=== PATIENT | female | born 1935 | race Caucasian/White ===

== ENCOUNTER → 2016-06-08 | Outpatient (CLI) | payer MEDICARE, BC ==
[2016-06-08 10:18] LABS: Calcium 9.1 mg/dL (8.4-10.2); Potassium 4.5 mmol/L (3.5-5.1); Total Bilirubin 0.4 mg/dL (0.2-1.3); Total Protein 6.7 g/dL (6.3-8.2)
[2016-06-09 08:27] LABS: Hemoglobin A1C 8.7 % (4.2-6.1)
== END | disposition home or self-care (01) ==
LOC: LABWHC1 09:31
PROVIDERS: ATTEND Internal Medicine
DX: E11.22 Type 2 diabetes mellitus with diabetic chronic kidney disease (principal); N18.3 Chronic kidney disease, stage 3 (moderate); E78.5 Hyperlipidemia, unspecified; E55.9 Vitamin D deficiency, unspecified
CPT/HCPCS: 36415; 80053; 80061; 82306; 82550; 83036; 84443; 85652

== ENCOUNTER 2016-07-28 10:04 | Emergency (ER) | payer MEDICARE, BC ==
[2016-07-28] MEDS ORDERED: cloNIDine HCL 0.1 MG TAB PO STA (10:27)
--- NOTE | 2016-07-28 10:39 | ED ---
General Adult HPI - General Chief complaint: Recheck/Abnormal Lab/Rx Stated complaint: Hypertension Time Seen by Provider: 07/28/16 10:06 Source: patient Mode of arrival: EMS Limitations: no limitations - History of Present Illness Initial comments: This is an 80-year-old female with a history of hypertension, renal artery stenosis, renal cell carcinoma who presents emergency department for elevated blood pressure the last couple of days and generalized malaise. She states that she also felt extremely nauseated this morning and vomited. She states that she's been taking all her medications as prescribed. She had some type of experience mental surgery for the renal cell carcinoma and renal artery stenosis at [facility] about one year ago. She states that since this time she's been doing well. Over the last few days she's noticed that her blood pressure is been elevated mostly in the morning. Today she started feeling very nauseated and did not feel bad so she decided to come to the emergency department. She denies any chest pain or shortness of breath currently. She does state that occasionally she gets a sharp pain in her suprapubic region area she denies any fevers or chills. She does state that her son is going to undergo brain surgery for the third time this week and she's been very stressed out about that. She denies any other complaints. - Related Data Home Medications Medication Instructions Recorded Confirmed Atorvastatin [Lipitor] 40 mg PO DAILY 12/31/14 07/28/16 Insulin Aspart [NovoLOG Flexpen] 10 units SQ AC-TID 12/31/14 07/28/16 Isosorbide Mononitrate ER [Imdur] 30 mg PO DAILY 12/31/14 07/28/16 Levothyroxine Sodium [Synthroid] 50 mcg PO DAILY 12/31/14 07/28/16 Pantoprazole Sodium 40 mg PO DAILY 12/31/14 07/28/16 Aspirin 81 mg PO DAILY 03/24/15 07/28/16 Calcium Carbonate/Vitamin D3 1 tab PO DAILY 03/24/15 07/28/16 [Calcium 600-Vit D3 400 Tablet] Multivit-Min/FA/Lycopene/Lut 1 tab PO DAILY 03/24/15 07/28/16 [Centrum Silver Tablet] Nitroglycerin Sl Tabs [Nitrostat] 0.4 mg SUBLINGUAL Q5M PRN 03/24/15 07/28/16 Anti Diarrheal 1 tab PO DAILY PRN 01/25/16 07/28/16 Chlorothiazide [Diuril] 500 mg PO DAILY 01/25/16 07/28/16 Furosemide [Lasix] 20 mg PO DAILY 01/25/16 07/28/16 Gabapentin [Neurontin] 400 mg PO QID 01/25/16 07/28/16 cloNIDine HCL [Catapres] 0.2 mg PO HS 01/25/16 07/28/16 Carvedilol [Coreg] 12.5 mg PO BID 07/28/16 07/28/16 Insulin Aspart [NovoLOG Flexpen] See Protocol SQ AC-TID 07/28/16 07/28/16 Insulin Glargine,Hum.rec.anlog 55 units SQ HS 07/28/16 07/28/16 [[place] Solostjon] Previous Rx's Medication Instructions Recorded Losartan [Cozaar] 100 mg PO DAILY #30 tab 03/28/15 Allergies Allergy/AdvReac Type Severity Reaction Status Date / Time JOCELYNN Inhibitors Allergy Unknown Verified 07/28/16 12:47 aspartame AdvReac Nausea & Verified 07/28/16 12:47 Vomiting Review of Systems ROS Statement: Those systems with pertinent positive or pertinent negative responses have been documented in the HPI. ROS Other: All systems not noted in ROS Statement are negative. Past Medical History Past Medical History: Asthma, Blood Disorder, Coronary Artery Disease (CAD), Cancer, Chest Pain / Angina, Diabetes Mellitus, GERD/Reflux, Hyperlipidemia, Hypertension, Osteoarthritis (OA), Pneumonia, Renal Disease, Thyroid Disorder, Vascular Disorder Additional Past Medical History / Comment(s): 03/24/15 Pt presented to [facility] ER with difficulty controlling B/P for quite some time and getting worse. She has a renal mass and is scheduled to see Dr. Kevin Cm, March. She is having severe headaches. Pt is being admitted with clinical impression of HTN associated with DM, HTN urgency, 2ndary HTN, renal mass. Pt last admitted with essential HTN uncontrolled with acute metabolic encephalapathy. Other HX: brain aneurysms x 3 with 2 clippings and 1 calcified, IDDM typre II, lower leg edema, pneumonias, hypothyroidism, hypomagnesemia, colorectal polyps- benign, peripheral vascular occlusive disorder, anemia, DJD History of Any Multi-Drug Resistant Organisms: None Reported Past Surgical History: Appendectomy, Joint Replacement, Orthopedic Surgery, Tonsillectomy Additional Past Surgical History / Comment(s): R renal artery replacement with groin vein graft, brain aneurysms with clips x 2, cataract removal both eyes, colonoscopies x 2 with first one having benign polypectoy and 2nd one normal. kidney ca surg Past Anesthesia/Blood Transfusion Reactions: No Reported Reaction Additional Past Anesthesia/Blood Transfusion Reaction / Comment(s): Pt has received blood without reaction. Past Psychological History: No Psychological Hx Reported Additional Psychological History / Comment(s): Pt lives in a condo, alone. She is normally independent. She uses no assistive device. She drives a car. Smoking Status: Former smoker Past Alcohol Use History: None Reported Additional Past Alcohol Use History / Comment(s): Pt quit smoking in 2004. Past Drug Use History: None Reported - Past Family History Father Family Medical History: Myocardial Infarction (ID) Mother Family Medical History: Cancer General Exam - General Exam Comments Initial Comments: Constitutional: Awake alert Appears comfortable Head: Normocephalic atraumatic Eyes: no conjunctival injection No scleral icterus EOMI Neck: No JVD Supple Heart: Regular rate rhythm normal S1-S2 no murmurs Lungs: Clear to auscultation bilaterally No wheezing No rales Abdomen: Soft nondistended nontender Extremities: Non edematous DP pulses intact Radial pulses intact Neuro: A&Ox3 No focal neurologic deficits Psych: Appropriate mood and affect Limitations: no limitations Course Vital Signs 07/28/16 10:14 Temperature 97.8 F Pulse Rate 76 Respiratory 18 Rate Blood Pressure 222/84 O2 Sat by Pulse 100 Oximetry - Reevaluation(s) Reevaluation #1: 07/28/16 12:37 Patient's blood pressure improved after clonidine. She is very concerned about her kidneys because of her history and this right flank and groin pain. We'll get computed tomography scan for eval. EKG Findings - EKG Comments: EKG Findings:: EKG showing normal sinus rhythm with a rate of 61. No ST segment changes or T-wave inversions. QTC is 424. Other intervals are normal. One PVC. Medical Decision Making - Medical Decision Making This is an 80-year-old female with a history of renal artery stenosis who presents emergency department for high blood pressure. Blood work was reviewed and unremarkable. She was improved after 1 dose of clonidine. Computed tomography scan did not show any acute changes from previous imaging. She feels better and wants to go home. I told her to give her primary care doctor a call in the morning about getting her blood pressure medications changed. She can return if she has worsening or changing symptoms. All questions were answered. - Lab Data Result diagrams: 07/28/16 10:52 07/28/16 10:52 Lab Results 07/28/16 07/28/16 07/28/16 Range/Units 10:52 10:52 10:52 WBC 8.0 (3.8-10.6) k/uL RBC 4.45 (3.80-5.40) m/uL Hgb 12.8 (11.4-16.0) gm/dL Hct 37.5 (34.0-46.0) % MCV 84.3 (80.0-100.0) fL MCH 28.9 (25.0-35.0) pg MCHC 34.3 (31.0-37.0) g/dL RDW 14.0 (11.5-15.5) % Plt Count 331 (150-450) k/uL Neutrophils % 83 % Lymphocytes % 11 % Monocytes % 4 % Eosinophils % 0 % Basophils % 0 % Neutrophils # 6.7 (1.3-7.7) k/uL Lymphocytes # 0.9 L (1.0-4.8) k/uL Monocytes # 0.3 (0-1.0) k/uL Eosinophils # 0.0 (0-0.7) k/uL Basophils # 0.0 (0-0.2) k/uL Sodium 143 (137-145) mmol/L Potassium 4.0 (3.5-5.1) mmol/L Chloride 104 (98-107) mmol/L Carbon Dioxide 27 (22-30) mmol/L Anion Gap 12 mmol/L BUN 27 H (7-17) mg/dL Creatinine 1.21 H (0.52-1.04) mg/dL Est GFR (MDRD) Af Amer 52 (>60 ml/min/1.73 sqM) Est GFR (MDRD) Non-Af 43 (>60 ml/min/1.73 sqM) Glucose 185 H (74-99) mg/dL Calcium 10.2 (8.4-10.2) mg/dL Total Bilirubin 0.8 (0.2-1.3) mg/dL AST 23 (14-36) U/L ALT 35 (9-52) U/L Alkaline Phosphatase 83 (38-126) U/L Total Protein 6.7 (6.3-8.2) g/dL Albumin 4.0 (3.5-5.0) g/dL Amylase 116 H (30-110) U/L Lipase 173 (23-300) U/L Urine Color Urine Appearance (Clear) Urine pH (5.0-8.0) Ur Specific [place] (1.001-1.035) Urine Protein (Negative) Urine Glucose (UA) (Negative) Urine Ketones (Negative) Urine Blood (Negative) Urine Nitrite (Negative) Urine Bilirubin (Negative) Urine Urobilinogen (<2.0) mg/dL Ur Leukocyte Esterase (Negative) Urine WBC (0-5) /hpf Urine Bacteria (None) /hpf Urine Mucus (None) /hpf 07/28/16 Range/Units 11:08 WBC (3.8-10.6) k/uL RBC (3.80-5.40) m/uL Hgb (11.4-16.0) gm/dL Hct (34.0-46.0) % MCV (80.0-100.0) fL MCH (25.0-35.0) pg MCHC (31.0-37.0) g/dL RDW (11.5-15.5) % Plt Count (150-450) k/uL Neutrophils % % Lymphocytes % % Monocytes % % Eosinophils % % Basophils % % Neutrophils # (1.3-7.7) k/uL Lymphocytes # (1.0-4.8) k/uL Monocytes # (0-1.0) k/uL Eosinophils # (0-0.7) k/uL Basophils # (0-0.2) k/uL Sodium (137-145) mmol/L Potassium (3.5-5.1) mmol/L Chloride (98-107) mmol/L Carbon Dioxide (22-30) mmol/L Anion Gap mmol/L BUN (7-17) mg/dL Creatinine (0.52-1.04) mg/dL Est GFR (MDRD) Af Amer (>60 ml/min/1.73 sqM) Est GFR (MDRD) Non-Af (>60 ml/min/1.73 sqM) Glucose (74-99) mg/dL Calcium (8.4-10.2) mg/dL Total Bilirubin (0.2-1.3) mg/dL AST (14-36) U/L ALT (9-52) U/L Alkaline Phosphatase (38-126) U/L Total Protein (6.3-8.2) g/dL Albumin (3.5-5.0) g/dL Amylase (30-110) U/L Lipase (23-300) U/L Urine Color Light Yellow Urine Appearance Clear (Clear) Urine pH 6.5 (5.0-8.0) Ur Specific [place] 1.008 (1.001-1.035) Urine Protein 1+ H (Negative) Urine Glucose (UA) Negative (Negative) Urine Ketones Negative (Negative) Urine Blood Negative (Negative) Urine Nitrite Negative (Negative) Urine Bilirubin Negative (Negative) Urine Urobilinogen <2.0 (<2.0) mg/dL Ur Leukocyte Esterase Trace H (Negative) Urine WBC 1 (0-5) /hpf Urine Bacteria Rare H (None) /hpf Urine Mucus Rare H (None) /hpf Disposition Clinical Impression: Hypertension Disposition: HOME SELF-CARE Condition: Stable Instructions: Hypertension (ED) Additional Instructions: David primary doctor in the morning to inquire about changing blood pressure medications. Return if any worsening or changing symptoms. Referrals: Jae Dubno MD [Primary Care Provider] - 1-2 days
[2016-07-28 11:03] LABS: Basophils % (A) 0 %; CH 28.7; CHCM 34.2; Eosinophils % (A) 0 %; HCT 37.5 % (34.0-46.0); HDW 3.12; HGB 12.8 gm/dL (11.4-16.0); Luc # (Auto) 0.09; Luc % (Auto) 1; Lymphocytes # (A) 0.9 k/uL (1.0-4.8); Lymphocytes % (A) 11 %; MCH 28.9 pg (25.0-35.0); MCHC 34.3 g/dL (31.0-37.0); MCV 84.3 fL (80.0-100.0); Monocytes # (A) 0.3 k/uL (0-1.0); Monocytes % (A) 4 %; Neutrophils # (A) 6.7 k/uL (1.3-7.7); Neutrophils % (A) 83 %; RBC 4.45 m/uL (3.80-5.40)
[2016-07-28 11:25] LABS: Appearance,Urine Clear (Clear); Bacteria,Urine Rare /hpf; Bilirubin,Urine Negative (Negative); Glucose,Urine (UA) Negative (Negative); Ketones,Urine Negative (Negative); Leukocyte Esterase,Urine Trace (Negative); Mucus,Urine Rare /hpf; Nitrite,Urine Negative (Negative); PH, Urine 6.5 (5.0-8.0); Particle Count 983; Protein,Urine 1+ (Negative); Specific Gravity,Urine 1.008 (1.001-1.035); UA Billing (MACRO vs. MICRO) MICRO; Urobilinogen,Urine <2.0 mg/dL (<2.0); WBC,Urine 1 /hpf (0-5)
[2016-07-28 11:38] LABS: Calcium 10.2 mg/dL (8.4-10.2); Total Bilirubin 0.8 mg/dL (0.2-1.3); Total Protein 6.7 g/dL (6.3-8.2)
--- NOTE | 2016-07-28 11:54 | XR ---
EXAMINATION TYPE: XR chest 2V DATE OF EXAM: 07/28/2016 11:36 AM COMPARISON: 03/25/2015 HISTORY: 80 year-old female elevated blood pressure, pain TECHNIQUE: AP and lateral views FINDINGS: Heart is upper limits of normal in size. Mild diffuse interstitial and vascular prominence may be sli ghtly increased from prior. No consolidation or pleural effusion. IMPRESSION: Borderline heart size and mild interstitial and vascular prominence. Correlate to exclude mild CHF. T here is no focal infiltrate or pulmonary edema.
--- NOTE | 2016-07-28 14:04 | CT ---
EXAMINATION TYPE: CT abdomen pelvis wo con DATE OF EXAM: 07/28/2016 1:21 PM COMPARISON: 03/05/2015 MRI. INDICATION: Right sided abdominal pain, Nausea, Renal cancer and left sided exploratory surgery DLP: 762.30 mGycm, Automated exposure control for dose reduction was used. CONTRAST: 0 mL of Omnipaque 300. Study performed without Oral Contrast TECHNIQUE: Axial images were obtained from above the diaphragm to the pubic rami in the axial plane a t 5 mm thick sections. Reconstructed images are reviewed on the computer in the coronal plane. FINDINGS: Limited CT sections are obtained the lung bases. Bibasilar atelectasis is present.. CT ABDOMEN: Liver: Normal Spleen: Normal Pancreas: The common bile duct the head of the pancreas is prominent measuring 1.0 cm. There may be a 0.5 cm calcification near the ampulla Vater. No biliary dilatation is evident. Adrenal glands: The adrenal glands are normal. Gallbladder: Normal. No gallstones are identified. Kidneys: There is a 2.5 cm mass extending from the inferior posterior lateral right kidney with adjac ent inflammatory change. This could be related to the patient's reported renal cancer. This was appar ent on the 02/28/2015 MRI exam. No hydronephrosis is present. No cysts are present. Aorta: Vascular calcification is within the aorta. Inferior vena cava: Normal. CT PELVIS: Diverticular changes are within the sigmoid colon. Loops of bowel within the abdomen and pelvis witho ut oral contrast are otherwise unremarkable. Appendix: Normal as visualized. Urinary bladder: Normal. Genitourinary structures: Uterus is unremarkable. Adnexal regions are normal. Osseous structures: No suspicious lytic or sclerotic lesions. IMPRESSIONS: 1. Inferior lateral right renal mass. This appears stable from the MRI exam.
[2016-07-28 14:47] VITALS: BP 155/67; PULSE 66; RESP 16; TEMP 96.7
== END 2016-07-28 14:46 | disposition home or self-care (01) ==
LOC: EC 10:04
DX: I11.9 Hypertensive heart disease without heart failure (principal); I25.10 Atherosclerotic heart disease of native coronary artery without angina pectoris; E11.9 Type 2 diabetes mellitus without complications; E78.5 Hyperlipidemia, unspecified; E03.9 Hypothyroidism, unspecified; M19.90 Unspecified osteoarthritis, unspecified site; Z87.891 Personal history of nicotine dependence; Z79.82 Long term (current) use of aspirin; Z79.899 Other long term (current) drug therapy; Z79.4 Long term (current) use of insulin; Z88.8 Allergy status to other drugs, medicaments and biological substances; Z79.02 Long term (current) use of antithrombotics/antiplatelets; Z87.01 Personal history of pneumonia (recurrent); Z86.79 Personal history of other diseases of the circulatory system; Z87.448 Personal history of other diseases of urinary system
CPT/HCPCS: 36415; 71020; 74176; 80053; 81001; 82150; 83690; 85025; 93005; 99284

== ENCOUNTER 2016-07-29 09:24 | Inpatient (IN) | payer MEDICARE, BC ==
[2016-07-29] MEDS ORDERED: ONDANSETRON 4 MG/2 ML VIAL IVP STA (11:09)
[2016-07-29] MEDS ORDERED: hydrALAZINE HCL 20 MG/ML 1 ML VIAL IVP STA ×2 (11:09→12:17)
--- NOTE | 2016-07-29 11:11 | ED ---
General Adult HPI - General Chief complaint: Recheck/Abnormal Lab/Rx Stated complaint: HBP Time Seen by Provider: 07/29/16 10:00 Source: patient, RN notes reviewed Mode of arrival: EMS Limitations: no limitations - History of Present Illness Initial comments: This is an 80-year-old female who presents emergency Department complaining that her blood pressure is high today. Patient states she was here yesterday because it was high and it was high again this morning with a systolic blood pressure over 200. Patient states she was having some dry heaves but did not vomit. Patient denies any chest pain difficulty breathing or shortness of breath. Patient denies being dizzy patient denies headache patient denies lightheadedness. Patient denies any numbness or weakness. Patient denies any blurred vision. Patient denied any abdominal pain. Patient states besides having the dry heaves at one time she just took her blood pressure was over 200s. She called her physician's office and he was unable to see her so she came back to the emergency department. - Related Data Home Medications Medication Instructions Recorded Confirmed Atorvastatin [Lipitor] 40 mg PO DAILY 12/31/14 07/29/16 Insulin Aspart [NovoLOG Flexpen] 10 units SQ AC-TID 12/31/14 07/29/16 Isosorbide Mononitrate ER [Imdur] 30 mg PO DAILY 12/31/14 07/29/16 Levothyroxine Sodium [Synthroid] 50 mcg PO DAILY 12/31/14 07/29/16 Pantoprazole Sodium 40 mg PO DAILY 12/31/14 07/29/16 Aspirin 81 mg PO DAILY 03/24/15 07/29/16 Calcium Carbonate/Vitamin D3 1 tab PO DAILY 03/24/15 07/29/16 [Calcium 600-Vit D3 400 Tablet] Multivit-Min/FA/Lycopene/Lut 1 tab PO DAILY 03/24/15 07/29/16 [Centrum Silver Tablet] Nitroglycerin Sl Tabs [Nitrostat] 0.4 mg SUBLINGUAL Q5M PRN 03/24/15 07/29/16 Anti Diarrheal 1 tab PO DAILY PRN 01/25/16 07/29/16 Chlorothiazide [Diuril] 500 mg PO DAILY 01/25/16 07/29/16 Furosemide [Lasix] 20 mg PO DAILY 01/25/16 07/29/16 Gabapentin [Neurontin] 400 mg PO QID 01/25/16 07/29/16 cloNIDine HCL [Catapres] 0.2 mg PO HS 01/25/16 07/29/16 Carvedilol [Coreg] 12.5 mg PO BID 07/28/16 07/29/16 Insulin Aspart [NovoLOG Flexpen] See Protocol SQ AC-TID 07/28/16 07/29/16 Insulin Glargine,Hum.rec.anlog 55 units SQ HS 07/28/16 07/29/16 [[place] Solostar] Previous Rx's Medication Instructions Recorded Losartan [Cozaar] 100 mg PO DAILY #30 tab 03/28/15 Allergies Allergy/AdvReac Type Severity Reaction Status Date / Time JOCELYNN Inhibitors Allergy Unknown Verified 07/29/16 09:43 aspartame AdvReac Nausea & Verified 07/29/16 09:43 Vomiting Review of Systems ROS Statement: Those systems with pertinent positive or pertinent negative responses have been documented in the HPI. ROS Other: All systems not noted in ROS Statement are negative. Past Medical History Past Medical History: Asthma, Blood Disorder, Coronary Artery Disease (CAD), Cancer, Chest Pain / Angina, Diabetes Mellitus, GERD/Reflux, Hyperlipidemia, Hypertension, Osteoarthritis (OA), Pneumonia, Renal Disease, Thyroid Disorder, Vascular Disorder Additional Past Medical History / Comment(s): 03/24/15 Pt presented to [facility] ER with difficulty controlling B/P for quite some time and getting worse. She has a renal mass and is scheduled to see Dr. Kevin Cm, March. She is having severe headaches. Pt is being admitted with clinical impression of HTN associated with DM, HTN urgency, 2ndary HTN, renal mass. Pt last admitted with essential HTN uncontrolled with acute metabolic encephalapathy. Other HX: brain aneurysms x 3 with 2 clippings and 1 calcified, IDDM typre II, lower leg edema, pneumonias, hypothyroidism, hypomagnesemia, colorectal polyps- benign, peripheral vascular occlusive disorder, anemia, DJD History of Any Multi-Drug Resistant Organisms: None Reported Past Surgical History: Appendectomy, Joint Replacement, Orthopedic Surgery, Tonsillectomy Additional Past Surgical History / Comment(s): R renal artery replacement with groin vein graft, brain aneurysms with clips x 2, cataract removal both eyes, colonoscopies x 2 with first one having benign polypectoy and 2nd one normal. kidney ca surg Past Anesthesia/Blood Transfusion Reactions: No Reported Reaction Additional Past Anesthesia/Blood Transfusion Reaction / Comment(s): Pt has received blood without reaction. Past Psychological History: No Psychological Hx Reported Additional Psychological History / Comment(s): Pt lives in a condo, alone. She is normally independent. She uses no assistive device. She drives a car. Smoking Status: Former smoker Past Alcohol Use History: None Reported Additional Past Alcohol Use History / Comment(s): Pt quit smoking in 2004. Past Drug Use History: None Reported - Past Family History Father Family Medical History: Myocardial Infarction (ME) Mother Family Medical History: Cancer General Exam - General Exam Comments Initial Comments: GENERAL: Patient is well-developed and well-nourished. Patient is nontoxic and well- hydrated and is in no acute distress. ENT: Neck is soft and supple. No significant lymphadenopathy is noted. Oropharynx is clear. Moist mucous membranes. Neck has full range of motion without eliciting any pain. EYES: The sclera were anicteric and conjunctiva were pink and moist. Extraocular movements were intact and pupils were equal round and reactive to light. Eyelids were unremarkable. PULMONARY: Unlabored respirations. Good breath sounds bilaterally. No audible rales rhonchi or wheezing was noted. CARDIOVASCULAR: There is a regular rate and rhythm without any murmurs gallops or rubs. ABDOMEN: Soft and nontender with normal bowel sounds. No palpable organomegaly was noted. There is no palpable pulsatile mass. SKIN: Skin is clear with no lesions or rashes and otherwise unremarkable. NEUROLOGIC: Patient is alert and oriented x3. Cranial nerves II through XII are grossly intact. Motor and sensory are also intact. Normal speech, volume and content. Symmetrical smile. MUSCULOSKELETAL: Normal extremities with adequate strength and full range of motion. No lower extremity swelling or edema. No calf tenderness. LYMPHATICS: No significant lymphadenopathy is noted PSYCHIATRIC: Normal psychiatric evaluation. Normal interpersonal interactions appears functionally intact in deals appropriately with others. Limitations: no limitations Course Vital Signs 07/29/16 07/29/16 07/29/16 09:26 10:30 11:43 Temperature 98.8 F Pulse Rate 55 L 57 L 58 L Respiratory 18 16 16 Rate Blood Pressure 193/77 173/71 173/72 O2 Sat by Pulse 98 96 99 Oximetry 07/29/16 07/29/16 07/29/16 12:41 13:25 14:02 Temperature 97.6 F Pulse Rate 62 66 58 L Respiratory 16 16 16 Rate Blood Pressure 176/74 149/65 158/92 O2 Sat by Pulse 98 97 97 Oximetry Medical Decision Making - Medical Decision Making EKG shows a sinus bradycardia 53 bpm MS interval is 172 QRS is 92 QT interval is 444 QTC is 416. I compared this EKG to an old EKG there are no acute abnormalities noted I went back in the room to reexamine the patient she was having no symptoms and felt considerably better. Patient received 2 doses of hydralazine 10 mg each. Patient will follow-up with her primary medical care doctor at 2:00. Back into the room and the patient was not feeling better infection now stated she was feeling dizzy and having episodes of chills. Patient did not feel comfortable going home. I spoke with Dr. Zuñiga he agreed to admit the patient admitted the patient 23 hours. - Lab Data Result diagrams: 07/29/16 11:15 07/29/16 11:15 Lab Results 07/29/16 07/29/16 07/29/16 Range/Units 11:15 11:15 11:15 WBC 7.0 (3.8-10.6) k/uL RBC 4.41 (3.80-5.40) m/uL Hgb 12.5 (11.4-16.0) gm/dL Hct 37.2 (34.0-46.0) % MCV 84.4 (80.0-100.0) fL MCH 28.3 (25.0-35.0) pg MCHC 33.5 (31.0-37.0) g/dL RDW 14.5 (11.5-15.5) % Plt Count 304 (150-450) k/uL Neutrophils % 75 % Lymphocytes % 15 % Monocytes % 6 % Eosinophils % 1 % Basophils % 1 % Neutrophils # 5.3 (1.3-7.7) k/uL Lymphocytes # 1.1 (1.0-4.8) k/uL Monocytes # 0.4 (0-1.0) k/uL Eosinophils # 0.0 (0-0.7) k/uL Basophils # 0.0 (0-0.2) k/uL Sodium 141 (137-145) mmol/L Potassium 4.5 (3.5-5.1) mmol/L Chloride 105 (98-107) mmol/L Carbon Dioxide 25 (22-30) mmol/L Anion Gap 11 mmol/L BUN 27 H (7-17) mg/dL Creatinine 1.16 H (0.52-1.04) mg/dL Est GFR (MDRD) Af Amer 54 (>60 ml/min/1.73 sqM) Est GFR (MDRD) Non-Af 45 (>60 ml/min/1.73 sqM) Glucose 199 H (74-99) mg/dL Calcium 9.9 (8.4-10.2) mg/dL Total Bilirubin 0.7 (0.2-1.3) mg/dL AST 26 (14-36) U/L ALT 40 (9-52) U/L Alkaline Phosphatase 78 (38-126) U/L Troponin I <0.012 (0.000-0.034) ng/mL Total Protein 6.5 (6.3-8.2) g/dL Albumin 3.9 (3.5-5.0) g/dL TSH (0.465-4.680) mIU/L Free T4 (0.78-2.19) ng/dL Urine Color Urine Appearance (Clear) Urine pH (5.0-8.0) Ur Specific [place] (1.001-1.035) Urine Protein (Negative) Urine Glucose (UA) (Negative) Urine Ketones (Negative) Urine Blood (Negative) Urine Nitrite (Negative) Urine Bilirubin (Negative) Urine Urobilinogen (<2.0) mg/dL Ur Leukocyte Esterase (Negative) Urine RBC (0-5) /hpf Urine WBC (0-5) /hpf Ur Squamous Epith Cells (0-4) /hpf Urine Bacteria (None) /hpf 07/29/16 07/29/16 Range/Units 11:15 13:39 WBC (3.8-10.6) k/uL RBC (3.80-5.40) m/uL Hgb (11.4-16.0) gm/dL Hct (34.0-46.0) % MCV (80.0-100.0) fL MCH (25.0-35.0) pg MCHC (31.0-37.0) g/dL RDW (11.5-15.5) % Plt Count (150-450) k/uL Neutrophils % % Lymphocytes % % Monocytes % % Eosinophils % % Basophils % % Neutrophils # (1.3-7.7) k/uL Lymphocytes # (1.0-4.8) k/uL Monocytes # (0-1.0) k/uL Eosinophils # (0-0.7) k/uL Basophils # (0-0.2) k/uL Sodium (137-145) mmol/L Potassium (3.5-5.1) mmol/L Chloride (98-107) mmol/L Carbon Dioxide (22-30) mmol/L Anion Gap mmol/L BUN (7-17) mg/dL Creatinine (0.52-1.04) mg/dL Est GFR (MDRD) Af Amer (>60 ml/min/1.73 sqM) Est GFR (MDRD) Non-Af (>60 ml/min/1.73 sqM) Glucose (74-99) mg/dL Calcium (8.4-10.2) mg/dL Total Bilirubin (0.2-1.3) mg/dL AST (14-36) U/L ALT (9-52) U/L Alkaline Phosphatase (38-126) U/L Troponin I (0.000-0.034) ng/mL Total Protein (6.3-8.2) g/dL Albumin (3.5-5.0) g/dL TSH 1.320 (0.465-4.680) mIU/L Free T4 1.36 (0.78-2.19) ng/dL Urine Color Yellow Urine Appearance Clear (Clear) Urine pH 7.5 (5.0-8.0) Ur Specific [place] 1.010 (1.001-1.035) Urine Protein Trace H (Negative) Urine Glucose (UA) Negative (Negative) Urine Ketones Negative (Negative) Urine Blood Negative (Negative) Urine Nitrite Negative (Negative) Urine Bilirubin Negative (Negative) Urine Urobilinogen <2.0 (<2.0) mg/dL Ur Leukocyte Esterase Small H (Negative) Urine RBC 1 (0-5) /hpf Urine WBC 4 (0-5) /hpf Ur Squamous Epith Cells <1 (0-4) /hpf Urine Bacteria Rare H (None) /hpf Disposition Clinical Impression: Dizziness, Generalized weakness, Hypertension Disposition: ADMITTED IP TO THIS HOSP Referrals: Jae Dubon MD [Primary Care Provider] - 1-2 days Time of Disposition: 15:32
[2016-07-29 11:31] LABS: Basophils % (A) 1 %; CH 28.9; CHCM 34.4; Eosinophils % (A) 1 %; HCT 37.2 % (34.0-46.0); HDW 3.04; HGB 12.5 gm/dL (11.4-16.0); Luc # (Auto) 0.14; Luc % (Auto) 2; Lymphocytes # (A) 1.1 k/uL (1.0-4.8); Lymphocytes % (A) 15 %; MCH 28.3 pg (25.0-35.0); MCHC 33.5 g/dL (31.0-37.0); MCV 84.4 fL (80.0-100.0); Mean Platelet Volume 6.5; Monocytes # (A) 0.4 k/uL (0-1.0); Monocytes % (A) 6 %; Neutrophils # (A) 5.3 k/uL (1.3-7.7); Neutrophils % (A) 75 %; RBC 4.41 m/uL (3.80-5.40); RDW 14.5 % (11.5-15.5); WBC (Perox) 7.06
[2016-07-29 11:56] LABS: Calcium 9.9 mg/dL (8.4-10.2); Potassium 4.5 mmol/L (3.5-5.1); Total Bilirubin 0.7 mg/dL (0.2-1.3); Total Protein 6.5 g/dL (6.3-8.2)
[2016-07-29 15:08] LABS: Appearance,Urine Clear (Clear); Bacteria,Urine Rare /hpf; Bilirubin,Urine Negative (Negative); Glucose,Urine (UA) Negative (Negative); Ketones,Urine Negative (Negative); Leukocyte Esterase,Urine Small (Negative); Nitrite,Urine Negative (Negative); PH, Urine 7.5 (5.0-8.0); Particle Count 1042; Protein,Urine Trace (Negative); RBC,Urine 1 /hpf (0-5); Squamous Epithelial Cell,Urine <1 /hpf (0-4); UA Billing (MACRO vs. MICRO) MICRO; Urobilinogen,Urine <2.0 mg/dL (<2.0); WBC,Urine 4 /hpf (0-5)
[2016-07-29] MEDS ORDERED: SODIUM CHLORIDE 0.9% 1,000 ML IV ONE (15:32)
--- NOTE | 2016-07-29 18:03 | US ---
EXAMINATION TYPE: US venous doppler duplex LE RT DATE OF EXAM: 07/29/2016 5:12 PM COMPARISON: NONE CLINICAL HISTORY: right groin and thigh pain. SIDE PERFORMED: Right TECHNIQUE: The lower extremity deep venous system is examined utilizing real time linear array sonog los with graded compression, doppler sonography and color-flow sonography. VESSELS IMAGED: External Iliac Vein (EIV) Common Femoral Vein Deep Femoral Vein Greater Saphenous Vein * Femoral Vein Popliteal Vein Small Saphenous Vein * Proximal Calf Veins (* superficial vessels) Right Leg: No evidence of acute DVT Right lower extremity show satisfactory color flow, phasicity, and compressibility in the above level s. IMPRESSION: No ultrasound evidence for acute DVT in the right lower extremity.
[2016-07-29 20:56] LABS: Glucose,Whole Blood 132 mg/dL (75-99)
[2016-07-29] MEDS ORDERED: ZOLPIDEM 5 MG TAB PO PRN (21:00)
[2016-07-29] MEDS ORDERED: ALPRAZolam 0.25 MG TAB PO PRN (21:17)
[2016-07-29] MEDS ORDERED: ONDANSETRON 4 MG/2 ML VIAL IVP PRN (21:17)
[2016-07-29] MEDS: CARVEDILOL 12.5 MG TAB PO SCH (21:59)
[2016-07-29] MEDS: INSULIN GLARGINE 100 UNIT/ML 10 ML VIAL SQ SCH (21:59)
[2016-07-29] MEDS: cloNIDine HCL 0.1 MG TAB PO SCH (21:59)
[2016-07-29] MEDS: amLODIPine 5 MG TAB PO SCH (22:56)
[2016-07-30 00:48] LABS: Hemoglobin A1C 8.9 % (4.2-6.1)
[2016-07-30 01:57] LABS: Glucose,Whole Blood 140 mg/dL (75-99)
--- NOTE | 2016-07-30 06:12 | HP ---
DATE OF ADMISSION: DATE OF SERVICE: 07/29/2016 CHIEF COMPLAINT: The patient presented to the emergency room yesterday with the high blood pressure more than 200 and did evaluate her and also they treated her and subsequently discharged home. Today the patient came back again with the high blood pressure of more than 200 and she could not sleep at home and she has some dry heaves and was uncomfortable; however, no chest pain and no shortness of breath. She denied lightheadedness and patient denies any numbness or weakness or blurred vision, but she is not feeling right with the high blood pressure. PAST MEDICAL HISTORY: She has underlying history of renovascular hypertensive disease with the underlying history of mass in the right kidney, status post chronic kidney disease stage III, underlying history of diabetes with hyperglycemia and skin complications. She had bilateral knee arthroplasty with the underlying advanced osteoarthritis. She had venous insufficiency bilaterally. She had malignant neoplasm of the right kidney treated at [facility]. SOCIAL HISTORY: She lives alone and she had one daughter and 4 sons. Actually her son came from [place] where he lives and brought his mom to the emergency room. She used to be a former smoker and she quit in 2004. She was smoking a pack per day. She does not drink, alcoholic beverages was negative. Allergy to JOCELYNN INHIBITOR and ASPARTAME. Her current list of medications at home was: 1. Clonidine 0.1 mg tablet twice a day. 2. Carvedilol 12.5 mg tablet twice a day. 3. Isosorbide mononitrate 30 mg once a day. 4. NovoLog FlexPen and she was taking 10 units before each meal. 5. She was also on Toujeo Solostar ( ) units per ml and she was taking 55 units at bedtime. 6. She was on furosemide 20 mg q. daily. 7. Pantoprazole 40 mg a.c. breakfast. 8. Synthroid 50 mcg daily in the morning. 9. She was also on chlorothiazide 500 mg once a day. 10. Gabapentin 400 mg 4 times a day. 11. Losartan 100 mg once a day. 12. Antidiarrhea over counter, that was only p.r.n. 13. She takes Centrum Silver. 14. Aspirin 81. 15. Nitroglycerin 0.4. 16. Accu-Cheks 4 times a day. On reviewing of the systems, the patient's: NEUROPSYCHIATRY: She has underlying history of intracranial aneurysm and was seen in [facility] by Dr. Vance and he was on ( ). She has being feeling uncomfortable, but unknown etiology and she has insomnia and could not pinpoint it of what is the uncomfortable feeling that she had. She denied any chest pain or palpitation. RESPIRATORY: No cough or expectoration. GI: She has no hematemesis or melena or hematochezia. : No dysuria or hematuria. MUSCULOSKELETAL: She has generalized weakness with unknown etiology. ENDOCRINE: She has hypothyroidism and diabetes mellitus. The patient had also in the hospital was seen today, evaluated and I did see the patient in the emergency room and patient at the time is conscious, alert. She had her son at bedside and she was uncomfortable to go home. She is feeling something will happen with the underlying probability of anxiety as well and she had blood pressure was more than 200 with hypertension urgency as well. On reviewing the HEENT, the head was normocephalic, atraumatic. Pupils were equal and reactive conjunctivae was pink. The nose negative. Oropharynx natural teeth. Hearing normal. No headache at the time of the examination. No neck stiffness or tenderness. Trachea midline. No lymphadenopathy. No thyroid enlargement. The chest was clear to auscultation and percussion and no wheezes, no rhonchi. The heart was PMI in the fifth intercostal space outside midclavicular line. Normal S1, S2. No gallop. Abdomen was obese, positive bowel sounds and she had previous surgery for ablation of the tumor in the right kidney with renal cell carcinoma and was done with cryo at [facility]. Extremities, she had tenderness on the right femoral vein and femoral artery and we ordered venous duplex study to evaluate any evidence of blood clot as well as D-dimer. She probably had in the right groin area, questionable hernia and we will be further evaluation as patient admitted to the hospital. LABORATORY: White count, WBC, 7 hemoglobin 12.5 with hematocrit 37.2 and platelet count 304. Her sodium 141, potassium 4.5, chloride 105, carbon dioxide 25, BUN 27 and creatinine 1.16 with glucose 199, uncontrolled. Her bilirubin total is 0.7 with AST 26, ALT 40 normal. They did a troponin in the ER was less than 0.012. Total protein 6.5, albumin 3.9. Her thyroid function was normal 1.36 free T4 and TSH 1.320, which both was normal. Her vital signs at the time chart, temperature 97.4 orally. Her pulse was 66 and these results on the floor . The blood pressure improving with treatment done in the ER at 165/71 with a mean pressure of 115. She had oxygen saturation 99 on 2 L nasal cannula. ASSESSMENT: 1. Previous recurrent visitation to the emergency room with the underlying hypertensive urgency. 2. Renovascular hypertension, currently uncontrolled. 3. Diabetes mellitus type 2 with hyperglycemia. 4. Underlying chronic kidney disease, stage III. 5. History of added essential hypertension. 6. She has mild obesity with the body mass index 30.0 kg. 7. General anxiety disorder. PLAN: Patient admitted to the hospital for further evaluation and treatment. We ordered the venous duplex study and will review once we have the report if there is any need for further treatment. We did start her on Lovenox once a day 30 mg for DVT prophylaxis as well as will obtain labs tomorrow and see if any improvement on her blood pressure as adding the blood pressure medication and adjusting the medication for her and watching and monitoring the diabetes and insulin to scale. We will be starting medication as well as for anxiety as patient probably had added anxiety situation with general anxiety disorder.
[2016-07-30 07:30] LABS: Glucose,Whole Blood 92 mg/dL (75-99)
[2016-07-30] MEDS: ATORVASTATIN 40 MG TAB PO SCH (08:30)
[2016-07-30] MEDS: CARVEDILOL 12.5 MG TAB PO SCH ×2 (08:30→17:09)
[2016-07-30] MEDS: amLODIPine 5 MG TAB PO SCH (08:30)
[2016-07-30] MEDS: INSULIN LISPRO (humaLOG) 300 UNIT/3 ML VIAL SQ SCH ×4 (08:30→22:21)
[2016-07-30] MEDS: ASPIRIN 81 MG CHEW PO SCH (08:30)
[2016-07-30] MEDS: CALCIUM CARB-VIT D 500MG-200UN 1 EACH TAB PO SCH (08:30)
[2016-07-30] MEDS: cloNIDine HCL 0.1 MG TAB PO SCH ×2 (08:30→22:19)
[2016-07-30] MEDS ORDERED: cloNIDine HCL 0.1 MG TAB PO SCH (09:00)
[2016-07-30 11:53] LABS: Glucose,Whole Blood 139 mg/dL (75-99)
[2016-07-30] MEDS ORDERED: MECLIZINE 25 MG TAB PO PRN (13:36)
[2016-07-30 17:35] LABS: Glucose,Whole Blood 95 mg/dL (75-99)
--- NOTE | 2016-07-30 20:53 | PN ---
DATE OF SERVICE: 07/30/2016 80-year-old white female. Data: She is 5 feet 5 inches. Weight 81.647 kg. BSA1.89 sq m. BMI 30.0 kg/sq m. Allergy to JOCELNYN INHIBITOR, but not allergic to JOCELYNN receptor inhibitor. She has allergy ASPARTAME. Patient is seen today and discussed with her the plan and assessment of her medication. Patient did not walk and will consult physical therapy and ambulation today. She is still dizzy with possible risk of fall and we did start her on medication to Antivert 25 mg t.i.d. with the added physical therapy as well as ambulation with assistance. The nurses with walk with the use of a walker. Patient stated that she felt wobbly on her feet and dizzy with moving her head, afraid to fall. On the current findings, her poc glucose has been significantly improved with blood sugar, blood glucose correction is 139 and 92 with the current program. She was not eating well for the last two days. Her vital signs today indicating temperature 97, orally, pulse 62, respiratory rate 18, blood pressure is improving to 147/69 with a mean blood pressure 95. She was pulse ox 99 on 3 liters. Her current medication she appeared to be anxious with generalized anxiety disorder and she stated that her son has a brain tumor. He is going for his third surgery at tomorrow for the tumor metastasis to the brain. She is worried about him at this time and she was planning to take him or drive him to for surgery. Patient advised she could not do that and she will call her granddaughter to take her father to . PHYSICAL EXAMINATION: Patient was conscious, alert, oriented x3. HEENT: Pupils equal, reactive, normal extraocular muscle movements. No evidence of any retinal hemorrhage or exudate. The neck was supple. No JVD. No thyromegaly. No lymphadenopathy. Trachea midline. The chest was clear to auscultation and percussion. HEART: PMI in the fifth intercostal space. Normal S1, S2. No gallop appreciated. No decompensation. ABDOMEN: Obese, soft, with positive bowel sounds. No upon tenderness in the 4 quadrants. She had 8 duplex study on the right lower extremities for questionable DVT and was negative and the d-dimer also was negative. The patient has a past history of renal cell carcinoma on the right kidney which has been treated with cryotherapy at . EXTREMITIES: No edema and positive pulses. She has some varicosities on the lower extremities. NEUROLOGICAL: Stable, moving 4 extremities and we will be planning for physical therapy and ambulation with her walker. ASSESSMENT: 1. Renal vascular hypertension. 2. Hypertensive urgency associated with lethargy and recurrent visits to the ER. 3. Underlying dizziness probably peripheral labyrinthitis. 4. Diabetes mellitus type 2, insulin-dependent is currently stable. 5. Underlying nausea has been subsided at the time of the admission. 6. Mild dehydration on admission and currently resolved with the IV fluid. 7. General anxiety disorder. 8. She has also hyperlipidemia. PLAN: Adjusting her medication and the patient is on blood pressure medication, carvedilol 12.5 mg twice a day. She is also Amlodipine which increased to 10 mg at bedtime. Also she is on clonidine and Catapres 0.1 mg twice a day and hydralazine 10 mg. Hydralazine has been used in the ER p.r.n. for spikes in blood pressures. She had also generalized anxiety disorder and she is on alprazolam Xanax q.i.d. p.r.n. and aspirin 81 mg. She has also hyperlipidemia and she is on atorvastatin 40 mg at bedtime. With labyrinthitis we are started her on Antivert meclizine 25 mg t.i.d. p.r.n. The patient is off IV fluids and she is currently will be seen for ambulation and stability on the floor before patient will be discharged home. Discussed with the patient in detail. MADHAV
[2016-07-30] MEDS ORDERED: amLODIPine 5 MG TAB PO ONE (21:00)
[2016-07-30 21:39] LABS: Glucose,Whole Blood 132 mg/dL (75-99)
[2016-07-30] MEDS: hydrALAZINE HCL 25 MG TAB PO SCH (22:20)
[2016-07-30] MEDS: INSULIN GLARGINE 100 UNIT/ML 10 ML VIAL SQ SCH (22:21)
[2016-07-31 03:45] LABS: Glucose,Whole Blood 155 mg/dL (75-99)
[2016-07-31 07:09] LABS: Glucose,Whole Blood 127 mg/dL (75-99)
[2016-07-31] MEDS: hydrALAZINE HCL 25 MG TAB PO SCH (09:18)
[2016-07-31] MEDS: CARVEDILOL 12.5 MG TAB PO SCH ×3 (09:18→18:09)
[2016-07-31] MEDS: CALCIUM CARB-VIT D 500MG-200UN 1 EACH TAB PO SCH (09:19)
[2016-07-31] MEDS: ATORVASTATIN 40 MG TAB PO SCH (09:19)
[2016-07-31] MEDS: cloNIDine HCL 0.1 MG TAB PO SCH ×2 (09:19→21:45)
[2016-07-31] MEDS: ASPIRIN 81 MG CHEW PO SCH (09:19)
[2016-07-31] MEDS: INSULIN LISPRO (humaLOG) 300 UNIT/3 ML VIAL SQ SCH ×4 (09:20→21:47)
[2016-07-31 09:56] LABS: Basophils % (A) 0 %; CH 28.4; CHCM 33.6; Eosinophils # (A) 0.1 k/uL (0-0.7); Eosinophils % (A) 1 %; HCT 35.5 % (34.0-46.0); Luc # (Auto) 0.14; Luc % (Auto) 3; Lymphocytes # (A) 1.1 k/uL (1.0-4.8); Lymphocytes % (A) 19 %; MCH 28.7 pg (25.0-35.0); MCHC 33.8 g/dL (31.0-37.0); MCV 85.1 fL (80.0-100.0); Mean Platelet Volume 6.8; Monocytes # (A) 0.4 k/uL (0-1.0); Monocytes % (A) 8 %; Neutrophils # (A) 3.9 k/uL (1.3-7.7); Neutrophils % (A) 69 %; RBC 4.17 m/uL (3.80-5.40); RDW 14.2 % (11.5-15.5); WBC 5.6 k/uL (3.8-10.6); WBC (Perox) 5.48
[2016-07-31 10:15] LABS: Calcium 9.5 mg/dL (8.4-10.2); Magnesium 1.6 mg/dL (1.6-2.3); Potassium 4.4 mmol/L (3.5-5.1)
[2016-07-31 11:49] LABS: Glucose,Whole Blood 93 mg/dL (75-99)
[2016-07-31] MEDS ORDERED: MINERAL OIL 133 ML ENEMA RECTAL STA (13:38)
--- NOTE | 2016-07-31 13:55 | P.PN ---
Subjective There is a dictation on the progress note date of service 07/31/2016. Patient seen today evaluated and was a plan to be discharged home today, patient embed was not ambulating yet she goes to the bathroom but no observation of her labyrinthitis that she is complaining of. I started her on Antivert yesterday however the effect only one tablet has been used. She stated that she feel unsafe uncomfortable still unable to walk with feeling dizzy. Also stated that she is not feeling good she does not have about bowel movement and we will be getting her Fleet Enema oil as well as MiraLAX I did discuss it with the nurse taking care of her. She also complained that she had a headache, blood pressure was taken at bedside was 174 systolic in the morning was in the 146 systolic. Patient has renovascular hypertension and currently on different family group, beta blockers, calcium channel blockers, vasodilator, central acting. Still the blood pressure is not controlled. On the physical examination otherwise she is conscious alert oriented 3 pupil was equal reactive, conjunctiva was pink sclera was nonicteric neck was supple no JVD no thyromegaly no lymphadenopathy trachea midline. Chest is clear to auscultation and percussion the heart was regular sinus rhythm and the abdomen is distended probably was no bowel movement and stool retention extremities no edema and positive pulses. Assessment still dizzy with labyrinthitis possible peripheral #2 renovascular hypertension and not completely resolved. Underlying history of renal cancer of the right kidney treated with [facility]. She has also history of surgery repair of the kidney blood flow on the right kidney as well [facility] as well. Diabetes mellitus currently controlled. Plan: #1 we'll start Fleet Enema, and MiraLAX ask for the physical therapy to be started which wasn't started yet, also adding and adjusting the medication for hypertension, consulting neurology for evaluation and treatment. Objective - Vital Signs Vital signs: Vital Signs Temp 98.1 F 07/31/16 07:00 Pulse 53 L 07/31/16 13:28 Resp 16 07/31/16 07:00 BP 174/72 07/31/16 13:28 Pulse Ox 96 07/31/16 07:00 Intake & Output 07/30/16 07/31/16 07/31/16 18:59 06:59 18:59 Intake Total 700 120 Balance 700 120 Intake: Oral 700 120 Other: # Voids 4 3 1 - Labs CBC & Chem 7: 07/31/16 09:12 07/31/16 09:09 Labs: Abnormal Lab Results - Last 24 Hours (Table) 07/30/16 07/31/16 07/31/16 Range/Units 21:08 03:43 06:40 BUN (7-17) mg/dL Creatinine (0.52-1.04) mg/dL Glucose (74-99) mg/dL POC Glucose (mg/dL) 132 H 155 H 127 H (75-99) mg/dL 07/31/16 Range/Units 09:09 BUN 20 H (7-17) mg/dL Creatinine 1.17 H (0.52-1.04) mg/dL Glucose 165 H (74-99) mg/dL POC Glucose (mg/dL) (75-99) mg/dL
[2016-07-31] MEDS: HYDROcodone/APAP 5-325MG 1 EACH TAB PO PRN (13:56)
[2016-07-31] MEDS: POLYETHYLENE GLYCOL 3350 17 GM POWD.PACK PO SCH (15:34)
[2016-07-31 17:04] LABS: Glucose,Whole Blood 154 mg/dL (75-99)
--- NOTE | 2016-07-31 17:37 | P.PN ---
Progress Note - Text Patient seen today, she had severe headache, the nurse was present, check her blood pressure was mobile hypertension with increased suddenly from previous blood pressure 140/66 to 174/72. Patient has ALLERGY to JOCELYNN inhibitor, she had severe renovascular hypertension with previous surgery on the right renal arteries, and now present on the left in the renal artery. She also had recent diagnosis of renal cell carcinoma of the right kidney and was treated in [place] with cryotherapy "" freezing. The hypertension was blood bile, nitroglycerin cold her severe headache. Patient has also cerebral aneurysm, and she had quick response and hypotension with the use of IV medication for hypertension. Currently patient on jocelynn receptor inhibitor, beta blockers, vasodilator, centrally acting antihypertensive. With the increase of the hydralazine his subsequent blood pressure today dropped down from 174 systolic over 72-139/46. Patient had persistent dizziness inspiratory started her on Antivert, we found that she may have peripheral benign vertigo, not improved, we asked for physical therapy yesterday however today still did not calm to see her. IV medication for temporary control blood pressure with the blood bile has been tried in her past history resulted on severe drop blood pressure below 100 resulted and admission to the ICU will try to avoid acute hypo-tension with the use the oral medication until stability. Will consult neurology Dr. Barth to see the patient who has been seeing her in the past and to see if any for further treatment he may recommended as well and if the blood pressure still a bile we may have to check with nephrology for advice. I did smoke with the physician on the RA did explain to her the current problem with the patient with her age and previous past history her for # [phone] she had agreed with the current need for the admission with the difficult patient and and labile hypertension, admitted with hypertensive urgency with the blood pressure above 200 level from the emergency room at [facility] on the second visit to the emergency room with inability to control her blood pressure from her visit first in the ER. Patient is continued monitored, adjusted her medication, we'll see what the neurology recommendation. Dictation by Dr. En Dos Santos FACP thank you
[2016-07-31] MEDS: hydrALAZINE HCL 50 MG TAB PO SCH ×2 (18:09→22:13)
--- NOTE | 2016-07-31 20:07 | CT ---
EXAMINATION TYPE: CT brain wo con DATE OF EXAM: 07/31/2016 7:59 PM COMPARISON: To 916 HISTORY: Dizziness and headache with hypertension. History of brain aneurysms and clips. CT DLP: 940.[address] of the brain was performed. The ventricles, basal cisterns and sulci overlying the cerebral convexities demonstrate mild enlargem ent. Postoperative encephalomalacia left temporal lobe. 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 There is no evidence for intracranial hemorrhage or sulcal effacement. There is decreased attenuation about the periventricular white matter and deep white matter of both c erebral hemispheres, compatible with chronic small vessel ischemia. Differential diagnosis does inclu de demyelination. No mass effects are seen.No midline shift. Left frontal craniotomy noted. If symptoms persist consider MRI. IMPRESSION: 1. Age related atrophic and chronic small vessel ischemic change without acute intracranial process s een at this time.
[2016-07-31] MEDS ORDERED: amLODIPine 10 MG TAB PO SCH (21:00)
[2016-07-31] MEDS: MECLIZINE 25 MG TAB PO SCH (21:45)
[2016-07-31] MEDS: INSULIN GLARGINE 100 UNIT/ML 10 ML VIAL SQ SCH (21:47)
[2016-07-31 21:49] LABS: Glucose,Whole Blood 153 mg/dL (75-99)
--- NOTE | 2016-07-31 22:36 | CONS ---
DATE OF CONSULTATION: 07/31/2016 CHIEF COMPLAINT: Dizziness. HISTORY OF PRESENT ILLNESS: The patient is a pleasant 80-year-old female who is being evaluated by the neurology service per the request of Dr. Dubon for dizziness. The patient was brought into [facility] on 07/29/16 with complaints of dizziness and gait instability. She was found to have significantly elevated blood pressures with a systolic blood pressure greater than 200. The patient was admitted and started on antihypertensive medications. Her blood pressure has stabilized, but she is still complaining of dizziness which she describes as a motion sensation that is exacerbated by her moving. When she is lying down, her symptoms are quite stable, according to her. Earlier today, she was given Antivert 25 mg orally, and she reports mild improvements in her symptoms. Her CBC was normal and her urinalysis showed no significant abnormalities. Her comprehensive metabolic profile showed mild renal insufficiency with a BUN of 20 and creatinine of 1.17. She also had mild hyperglycemia at 165. At the time of my evaluation, the patient is lying in her bed and appears to be in no acute distress. She continues to complain of dizziness which she describes as a motion and spinning sensation, mostly when she tries to get up. She denies any acute hearing loss. She denies any headache or lateralizing numbness or weakness. PAST MEDICAL HISTORY: 1. Hypertension. 2. Chronic renal disease. 3. Renal cancer. 4. Arthritis. 5. Diabetes. 6. Gastroesophageal reflux disease. 7. Hypothyroidism. 8. History of 2 brain aneurysms, status post clipping. SOCIAL HISTORY: The patient is a former smoker. She denies any alcohol or drug use. FAMILY HISTORY: Noncontributory. HOME MEDICATIONS: Reviewed in the chart. ALLERGIES: JOCELYNN INHIBITORS and ASPARTAME. REVIEW OF SYSTEMS: CONSTITUTIONAL: Negative. EYES: Negative. ENT: As mentioned above. CARDIOVASCULAR: Negative. RESPIRATORY: Negative. NEUROLOGICAL: As mentioned above. GASTROINTESTINAL: Positive for occasional heartburn and diarrhea. GENITOURINARY: As mentioned above. PSYCHIATRIC: Negative. ENDOCRINE: Positive for diabetes and hypothyroidism. MUSCULOSKELETAL: Positive for occasional joint pain. HEMATOLOGY/ONCOLOGY: As mentioned above. PHYSICAL EXAM: Vital signs show a temperature of 97.6, pulse 57, respiration 18, blood pressure 152/67. GENERAL APPEARANCE: The patient is a well-developed elderly female who appears to be in no acute distress. HEENT: Normocephalic, atraumatic. No facial asymmetry is seen. Extraocular muscles are intact, but she does have worsening dizziness with left lateral gaze. Neck is supple with no masses felt. CARDIOVASCULAR: Regular rate and rhythm. ABDOMEN: Nontender, nondistended. Extremities showed no edema or clubbing. NEUROLOGICAL EXAM: The patient is alert, aware and oriented x3. Speech and language are normal. Cranial nerve testing showed no significant abnormalities, but she did have worsening dizziness with left lateral gaze. No nystagmus was seen. Strength is full in all 4 extremities. Sensory exam was normal to light touch in all 4 extremities. No tremors or seizure-like activity is seen. IMPRESSION: 1. Dizziness/vertigo. 2. Gait instability. 3. Uncontrolled hypertension. 4. History of intracranial aneurysm, status post clipping. 5. Chronic renal insufficiency. 6. Diabetes. 7. History of renal cancer. RECOMMENDATION: The patient continues to have symptoms of vertigo, although the intensity has improved after she received Antivert. Currently she has Antivert ordered as needed and she has not requested further dosing from the nursing staff. I will switch her Antivert to 25 mg 3 times daily around the clock for the next 36 hours. An MRI of the brain cannot be done due to her history of aneurysm clipping. I will order a CT scan of the brain without contrast. An EEG and carotid Doppler will also be ordered. Continue your efforts to normalize her blood pressure. I will continue to follow with you. Further recommendations to follow. Thank you, Dr. Dubon, for allowing me to participate in the care of your patient. If you have any questions, please feel free to contact me.
[2016-08-01 07:22] LABS: Glucose,Whole Blood 79 mg/dL (75-99)
[2016-08-01] MEDS: ASPIRIN 81 MG CHEW PO SCH (08:29)
[2016-08-01] MEDS: MECLIZINE 25 MG TAB PO SCH ×2 (08:29→15:47)
[2016-08-01] MEDS: cloNIDine HCL 0.1 MG TAB PO SCH (08:29)
[2016-08-01] MEDS: hydrALAZINE HCL 50 MG TAB PO SCH ×2 (08:29→15:46)
[2016-08-01] MEDS: CALCIUM CARB-VIT D 500MG-200UN 1 EACH TAB PO SCH (08:29)
[2016-08-01] MEDS: CARVEDILOL 12.5 MG TAB PO SCH (08:29)
[2016-08-01] MEDS: ATORVASTATIN 40 MG TAB PO SCH (08:30)
[2016-08-01] MEDS: INSULIN LISPRO (humaLOG) 300 UNIT/3 ML VIAL SQ SCH ×2 (08:30→12:49)
[2016-08-01] MEDS: POLYETHYLENE GLYCOL 3350 17 GM POWD.PACK PO SCH (08:31)
[2016-08-01] MEDS: HYDROcodone/APAP 5-325MG 1 EACH TAB PO PRN (08:39)
[2016-08-01 08:47] LABS: Basophils % (A) 0 %; CHCM 33.6; Eosinophils # (A) 0.1 k/uL (0-0.7); Eosinophils % (A) 1 %; HCT 39.2 % (34.0-46.0); HDW 3.04; HGB 12.8 gm/dL (11.4-16.0); Luc # (Auto) 0.15; Luc % (Auto) 2; Lymphocytes # (A) 1.2 k/uL (1.0-4.8); Lymphocytes % (A) 14 %; MCH 28.5 pg (25.0-35.0); MCHC 32.8 g/dL (31.0-37.0); MCV 86.9 fL (80.0-100.0); Mean Platelet Volume 6.9; Monocytes # (A) 0.5 k/uL (0-1.0); Monocytes % (A) 6 %; Neutrophils # (A) 6.5 k/uL (1.3-7.7); Neutrophils % (A) 77 %; RBC 4.51 m/uL (3.80-5.40); RDW 14.5 % (11.5-15.5); WBC 8.4 k/uL (3.8-10.6); WBC (Perox) 8.91
[2016-08-01 09:05] LABS: Calcium 9.6 mg/dL (8.4-10.2); Magnesium 1.6 mg/dL (1.6-2.3); Potassium 4.1 mmol/L (3.5-5.1)
--- NOTE | 2016-08-01 11:34 | US ---
EXAMINATION TYPE: US carotid duplex BILAT DATE OF EXAM: 07/31/2016 9:03 PM COMPARISON: NONE CLINICAL HISTORY: Dizziness. EXAM MEASUREMENTS: RIGHT: Peak Systolic Velocity (PSV) cm/sec ----- Right CCA: 42.8 ----- Right ICA: 75.7 ----- Right ECA: 39.8 ICA/CCA ratio: 1.8 RIGHT: End Diastole cm/sec ----- Right CCA: 10.9 ----- Right ICA: 16.4 ----- Right ECA: 5.6 LEFT: Peak Systolic Velocity (PSV) cm/sec ----- Left CCA: 76.6 ----- Left ICA: 89.8 ----- Left ECA: 83.2 ICA/CCA ratio: 1.2 LEFT: End Diastole cm/sec ----- Left CCA: 7.8 ----- Left ICA: 23.7 ----- Left ECA: 6.5 VERTEBRALS (direction of flow): Right Vertebral: Antegrade Left Vertebral: Antegrade Mild amount of plaque visualized in bilateral bulbs, no elevated velocities IMPRESSION: 1. No significant flow-limiting stenosis. 2. Some mild atheromatous plaquing is in the distal right carotid bulb. Left common carotid artery in timal thickening is noted. Criteria for Assigning % of Stenosis / Diameter reduction (Estimation based on the indirect measurements of the internal carotid artery velocities (ICA PSV). 1. Normal (no stenosis)=ICA PSV < 125 cm/s: ratio < 2.0: ICA EDV<40 cm/s. 2. Less than 50% stenosis=ICA PSV < 125 cm/s: ratio < 2.0: ICA EDV<40 cm/s. 3. 50 to 69% stenosis=ICA PSV of 125 to 230 cm/s: ration 2.0 ? 4.0: ICA EDV 40-100 cm/s. 4. Greater than 70% stenosis to near occlusion= ICA PSV > 230 cm/s: ratio > 4.0: ICA EDV > 100 cm/s. 5. Near occlusion= ICA PSV velocities may be low or undetectable: variable ratio and ICA EDV. 6. Total occlusion=unable to detect flow.
[2016-08-01 12:05] LABS: Glucose,Whole Blood 108 mg/dL (75-99)
--- NOTE | 2016-08-01 13:59 | DS ---
DATE OF ADMISSION: 07/29/2016 DATE OF DISCHARGE: DATE OF SERVICE: 08/01/2016 The patient is 80-year-old white female. NEW DATA: She has height 5 feet 5 inches. Weight 81.64 kg, BSA 1.89 m2, BMI 30.0 kg/m2. Allergy to JOCELYNN INHIBITOR and ASPARTAME. FINAL DIAGNOSES: 1. Hypertensive urgency. 2. Associated with labyrinthitis and dizziness associated with gait disturbance and pre-falling attacks. 3. Hypertension with hypertensive heart disease. 4. Renovascular hypertension with underlying recent renal cell carcinoma of the right kidney. 5. She has also renal artery stenosis, status post surgery on the right renal artery as well as found another renal artery stenosis on the left kidney as well with both decreased function. 6. Chronic kidney disease stage III. 7. Hyperlipidemia. 8. Severe pain with headache with cephalgia associated with hypertensive urgency. 9. Diabetes mellitus type 2, insulin-dependent complicated with neuropathy. 10. Diabetic autonomic neuropathy as well with labile hypertension and a previous history of sudden drop with IV medication for antihypertensive medication. 11. Patient on all classes of antihypertensive medication at this time and still dizzy. She was seen by Dr. Cote, Neurology, and she underwent a CT scan of the brain. A CT scan of the brain noted that she had no masses, left frontal craniotomy. Patient had clipped aneurysm, could not have MRI. She had encephalomalacia in the left temporal lobe, with the conclusion of age-related atrophic and chronic small vessel ischemic changes without acute intracranial process. She had a carotid ultrasound bilaterally with the conclusion, no significant flow-limiting stenosis. She had mild atheromatous plaquing in the right distal carotid bulb. Left common carotid artery, the thickening is noted. She had EEG; however, the result not available at this time. On reviewing of her vital signs, temperature 97.8 orally, pulse 60 per minute, respiratory rate 20 and her blood pressure has been ranging 146/65 today and yesterday has been also fluctuating 125/54 and 140/53; however, the mean arterial pressure was normal. Her oxygen saturation was 98 and she had the labile hypertension has been stabilized at this time. On her today laboratories was indicated that her white count 8.4 with hemoglobin 12.8 and hematocrit 39.2 and platelet count 310. Her sodium 145, potassium 4.1, chloride 109, carbon dioxide 25 and she BUN 19 and the creatinine 1.11, which has improved before and she had a chronic kidney disease and as mentioned with the renal artery stenosis. Her hemoglobin A1c on admission was 8.9. However, the blood sugar was checked and monitored with CBG a.c. and at bedtime and has been in stable general reading with the monitoring. Patient initially seen in the ER and admitted through the emergency room with the hypertensive urgency with the blood pressure more than to 200 and she was seen the day before the admission in the ER again and treated and sent home with the return back to the ER, the hypertensive urgency has been indicated as well as the labile hypertension and spike drop and that was noted. She also has dizziness with labyrinthitis. The patient as monitored on the floor as well as discussed with the EHR with the labile, we addressed all the antihypertensive medication and she has been on all of them, currently has stabilized; however, her gait is still uncontrolled in spite of the CT scan is negative. Need for further observation and rehabilitation in the [facility], probably Zach Bragg will be appropriate to allow me to see her in the [facility]. Patient on the current physical exam, face to face on discharge, conscious, alert, oriented able to go to the bathroom with assistance. HEENT was negative. Neck was supple. Chest was clear and the heart was regular sinus rhythm. The abdomen was soft, positive bowel sounds and extremities no edema. Pulses were intact. Neurologically she is cranial nerves 2 through 12 was intact. No evidence of lateralizing signs and she is able to move 4 extremities; however, the gait is unpredictable and she needs rehabilitation with nursing assistance and the labyrinthitis could be associated with benign positional of vertigo and further rehabilitation, especially patient lives alone and none of her children are unavailable and is added to her anxiety disorder. General anxiety disorder and she had has a history of cephalgia, was not controlled with Tylenol and started on the [place]. The plan is to be transferred to rehabilitation at [facility] and rehab and subsequently I will be seeing her there and we can obtain the result of the EEG as outpatient as well and patient elected to followup with Dr. Barth as outpatient as well. A prescription was given. MADHAV
[2016-08-01 14:38] VITALS: BP 143/39; PULSE 80; RESP 22; TEMP 96.8
--- NOTE | 2016-08-06 08:20 | EEG ---
DATE OF SERVICE: 08/01/2016 REASON FOR TESTING: Dizziness. AGE: 80Y DESCRIPTION OF THE PROCEDURE: This EEG was performed using a 21-channel digital electroencephalograph, following the international 10 - 20 system. DESCRIPTION OF THE RECORDING: From the beginning of the tracing, and with the patient's eyes closed, the background rhythm was mostly consisting of 8 Hz alpha frequency in the posterior occipital leads. No obvious asymmetry is seen. Frequent blink artifacts and muscle artifacts are seen. Photic stimulation was performed with no driving response seen. No pathological waves were elicited. Hyperventilation was not performed. The patient remains awake throughout the tracing period. No epileptiform discharges were seen. INTERPRETATION: This awake EEG can be considered within normal limits. There was no asymmetry seen. No epileptiform discharges were noticed. The absence of epileptiform discharges does not rule out the diagnosis of epilepsy, therefore, clinical correlation is recommended.
== END 2016-08-01 16:49 | DRG 305 ==
LOC: EC 09:24 → 4MS4W 15:32 → OBSVTOIN 15:32 → 4MS4W 17:14
PROVIDERS: ADMIT Internal Medicine; ATTEND Internal Medicine
DX: I16.0 Hypertensive urgency (principal); I67.1 Cerebral aneurysm, nonruptured; E11.22 Type 2 diabetes mellitus with diabetic chronic kidney disease; I13.10 Hypertensive heart and chronic kidney disease without heart failure, with stage 1 through stage 4 chronic kidney disease, or unspecified chronic kidney disease; E11.43 Type 2 diabetes mellitus with diabetic autonomic (poly)neuropathy; N18.3 Chronic kidney disease, stage 3 (moderate); E11.65 Type 2 diabetes mellitus with hyperglycemia; E03.9 Hypothyroidism, unspecified; E66.9 Obesity, unspecified; Z68.30 Body mass index [BMI] 30.0-30.9, adult; E78.5 Hyperlipidemia, unspecified; E86.0 Dehydration; F17.210 Nicotine dependence, cigarettes, uncomplicated; F41.1 Generalized anxiety disorder; G93.89 Other specified disorders of brain; H83.09 Labyrinthitis, unspecified ear; I15.0 Renovascular hypertension; I25.10 Atherosclerotic heart disease of native coronary artery without angina pectoris; I70.1 Atherosclerosis of renal artery; I87.2 Venous insufficiency (chronic) (peripheral); J45.909 Unspecified asthma, uncomplicated; K21.9 Gastro-esophageal reflux disease without esophagitis; Z79.4 Long term (current) use of insulin; Z79.82 Long term (current) use of aspirin; Z79.899 Other long term (current) drug therapy; Z82.49 Family history of ischemic heart disease and other diseases of the circulatory system; Z85.528 Personal history of other malignant neoplasm of kidney; Z88.8 Allergy status to other drugs, medicaments and biological substances; Z96.653 Presence of artificial knee joint, bilateral
CPT/HCPCS: 36415; 70450; 71020; 74176; 80048; 80053; 81001; 82150; 83036; 83690; 83735; 84439; 84443; 84484; 85025; 85379; 93005; 93880; 95816; 96374; 96375; 96376; 99284; 99285

== ENCOUNTER → 2016-09-24 | Outpatient (CLI) | payer MEDICARE, BC | LOC: LABWHC1 13:45 | PROVIDERS: ATTEND Radiology Vascular & Interventional Radiology | DX: C64.1 Malignant neoplasm of right kidney, except renal pelvis (principal) | CPT/HCPCS: 36415; 82565; 84520 ==

== ENCOUNTER → 2016-10-04 | Outpatient (CLI) | payer MEDICARE, BC | END | disposition home or self-care (01) | LOC: LABWHC1 13:16 | PROVIDERS: ATTEND Radiology Vascular & Interventional Radiology | DX: N28.9 Disorder of kidney and ureter, unspecified (principal) | CPT/HCPCS: 36415; 82565; 84520 ==

== ENCOUNTER → 2016-10-14 | Outpatient (CLI) | payer MEDICARE, BC ==
[2016-10-14 11:29] LABS: Basophils % (A) 1 %; CH 28.5; CHCM 33.4; Eosinophils # (A) 0.1 k/uL (0-0.7); Eosinophils % (A) 1 %; HCT 39.7 % (34.0-46.0); HDW 3.23; HGB 12.6 gm/dL (11.4-16.0); Luc # (Auto) 0.14; Luc % (Auto) 2; Lymphocytes # (A) 1.1 k/uL (1.0-4.8); Lymphocytes % (A) 17 %; MCH 27.2 pg (25.0-35.0); MCHC 31.6 g/dL (31.0-37.0); MCV 85.9 fL (80.0-100.0); Mean Platelet Volume 6.6; Monocytes # (A) 0.5 k/uL (0-1.0); Monocytes % (A) 8 %; Neutrophils # (A) 4.6 k/uL (1.3-7.7); Neutrophils % (A) 71 %; RBC 4.63 m/uL (3.80-5.40); RDW 14.5 % (11.5-15.5); WBC 6.5 k/uL (3.8-10.6); WBC (Perox) 6.77
[2016-10-14 11:31] LABS: C Reactive Protein 8.5 mg/L (<10.0); Calcium 9.9 mg/dL (8.4-10.2); Potassium 4.9 mmol/L (3.5-5.1); Total Bilirubin 0.5 mg/dL (0.2-1.3); Total Protein 6.7 g/dL (6.3-8.2); Uric Acid 8.7 mg/dL (3.7-7.4)
[2016-10-14 12:55] LABS: Erythrocyte Sedimentation Rate 36 mm/hr (0-20)
[2016-10-14 15:49] LABS: Hemoglobin A1C 8.3 % (4.2-6.1)
== END | disposition home or self-care (01) ==
LOC: LABWHC1 10:19
PROVIDERS: ATTEND Internal Medicine
DX: N18.3 Chronic kidney disease, stage 3 (moderate) (principal); J44.9 Chronic obstructive pulmonary disease, unspecified; E55.9 Vitamin D deficiency, unspecified
CPT/HCPCS: 36415; 80053; 80061; 82306; 82550; 83036; 83970; 84443; 84550; 85025; 85652; 86140

== ENCOUNTER → 2016-10-30 | Outpatient (CLI) | payer MEDICARE, BC ==
--- NOTE | 2016-10-30 20:31 | NM ---
EXAMINATION TYPE: NM hepatobiliary w EF DATE OF EXAM: 10/30/2016 COMPARISON: NONE HISTORY: 81-year-old female with biliary dyskinesia, pain TECHNIQUE: After the intravenous administration of 5.42 mCi Tc 99m Mebrofenin hepatobiliary scintigra phy is performed. Immediate images post injection. FINDINGS: There is satisfactory initial accumulation of tracer by the liver. The gallbladder is visualized wit hin 90 minutes. The small bowel activity is noted within 48 minutes. Even at 90 minutes, intense ac tivity is seen within the bile duct. After gallbladder visualization, 8 ounces of oral ensure plus is given to mimic CCK and gallbladder ejection fraction is calculated at 80 %, borderline elevated. Inc identally, prominent biliary reflux into the stomach is noted of questionable clinical significance. IMPRESSION: 1. No evidence for acute cholecystitis. 2. While there is delayed filling of the gallbladder, ejection fraction is calculated at 80% arguing against either chronic cholecystitis or biliary dyskinesia. This borderline elevated gallbladder ejec tion fraction may be seen in the setting of gallbladder hyperkinesia. 3. Intense activity within the bile duct even at 90 minutes. Correlate with alkaline phosphatase and bilirubin levels to exclude the possibility of a partial biliary obstruction.
== END | disposition home or self-care (01) ==
LOC: RADNMMAIN 12:51
PROVIDERS: ATTEND Internal Medicine
DX: K82.8 Other specified diseases of gallbladder (principal)
CPT/HCPCS: 78226; A9537

== ENCOUNTER → 2017-02-24 | Outpatient (CLI) | payer MEDICARE, BC ==
--- NOTE | 2017-03-05 11:08 | MM ---
Reason for exam: screening (asymptomatic). Last mammogram was performed 2 years and 5 months ago. History: Patient is postmenopausal. Family history of breast cancer in mother at age 80 and breast cancer in daughter at age 42. Physical Findings: A clinical breast exam by your physician is recommended on an annual basis and results should be correlated with mammographic findings. MG Screening Mammo w CAD Bilateral CC and MLO view(s) were taken. Prior study comparison: September 22, 2014, mammogram, performed at [facility]. September 09, 2013, mammogram, performed at [facility]. There are scattered fibroglandular densities. There is chronic nodularity in the right breast. No significant changes when compared with prior studies. ASSESSMENT: Benign, BI-RAD 2 RECOMMENDATION: Routine screening mammogram of both breasts in 1 year.
== END | disposition home or self-care (01) ==
LOC: RADMAMWWP 13:22
PROVIDERS: ATTEND Internal Medicine
DX: Z12.31 Encounter for screening mammogram for malignant neoplasm of breast (principal)

== ENCOUNTER → 2017-03-08 | Outpatient (CLI) | payer MEDICARE, BC | END | disposition home or self-care (01) | LOC: LABMAIN 15:34 | PROVIDERS: ATTEND Psychiatry & Neurology Neurology | DX: M62.838 Other muscle spasm (principal) | CPT/HCPCS: 36415; 82306; 82310 ==

== ENCOUNTER → 2017-06-11 | Outpatient (CLI) | payer MEDICARE, BC ==
--- NOTE | 2017-06-11 13:50 | US ---
EXAMINATION TYPE: US abdomen limited DATE OF EXAM: 06/11/2017 COMPARISON: CT abdomen and pelvis July 28, 2016 CLINICAL HISTORY: Abn weight gain R63.5,K76.6 PORTAL HTN. Patient states she feels bloated EXAM MEASUREMENTS: Liver Length: 18.5 cm Gallbladder Wall: 0.2 cm CBD: 1.6 cm CHD: 0.6 cm Right Kidney: 10.0 x 3.9 x 3.4 cm Limited due to overlying bowel gas Pancreas: Not well visualized due to bowel gas Liver: Appears enlarged. Portal veins appear echogenic. Left liver lobe cystic appearing lesion see n. 1.0 x 1.0 x 0.8 cm Gallbladder: wnl, fold seen Evidence for sonographic Stein's sign: neg CBD: Dilated. Unable to see stone visualized on CT, possibly due to overlying bowel gas. CHD: wnl Right Kidney: Cortical thinning. Renal sinus appears echogenic. Lesion on CT not appreciated on ul trasound. Pancreas is not well seen secondary to shadowing from overlying bowel gas. Visualized liver is hetero geneously hyperechoic. Evaluation for focal masses suboptimal due to the heterogeneity. Technologist alexander 1.0 cm simple appearing cyst left hepatic lobe likely corresponds to anterior lesion on CT. Lar fidel lesion right hepatic lobe on CT axial image 9 is not clearly identified on ultrasound. No suspici ous intrahepatic ductal dilatation is seen. Extra hepatic ductal dilatation is redemonstrated measure ments fairly similar to obtained on CT. IMPRESSION: Persistent mild to moderate extra hepatic biliary dilatation without intrahepatic biliary dilatation. Cannot exclude partially obstructing distal CBD or ampullary stone versus adjacent focal calcification in pancreatic head. Consider ERCP follow-up based on clinical correlation. The angiomy olipoma measuring just over [address] is not clearly identified on ultrasound exophytically lower po le level right kidney lateral aspect, and is likely ill-defined heterogeneous hypoechoic area not bob sured towards end of study.
== END | disposition home or self-care (01) ==
LOC: RADUSWWP 12:20
PROVIDERS: ATTEND Internal Medicine
DX: K83.8 Other specified diseases of biliary tract (principal); K76.6 Portal hypertension; R63.5 Abnormal weight gain; Z88.5 Allergy status to narcotic agent; Z88.8 Allergy status to other drugs, medicaments and biological substances
CPT/HCPCS: 76705

== ENCOUNTER → 2017-10-06 | Outpatient (CLI) | payer MEDICARE, BC ==
[2017-10-06 13:54] LABS: Basophils % (A) 1 %; Eosinophils # (A) 0.1 k/uL (0-0.7); Eosinophils % (A) 1 %; HCT 32.8 % (34.0-46.0); HGB 11.1 gm/dL (11.4-16.0); Lymphocytes # (A) 1.2 k/uL (1.0-4.8); Lymphocytes % (A) 21 %; MCH 28.1 pg (25.0-35.0); MCHC 33.9 g/dL (31.0-37.0); Mean Platelet Volume 6.4; Monocytes # (A) 0.4 k/uL (0-1.0); Monocytes % (A) 7 %; Neutrophils # (A) 3.9 k/uL (1.3-7.7); Neutrophils % (A) 69 %; Platelet Count 308 k/uL (150-450); RBC 3.95 m/uL (3.80-5.40); RDW 14.4 % (11.5-15.5); WBC 5.7 k/uL (3.8-10.6)
[2017-10-06 14:14] LABS: C Reactive Protein 6.9 mg/L (<10.0); Magnesium 1.9 mg/dL (1.6-2.3); Phosphorus 3.9 mg/dL (2.5-4.5); Uric Acid 9.4 mg/dL (3.7-7.4)
[2017-10-06 14:28] LABS: T4, Free (Free Thyroxine) 1.17 ng/dL (0.78-2.19)
[2017-10-06 15:29] LABS: Erythrocyte Sedimentation Rate 48 mm/hr (0-20)
[2017-10-06 18:44] LABS: Parathyroid Hormone Intact 167.2 pg/mL (14.0-72.0)
[2017-10-06 18:47] LABS: Vitamin D 25 Hydroxy 27.7 ng/mL (30.0-100.0)
[2017-10-06 19:45] LABS: Hemoglobin A1C 8.5 % (4.0-6.0)
== END | disposition home or self-care (01) ==
LOC: LABWHC1 12:11
PROVIDERS: ATTEND Internal Medicine
DX: E11.22 Type 2 diabetes mellitus with diabetic chronic kidney disease (principal); E87.8 Other disorders of electrolyte and fluid balance, not elsewhere classified; M10.9 Gout, unspecified; D63.1 Anemia in chronic kidney disease; I12.9 Hypertensive chronic kidney disease with stage 1 through stage 4 chronic kidney disease, or unspecified chronic kidney disease; N18.4 Chronic kidney disease, stage 4 (severe); E78.5 Hyperlipidemia, unspecified; E21.3 Hyperparathyroidism, unspecified; E03.9 Hypothyroidism, unspecified; M81.0 Age-related osteoporosis without current pathological fracture
CPT/HCPCS: 36415; 82306; 82550; 83036; 83735; 83970; 84100; 84439; 84443; 84550; 85025; 85652; 86140

== ENCOUNTER → 2017-10-07 | Outpatient (CLI) | payer MEDICARE, BC ==
[2017-10-07 11:20] LABS: Calcium 9.5 mg/dL (8.4-10.2); Potassium 5.1 mmol/L (3.5-5.1); Total Bilirubin 0.4 mg/dL (0.2-1.3); Total Protein 6.3 g/dL (6.3-8.2)
== END | disposition home or self-care (01) ==
LOC: LABWHC1 10:01
PROVIDERS: ATTEND Internal Medicine
DX: D64.9 Anemia, unspecified (principal); E87.8 Other disorders of electrolyte and fluid balance, not elsewhere classified; M10.9 Gout, unspecified; E78.5 Hyperlipidemia, unspecified; E21.3 Hyperparathyroidism, unspecified; E03.9 Hypothyroidism, unspecified; M19.90 Unspecified osteoarthritis, unspecified site; E11.22 Type 2 diabetes mellitus with diabetic chronic kidney disease; I12.9 Hypertensive chronic kidney disease with stage 1 through stage 4 chronic kidney disease, or unspecified chronic kidney disease; N18.4 Chronic kidney disease, stage 4 (severe)
CPT/HCPCS: 36415; 80053; 80061

== ENCOUNTER → 2017-11-26 | Outpatient (CLI) | payer MEDICARE, BC ==
[2017-11-26 10:31] LABS: Calcium 9.7 mg/dL (8.4-10.2); Potassium 5.5 mmol/L (3.5-5.1); Uric Acid 5.6 mg/dL (3.7-7.4)
[2017-11-26 18:29] LABS: Vitamin D 25 Hydroxy 37.3 ng/mL (30.0-100.0)
[2017-11-26 18:45] LABS: Parathyroid Hormone Intact 55.5 pg/mL (14.0-72.0)
== END | disposition home or self-care (01) ==
LOC: LABWHC1 09:30
PROVIDERS: ATTEND Internal Medicine
DX: E11.9 Type 2 diabetes mellitus without complications (principal); M10.9 Gout, unspecified; E21.3 Hyperparathyroidism, unspecified
CPT/HCPCS: 36415; 80048; 82306; 83036; 83970; 84550

== ENCOUNTER → 2017-12-03 | Outpatient (CLI) | payer MEDICARE, BC ==
[2017-12-03 10:14] LABS: Calcium 9.5 mg/dL (8.4-10.2); Potassium 5.7 mmol/L (3.5-5.1)
== END | disposition home or self-care (01) ==
LOC: LABWHC1 09:29
PROVIDERS: ATTEND Internal Medicine
DX: E11.22 Type 2 diabetes mellitus with diabetic chronic kidney disease (principal); N18.4 Chronic kidney disease, stage 4 (severe)
CPT/HCPCS: 36415; 80048

== ENCOUNTER 2018-01-02 09:27 | Observation (INO) | payer MEDICARE, BC ==
[2018-01-02] MEDS ORDERED: ONDANSETRON 4 MG/2 ML VIAL IVP STA (09:38)
[2018-01-02] MEDS ORDERED: SODIUM CHLORIDE 0.9% 500 ML IV STA (09:38)
[2018-01-02 09:59] LABS: Basophils % (A) 0 %; Eosinophils # (A) 0.1 k/uL (0-0.7); Eosinophils % (A) 1 %; HCT 37.6 % (34.0-46.0); HGB 12.5 gm/dL (11.4-16.0); Lymphocytes # (A) 0.8 k/uL (1.0-4.8); Lymphocytes % (A) 14 %; MCH 27.9 pg (25.0-35.0); MCHC 33.3 g/dL (31.0-37.0); MCV 83.7 fL (80.0-100.0); Mean Platelet Volume 6.4; Monocytes # (A) 0.3 k/uL (0-1.0); Monocytes % (A) 5 %; Neutrophils # (A) 4.5 k/uL (1.3-7.7); Neutrophils % (A) 78 %; Platelet Count 316 k/uL (150-450); RBC 4.49 m/uL (3.80-5.40); RDW 13.7 % (11.5-15.5); WBC 5.8 k/uL (3.8-10.6)
--- NOTE | 2018-01-02 10:12 | XR ---
EXAMINATION TYPE: XR chest 2V DATE OF EXAM: 01/02/2018 COMPARISON: Prior chest x-ray July 28, 2016 HISTORY: Dizziness and weakness. TECHNIQUE: Frontal and lateral views of the chest are obtained. FINDINGS: There is chronic parenchymal change without suspicious focal air space opacity, pleural ef fusion, or pneumothorax seen. The cardiac silhouette size is mildly enlarged with atherosclerotic ao rta. Mild to moderate multilevel spurring in thoracic spine is present. Osseous structures remain dem ineralized. IMPRESSION: Mild cardiomegaly and chronic parenchymal changes without suspicious acute pulmonary pro cess.
--- NOTE | 2018-01-02 10:17 | ED ---
General Adult HPI - General Chief complaint: Dizziness Stated complaint: Weakness Source: patient Mode of arrival: EMS Limitations: no limitations - History of Present Illness Initial comments: Dictation was produced using Quixey dictation software. please excuse any grammatical, word or spelling errors. Chief Complaint: 82-year-old female with extensive past medical history and comorbidities presents with dizziness. History of Present Illness: Patient states that she's been feeling unwell for the last 3-4 days. 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 Patient states that she's been feeling really dizzy. She denies the room spinning. Patient has been shaking which she normally doesn't shake. Patient had multiple bouts of nausea and diarrhea. Patient denies any hospitalization recently denies any recent camping trips or travel outside the [place]. Denies any suspect ingestion of food. Denies any constitutional symptoms. Patient has no other complaints. The ROS documented in this emergency department record has been reviewed and confirmed by me. Those systems with pertinent positive or negative responses have been documented in the HPI. All other systems are other negative and/or noncontributory. - Related Data Home Medications Medication Instructions Recorded Confirmed Atorvastatin [Lipitor] 40 mg PO HS 12/31/14 01/02/18 Levothyroxine Sodium [Synthroid] 50 mcg PO DAILY 12/31/14 01/02/18 Pantoprazole Sodium 40 mg PO DAILY 12/31/14 01/02/18 Aspirin 81 mg PO DAILY 03/24/15 01/02/18 Calcium Carbonate/Vitamin D3 1 tab PO DAILY 03/24/15 01/02/18 [Calcium 600-Vit D3 400 Tablet] Multivit-Min/FA/Lycopen/Lutein 1 tab PO DAILY 03/24/15 01/02/18 [Centrum Silver Tablet] Gabapentin [Neurontin] 400 mg PO QID 01/25/16 01/02/18 Carvedilol [Coreg] 12.5 mg PO BID 07/28/16 01/02/18 Ammonium Lactate Lotion 1 applic TOPICAL BID 01/02/18 01/02/18 [Lac-Hydrin 12% Lotion] Cholecalciferol [Vitamin D3] 1,000 unit PO DAILY 01/02/18 01/02/18 Clobetasol Propionate [Temovate 1 applic TOPICAL TID 01/02/18 01/02/18 0.05% Cream] Colchicine [Colcrys] 0.6 mg PO DAILY 01/02/18 01/02/18 Ferrous Sulfate [Feosol] 325 mg PO DAILY 01/02/18 01/02/18 Furosemide [Lasix] 40 mg PO DAILY 01/02/18 01/02/18 Insulin Aspart [NovoLOG Flexpen] 10 units SQ AC-TID 01/02/18 01/02/18 Insulin Aspart [NovoLOG Flexpen] See Protocol SQ AC-TID 01/02/18 01/02/18 Insulin Glargine,Hum.rec.anlog 65 units SQ HS 01/02/18 01/02/18 [Lantus Solostar] Isosorbide Mononitrate ER [Imdur] 60 mg PO DAILY 01/02/18 01/02/18 Linagliptin [Tradjenta] 5 mg PO DAILY 01/02/18 01/02/18 Nitroglycerin Sl Tabs [Nitrostat] 1 tab SQ Q5M PRN 01/02/18 01/02/18 [place]-3 Fatty Acids/Fish Oil [Fish 1 cap PO TID 01/02/18 01/02/18 Oil 1,000 mg Softgel] amLODIPine [Norvasc] 5 mg PO HS 01/02/18 01/02/18 Previous Rx's Medication Instructions Recorded cloNIDine HCL [Catapres] 0.1 mg PO BID #60 tab 07/31/16 Allergies Allergy/AdvReac Type Severity Reaction Status Date / Time JOCELYNN Inhibitors Allergy Unknown Verified 01/02/18 09:43 aspartame AdvReac Nausea & Verified 01/02/18 09:43 Vomiting Review of Systems ROS Statement: Those systems with pertinent positive or pertinent negative responses have been documented in the HPI. ROS Other: All systems not noted in ROS Statement are negative. Past Medical History Past Medical History: Asthma, Blood Disorder, Coronary Artery Disease (CAD), Cancer, Chest Pain / Angina, Diabetes Mellitus, GERD/Reflux, Hyperlipidemia, Hypertension, Osteoarthritis (OA), Pneumonia, Renal Disease, Thyroid Disorder, Vascular Disorder Additional Past Medical History / Comment(s): kidney cancer 2015 past severe headaches. Brain aneurysms x 3. 2 WITH clippings and 1 calcified, IDDM typre II , lower leg edema, pneumonias, hypothyroidism, hypomagnesemia, colorectal polyps -benign, peripheral vascular occlusive disorder, anemia, DJD, PAST FALLS History of Any Multi-Drug Resistant Organisms: None Reported Past Surgical History: Appendectomy, Heart Catheterization, Joint Replacement, Orthopedic Surgery, Tonsillectomy Additional Past Surgical History / Comment(s): R renal artery replacement with groin vein graft, brain aneurysms with clips x 2, cataract removal both eyes, colonoscopies x 2 with first one having benign polypectoy and 2nd one normal. RT kidney had cancer on top of kidney, pt stated"they froze the cancer off" , lt shoulder sx, dusty knee replacments. Past Anesthesia/Blood Transfusion Reactions: No Reported Reaction Additional Past Anesthesia/Blood Transfusion Reaction / Comment(s): Pt has received blood without reaction. Past Psychological History: No Psychological Hx Reported Smoking Status: Former smoker - Past Family History Father Family Medical History: Myocardial Infarction (NH) Mother Family Medical History: Cancer General Exam - General Exam Comments Initial Comments: PHYSICAL EXAM: General Impression: Alert and oriented x3, acute distress secondary dizziness HEENT: Normocephalic atraumatic, extra-ocular movements intact, pupils equal and reactive to light bilaterally, mucous membranes moist. Cardiovascular: Heart regular rate and rhythm, S1&S2 audible, no murmurs, rubs or gallops Chest: Lungs clear to auscultation bilaterally, no rhonchi, no wheeze, no rales Abdomen: Bowel sounds present, abdomen soft, non-tender, non-distended, no organomegaly Musculoskeletal: Pulses present and equal in all extremities, no peripheral edema Motor: Power 5/5 bilaterally, no focal deficits noted Neurological: CN II-XII grossly intact, no focal motor or sensory deficits noted , not ataxic with sitting unsupported Skin: Intact with no visualized rashes Psych: Normal affect and mood Limitations: no limitations Course Vital Signs 01/02/18 01/02/18 01/02/18 09:29 10:54 12:02 Temperature 98.2 F Pulse Rate 57 L 54 L 57 L Respiratory 16 16 16 Rate Blood Pressure 170/70 166/71 168/72 O2 Sat by Pulse 97 99 100 Oximetry Medical Decision Making - Medical Decision Making ED course: 82-year-old female with chief complaint of dizziness, nausea and diarrhea. Vital signs upon arrival shows heart rate of 57. Rest of vital signs within acceptable limits. Home medications are reviewed. Patient is on multiple antihypertensive medications. She is also on insulin therapy and Antivert. There is reasonably that some of this dizziness stems from polypharmacy. Laboratory evaluation obtained. CBC unremarkable. Metabolic panel is unremarkable. Glucose of 187. Cardiac enzymes negative. Urinalysis does not show any findings to suggest urinary tract infection. Chest x-ray obtained showing no acute processes. EKG is unremarkable. Patient treated with Antivert and benzodiazepine. Discussed patient that there is very low clinical suspicion that her symptoms represent posterior circulation stroke. Her dizziness was accentuated with supine positioning. She feels more comfortable with sitting up. Hence exam is negative. Patient not showing any signs of ataxia. Patient did not fill comfortable being discharged. Patient be placed in observation with her primary care physician. Neurology on consult. - Lab Data Result diagrams: 01/02/18 09:43 01/02/18 09:43 Lab Results 01/02/18 01/02/18 01/02/18 Range/Units 09:43 09:43 09:43 WBC 5.8 (3.8-10.6) k/uL RBC 4.49 (3.80-5.40) m/uL Hgb 12.5 (11.4-16.0) gm/dL Hct 37.6 (34.0-46.0) % MCV 83.7 (80.0-100.0) fL MCH 27.9 (25.0-35.0) pg MCHC 33.3 (31.0-37.0) g/dL RDW 13.7 (11.5-15.5) % Plt Count 316 (150-450) k/uL Neutrophils % 78 % Lymphocytes % 14 % Monocytes % 5 % Eosinophils % 1 % Basophils % 0 % Neutrophils # 4.5 (1.3-7.7) k/uL Lymphocytes # 0.8 L (1.0-4.8) k/uL Monocytes # 0.3 (0-1.0) k/uL Eosinophils # 0.1 (0-0.7) k/uL Basophils # 0.0 (0-0.2) k/uL Sodium 142 (137-145) mmol/L Potassium 5.0 (3.5-5.1) mmol/L Chloride 105 (98-107) mmol/L Carbon Dioxide 29 (22-30) mmol/L Anion Gap 8 mmol/L BUN 32 H (7-17) mg/dL Creatinine 1.55 H (0.52-1.04) mg/dL Est GFR (CKD-EPI)AfAm 36 (>60 ml/min/1.73 sqM) Est GFR (CKD-EPI)NonAf 31 (>60 ml/min/1.73 sqM) Glucose 187 H (74-99) mg/dL Plasma Lactic Acid Jaya 0.9 (0.7-2.0) mmol/L Calcium 9.6 (8.4-10.2) mg/dL Total Bilirubin 0.5 (0.2-1.3) mg/dL AST 48 H (14-36) U/L ALT 80 H (9-52) U/L Alkaline Phosphatase 73 (38-126) U/L Troponin I (0.000-0.034) ng/mL Total Protein 6.6 (6.3-8.2) g/dL Albumin 4.0 (3.5-5.0) g/dL Urine Color Urine Appearance (Clear) Urine pH (5.0-8.0) Ur Specific [place] (1.001-1.035) Urine Protein (Negative) Urine Glucose (UA) (Negative) Urine Ketones (Negative) Urine Blood (Negative) Urine Nitrite (Negative) Urine Bilirubin (Negative) Urine Urobilinogen (<2.0) mg/dL Ur Leukocyte Esterase (Negative) 01/02/18 01/02/18 Range/Units 09:43 11:43 WBC (3.8-10.6) k/uL RBC (3.80-5.40) m/uL Hgb (11.4-16.0) gm/dL Hct (34.0-46.0) % MCV (80.0-100.0) fL MCH (25.0-35.0) pg MCHC (31.0-37.0) g/dL RDW (11.5-15.5) % Plt Count (150-450) k/uL Neutrophils % % Lymphocytes % % Monocytes % % Eosinophils % % Basophils % % Neutrophils # (1.3-7.7) k/uL Lymphocytes # (1.0-4.8) k/uL Monocytes # (0-1.0) k/uL Eosinophils # (0-0.7) k/uL Basophils # (0-0.2) k/uL Sodium (137-145) mmol/L Potassium (3.5-5.1) mmol/L Chloride (98-107) mmol/L Carbon Dioxide (22-30) mmol/L Anion Gap mmol/L BUN (7-17) mg/dL Creatinine (0.52-1.04) mg/dL Est GFR (CKD-EPI)AfAm (>60 ml/min/1.73 sqM) Est GFR (CKD-EPI)NonAf (>60 ml/min/1.73 sqM) Glucose (74-99) mg/dL Plasma Lactic Acid Jaya (0.7-2.0) mmol/L Calcium (8.4-10.2) mg/dL Total Bilirubin (0.2-1.3) mg/dL AST (14-36) U/L ALT (9-52) U/L Alkaline Phosphatase (38-126) U/L Troponin I 0.015 (0.000-0.034) ng/mL Total Protein (6.3-8.2) g/dL Albumin (3.5-5.0) g/dL Urine Color Light Yellow Urine Appearance Clear (Clear) Urine pH 8.0 (5.0-8.0) Ur Specific [place] 1.009 (1.001-1.035) Urine Protein 1+ H (Negative) Urine Glucose (UA) Negative (Negative) Urine Ketones Negative (Negative) Urine Blood Negative (Negative) Urine Nitrite Negative (Negative) Urine Bilirubin Negative (Negative) Urine Urobilinogen <2.0 (<2.0) mg/dL Ur Leukocyte Esterase Negative (Negative) Disposition Clinical Impression: Dizziness Disposition: ADMITTED IP TO THIS HOSP Condition: Good Referrals: Jae Dubon MD [Primary Care Provider] - 1-2 days Decision Time: 13:22
[2018-01-02 10:22] LABS: Calcium 9.6 mg/dL (8.4-10.2); Total Bilirubin 0.5 mg/dL (0.2-1.3); Total Protein 6.6 g/dL (6.3-8.2)
[2018-01-02 12:05] LABS: Appearance,Urine Clear (Clear); Bilirubin,Urine Negative (Negative); Blood,Urine Negative (Negative); Color,Urine Light Yellow; Glucose,Urine (UA) Negative (Negative); Ketones,Urine Negative (Negative); Leukocyte Esterase,Urine Negative (Negative); Nitrite,Urine Negative (Negative); Protein,Urine 1+ (Negative); Specific Gravity,Urine 1.009 (1.001-1.035); Urobilinogen,Urine <2.0 mg/dL (<2.0)
[2018-01-02] MEDS ORDERED: MIDAZOLAM 1 MG/ML 5 ML VIAL IV STA (13:03)
[2018-01-02] MEDS ORDERED: MECLIZINE 12.5 MG TAB PO STA (13:03)
[2018-01-02] MEDS ORDERED: NALOXONE 0.4 MG/ML 1 ML VIAL IV PRN (13:19)
[2018-01-02 14:36] LABS: Glucose,Whole Blood 180 mg/dL (75-99)
[2018-01-02] MEDS ORDERED: ONDANSETRON 4 MG/2 ML VIAL IVP PRN (15:20)
[2018-01-02] MEDS ORDERED: NITROGLYCERIN SL TABS 0.4 MG TAB SUBLINGUAL PRN (15:21)
[2018-01-02] MEDS ORDERED: NON-FORMULARY DRUG (Omega-3 Fatty Acids/Fish Oil [Fish Oil 1,000 Mg Softgel] 1 CAP) PO SCH (16:00)
[2018-01-02] MEDS ORDERED: SODIUM CHLORIDE 0.9% 500 ML IV SCH (16:15)
[2018-01-02 17:13] LABS: Glucose,Whole Blood 172 mg/dL (75-99)
[2018-01-02] MEDS: SODIUM CHLORIDE 0.9% 1,000 ML IV SCH (17:38)
[2018-01-02] MEDS: INSULIN ASPART 100 UNIT/ML 1 ML 10 ML VIAL SQ SCH ×2 (17:39→17:45)
[2018-01-02] MEDS: ATORVASTATIN 40 MG TAB PO SCH (17:39)
[2018-01-02] MEDS: CARVEDILOL 12.5 MG TAB PO SCH (17:39)
[2018-01-02] MEDS: GABAPENTIN 400 MG CAP PO SCH ×2 (17:39→20:16)
--- NOTE | 2018-01-02 18:18 | HP ---
HISTORY AND PHYSICAL DATE OF SERVICE: 01/02/2018 She is 82 years old white female, single. NEW DATA: She is a FULL CODE. Her height is 5 feet 5 inches, weight 88.9 kg, BSA 1.96 m2, BMI 32.6 kg/m2. ALLERGIES: JOCELYNN INHIBITOR AND ASPARTAME. Patient presented to the emergency room by apparently ambulance with the complaint per the presentation in the emergency room that she is dizzy. Subsequently was seen, evaluated by the ER physician, Dr. Cuco Liriano. Initially with the with the diagnosis of dizziness, peripheral versus central, was planned to go home, but the patient was severely debilitated and could not stand up and could not go home and nobody at home as well to take care of her. With this finding, the patient admitted to observation. HISTORY OF PRESENT ILLNESS: Mrs. Herrera who is a 82-year-old white female started to feel ill and sick 2 days prior to the event and she had loose bowel, diarrhea, feeling a little chilly, abdominal cramp and she did try to get to go away thinking of that yesterday at evening time got really worse and frequent bowel movements 4-5 times associated with loose bowel and abdominal cramps. She denied any chest pain and she felt severely weak and unable to stand up and dizzy significant from all direction. Did not feel that the room spinning around her, but she felt that she is drowsy. She did not eat for the last 2-3 days as well. On the laboratory, the did a urinalysis, which essentially was negative except 1+ protein, and pH of 8. They did the chemistry and found that her sodium 142 with a potassium of 5, and her BUN is 32 and creatinine 1.55 with an estimated glomerular filtration rate for non- 31 with the underlying chronic kidney disease. However, she may be dehydrated as well. She had a plasma lactic acid venous and that was normal 0.9, calcium 9.6, total bilirubin 0.5. Her AST was 48 with a normal range 36 and ALT 80 with a normal range 52. Her troponin 1 was not done, but she had a total protein of 6.6 and albumin was also normal 4. She had a white count was 5.8 with hemoglobin 12.5 and hematocrit 37.6, and platelet count 316, appeared to be a little hemoconcentrated with probable dehydration. Her sodium 142, potassium 5 as mention and BUN of 32 and creatinine 1.1. At the time of presentation in the ER found that her that in the morning 9:29 a.m. her temperature 98.2 and pulse rate 57 with bradycardia. Her respiratory rate and blood pressure 170/70 with the saturation 97. The patient has EKG in the ER, found sinus bradycardia, otherwise no acute cardiac event and the patient herself did not have any complaint of chest pain or anginal pain. She had also a chest x-ray in the ER and the chest x-ray indicating chronic parenchymal changes without suspicious of focal airspace opacity or pleural effusion or pneumothorax. The cardiac solid size mildly enlarged and she had atherosclerotic aorta, mild to moderate multilevel sparing of the dorsal spine, thoracic spine, and otherwise the impression mild cardiomegaly and chronic parenchymal changes without suspicious acute pulmonary process. With these finding, patient has admitted to the hospital and I did review the laboratory and discussed with her and found that as mentioned above, that her allergy is unknown and the family history she has 1 daughter and 4 sons only 1 in [facility] who is global process owner of the [facility] [employer] and the rest outside the [facility] in the [place] and the doing the business of the [employer]. PAST MEDICAL HISTORY: She had renal artery stenosis bilateral with the right renal artery has been operated upon more than once. She has history of hypertensive renovascular disease. She had history of a mass, which is treated by cryotherapy on the right renal at [facility]. She has history of diabetes mellitus, insulin dependent and was fluctuating in her last visit to the office and was adjusted. She had a chronic kidney disease. She had history of gouty arthropathy, however, found that she is on colchicine only without allopurinol and may be she did not bring her because we started her on Uloric. Before we start her medication again, we will be obtaining the uric acid level and currently she has no complaint of gouty attack. REVIEW OF THE SYSTEM: NEUROPSYCHIATRY: She has been feeling dizziness with the slight movement of the head. She has no stiffness, but she could not move her head without being dizziness. She was nauseated and we treated that with the Zofran and due to the dizziness, we thought that could be peripheral vestibular neuropathy, could be associated also with diabetes and we will be consulting the neurologist. CARDIOVASCULAR: She has cardiomegaly but history of hypertension with hypertensive heart disease as well as renovascular hypertension. PULMONARY: No history of asthma or emphysema. GI: She had previous surgery for the renal artery stenosis. : She had a mild incontinent but clean urine with no infection. EXTREMITIES: She had no edema and positive pulses. PHYSICAL EXAMINATION: Patient is conscious, alert. She is oriented. She is dizzy still. She is in bed. Her HEENT was negative. Head was normocephalic, atraumatic. Oropharynx was normal. Neck was supple. No JVD. No thyromegaly. No lymphadenopathy. Trachea midline. I could not hear any bruit. Chest was clear to auscultation and percussion and the heart, PMI in the 5th intercostal space outside midclavicular line with mild cardiomegaly and no significant murmur. Soft murmur on left sternal border. No evidence of congestive heart failure or atrial fibrillation. ABDOMEN: Soft, nontender. Positive bowel sounds and suprapubic no tenderness and the extremities, no edema and positive pulses with good perfusion. Neurologically, will be stable, but we will be leave it for completion by Dr. Barth to assess the dizziness as well. ASSESSMENT: 1. Dehydration. 2. Underlying dizziness associated with the labyrinthitis probably gastroenteritis viral with the associated dehydration. She has a stated that she gets shivering and we instructed the nursing staff to do the blood culture immediately with shivering to see if any hidden sepsis could be present. As well as if the diarrhea is proven and she may need to have C difficile to rule out community infection. The patient denied any recent antibiotic. PLAN: 1. At this time we have DVT prophylaxis. 2. Hydration. We increased IV fluid 0.9 normal saline to 50 mL an hour and meanwhile continuing her current home medication. 3. Diabetes mellitus controlling it and we will see what Dr. Barth, neurology, his opinion in this matter and assess tomorrow and further treatment if needed. MMODL / IJN: [id number] /
[2018-01-02 20:14] LABS: Glucose,Whole Blood 118 mg/dL (75-99)
[2018-01-02] MEDS: INSULIN DETEMIR 100 UNIT/ML 10 ML VIAL SQ SCH (20:15)
[2018-01-02] MEDS: HEPARIN SODIUM,PORCINE 5,000 UNIT/ML 1 ML VIAL SQ SCH (20:15)
[2018-01-02] MEDS: AMMONIUM LACTATE 12% LOTION 225 GM BTL TOPICAL SCH (20:16)
[2018-01-02] MEDS: amLODIPine 5 MG TAB PO SCH (20:16)
[2018-01-02] MEDS: cloNIDine HCL 0.1 MG TAB PO SCH (20:16)
[2018-01-03 03:56] LABS: Hemoglobin A1C 7.8 % (4.0-6.0)
[2018-01-03] MEDS: LEVOTHYROXINE 50 MCG TAB PO SCH (06:25)
[2018-01-03 07:10] LABS: Glucose,Whole Blood 92 mg/dL (75-99)
[2018-01-03 07:27] LABS: Basophils % (A) 1 %; Eosinophils # (A) 0.1 k/uL (0-0.7); Eosinophils % (A) 2 %; HCT 34.3 % (34.0-46.0); HGB 11.4 gm/dL (11.4-16.0); Lymphocytes # (A) 1.6 k/uL (1.0-4.8); Lymphocytes % (A) 32 %; MCH 28.4 pg (25.0-35.0); MCHC 33.2 g/dL (31.0-37.0); MCV 85.4 fL (80.0-100.0); Mean Platelet Volume 6.7; Monocytes # (A) 0.5 k/uL (0-1.0); Monocytes % (A) 9 %; Neutrophils # (A) 2.7 k/uL (1.3-7.7); Neutrophils % (A) 54 %; Platelet Count 287 k/uL (150-450); RBC 4.01 m/uL (3.80-5.40)
[2018-01-03 07:49] LABS: Calcium 9.1 mg/dL (8.4-10.2); Potassium 4.5 mmol/L (3.5-5.1)
[2018-01-03] MEDS: ASPIRIN 81 MG PO SCH (08:57)
[2018-01-03] MEDS: LINAGLIPTIN 5 MG TABLET PO SCH (08:58)
[2018-01-03] MEDS: CARVEDILOL 12.5 MG TAB PO SCH ×2 (08:58→17:54)
[2018-01-03] MEDS: GABAPENTIN 400 MG CAP PO SCH ×4 (08:58→21:28)
[2018-01-03] MEDS: PANTOPRAZOLE 40 MG TABLET PO SCH (08:58)
[2018-01-03] MEDS: cloNIDine HCL 0.1 MG TAB PO SCH ×2 (08:58→23:52)
[2018-01-03] MEDS: FUROSEMIDE 40 MG TAB PO SCH (08:58)
[2018-01-03] MEDS: ISOSORBIDE MONONITRATE ER 60 MG TAB.ER.24H PO SCH (08:59)
[2018-01-03] MEDS: HEPARIN SODIUM,PORCINE 5,000 UNIT/ML 1 ML VIAL SQ SCH ×2 (08:59→21:28)
[2018-01-03] MEDS ORDERED: COLCHICINE 0.6 MG EACH PO SCH (09:00)
[2018-01-03] MEDS: INSULIN ASPART 100 UNIT/ML 1 ML 10 ML VIAL SQ SCH ×3 (09:00→17:53)
--- NOTE | 2018-01-03 09:07 | P.CNNES ---
History of Present Illness Consult date: 01/02/18 Reason for Consult: Patient admitted with dizziness and unsteady gait. History of Present Illness: This patient is a 82-year-old right-handed white female who was brought to the emergency room today for evaluation of dizziness and unsteady gait. Patient states she had viral-like symptoms about 3 days prior to her evaluation in the emergency room today. It was felt she may have had some form of gastroenteritis or viral flu. Following this she has been experiencing increased symptoms of vertigo and dizziness. She does describe it as a true spinning sensation. She was brought into the emergency room for further evaluation. She was found to have evidence of mild vertigo and was given a dose of Antivert. When attempting to get her up for discharge from the emergency room she became very unsteady and shaky. Since she is living alone and it was felt unsafe to discharge her home. She was admitted to the hospital for further evaluation. She was seen in the emergency room by Dr. Liriano who decided to have the patient admitted to the hospital for further neurological evaluation. The patient was not sent for any neuro imaging studies but was admitted to hospital for further evaluation. Today a bedside the patient states she becomes more symptomatic with dizziness if she is up and moving about. She does get episodes of dizziness even see is laying flat on her back in bed. We have recommended the patient to undergo an MRI of the brain today for further evaluation. Her clinical history suggests possibility of benign paroxysmal positional vertigo brought on by her recent viral infection. She may have some degree of viral neuronitis. We have recommended that she be placed on low-dose Antivert for at least the next 3-4 weeks. We will continue to follow her progress closely during this admission. Due to the severity of heard diarrhea she has some degree of dehydration. This may be also worsening or overall condition of dizziness and acute labyrinthitis. She does have a history of renal artery stenosis bilaterally. She has been treated for this and does suffer from hypertensive renal vascular disease. She also has a history of resection of a renal mass in the past. She does have diabetes mellitus and is under good control at this time. The patient states that her dizziness came on suddenly and once again suggest possibility of viral neuronitis as a cause of her current symptoms. We however have recommended MRI of the brain and empirically treating her with Antivert to see how she responds. Overall prognosis at this time remains guarded. Neurology is now been consulted for further evaluation and recommendations. Review of Systems Constitutional: Denies chills, Denies fever Eyes: denies blurred vision, denies pain Ears, nose, mouth and throat: Denies headache, Denies sore throat Cardiovascular: Denies chest pain, Denies shortness of breath Respiratory: Denies cough Gastrointestinal: Denies abdominal pain, Denies diarrhea, Denies nausea, Denies vomiting Genitourinary: Denies dysuria, Denies hematuria Musculoskeletal: Denies myalgias Integumentary: Denies pruritus, Denies rash Neurological: Reports change in mentation, Reports gait dysfunction, Reports vertigo, Denies numbness, Denies weakness Psychiatric: Denies anxiety, Denies depression Endocrine: Denies fatigue, Denies weight change Past Medical History Past Medical History: Asthma, Blood Disorder, Coronary Artery Disease (CAD), Cancer, Chest Pain / Angina, Diabetes Mellitus, GERD/Reflux, Hyperlipidemia, Hypertension, Osteoarthritis (OA), Pneumonia, Renal Disease, Thyroid Disorder, Vascular Disorder Additional Past Medical History / Comment(s): 2017 labyrithitis/vertigo, 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 History of Any Multi-Drug Resistant Organisms: None Reported Past Surgical History: Appendectomy, Heart Catheterization, Joint Replacement, Orthopedic Surgery, Tonsillectomy Additional Past Surgical History / Comment(s): R renal artery bypassed with groin vein graft, brain aneurysms with clips x 2, cataract removal both eyes with lens implants, colonoscopies x 2 with first one having benign polypectoy and 2nd one normal. RT kidney had cancer on top of kidney, pt stated"they froze the cancer off" , lt shoulder arthroscopy for rotator cuff, dusty knee replacments, L foot fracture with surgery and L foot had a bone misplaced with surgery, R foot tumor removed around a toe. Past Anesthesia/Blood Transfusion Reactions: No Reported Reaction Additional Past Anesthesia/Blood Transfusion Reaction / Comment(s): Pt has received blood without reaction. Smoking Status: Former smoker - Past Family History Father Family Medical History: Myocardial Infarction (AK) Additional Family Medical History / Comment(s): Father of a AK at the age of 56yrs. Mother Family Medical History: Cancer Additional Family Medical History / Comment(s): Mother had breast cancer. She from another type of cancer that metastasized to her bones. Medications and Allergies Home Medications Medication Instructions Recorded Confirmed Type Atorvastatin [Lipitor] 40 mg PO HS 12/31/14 01/02/18 History Levothyroxine Sodium [Synthroid] 50 mcg PO DAILY 12/31/14 01/02/18 History Pantoprazole Sodium 40 mg PO DAILY 12/31/14 01/02/18 History Aspirin 81 mg PO DAILY 03/24/15 01/02/18 History Calcium Carbonate/Vitamin D3 1 tab PO DAILY 03/24/15 01/02/18 History [Calcium 600-Vit D3 400 Tablet] Multivit-Min/FA/Lycopen/Lutein 1 tab PO DAILY 03/24/15 01/02/18 History [Centrum Silver Tablet] Gabapentin [Neurontin] 400 mg PO QID 01/25/16 01/02/18 History Carvedilol [Coreg] 12.5 mg PO BID 07/28/16 01/02/18 History cloNIDine HCL [Catapres] 0.1 mg PO BID #60 tab 07/31/16 01/02/18 Rx Ammonium Lactate Lotion 1 applic TOPICAL BID 01/02/18 01/02/18 History [Lac-Hydrin 12% Lotion] Cholecalciferol [Vitamin D3] 1,000 unit PO DAILY 01/02/18 01/02/18 History Clobetasol Propionate [Temovate 1 applic TOPICAL TID 01/02/18 01/02/18 History 0.05% Cream] Colchicine [Colcrys] 0.6 mg PO DAILY 01/02/18 01/02/18 History Ferrous Sulfate [Feosol] 325 mg PO DAILY 01/02/18 01/02/18 History Furosemide [Lasix] 40 mg PO DAILY 01/02/18 01/02/18 History Insulin Aspart [NovoLOG Flexpen] 10 units SQ AC-TID 01/02/18 01/02/18 History Insulin Aspart [NovoLOG Flexpen] See Protocol SQ AC-TID 01/02/18 01/02/18 History Insulin Glargine,Hum.rec.anlog 65 units SQ 01/02/18 01/02/18 History [Lantus Solostar] Isosorbide Mononitrate ER [Imdur] 60 mg PO DAILY 01/02/18 01/02/18 History Linagliptin [Tradjenta] 5 mg PO DAILY 01/02/18 01/02/18 History Nitroglycerin Sl Tabs [Nitrostat] 1 tab SQ Q5M PRN 01/02/18 01/02/18 History Sodus-3 Fatty Acids/Fish Oil [Fish 1 cap PO TID 01/02/18 01/02/18 History Oil 1,000 mg Softgel] amLODIPine [Norvasc] 5 mg PO HS 01/02/18 01/02/18 History Allergies Allergy/AdvReac Type Severity Reaction Status Date / Time JOCELYNN Inhibitors Allergy Unknown Verified 01/02/18 09:43 aspartame AdvReac Nausea & Verified 01/02/18 09:43 Vomiting Physical Examination - Vital Signs Vital Signs: Vital Signs Temp Pulse Pulse Resp BP BP BP 01/02/18 19:38 98.1 F 58 L 18 157/59 01/02/18 15:42 56 L 18 01/02/18 14:38 97.8 F 58 L 18 154/93 01/02/18 13:55 98.5 F 53 L 18 171/76 01/02/18 13:34 54 L 18 160/69 01/02/18 12:02 57 L 16 168/72 01/02/18 10:54 54 L 16 166/71 01/02/18 09:29 98.2 F 57 L 16 170/70 Pulse Ox 01/02/18 19:38 95 01/02/18 15:42 01/02/18 14:38 100 01/02/18 13:55 98 01/02/18 13:34 98 01/02/18 12:02 100 01/02/18 10:54 99 01/02/18 09:29 97 Intake and Output 01/02/18 01/02/18 01/02/18 06:59 14:59 22:59 Intake Total 90 Balance 90 Intake: Oral 90 Other: Voiding Method Toilet Toilet # Voids 1 Weight 88.9 kg - Constitutional General appearance: average body habitus, cooperative - EENT EENT: PERRL, mucous membranes moist - Respiratory Respiratory: lungs clear, normal breath sounds - Cardiovascular Cardiovascular: regular rate, normal S1, normal S2 Extremities: no peripheral edema bilaterally - Gastrointestinal Gastrointestinal: normoactive bowel sounds - Integumentary Integumentary: normal - Neurologic Cranial nerve examination: PERRL, EOMI, VFF, V1/V2/V3 grossly intact, face symmetric, intact gag reflex, intact corneal reflex, normal palatal elevation Speech examination: intact Sensorimotor examination: intact Motor examination - right side: 4/5: biceps, triceps, wrist flexion, wrist extension, director integrated, hip flexors, knee extensors, dorsiflexion, toe extension (EHL) , plantarflexion Motor examination - left side: 4/5: biceps, triceps, wrist flexion, wrist extension, director integrated, hip flexors, knee extensors, dorsiflexion, toe extension (EHL) , plantarflexion Reflex and gait examination: intact Reflexes: 1+: ankle, bicep, knee, tricep - Musculoskeletal Musculoskeletal: no pain - Psychiatric Psychiatric: mood/affect appropriate, cooperative Results - Laboratory Findings CBC and BMP: 01/03/18 05:45 01/03/18 05:45 Abnormal Lab Findings: Abnormal Labs 01/02/18 01/02/18 01/02/18 09:43 09:43 11:43 Lymphocytes # 0.8 L BUN 32 H Creatinine 1.55 H Glucose 187 H POC Glucose (mg/dL) AST 48 H ALT 80 H Urine Protein 1+ H 01/02/18 01/02/18 01/02/18 14:32 17:11 20:11 Lymphocytes # BUN Creatinine Glucose POC Glucose (mg/dL) 180 H 172 H 118 H AST ALT Urine Protein Assessment and Plan (1) Benign paroxysmal positional vertigo Current Visit: Yes Status: Acute Code(s): H81.10 - BENIGN PAROXYSMAL VERTIGO , UNSPECIFIED EAR SNOMED Code(s): 618763810 (2) Ataxic gait Current Visit: Yes Status: Acute Code(s): R26.0 - ATAXIC GAIT SNOMED Code( s): 92154730 (3) Generalized weakness Current Visit: No Status: Acute Code(s): R53.1 - WEAKNESS SNOMED Code(s): 81913442 (4) Hypertensive urgency Current Visit: No Status: Acute Code(s): I10 - ESSENTIAL (PRIMARY) HYPERTENSION SNOMED Code(s): 750881787 Plan: This patient is a 82-year-old female who was admitted to Hospital with symptoms of vertigo and unsteady gait. Patient states symptoms began suddenly about 3-4 days ago prior to admission. She has been dealing with viral symptoms and is been having severe diarrhea at home. She does have findings suggesting a viral syndrome. Her neurological examination at this time is nonfocal. Her clinical history suggests viral neuronitis as a cause of her symptoms. We recommended the patient undergo MRI of the brain as well as to empirically started on Antivert 12.5 mg 1 by mouth 3 times a day from treatment and close monitoring and management. Her overall prognosis at this time remains guarded. Case was discussed at length with the patient. She is aware of our current neurological findings and recommendations and is in full agreement with our treatment plan. Her overall prognosis at this time remains guarded. Time with Patient: Greater than 30
[2018-01-03] MEDS: MECLIZINE 12.5 MG TAB PO SCH ×3 (09:58→22:04)
[2018-01-03] MEDS: AMMONIUM LACTATE 12% LOTION 225 GM BTL TOPICAL SCH ×2 (09:58→21:12)
[2018-01-03] MEDS: ACETAMINOPHEN TAB 325 MG TAB PO PRN (11:40)
[2018-01-03] MEDS ORDERED: FERROUS SULFATE 325 MG TAB PO SCH (12:00)
[2018-01-03 12:06] LABS: Glucose,Whole Blood 120 mg/dL (75-99)
[2018-01-03] MEDS: CALCIUM CARB-VIT D 500MG-200UN 1 EACH TAB PO SCH (13:11)
[2018-01-03] MEDS: MULTIVITAMINS, THERA 1 EACH TAB PO SCH (13:11)
[2018-01-03] MEDS: CHOLECALCIFEROL 1,000 UNIT TAB PO SCH (13:12)
--- NOTE | 2018-01-03 15:02 | P.PN ---
Subjective Progress Note Date: 01/03/18 Principal diagnosis: Diagnoses: Dehydration. Chronic kidney disease is stage IV with dehydration, renovascular hypertension, hypertension was hypertensive heart disease, bradycardia, diabetes mellitus type 2 insulin-dependent labile., Peripheral vestibular disturbance, viral gastroenteritis with diarrhea and abdominal discomfort and feeling nauseous. This is a dictation on the progress note by Dr. Basilia Moy date of service is 01/03/2018. Patient seen by Dr. Barth who ordered the MRI with the underlying peripheral vestibular disorder versus central and to rule out underlying brain pathology. Vital signs today temperature 97.6 heart rate 53, blood pressure 145/63 with a mean 90 and oxygen saturation 94 on the room air. Patient had MRI today no reading available yet, Dr. Barth will evaluate today and will know by tomorrow if any farther treatment needed. On the exam her HEENT was negative her dizziness were moving the head is mildly improved, no eye nystagmus she had natural teeth and able to eat and swallow without choking. Neck was supple no JVD no thyromegaly no lymphadenopathy trachea midline., Chest is clear to auscultation and percussion heart was regular sinus rhythm and abdomen was soft obese positive bowel sound and extremities no edema and positive pulses with good perfusion. Neurological assessment by Dr. Barth: #1 benign paroxysmal positional vertigo # 2 ataxic gait. #3 generalized weakness number for hypertensive urgency. Assessment patient still have feeling dizzy and on even and we will wait for the results of the MRI as well as will start to ambulate with lead assistant manager and weight for the laboratory tomorrow and the patient improved we'll be discharging the patient to follow-up as outpatient is cleared by Dr. Barth. Objective - Vital Signs Vital signs: Vital Signs Temp 97.6 F 01/03/18 12:00 Pulse 60 01/03/18 12:00 Resp 18 01/03/18 12:00 BP 145/63 01/03/18 12:00 Pulse Ox 94 L 01/03/18 12:00 Intake & Output 01/02/18 01/03/18 01/03/18 18:59 06:59 18:59 Intake Total 90 Balance 90 Weight 88.9 kg Intake: Oral 90 Other: Voiding Method Toilet Toilet Toilet # Voids 1 1 - Labs CBC & Chem 7: 01/03/18 05:45 01/03/18 05:45 Labs: Abnormal Lab Results - Last 24 Hours (Table) 01/02/18 01/02/18 01/02/18 Range/Units 09:43 17:11 20:11 Chloride (98-107) mmol/L BUN (7-17) mg/dL Creatinine (0.52-1.04) mg/dL Glucose (74-99) mg/dL POC Glucose (mg/dL) 172 H 118 H (75-99) mg/dL Hemoglobin A1c 7.8 H (4.0-6.0) % 01/03/18 01/03/18 Range/Units 05:45 12:04 Chloride 109 H (98-107) mmol/L BUN 22 H (7-17) mg/dL Creatinine 1.47 H (0.52-1.04) mg/dL Glucose 71 L (74-99) mg/dL POC Glucose (mg/dL) 120 H (75-99) mg/dL Hemoglobin A1c (4.0-6.0) % Microbiology - Last 24 Hours (Table) 01/02/18 11:43 Urine Culture - Final Urine,Voided
--- NOTE | 2018-01-03 15:16 | MR ---
EXAMINATION TYPE: MR brain wo con DATE OF EXAM: 01/03/2018 COMPARISON: To 916 HISTORY: Patient with acute vertigo and weakness Standard multiplanar, multisequence MRI departmental protocol Multiplanar, multisequence images of the brain were acquired. Diffusion weighted imaging was performe d. FINDINGS: There is cerebral cortical atrophy. There is no mass effect nor midline shift. There is no sign of intracranial hemorrhage. There is increased signal on the T2 and FLAIR images in the lateral left frontal lobe hernandez and white matter. There is a similar to centimeter irregular focus in the ante rior left temporal lobe. There is a 13 x 9 mm area of low signal in the left suprasellar region. This corresponds to dense nkechi cification on the CT scan of 07/31/2016 and could be calcified posterior communicating artery aneurysm . There are small foci of increased signal in the white matter around the lateral ventricles measure up to 6 mm. Total numbers less than 10. The brainstem appears intact. Cerebellum is intact. IMPRESSION: There is old encephalomalacia involving the inferior left frontal lobe and anterior left temporal lob e unchanged compared to old exam. 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 This appears unchanged. No acute intracranial abnormality.
[2018-01-03] MEDS: SODIUM CHLORIDE 0.9% 1,000 ML IV SCH (16:24)
[2018-01-03 16:47] LABS: Glucose,Whole Blood 202 mg/dL (75-99)
[2018-01-03 20:09] LABS: Glucose,Whole Blood 187 mg/dL (75-99)
[2018-01-03 21:12] VITALS: PULSE 52
[2018-01-03] MEDS: ATORVASTATIN 40 MG TAB PO SCH (21:12)
[2018-01-03] MEDS: INSULIN DETEMIR 100 UNIT/ML 10 ML VIAL SQ SCH (21:28)
[2018-01-03] MEDS: amLODIPine 5 MG TAB PO SCH (23:52)
--- NOTE | 2018-01-04 04:49 | CT ---
EXAMINATION TYPE: CT brain wo con DATE OF EXAM: 01/04/2018 COMPARISON: 07/31/2016 HISTORY: AMS CT DLP: 1012.70 mGycm Automated exposure control for dose reduction was used. FINDINGS: There is mild cerebral cortical atrophy. There is no mass effect nor midline shift. There is no sign of intracranial hemorrhage. There is a calcified mass in the suprasellar region on the left side that could be calcifying aneurysm or unusual osteoma. There are clips in the anterior middle cranial ernst a. There is left temporal craniotomy defect. There is some hypodensity in the inferior left frontal l obe and anterior left temporal lobe consistent with encephalomalacia. 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 NO ACUTE INTRACRANIAL ABNORMALITY. CEREBRAL ATROPHY. NO CHANGE . PREVIOUS SURGERY.
[2018-01-04] MEDS: LEVOTHYROXINE 50 MCG TAB PO SCH (05:19)
[2018-01-04 06:54] LABS: Glucose,Whole Blood 135 mg/dL (75-99)
[2018-01-04 07:12] LABS: Albumin 3.4 g/dL (3.5-5.0); Bilirubin, Delta 0.3 mg/dL (0.0-0.2); Bilirubin,Unconjugated 0.3 mg/dL (0.0-1.1); Calcium 9.5 mg/dL (8.4-10.2); Potassium 4.3 mmol/L (3.5-5.1); Total Bilirubin 0.6 mg/dL (0.2-1.3); Total Protein 5.8 g/dL (6.3-8.2)
[2018-01-04] MEDS: ISOSORBIDE MONONITRATE ER 60 MG TAB.ER.24H PO SCH (08:27)
[2018-01-04] MEDS: cloNIDine HCL 0.1 MG TAB PO SCH (08:27)
[2018-01-04] MEDS: PANTOPRAZOLE 40 MG TABLET PO SCH (08:27)
[2018-01-04] MEDS: CALCIUM CARB-VIT D 500MG-200UN 1 EACH TAB PO SCH (08:28)
[2018-01-04] MEDS: FUROSEMIDE 40 MG TAB PO SCH (08:28)
[2018-01-04] MEDS: ASPIRIN 81 MG PO SCH (08:28)
[2018-01-04] MEDS: MULTIVITAMINS, THERA 1 EACH TAB PO SCH (08:28)
[2018-01-04] MEDS: CHOLECALCIFEROL 1,000 UNIT TAB PO SCH (08:28)
[2018-01-04] MEDS: CARVEDILOL 12.5 MG TAB PO SCH ×2 (08:28→17:51)
[2018-01-04] MEDS: GABAPENTIN 400 MG CAP PO SCH ×3 (08:28→18:05)
[2018-01-04] MEDS: LINAGLIPTIN 5 MG TABLET PO SCH (08:28)
[2018-01-04] MEDS: HEPARIN SODIUM,PORCINE 5,000 UNIT/ML 1 ML VIAL SQ SCH (08:29)
[2018-01-04] MEDS: ACETAMINOPHEN TAB 325 MG TAB PO PRN (08:29)
[2018-01-04] MEDS: INSULIN ASPART 100 UNIT/ML 1 ML 10 ML VIAL SQ SCH ×3 (08:33→17:51)
[2018-01-04] MEDS: MECLIZINE 12.5 MG TAB PO SCH ×2 (08:34→14:55)
--- NOTE | 2018-01-04 09:51 | P.PN ---
Subjective Progress Note Date: 01/03/18 This patient is a 82-year-old right-handed white female who was seen in neurology consultation yesterday for evaluation of acute dizziness and unsteady gait. Patient was admitted to the observation unit yesterday evening and was being treated for possibility of severe viral gastroenteritis and viral syndrome. She had been symptomatic with severe diarrhea for the past 3 days prior to admission. The patient's neurological examination yesterday suggested possibility of benign paroxysmal positional vertigo versus possibility of brainstem ischemia. She was recommended to undergo MRI of the brain for further evaluation. 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 This appears unchanged. No acute intracranial abnormality was noted. No evidence of acute stroke. We reviewed the results of the MRI today with the patient. We have started the patient yesterday on low-dose Antivert 12.5 mg 3 times a day. We would recommend she be maintained on this for at least 3-4 weeks and then gradually may be weaned off depending on her response. If the patient continues to show improvement she may be considered for discharge home tomorrow. Her overall prognosis at this time remains guarded. Objective - Vital Signs Vital signs: Vital Signs Temp 97.4 F L 01/03/18 16:00 Pulse 55 L 01/03/18 16:00 Resp 16 01/03/18 16:00 BP 117/64 01/03/18 16:00 Pulse Ox 94 L 01/03/18 16:00 Intake & Output 01/02/18 01/03/18 01/03/18 18:59 06:59 18:59 Intake Total 90 Balance 90 Weight 88.9 kg Intake: Oral 90 Other: Voiding Method Toilet Toilet Toilet # Voids 1 1 - Exam Physical examination: PHYSICAL EXAMINATION: Patient is resting comfortably in bed. VITAL SIGNS: Blood pressure is [117/65]. Heart rate is [55]. Respiration is [16] . Temperature is [97.4]. HEENT: Head is atraumatic, neck is supple, there were no carotid bruits. CHEST: Lungs are clear to auscultation and percussion. CARDIAC: S1, S2 normal rate and rhythm. There is no murmur. ABDOMEN: Soft and nontender. Bowel sounds are present. EXTREMITIES: There is no pedal edema. Peripheral pulses are present. Neurological examination: Patient's neurological examination is unchanged from yesterday. Patient is resting comfortably and has minimal symptoms of vertigo and dizziness today on examination - Labs CBC & Chem 7: 01/03/18 05:45 01/04/18 06:16 Labs: Abnormal Lab Results - Last 24 Hours (Table) 01/02/18 01/02/18 01/03/18 Range/Units 09:43 20:11 05:45 Chloride 109 H (98-107) mmol/L BUN 22 H (7-17) mg/dL Creatinine 1.47 H (0.52-1.04) mg/dL Glucose 71 L (74-99) mg/dL POC Glucose (mg/dL) 118 H (75-99) mg/dL Hemoglobin A1c 7.8 H (4.0-6.0) % 01/03/18 01/03/18 Range/Units 12:04 16:40 Chloride (98-107) mmol/L BUN (7-17) mg/dL Creatinine (0.52-1.04) mg/dL Glucose (74-99) mg/dL POC Glucose (mg/dL) 120 H 202 H (75-99) mg/dL Hemoglobin A1c (4.0-6.0) % Microbiology - Last 24 Hours (Table) 01/02/18 11:43 Urine Culture - Final Urine,Voided Assessment and Plan (1) Benign paroxysmal positional vertigo Current Visit: Yes Status: Acute Code(s): H81.10 - BENIGN PAROXYSMAL VERTIGO , UNSPECIFIED EAR SNOMED Code(s): 508409861 (2) Ataxic gait Current Visit: Yes Status: Acute Code(s): R26.0 - ATAXIC GAIT SNOMED Code( s): 71269883 (3) Generalized weakness Current Visit: No Status: Acute Code(s): R53.1 - WEAKNESS SNOMED Code(s): 28249706 (4) Hypertensive urgency Current Visit: No Status: Acute Code(s): I10 - ESSENTIAL (PRIMARY) HYPERTENSION SNOMED Code(s): 341135066 Plan: This patient is a 82-year-old female who was admitted to Hospital with symptoms of vertigo and unsteady gait. Patient states symptoms began suddenly about 3-4 days ago prior to admission. She has been dealing with viral symptoms and is been having severe diarrhea at home. She does have findings suggesting a viral syndrome. Her neurological examination at this time is nonfocal. Her clinical history suggests viral neuronitis as a cause of her symptoms. We recommended the patient undergo MRI of the brain as well as to empirically started on Antivert 12.5 mg 1 by mouth 3 times a day from treatment and close monitoring and management. Her overall prognosis at this time remains guarded. Case was discussed at length with the patient. She is aware of our current neurological findings and recommendations and is in full agreement with our treatment plan. If the patient continues to show improvement tomorrow she may be considered for discharge home. She may follow-up in the outpatient neurology clinic as scheduled for follow-up recommendations. Her overall prognosis at this time remains guarded.
[2018-01-04] MEDS: AMMONIUM LACTATE 12% LOTION 225 GM BTL TOPICAL SCH (10:00)
[2018-01-04 11:16] LABS: Glucose,Whole Blood 159 mg/dL (75-99)
[2018-01-04 14:17] VITALS: BP 144/67; RESP 16; TEMP 97.7
--- NOTE | 2018-01-04 16:11 | P.DS ---
Providers Date of admission: 01/02/18 13:19 Attending physician: aJe Dubon Consults: 01/02/18 13:20 Consult Physician Routine Consulting Provider: Yogesh Barth Consult Reason/Comments: dizziness Do you want consulting provider notified?: Yes Primary care physician: Jae Dubon This is a dictation of discharge summary date of service 01/04/2018. Date of admission 01/03/2016 observation status. Final diagnosis: #1 benign paroxysmal positional vertigo. #2 dizziness probably associated with a viral syndrome with the GI symptoms including upset stomach and diarrhea and dehydration. #3 dehydration #4 generalized weakness . #5 ataxic gait #6 history of renovascular hypertension with the on the underlying hypertensive heart disease. #7 chronic renal failure with chronic kidney disease is stage III. #8 hypothyroidism #9 diabetes mellitus type 2 controlled with the complicated with diabetic neuropathy. #9 hyper lipidemia. Presented to the emergency room with dizziness and weakness stated that in the last 3-4 days she feeling dizzy she had some nausea and also diarrhea but she denies the room spinning and she have shaking repeatedly with the diarrhea and the nausea. Hospital course: Patient admitted on observation status with the pump with the underlying dehydration IV fluid, consultation with Dr. Barth neurologist who did see her and ordered the MRI yesterday and the result showed to be old encephalomalacia involving the inferior left frontal lobe and anterior left temporal lobe unchanged from previous exam. There is evidence of calcified posterior communicating artery aneurysm also on the left side unchanged. She was monitored for the blood sugar diabetes mellitus as well as blood pressure and she had a headache which is resolved at this time. Dr. Barth order computed tomography scan repeat today on the 01/04/2018 which indicate same result old encephalomalacia on the left side and that there is no acute intracranial abnormalities and there there is some cerebral atrophy. Laboratory today indicating sodium 141 potassium 4.3, chloride 108, carbon dioxide 26, BUN of 7, creatinine 1.48, and BUN 23, estimated glomerular filtration rate for non- 33 with a chronic kidney disease stage IIIB her blood sugar was stable this morning 119 fasting with the POC glucose ranging between 135-159. She has minimal elevation of AST 50 . A LT 75 with the upper limit of the range 50 to which could be associated with viral syndrome will repeat that as outpatient after we see her next week. Vital signs stable with temperature 97.7, heart rate 52 respiratory rate 16 nonlabored blood pressure 144/67 with the being arterial pressure 92. Her pulse ox on room air 99%. Exam on discharge: She feeling comfortable and she is not dizzy as if she was and she will be continued on the antevert. HEENT was negative, neck was supple no JVD, chest was clear to auscultation and percussion no wheezes nor rhonchi's, heart PMI in the fifth intercostal space outside midclavicular line regular compensated with a history of renovascular hypertension. 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 Patient ambulatory able to eat with no nausea or vomiting and stable general condition. Assessment stable for discharge plan discharge home today follow-up next week with Dr. Gatica as well as follow-up with Dr. Barth for for further evaluation and treatment. Continue the Antivert prescription was given. Patient Condition at Discharge: Good Plan - Discharge Summary Discharge Rx Participant: No New Discharge Prescriptions: New Acetaminophen Tab [Tylenol] 650 mg PO Q4HR PRN tab PRN Reason: Fever And/ Or Pain Meclizine [Antivert] 12.5 mg PO TID #30 tab Continue Pantoprazole Sodium 40 mg PO DAILY Levothyroxine Sodium [Synthroid] 50 mcg PO DAILY Atorvastatin [Lipitor] 40 mg PO HS Calcium Carbonate/Vitamin D3 [Calcium 600-Vit D3 400 Tablet] 1 tab PO DAILY Multivit-Min/FA/Lycopen/Lutein [Centrum Silver Tablet] 1 tab PO DAILY Aspirin 81 mg PO DAILY Gabapentin [Neurontin] 400 mg PO QID Carvedilol [Coreg] 12.5 mg PO BID cloNIDine HCL [Catapres] 0.1 mg PO BID #60 tab amLODIPine [Norvasc] 5 mg PO HS Ammonium Lactate Lotion [Lac-Hydrin 12% Lotion] 1 applic TOPICAL BID Cholecalciferol [Vitamin D3] 1,000 unit PO DAILY Clobetasol Propionate [Temovate 0.05% Cream] 1 applic TOPICAL TID Ferrous Sulfate [Feosol] 325 mg PO DAILY Furosemide [Lasix] 40 mg PO DAILY Insulin Aspart [NovoLOG Flexpen] See Protocol SQ AC-TID Insulin Glargine,Hum.rec.anlog [Lantus Solostar] 65 units SQ HS Isosorbide Mononitrate ER [Imdur] 60 mg PO DAILY Linagliptin [Tradjenta] 5 mg PO DAILY Nitroglycerin Sl Tabs [Nitrostat] 1 tab SQ Q5M PRN PRN Reason: Chest Pain Dille-3 Fatty Acids/Fish Oil [Fish Oil 1,000 mg Softgel] 1 cap PO TID Discontinued Colchicine [Colcrys] 0.6 mg PO DAILY No Action Insulin Aspart [NovoLOG Flexpen] 10 units SQ AC-TID Discharge Medication List Atorvastatin [Lipitor] 40 mg PO HS 12/31/14 [History] Levothyroxine Sodium [Synthroid] 50 mcg PO DAILY 12/31/14 [History] Pantoprazole Sodium 40 mg PO DAILY 12/31/14 [History] Aspirin 81 mg PO DAILY 03/24/15 [History] Calcium Carbonate/Vitamin D3 [Calcium 600-Vit D3 400 Tablet] 1 tab PO DAILY 08/03 [History] Multivit-Min/FA/Lycopen/Lutein [Centrum Silver Tablet] 1 tab PO DAILY 03/24/15 [ History] Gabapentin [Neurontin] 400 mg PO QID 01/25/16 [History] Carvedilol [Coreg] 12.5 mg PO BID 07/28/16 [History] cloNIDine HCL [Catapres] 0.1 mg PO BID #60 tab 07/31/16 [Rx] Ammonium Lactate Lotion [Lac-Hydrin 12% Lotion] 1 applic TOPICAL BID 01/02/18 [ History] Cholecalciferol [Vitamin D3] 1,000 unit PO DAILY 01/02/18 [History] Clobetasol Propionate [Temovate 0.05% Cream] 1 applic TOPICAL TID 01/02/18 [ History] Ferrous Sulfate [Feosol] 325 mg PO DAILY 01/02/18 [History] Furosemide [Lasix] 40 mg PO DAILY 01/02/18 [History] Insulin Aspart [NovoLOG Flexpen] 10 units SQ AC-TID 01/02/18 [History] Insulin Aspart [NovoLOG Flexpen] See Protocol SQ AC-TID 01/02/18 [History] Insulin Glargine,Hum.rec.anlog [Lantus Solostar] 65 units SQ HS 01/02/18 [ History] Isosorbide Mononitrate ER [Imdur] 60 mg PO DAILY 01/02/18 [History] Linagliptin [Tradjenta] 5 mg PO DAILY 01/02/18 [History] Nitroglycerin Sl Tabs [Nitrostat] 1 tab SQ Q5M PRN 01/02/18 [History] Dille-3 Fatty Acids/Fish Oil [Fish Oil 1,000 mg Softgel] 1 cap PO TID 01/02/18 [ History] amLODIPine [Norvasc] 5 mg PO HS 01/02/18 [History] Acetaminophen Tab [Tylenol] 650 mg PO Q4HR PRN tab 01/04/18 [Rx] Meclizine [Antivert] 12.5 mg PO TID #30 tab 01/04/18 [Rx] Follow up Appointment(s)/Referral(s): Jae Dubon MD [Primary Care Provider] - 1-2 days
[2018-01-04] MEDS: SODIUM CHLORIDE 0.9% 1,000 ML IV SCH (16:39)
[2018-01-04 17:29] LABS: Glucose,Whole Blood 159 mg/dL (75-99)
== END 2018-01-04 19:37 | disposition home or self-care (01) ==
LOC: EC 09:27 → 3OBS 13:19 → 3SUR 01-03 16:35
PROVIDERS: ADMIT Internal Medicine; ATTEND Internal Medicine
DX: H81.10 Benign paroxysmal vertigo, unspecified ear (principal); E86.0 Dehydration; A08.4 Viral intestinal infection, unspecified; I16.0 Hypertensive urgency; I13.10 Hypertensive heart and chronic kidney disease without heart failure, with stage 1 through stage 4 chronic kidney disease, or unspecified chronic kidney disease; N18.4 Chronic kidney disease, stage 4 (severe); E11.22 Type 2 diabetes mellitus with diabetic chronic kidney disease; E11.40 Type 2 diabetes mellitus with diabetic neuropathy, unspecified; E03.9 Hypothyroidism, unspecified; E78.5 Hyperlipidemia, unspecified; R26.0 Ataxic gait; K21.9 Gastro-esophageal reflux disease without esophagitis; J45.909 Unspecified asthma, uncomplicated; I25.10 Atherosclerotic heart disease of native coronary artery without angina pectoris; D64.9 Anemia, unspecified; I70.1 Atherosclerosis of renal artery; I70.0 Atherosclerosis of aorta; M10.9 Gout, unspecified; R00.1 Bradycardia, unspecified; H81.90 Unspecified disorder of vestibular function, unspecified ear; G93.89 Other specified disorders of brain; R32 Unspecified urinary incontinence; M19.90 Unspecified osteoarthritis, unspecified site; Z79.82 Long term (current) use of aspirin; Z79.4 Long term (current) use of insulin; Z79.890 Hormone replacement therapy; Z79.899 Other long term (current) drug therapy; Z91.018 Allergy to other foods; Z88.8 Allergy status to other drugs, medicaments and biological substances; Z87.01 Personal history of pneumonia (recurrent); Z85.528 Personal history of other malignant neoplasm of kidney; Z86.010 Personal history of colon polyps; Z86.79 Personal history of other diseases of the circulatory system; Z91.81 History of falling; Z87.891 Personal history of nicotine dependence; Z98.42 Cataract extraction status, left eye; Z98.41 Cataract extraction status, right eye; Z96.1 Presence of intraocular lens; Z96.653 Presence of artificial knee joint, bilateral; Z80.3 Family history of malignant neoplasm of breast; Z82.49 Family history of ischemic heart disease and other diseases of the circulatory system; Z80.9 Family history of malignant neoplasm, unspecified; E66.9 Obesity, unspecified; Z68.32 Body mass index [BMI] 32.0-32.9, adult
CPT/HCPCS: 99285 ×2; 96374 ×2; 96361 ×2; 96372 ×3; 36415; 93005; 80053; 80048 ×2; 80076; 84443; 83605; 84484; 85025 ×2; 81001; 87040; 87086; 83036; 71046; 70450; 70551; G0378 ×3; J1644 ×3; J2405

== ENCOUNTER → 2018-01-28 | Outpatient (CLI) | payer MEDICARE, BC ==
[2018-01-28 13:51] LABS: Basophils % (A) 0 %; Eosinophils # (A) 0.1 k/uL (0-0.7); Eosinophils % (A) 2 %; HCT 34.9 % (34.0-46.0); HGB 11.8 gm/dL (11.4-16.0); Lymphocytes # (A) 1.1 k/uL (1.0-4.8); Lymphocytes % (A) 19 %; MCH 28.2 pg (25.0-35.0); MCHC 33.6 g/dL (31.0-37.0); MCV 83.9 fL (80.0-100.0); Mean Platelet Volume 6.9; Monocytes # (A) 0.4 k/uL (0-1.0); Monocytes % (A) 7 %; Neutrophils # (A) 4.2 k/uL (1.3-7.7); Neutrophils % (A) 70 %; Platelet Count 364 k/uL (150-450); RBC 4.16 m/uL (3.80-5.40); RDW 14.5 % (11.5-15.5)
[2018-01-28 15:24] LABS: Erythrocyte Sedimentation Rate 46 mm/hr (0-20)
[2018-01-28 17:59] LABS: Albumin 3.7 g/dL (3.5-5.0); C Reactive Protein 7.1 mg/L (<10.0); Calcium 9.5 mg/dL (8.4-10.2); Phosphorus 3.9 mg/dL (2.5-4.5); Potassium 5.1 mmol/L (3.5-5.1); Total Bilirubin 0.5 mg/dL (0.2-1.3); Total Protein 6.3 g/dL (6.3-8.2); Uric Acid 4.5 mg/dL (3.7-7.4)
[2018-01-28 18:11] LABS: T4, Free (Free Thyroxine) 0.95 ng/dL (0.78-2.19)
[2018-01-28 20:41] LABS: Hemoglobin A1C 7.3 % (4.0-6.0)
[2018-01-28 21:31] LABS: Parathyroid Hormone Intact 86.6 pg/mL (14.0-72.0)
[2018-01-28 21:45] LABS: Vitamin D 25 Hydroxy 35.1 ng/mL (30.0-100.0)
== END ==
LOC: LABWHC1 11:30
PROVIDERS: ATTEND Internal Medicine
DX: E11.22 Type 2 diabetes mellitus with diabetic chronic kidney disease (principal); E87.8 Other disorders of electrolyte and fluid balance, not elsewhere classified; M10.9 Gout, unspecified; E78.5 Hyperlipidemia, unspecified; E21.3 Hyperparathyroidism, unspecified; I12.9 Hypertensive chronic kidney disease with stage 1 through stage 4 chronic kidney disease, or unspecified chronic kidney disease; E55.9 Vitamin D deficiency, unspecified; I70.1 Atherosclerosis of renal artery; D63.1 Anemia in chronic kidney disease; N18.4 Chronic kidney disease, stage 4 (severe)
CPT/HCPCS: 36415; 80053; 80061; 82306; 82550; 83036; 83735; 83970; 84100; 84439; 84443; 84550; 85025; 85652; 86140

== ENCOUNTER → 2018-03-18 | Outpatient (CLI) | payer MEDICARE, BC ==
--- NOTE | 2018-03-18 12:23 | US ---
EXAMINATION TYPE: US venous doppler duplex LE RIGHT DATE OF EXAM: 03/18/2018 11:56 AM COMPARISON: NONE CLINICAL HISTORY: 82-year-old female M79.661 Pain, R22.41Swelling right leg. SIDE PERFORMED: right TECHNIQUE: The lower extremity deep venous system is examined utilizing real time linear array sonog los with graded compression, doppler sonography and color-flow sonography. FINDINGS: VESSELS IMAGED: External Iliac Vein (EIV) Common Femoral Vein Deep Femoral Vein Greater Saphenous Vein * Femoral Vein Popliteal Vein Small Saphenous Vein * Proximal Calf Veins (* superficial vessels) Right Leg: neg for RLE DVT Results called to Dr. Dubon at the time of the exam. IMPRESSION: No evidence for DVT within the right lower extremity imaged from the groin to the upper calf.
[2018-03-18 13:38] LABS: Calcium 9.6 mg/dL (8.4-10.2); Magnesium 1.9 mg/dL (1.6-2.3); Phosphorus 4.4 mg/dL (2.5-4.5); Potassium 4.7 mmol/L (3.5-5.1); Uric Acid 7.8 mg/dL (3.7-7.4)
== END | disposition home or self-care (01) ==
LOC: RADUSWWP 11:46
PROVIDERS: ATTEND Internal Medicine
DX: M79.661 Pain in right lower leg (principal); R22.41 Localized swelling, mass and lump, right lower limb; M10.9 Gout, unspecified; L03.90 Cellulitis, unspecified; I82.409 Acute embolism and thrombosis of unspecified deep veins of unspecified lower extremity
CPT/HCPCS: 80048; 83735; 84100; 84550; 85379

== ENCOUNTER 2018-04-16 09:13 | Emergency (ER) | payer MEDICARE, BC ==
[2018-04-16] MEDS ORDERED: SODIUM CHLORIDE 0.9% 1,000 ML IV STA (09:17)
--- NOTE | 2018-04-16 09:24 | ED ---
Weakness HPI - General Stated complaint: dizziness Time Seen by Provider: 04/16/18 09:17 Source: RN notes reviewed, old records reviewed - History of Present Illness Initial comments: This is an 8-year-old female the ER for evaluation multiple ways, weakness bilateral leg pain and swelling. Not feeling well. Patient has extensive medical history. Her main complaint is leg pain and leg weakness. She states she's been suffering throat with for the last couple days the holidays is no improvement. Eyes medication changes. States her legs are significantly swollen and erythematous compared to prior MD Complaint: generalized weakness, lack of energy, difficulty walking ( Bilateral lower extremity weakness) -: days(s) (3) Location: generalized, LLE, RLE Severity: mild Quality: aching, other (Burning) Consistency: constant Improves with: none Worsens with: movement Context: history of similar Associated Symptoms: denies other symptoms - Related Data Home Medications Medication Instructions Recorded Confirmed Atorvastatin [Lipitor] 40 mg PO HS 12/31/14 04/16/18 Levothyroxine Sodium [Synthroid] 50 mcg PO DAILY 12/31/14 04/16/18 Pantoprazole Sodium 40 mg PO DAILY 12/31/14 04/16/18 Multivit-Min/FA/Lycopen/Lutein 1 tab PO DAILY 03/24/15 04/16/18 [Centrum Silver Tablet] Gabapentin [Neurontin] 400 mg PO QID 01/25/16 04/16/18 Carvedilol [Coreg] 12.5 mg PO BID 07/28/16 04/16/18 Furosemide [Lasix] 40 mg PO DAILY 01/02/18 04/16/18 Insulin Aspart [NovoLOG Flexpen] 10 units SQ AC-TID 01/02/18 04/16/18 Insulin Aspart [NovoLOG Flexpen] See Protocol SQ AC-TID 01/02/18 04/16/18 Insulin Glargine,Hum.rec.anlog 50 units SQ HS 01/02/18 04/16/18 [Lantus Solostar] Isosorbide Mononitrate ER [Imdur] 60 mg PO DAILY 01/02/18 04/16/18 Nitroglycerin Sl Tabs [Nitrostat] 1 tab SQ Q5M PRN 01/02/18 04/16/18 Losartan [Cozaar] 50 mg PO DAILY 04/16/18 04/16/18 amLODIPine [Norvasc] 10 mg PO DAILY 04/16/18 04/16/18 Previous Rx's Medication Instructions Recorded cloNIDine HCL [Catapres] 0.1 mg PO BID #60 tab 07/31/16 Acetaminophen Tab [Tylenol] 650 mg PO Q4HR PRN tab 01/04/18 Cephalexin [Keflex] 500 mg PO Q6HR #40 cap 04/16/18 Furosemide [Lasix] 40 mg PO BID #10 tablet 04/16/18 Sulfamethox-Tmp 800-160Mg [Bactrim 1 tab PO Q12HR #20 tab 04/16/18 DS 800-160 mg] Allergies Allergy/AdvReac Type Severity Reaction Status Date / Time JOCELYNN Inhibitors Allergy Unknown Verified 04/16/18 09:44 aspartame AdvReac Nausea & Verified 04/16/18 09:44 Vomiting Review of Systems ROS Statement: Those systems with pertinent positive or pertinent negative responses have been documented in the HPI. ROS Other: All systems not noted in ROS Statement are negative. 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 History of Any Multi-Drug Resistant Organisms: None Reported Past Surgical History: Appendectomy, Heart Catheterization, Joint Replacement, Orthopedic Surgery, Tonsillectomy Additional Past Surgical History / Comment(s): R renal artery bypassed with groin vein graft, brain aneurysms with clips x 2, cataract removal both eyes with lens implants, colonoscopies x 2 with first one having benign polypectoy and 2nd one normal. RT kidney had cancer on top of kidney, pt stated"they froze the cancer off" , lt shoulder arthroscopy for rotator cuff, dusty knee replacments, L foot fracture with surgery and L foot had a bone misplaced with surgery, R foot tumor removed around a toe. Past Anesthesia/Blood Transfusion Reactions: No Reported Reaction Additional Past Anesthesia/Blood Transfusion Reaction / Comment(s): Pt has received blood without reaction. Smoking Status: Former smoker - Past Family History Father Family Medical History: Myocardial Infarction (OR) Additional Family Medical History / Comment(s): Father of a OR at the age of 56yrs. Mother Family Medical History: Cancer Additional Family Medical History / Comment(s): Mother had breast cancer. She from another type of cancer that metastasized to her bones. General Exam General appearance: alert, in no apparent distress Head exam: Present: atraumatic, normocephalic, normal inspection Eye exam: Present: normal appearance, PERRL, EOMI. Absent: scleral icterus, conjunctival injection, periorbital swelling ENT exam: Present: normal exam, mucous membranes moist Neck exam: Present: normal inspection. Absent: tenderness, meningismus, lymphadenopathy Respiratory exam: Present: normal lung sounds bilaterally. Absent: respiratory distress, wheezes, rales, rhonchi, stridor Cardiovascular Exam: Present: regular rate, normal rhythm, normal heart sounds. Absent: systolic murmur, diastolic murmur, rubs, gallop, clicks GI/Abdominal exam: Present: soft, normal bowel sounds. Absent: distended, tenderness, guarding, rebound, rigid Extremities exam: Present: normal inspection, full ROM, normal capillary refill , other (Bilateral lower extremity edema, erythema and tenderness). Absent: tenderness, pedal edema, joint swelling, calf tenderness Back exam: Present: normal inspection Neurological exam: Present: alert, oriented X3, CN II-XII intact Psychiatric exam: Present: normal affect, normal mood Skin exam: Present: warm, dry, intact, normal color. Absent: rash Course Vital Signs 04/16/18 09:29 Temperature 97.6 F Pulse Rate 63 Respiratory 19 Rate Blood Pressure 145/53 O2 Sat by Pulse 94 L Oximetry - Reevaluation(s) Reevaluation #1: 04/16/18 10:14 Medical record reviewed Reevaluation #2: 04/16/18 12:09 patient states she would like to trial outpatient treatment EKG Findings - EKG Comments: EKG Findings:: EKG shows sinus rhythm rate of 60, [place] 192, QRS 80, QTC 434 Medical Decision Making - Medical Decision Making 88-year-old female the ER with history of venous stasis coming in with lower extremity edema, cellulitis, mild pain. Patient replace on outpatient antibiotics and increase Lasix dose. Patient can be discharged home - Lab Data Result diagrams: 04/16/18 09:56 04/16/18 09:56 Lab Results 04/16/18 04/16/18 04/16/18 Range/Units 09:56 09:56 09:56 WBC 6.1 (3.8-10.6) k/uL RBC 4.58 (3.80-5.40) m/uL Hgb 13.0 (11.4-16.0) gm/dL Hct 38.1 (34.0-46.0) % MCV 83.3 (80.0-100.0) fL MCH 28.3 (25.0-35.0) pg MCHC 34.0 (31.0-37.0) g/dL RDW 14.4 (11.5-15.5) % Plt Count 281 (150-450) k/uL Neutrophils % 78 % Lymphocytes % 12 % Monocytes % 6 % Eosinophils % 2 % Basophils % 0 % Neutrophils # 4.8 (1.3-7.7) k/uL Lymphocytes # 0.7 L (1.0-4.8) k/uL Monocytes # 0.4 (0-1.0) k/uL Eosinophils # 0.1 (0-0.7) k/uL Basophils # 0.0 (0-0.2) k/uL PT (9.0-12.0) sec INR (<1.2) APTT (22.0-30.0) sec Sodium 143 (137-145) mmol/L Potassium 4.3 (3.5-5.1) mmol/L Chloride 110 H (98-107) mmol/L Carbon Dioxide 28 (22-30) mmol/L Anion Gap 5 mmol/L BUN 17 (7-17) mg/dL Creatinine 1.23 H (0.52-1.04) mg/dL Est GFR (CKD-EPI)AfAm 47 (>60 ml/min/1.73 sqM) Est GFR (CKD-EPI)NonAf 41 (>60 ml/min/1.73 sqM) Glucose 187 H (74-99) mg/dL Plasma Lactic Acid Jaya (0.7-2.0) mmol/L Calcium 8.8 (8.4-10.2) mg/dL Phosphorus 3.0 (2.5-4.5) mg/dL Magnesium 1.8 (1.6-2.3) mg/dL Total Bilirubin 0.6 (0.2-1.3) mg/dL AST 25 (14-36) U/L ALT 40 (9-52) U/L Alkaline Phosphatase 83 (38-126) U/L Total Creatine Kinase 64 (30-135) U/L CK-MB (CK-2) 0.8 (0.0-2.4) ng/mL CK-MB (CK-2) Rel Index 1.3 Troponin I <0.012 (0.000-0.034) ng/mL Total Protein 6.3 (6.3-8.2) g/dL Albumin 3.5 (3.5-5.0) g/dL Urine Color Urine Appearance (Clear) Urine pH (5.0-8.0) Ur Specific [place] (1.001-1.035) Urine Protein (Negative) Urine Glucose (UA) (Negative) Urine Ketones (Negative) Urine Blood (Negative) Urine Nitrite (Negative) Urine Bilirubin (Negative) Urine Urobilinogen (<2.0) mg/dL Ur Leukocyte Esterase (Negative) Urine RBC (0-5) /hpf Urine WBC (0-5) /hpf 04/16/18 04/16/18 04/16/18 Range/Units 09:56 09:56 10:11 WBC (3.8-10.6) k/uL RBC (3.80-5.40) m/uL Hgb (11.4-16.0) gm/dL Hct (34.0-46.0) % MCV (80.0-100.0) fL MCH (25.0-35.0) pg MCHC (31.0-37.0) g/dL RDW (11.5-15.5) % Plt Count (150-450) k/uL Neutrophils % % Lymphocytes % % Monocytes % % Eosinophils % % Basophils % % Neutrophils # (1.3-7.7) k/uL Lymphocytes # (1.0-4.8) k/uL Monocytes # (0-1.0) k/uL Eosinophils # (0-0.7) k/uL Basophils # (0-0.2) k/uL PT 10.5 (9.0-12.0) sec INR 1.0 (<1.2) APTT 24.1 (22.0-30.0) sec Sodium (137-145) mmol/L Potassium (3.5-5.1) mmol/L Chloride (98-107) mmol/L Carbon Dioxide (22-30) mmol/L Anion Gap mmol/L BUN (7-17) mg/dL Creatinine (0.52-1.04) mg/dL Est GFR (CKD-EPI)AfAm (>60 ml/min/1.73 sqM) Est GFR (CKD-EPI)NonAf (>60 ml/min/1.73 sqM) Glucose (74-99) mg/dL Plasma Lactic Acid Jaya 1.0 (0.7-2.0) mmol/L Calcium (8.4-10.2) mg/dL Phosphorus (2.5-4.5) mg/dL Magnesium (1.6-2.3) mg/dL Total Bilirubin (0.2-1.3) mg/dL AST (14-36) U/L ALT (9-52) U/L Alkaline Phosphatase (38-126) U/L Total Creatine Kinase (30-135) U/L CK-MB (CK-2) (0.0-2.4) ng/mL CK-MB (CK-2) Rel Index Troponin I (0.000-0.034) ng/mL Total Protein (6.3-8.2) g/dL Albumin (3.5-5.0) g/dL Urine Color Yellow Urine Appearance Clear (Clear) Urine pH 7.5 (5.0-8.0) Ur Specific [place] 1.009 (1.001-1.035) Urine Protein 2+ H (Negative) Urine Glucose (UA) Negative (Negative) Urine Ketones Negative (Negative) Urine Blood Negative (Negative) Urine Nitrite Negative (Negative) Urine Bilirubin Negative (Negative) Urine Urobilinogen <2.0 (<2.0) mg/dL Ur Leukocyte Esterase Small H (Negative) Urine RBC 1 (0-5) /hpf Urine WBC 6 H (0-5) /hpf Disposition Clinical Impression: Bilateral lower leg cellulitis, Bilateral leg edema Disposition: HOME SELF-CARE Condition: Good Instructions: Cellulitis (ED) Prescriptions: Cephalexin [Keflex] 500 mg PO Q6HR #40 cap Furosemide [Lasix] 40 mg PO BID #10 tablet Sulfamethox-Tmp 800-160Mg [Bactrim DS 800-160 mg] 1 tab PO Q12HR #20 tab Is patient prescribed a controlled substance at d/c from ED?: No Referrals: Jae Dubon MD [Primary Care Provider] - 1-2 days
[2018-04-16 10:25] LABS: Basophils % (A) 0 %; Eosinophils # (A) 0.1 k/uL (0-0.7); Eosinophils % (A) 2 %; HCT 38.1 % (34.0-46.0); Lymphocytes # (A) 0.7 k/uL (1.0-4.8); Lymphocytes % (A) 12 %; MCH 28.3 pg (25.0-35.0); MCV 83.3 fL (80.0-100.0); Mean Platelet Volume 6.5; Monocytes # (A) 0.4 k/uL (0-1.0); Monocytes % (A) 6 %; Neutrophils # (A) 4.8 k/uL (1.3-7.7); Neutrophils % (A) 78 %; Platelet Count 281 k/uL (150-450); RBC 4.58 m/uL (3.80-5.40); RDW 14.4 % (11.5-15.5); WBC 6.1 k/uL (3.8-10.6)
[2018-04-16 10:36] LABS: Partial Thromboplastin Time 24.1 sec (22.0-30.0); Prothrombin Time 10.5 sec (9.0-12.0)
[2018-04-16 10:38] LABS: Albumin 3.5 g/dL (3.5-5.0); Calcium 8.8 mg/dL (8.4-10.2); Magnesium 1.8 mg/dL (1.6-2.3); Potassium 4.3 mmol/L (3.5-5.1); Total Bilirubin 0.6 mg/dL (0.2-1.3); Total Protein 6.3 g/dL (6.3-8.2)
[2018-04-16 10:38] LABS: Appearance,Urine Clear (Clear); Bilirubin,Urine Negative (Negative); Blood,Urine Negative (Negative); Color,Urine Yellow; Glucose,Urine (UA) Negative (Negative); Ketones,Urine Negative (Negative); Leukocyte Esterase,Urine Small (Negative); Nitrite,Urine Negative (Negative); PH, Urine 7.5 (5.0-8.0); Protein,Urine 2+ (Negative); RBC,Urine 1 /hpf (0-5); Specific Gravity,Urine 1.009 (1.001-1.035); Urobilinogen,Urine <2.0 mg/dL (<2.0); WBC,Urine 6 /hpf (0-5)
[2018-04-16 10:46] LABS: Creatine Kinase 64 U/L (30-135)
[2018-04-16 10:59] LABS: Creatine Kinase MB 0.8 ng/mL (0.0-2.4); Troponin I <0.012 ng/mL (0.000-0.034)
[2018-04-16] MEDS ORDERED: FUROSEMIDE 10 MG/ML 4 ML VIAL IV STA (11:23)
[2018-04-16] MEDS ORDERED: SULFAMETHOX-TMP 800-160MG 1 EACH TAB PO STA (11:47)
[2018-04-16] MEDS ORDERED: CEPHALEXIN 500 MG CAP PO STA (11:47)
[2018-04-16 12:21] VITALS: BP 156/80; PULSE 67; RESP 18; TEMP 97.8
== END 2018-04-16 12:40 | disposition home or self-care (01) ==
LOC: EC 09:13
DX: L03.115 Cellulitis of right lower limb (principal); L03.116 Cellulitis of left lower limb; R53.1 Weakness; E78.5 Hyperlipidemia, unspecified; I12.9 Hypertensive chronic kidney disease with stage 1 through stage 4 chronic kidney disease, or unspecified chronic kidney disease; I25.119 Atherosclerotic heart disease of native coronary artery with unspecified angina pectoris; E11.42 Type 2 diabetes mellitus with diabetic polyneuropathy; E11.22 Type 2 diabetes mellitus with diabetic chronic kidney disease; N18.3 Chronic kidney disease, stage 3 (moderate); K21.9 Gastro-esophageal reflux disease without esophagitis; M19.90 Unspecified osteoarthritis, unspecified site; E03.9 Hypothyroidism, unspecified; M10.9 Gout, unspecified; Z87.891 Personal history of nicotine dependence; Z88.8 Allergy status to other drugs, medicaments and biological substances; Z91.02 Food additives allergy status; Z79.4 Long term (current) use of insulin; Z79.899 Other long term (current) drug therapy; Z85.528 Personal history of other malignant neoplasm of kidney; Z95.818 Presence of other cardiac implants and grafts; Z96.653 Presence of artificial knee joint, bilateral
CPT/HCPCS: 36415; 93005; 80053; 82550; 82553; 83605; 83735; 84100; 84484; 85025; 85610; 85730; 81001; 87086; 99284; 96374; 96361; J1940

== ENCOUNTER 2018-04-18 09:47 | Inpatient (IN) | payer MEDICARE, BC ==
[2018-04-18] MEDS ORDERED: ONDANSETRON 4 MG/2 ML VIAL IVP STA (10:09)
--- NOTE | 2018-04-18 10:13 | ED ---
Nausea/Vomiting/Diarrhea HPI - General Chief complaint: Nausea/Vomiting/Diarrhea Stated complaint: Diabetes Time Seen by Provider: 04/18/18 09:51 Source: patient, EMS, RN notes reviewed, old records reviewed Mode of arrival: EMS Limitations: no limitations - History of Present Illness Initial comments: Patient is an 82-year-old female who presents emergency department today with chief complaint of not feeling well. Patient was evaluated in the emergency room in 2 days ago, Discharged at that time with Dx of leg cellulitis. She states that she's been feeling very ill, nauseated. She states she just has been having hard time getting around her house, And feeling very unsteady. She reports that she's had some epigastric abdominal pain. She was recently placed on antibiotics for cellulitis of her lower extremities. Patient is denies vomiting or diarrhea. - Related Data Home Medications Medication Instructions Recorded Confirmed Atorvastatin [Lipitor] 40 mg PO HS 12/31/14 04/18/18 Levothyroxine Sodium [Synthroid] 50 mcg PO DAILY 12/31/14 04/18/18 Pantoprazole Sodium 40 mg PO DAILY 12/31/14 04/18/18 Multivit-Min/FA/Lycopen/Lutein 1 tab PO DAILY 03/24/15 04/18/18 [Centrum Silver Tablet] Gabapentin [Neurontin] 400 mg PO QID 01/25/16 04/18/18 Carvedilol [Coreg] 12.5 mg PO BID 07/28/16 04/18/18 Furosemide [Lasix] 40 mg PO DIRECTED 01/02/18 04/18/18 Insulin Aspart [NovoLOG Flexpen] 10 units SQ AC-TID 01/02/18 04/18/18 Insulin Aspart [NovoLOG Flexpen] See Protocol SQ AC-TID 01/02/18 04/18/18 Insulin Glargine,Hum.rec.anlog 50 units SQ HS 01/02/18 04/18/18 [Lantus Solostar] Isosorbide Mononitrate ER [Imdur] 60 mg PO DAILY 01/02/18 04/18/18 Nitroglycerin Sl Tabs [Nitrostat] 0.4 mg SL Q5M PRN 01/02/18 04/18/18 Losartan [Cozaar] 50 mg PO DAILY 04/16/18 04/18/18 amLODIPine [Norvasc] 10 mg PO DAILY 04/16/18 04/18/18 Previous Rx's Medication Instructions Recorded cloNIDine HCL [Catapres] 0.1 mg PO BID #60 tab 07/31/16 Acetaminophen Tab [Tylenol] 650 mg PO Q4HR PRN tab 01/04/18 Cephalexin [Keflex] 500 mg PO Q6HR #40 cap 04/16/18 Furosemide [Lasix] 40 mg PO BID #10 tablet 04/16/18 Sulfamethox-Tmp 800-160Mg [Bactrim 1 tab PO Q12HR #20 tab 04/16/18 DS 800-160 mg] Allergies Allergy/AdvReac Type Severity Reaction Status Date / Time JOCELYNN Inhibitors Allergy Unknown Verified 04/18/18 10:28 aspartame AdvReac Nausea & Verified 04/18/18 10:28 Vomiting Review of Systems ROS Statement: Those systems with pertinent positive or pertinent negative responses have been documented in the HPI. ROS Other: All systems not noted in ROS Statement are negative. 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 History of Any Multi-Drug Resistant Organisms: None Reported Past Surgical History: Appendectomy, Heart Catheterization, Joint Replacement, Orthopedic Surgery, Tonsillectomy Additional Past Surgical History / Comment(s): R renal artery bypassed with groin vein graft, brain aneurysms with clips x 2, cataract removal both eyes with lens implants, colonoscopies x 2 with first one having benign polypectoy and 2nd one normal. RT kidney had cancer on top of kidney, pt stated"they froze the cancer off" , lt shoulder arthroscopy for rotator cuff, dusty knee replacments, L foot fracture with surgery and L foot had a bone misplaced with surgery, R foot tumor removed around a toe. Past Anesthesia/Blood Transfusion Reactions: No Reported Reaction Additional Past Anesthesia/Blood Transfusion Reaction / Comment(s): Pt has received blood without reaction. Past Psychological History: No Psychological Hx Reported Smoking Status: Former smoker - Past Family History Father Family Medical History: Myocardial Infarction ([place]) Additional Family Medical History / Comment(s): Father of a [place] at the age of 56yrs. Mother Family Medical History: Cancer Additional Family Medical History / Comment(s): Mother had breast cancer. She from another type of cancer that metastasized to her bones. General Exam - General Exam Comments Initial Comments: 82-year-old female. Alert and oriented. Patient appears very weak. Limitations: no limitations General appearance: alert, in no apparent distress Head exam: Present: atraumatic, normocephalic, normal inspection Eye exam: Present: normal appearance, PERRL, EOMI. Absent: scleral icterus, conjunctival injection, periorbital swelling ENT exam: Present: normal exam, mucous membranes moist Neck exam: Present: normal inspection. Absent: tenderness, meningismus, lymphadenopathy Respiratory exam: Present: normal lung sounds bilaterally. Absent: respiratory distress, wheezes, rales, rhonchi, stridor Cardiovascular Exam: Present: regular rate, normal rhythm, normal heart sounds. Absent: systolic murmur, diastolic murmur, rubs, gallop, clicks GI/Abdominal exam: Present: soft, normal bowel sounds. Absent: distended, tenderness, guarding, rebound, rigid Extremities exam: Present: normal inspection, full ROM, normal capillary refill , other (bilateral edema, erythema. L leg has area of healed abrasion). Absent : tenderness, pedal edema, joint swelling, calf tenderness Back exam: Present: normal inspection Neurological exam: Present: alert, oriented X3, CN II-XII intact Psychiatric exam: Present: normal affect, normal mood Skin exam: Present: warm, dry, intact, normal color. Absent: rash Course Vital Signs 04/18/18 04/18/18 04/18/18 09:50 10:00 11:00 Temperature 98.7 F Pulse Rate 70 63 Respiratory 19 18 Rate Blood Pressure 137/69 137/69 104/87 O2 Sat by Pulse 99 94 L Oximetry 04/18/18 12:00 Temperature Pulse Rate 66 Respiratory 21 Rate Blood Pressure 162/83 O2 Sat by Pulse Oximetry Medical Decision Making - Medical Decision Making This patient's in a 2-year-old female who presents respectively with generalized weakness, elevated T8. Patient reports that she feels like her leg cellulitis is getting worse. She was discharged on Keflex and Bactrim. This time her swelling has diminished from her ER visit 2 days ago. She continues to have some erythema noted. Patient was started and IV fluids. The Patient on Zosyn and vancomycin per pharmacy. Blood cultures were obtained. It is of note the patient's urine culture did grow gram-negative bacilli on her last ER visit. COMPLETE another UA and culture at this time. At this time patient's skin complains of some nausea was given Zofran and has improvement of her symptoms. Patient case of Dr. Warner. Patient does not feel well enough to be discharged home feeling ill weak and unsteady. We'll admit the Patient for failure of outpatient treatment of cellulitis over the lower extremities. Doppler ultrasound was obtained. - Lab Data Result diagrams: 04/18/18 10:17 04/18/18 10:17 Lab Results 04/18/18 04/18/18 04/18/18 Range/Units 09:58 10:17 10:17 WBC 7.1 (3.8-10.6) k/uL RBC 4.50 (3.80-5.40) m/uL Hgb 12.6 (11.4-16.0) gm/dL Hct 37.3 (34.0-46.0) % MCV 83.0 (80.0-100.0) fL MCH 28.1 (25.0-35.0) pg MCHC 33.8 (31.0-37.0) g/dL RDW 14.4 (11.5-15.5) % Plt Count 347 (150-450) k/uL Neutrophils % 80 % Lymphocytes % 10 % Monocytes % 7 % Eosinophils % 1 % Basophils % 0 % Neutrophils # 5.7 (1.3-7.7) k/uL Lymphocytes # 0.7 L (1.0-4.8) k/uL Monocytes # 0.5 (0-1.0) k/uL Eosinophils # 0.1 (0-0.7) k/uL Basophils # 0.0 (0-0.2) k/uL PT (9.0-12.0) sec INR (<1.2) APTT (22.0-30.0) sec Sodium 140 (137-145) mmol/L Potassium 4.4 (3.5-5.1) mmol/L Chloride 107 (98-107) mmol/L Carbon Dioxide 27 (22-30) mmol/L Anion Gap 6 mmol/L BUN 16 (7-17) mg/dL Creatinine 1.34 H (0.52-1.04) mg/dL Est GFR (CKD-EPI)AfAm 43 (>60 ml/min/1.73 sqM) Est GFR (CKD-EPI)NonAf 37 (>60 ml/min/1.73 sqM) Glucose 285 H (74-99) mg/dL POC Glucose (mg/dL) 259 H (75-99) mg/dL POC Glu [employer] Aure Prabhakar Plasma Lactic Acid Jaya (0.7-2.0) mmol/L Calcium 9.3 (8.4-10.2) mg/dL Total Bilirubin 0.6 (0.2-1.3) mg/dL AST 35 (14-36) U/L ALT 36 (9-52) U/L Alkaline Phosphatase 91 (38-126) U/L Troponin I (0.000-0.034) ng/mL Total Protein 6.5 (6.3-8.2) g/dL Albumin 3.8 (3.5-5.0) g/dL 04/18/18 04/18/18 04/18/18 Range/Units 10:17 10:17 10:17 WBC (3.8-10.6) k/uL RBC (3.80-5.40) m/uL Hgb (11.4-16.0) gm/dL Hct (34.0-46.0) % MCV (80.0-100.0) fL MCH (25.0-35.0) pg MCHC (31.0-37.0) g/dL RDW (11.5-15.5) % Plt Count (150-450) k/uL Neutrophils % % Lymphocytes % % Monocytes % % Eosinophils % % Basophils % % Neutrophils # (1.3-7.7) k/uL Lymphocytes # (1.0-4.8) k/uL Monocytes # (0-1.0) k/uL Eosinophils # (0-0.7) k/uL Basophils # (0-0.2) k/uL PT 10.7 (9.0-12.0) sec INR 1.0 (<1.2) APTT 27.2 (22.0-30.0) sec Sodium (137-145) mmol/L Potassium (3.5-5.1) mmol/L Chloride (98-107) mmol/L Carbon Dioxide (22-30) mmol/L Anion Gap mmol/L BUN (7-17) mg/dL Creatinine (0.52-1.04) mg/dL Est GFR (CKD-EPI)AfAm (>60 ml/min/1.73 sqM) Est GFR (CKD-EPI)NonAf (>60 ml/min/1.73 sqM) Glucose (74-99) mg/dL POC Glucose (mg/dL) (75-99) mg/dL POC Glu [employer] ID Plasma Lactic Acid Jaya 1.4 (0.7-2.0) mmol/L Calcium (8.4-10.2) mg/dL Total Bilirubin (0.2-1.3) mg/dL AST (14-36) U/L ALT (9-52) U/L Alkaline Phosphatase (38-126) U/L Troponin I 0.026 (0.000-0.034) ng/mL Total Protein (6.3-8.2) g/dL Albumin (3.5-5.0) g/dL 04/18/18 10:33 EKG shows sinus rhythm with occasional PVCs. Nonspecific ST and T wave abnormality. Abnormal EKG. Ventricular rate of 69 beats were minute. WV interval is 160 ms. QRS duration 84 ms. QT QTc is 414/443 ms. - Radiology Data Radiology results: report reviewed CXR shows No Acute pulmonary process. Disposition Clinical Impression: Bilateral cellulitis of lower leg, Fatigue, Generalized weakness, Bilateral leg edema Disposition: ADMITTED IP TO THIS HOSP Condition: Good Is patient prescribed a controlled substance at d/c from ED?: No Referrals: Jae Dubon MD [Primary Care Provider] - 1-2 days Time of Disposition: 12:30
[2018-04-18 10:19] LABS: Glucose,Whole Blood 259 mg/dL (75-99)
[2018-04-18 10:30] LABS: Basophils % (A) 0 %; Eosinophils # (A) 0.1 k/uL (0-0.7); Eosinophils % (A) 1 %; HCT 37.3 % (34.0-46.0); HGB 12.6 gm/dL (11.4-16.0); Lymphocytes # (A) 0.7 k/uL (1.0-4.8); Lymphocytes % (A) 10 %; MCH 28.1 pg (25.0-35.0); MCHC 33.8 g/dL (31.0-37.0); Mean Platelet Volume 6.6; Monocytes # (A) 0.5 k/uL (0-1.0); Monocytes % (A) 7 %; Neutrophils # (A) 5.7 k/uL (1.3-7.7); Neutrophils % (A) 80 %; Platelet Count 347 k/uL (150-450); RDW 14.4 % (11.5-15.5); WBC 7.1 k/uL (3.8-10.6)
[2018-04-18 10:39] LABS: Albumin 3.8 g/dL (3.5-5.0); Calcium 9.3 mg/dL (8.4-10.2); Potassium 4.4 mmol/L (3.5-5.1); Total Bilirubin 0.6 mg/dL (0.2-1.3); Total Protein 6.5 g/dL (6.3-8.2)
[2018-04-18 10:41] LABS: Partial Thromboplastin Time 27.2 sec (22.0-30.0); Prothrombin Time 10.7 sec (9.0-12.0)
[2018-04-18] MEDS: SODIUM CHLORIDE 0.9% 500 ML 500 ML IV SCH ×2 (10:53→10:54)
--- NOTE | 2018-04-18 11:09 | XR ---
EXAMINATION TYPE: XR chest 2V DATE OF EXAM: 04/18/2018 COMPARISON: 01/02/2018 INDICATION: Fever, weakness TECHNIQUE: Frontal and lateral views of the chest are obtained. FINDINGS: The heart size is normal. The pulmonary vasculature is normal. The lungs are clear. IMPRESSION: 1. No acute pulmonary process.
[2018-04-18] MEDS ORDERED: PIPERACILLIN-TAZOBACTAM 3.375 GM in SODIUM CHLORIDE 0.9% 100 ML IVPB STA (12:26)
[2018-04-18] MEDS ORDERED: VANCOMYCIN IV PER PHARMACY 1 EACH MISC MISCELLANE PRN (12:26)
[2018-04-18] MEDS ORDERED: oxyCODONE-APAP 5-325MG 1 EACH TAB PO PRN (12:30)
[2018-04-18] MEDS ORDERED: NALOXONE 0.4 MG/ML 1 ML VIAL IV PRN (12:30)
[2018-04-18] MEDS ORDERED: IBUPROFEN 400 MG TAB PO PRN (12:30)
[2018-04-18] MEDS ORDERED: ONDANSETRON 4 MG/2 ML VIAL IVP PRN (12:30)
[2018-04-18] MEDS ORDERED: ACETAMINOPHEN TAB 325 MG TAB PO PRN ×2 (12:30→12:47)
--- NOTE | 2018-04-18 12:39 | US ---
EXAMINATION TYPE: US venous doppler duplex LE DATE OF EXAM: 04/18/2018 12:33 PM COMPARISON: US on rt side CLINICAL HISTORY: Pain. Bilateral leg pain SIDE PERFORMED: Bilateral TECHNIQUE: The lower extremity deep venous system is examined utilizing real time linear array sonog los with graded compression, doppler sonography and color-flow sonography. VESSELS IMAGED: External Iliac Vein (EIV) Common Femoral Vein Deep Femoral Vein Greater Saphenous Vein * Femoral Vein Popliteal Vein Small Saphenous Vein * Proximal Calf Veins (* superficial vessels) Right Leg: Negative for DVT Left Leg: Negative for DVT IMPRESSION: 1. Bilateral lower extremity ultrasound negative for deep venous thrombosis
[2018-04-18] MEDS: SODIUM CHLORIDE 0.9% 1,000 ML IV SCH (13:28)
[2018-04-18] MEDS: GABAPENTIN 400 MG CAP PO SCH ×3 (13:41→22:04)
[2018-04-18 13:50] LABS: Appearance,Urine Clear (Clear); Bacteria,Urine Rare /hpf; Bilirubin,Urine Negative (Negative); Blood,Urine Moderate (Negative); Color,Urine Yellow; Glucose,Urine (UA) 2+ (Negative); Ketones,Urine Negative (Negative); Leukocyte Esterase,Urine Negative (Negative); Nitrite,Urine Negative (Negative); Protein,Urine 3+ (Negative); RBC,Urine 1 /hpf (0-5); Specific Gravity,Urine 1.011 (1.001-1.035); Urobilinogen,Urine <2.0 mg/dL (<2.0); WBC,Urine 3 /hpf (0-5)
[2018-04-18] MEDS ORDERED: VANCOMYCIN 1,750 MG in SODIUM CHLORIDE 0.9% 500 ML 500 ML IVPB ONE (14:00)
[2018-04-18 14:01] VITALS: BMI 33.3
[2018-04-18] MEDS: FUROSEMIDE 40 MG TAB PO SCH (15:19)
[2018-04-18] MEDS: KETOROLAC 30 MG/ML 1 ML VIAL IVP PRN (15:26)
[2018-04-18 16:48] LABS: Glucose,Whole Blood 222 mg/dL (75-99)
[2018-04-18] MEDS: CARVEDILOL 12.5 MG TAB PO SCH (17:18)
[2018-04-18] MEDS: INSULIN ASPART 100 UNIT/ML 1 ML 10 ML VIAL SQ SCH (17:19)
--- NOTE | 2018-04-18 19:56 | P.HPIM ---
History of Present Illness Chief complaint Not feeling well with increasing pain of the lower extremities and nausea History of present illness The patient is a 82-year-old female who is a patient of Dr. Dubon for whom I am covering. Patient presented to emergency room today. She states she was not feeling well. Apparently approximately the a week ago she started developing increasing pain and erythema of both lower extremities along with edema. She had seen her primary care physician and was placed on antibiotics along with topical creams. Symptoms continue to worsen and she came to the emergency room 2 days previous and also was placed on antibiotics at that time. Apparently she received Keflex 500 mg every 6 hours and Bactrim 800-160 one every 12 hours along with Lasix 40 mg twice a day. Her leg edema improved but the erythema and pain in the legs persisted. She became more nauseated and weak. Also episodes of some dizziness associated with this. Denied any actual vomiting. No definite fevers or chills associated although she has felt somewhat cool. Past medical history Positive for diabetes for which she is on insulin before meals and long-acting Lantus. History of hypertension and renovascular disease for which she has had right renal artery stenosis that has been operated on. Patient apparently back in his 70s also had a right kidney mass and received cryotherapy at [facility]. History of chronic kidney disease History of gouty arthritis Patient apparently had headaches in the past and has had 3 brain aneurysms that apparently to were clipped and one has been calcified. History of hypothyroidism Surgical history Previous appendectomy and tonsillectomy. Previous heart catheterization. Right renal artery bypass with venous graft Clipping of 2 brain aneurysms in the past History of colonic polyps with colonoscopies in the past Left shoulder arthroscopically and bilateral knee replacements. Previous left foot surgery. ALLERGIES JOCELNYN inhibitor as Aspartame with nausea and vomiting Home medications Nitroglycerin 0.4 mg sublingual when necessary pain Centrum Silver vitamins one daily Losartan 50 mg daily Protonix 40 mg daily Levothyroxine 50 g daily Isorbid mononitrate ER 60 mg daily Acetaminophen 650 mg every 4 hours when necessary Clonidine 0.1 mg twice a day Amlodipine 10 mg daily Neurontin 400 mg 4 times a day Recently he has been on Lasix 40 mg twice a day Coreg 12.5 twice a day Lipitor 40 mg at at bedtime Lantus insulin 50 units at at bedtime NovoLog 10 units before meals meals Social history Patient lives rather independently. No history of any excessive alcohol usage. Patient is a former smoker. Family history Father of myocardial infarction at age 56. Mother had breast cancer. Apparently from a different type of cancer with bone metastases. Physical examination Patient is lying in bed. Alert and oriented. No acute distress noted. Temperature 97.8 with a pulse of 67 respirations 18. Blood pressure is 156/80 and she was 96% saturated on 2 L nasal cannula. Head exam is atraumatic. Extraocular movements are intact. Neck is supple. No carotid bruits. No definite adenopathy or thyromegaly detected. Breast and pelvic exam deferred. Lungs are clear to auscultation. Heart tones were regular without murmurs or rubs appreciated. Abdomen revealed a scar across the upper abdomen. It is somewhat obese. Soft and nontender without organomegaly or masses detected. Bowel sounds normal. Extremities reveal erythema at both shins. No marked edema at this time. There is some small area of darkish eschar formation on the left tibia area. Small area of fluctuance about quarter size underneath that. Slightly tender. No pitting edema noted at this time. Neurologically she is alert and oriented. Cranial nerves intact. No focal weakness noted. Laboratory White count is 6.1 with a hemoglobin 13 and a platelet count of 281. INR is 1.0. Sodium is 143 with a potassium 4.3. BUN of 17 with creatinine 1.23 given her GFR of 41. Blood sugar was 187 Liver function tests were normal. Albumin 3.5. Troponin less than 0.012. Phosphorus and magnesium were normal. Urinalysis reveals 2+ protein. Leukocyte esterase is small. 6 white cells were seen. Chest x-ray showed no acute process. EKG shows normal sinus rhythm with PVCs. No acute ischemic type changes. Nonspecific ST-T wave changes. Venous Doppler studies did not show evidence of DVT in both lower extremities. Impressions 1. Non-resolving cellulitis of both lower extremities as described above. Not responding to outpatient antibiotics and a diabetic patient. 2. Venous insufficiency. 3. Chronic kidney disease stage III 4. Insulin-dependent diabetes 5. Multiple medical problems as delineated in the past medical history. Plans The patient to receive hydration. Antibiotics in the form of vancomycin. Patient has had repeat cultures of blood and urine. Further recommendations pending clinical response and results of above. As discussed with patient at bedside this evening. 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 History of Any Multi-Drug Resistant Organisms: None Reported Past Surgical History: Appendectomy, Heart Catheterization, Joint Replacement, Orthopedic Surgery, Tonsillectomy Additional Past Surgical History / Comment(s): R renal artery bypassed with groin vein graft, brain aneurysms with clips x 2, cataract removal both eyes with lens implants, colonoscopies x 2 with first one having benign polypectoy and 2nd one normal. RT kidney had cancer on top of kidney, pt stated"they froze the cancer off" , lt shoulder arthroscopy for rotator cuff, dusty knee replacments, L foot fracture with surgery and L foot had a bone misplaced with surgery, R foot tumor removed around a toe. Past Anesthesia/Blood Transfusion Reactions: No Reported Reaction Additional Past Anesthesia/Blood Transfusion Reaction / Comment(s): Pt has received blood without reaction. Past Psychological History: No Psychological Hx Reported Additional Psychological History / Comment(s): Pt resides in a condo. There are 15 steps to get up to her condo. Pt drives. She has a walker she uses in the home. She has [employer] aide that comes for 2 hours a week to help her with whatever she needs. 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 Smoking Status: Former smoker Past Alcohol Use History: None Reported Past Drug Use History: None Reported - Past Family History Father Family Medical History: Myocardial Infarction ([place]) Additional Family Medical History / Comment(s): Father of a [place] at the age of 56yrs. Mother Family Medical History: Cancer Additional Family Medical History / Comment(s): Mother had breast cancer. She from another type of cancer that metastasized to her bones. Medications and Allergies Home Medications Medication Instructions Recorded Confirmed Type Atorvastatin [Lipitor] 40 mg PO HS 12/31/14 04/18/18 History Levothyroxine Sodium [Synthroid] 50 mcg PO DAILY 12/31/14 04/18/18 History Pantoprazole Sodium 40 mg PO DAILY 12/31/14 04/18/18 History Multivit-Min/FA/Lycopen/Lutein 1 tab PO DAILY 03/24/15 04/18/18 History [Centrum Silver Tablet] Gabapentin [Neurontin] 400 mg PO QID 01/25/16 04/18/18 History Carvedilol [Coreg] 12.5 mg PO BID 07/28/16 04/18/18 History cloNIDine HCL [Catapres] 0.1 mg PO BID #60 tab 07/31/16 04/18/18 Rx Furosemide [Lasix] 40 mg PO DIRECTED 01/02/18 04/18/18 History Insulin Aspart [NovoLOG Flexpen] 10 units SQ AC-TID 01/02/18 04/18/18 History Insulin Aspart [NovoLOG Flexpen] See Protocol SQ AC-TID 01/02/18 04/18/18 History Insulin Glargine,Hum.rec.anlog 50 units SQ HS 01/02/18 04/18/18 History [Lantus Solostar] Isosorbide Mononitrate ER [Imdur] 60 mg PO DAILY 01/02/18 04/18/18 History Nitroglycerin Sl Tabs [Nitrostat] 0.4 mg SL Q5M PRN 01/02/18 04/18/18 History Acetaminophen Tab [Tylenol] 650 mg PO Q4HR PRN tab 01/04/18 04/18/18 Rx Cephalexin [Keflex] 500 mg PO Q6HR #40 cap 04/16/18 04/18/18 Rx Furosemide [Lasix] 40 mg PO BID #10 tablet 04/16/18 04/18/18 Rx Losartan [Cozaar] 50 mg PO DAILY 04/16/18 04/18/18 History Sulfamethox-Tmp 800-160Mg [Bactrim 1 tab PO Q12HR #20 tab 04/16/18 04/18/18 Rx DS 800-160 mg] amLODIPine [Norvasc] 10 mg PO DAILY 04/16/18 04/18/18 History Allergies Allergy/AdvReac Type Severity Reaction Status Date / Time JOCELYNN Inhibitors Allergy Unknown Verified 04/18/18 10:28 aspartame AdvReac Nausea & Verified 04/18/18 10:28 Vomiting Physical Exam Vitals: Vital Signs Temp Pulse Pulse Resp BP BP Pulse Ox 04/18/18 15:14 98.4 F 68 18 164/66 04/18/18 13:39 97.2 F L 75 20 182/70 94 L 04/18/18 13:00 98.8 F 66 18 170/82 98 04/18/18 12:00 66 21 162/83 04/18/18 11:00 63 18 104/87 94 L 04/18/18 10:00 137/69 04/18/18 09:50 98.7 F 70 19 137/69 99 Intake and Output 04/18/18 04/18/18 04/18/18 06:59 14:59 22:59 Intake Total 1200 Balance 1200 Intake: Oral 1200 Other: Voiding Method Bedside Commode # Voids 1 Weight 90.718 kg Results CBC & Chem 7: 04/18/18 10:17 04/18/18 10:17 Labs: Abnormal Lab Results - Last 24 Hours (Table) 04/18/18 04/18/18 04/18/18 Range/Units 09:58 10:17 10:17 Lymphocytes # 0.7 L (1.0-4.8) k/uL Creatinine 1.34 H (0.52-1.04) mg/dL Glucose 285 H (74-99) mg/dL POC Glucose (mg/dL) 259 H (75-99) mg/dL Urine Protein (Negative) Urine Glucose (UA) (Negative) Urine Blood (Negative) Urine Bacteria (None) /hpf 04/18/18 04/18/18 Range/Units 13:34 16:46 Lymphocytes # (1.0-4.8) k/uL Creatinine (0.52-1.04) mg/dL Glucose (74-99) mg/dL POC Glucose (mg/dL) 222 H (75-99) mg/dL Urine Protein 3+ H (Negative) Urine Glucose (UA) 2+ H (Negative) Urine Blood Moderate H (Negative) Urine Bacteria Rare H (None) /hpf Thrombosis Risk Factor Assmnt - Choose All That Apply Each Factor Represents 1 point: Obesity (BMI >25), Swollen legs (current) Each Risk Factor Represents 3 Points: Age 75 years or older Thrombosis Risk Factor Assessment Total Risk Factor Score: 5 Thrombosis Risk Factor Assessment Level: High Risk
[2018-04-18 20:35] LABS: Glucose,Whole Blood 224 mg/dL (75-99)
[2018-04-18] MEDS: INSULIN DETEMIR 100 UNIT/ML 10 ML VIAL SQ SCH (22:02)
[2018-04-18] MEDS: cloNIDine HCL 0.1 MG TAB PO SCH (22:02)
[2018-04-18] MEDS: ATORVASTATIN 40 MG TAB PO SCH (22:02)
[2018-04-19] MEDS: SODIUM CHLORIDE 0.9% 1,000 ML IV SCH ×2 (01:01→13:25)
[2018-04-19] MEDS: LEVOTHYROXINE 50 MCG TAB PO SCH (05:40)
[2018-04-19 07:18] LABS: Glucose,Whole Blood 100 mg/dL (75-99)
[2018-04-19] MEDS: INSULIN ASPART 100 UNIT/ML 1 ML 10 ML VIAL SQ SCH ×3 (07:29→17:03)
[2018-04-19] MEDS: CARVEDILOL 12.5 MG TAB PO SCH ×2 (08:58→16:54)
[2018-04-19] MEDS: MULTIVITAMINS, THERA 1 EACH TAB PO SCH (08:59)
[2018-04-19] MEDS: PANTOPRAZOLE 40 MG/10 ML VIAL IV SCH (08:59)
[2018-04-19] MEDS: LOSARTAN 50 MG TAB PO SCH (08:59)
[2018-04-19] MEDS: amLODIPine 10 MG TAB PO SCH (08:59)
[2018-04-19] MEDS: FUROSEMIDE 40 MG TAB PO SCH ×2 (08:59→16:54)
[2018-04-19] MEDS: cloNIDine HCL 0.1 MG TAB PO SCH ×2 (08:59→21:42)
[2018-04-19] MEDS: GABAPENTIN 400 MG CAP PO SCH ×4 (08:59→21:43)
[2018-04-19] MEDS: ISOSORBIDE MONONITRATE ER 60 MG TAB.ER.24H PO SCH (08:59)
[2018-04-19] MEDS ORDERED: PANTOPRAZOLE 40 MG TABLET PO SCH (09:00)
[2018-04-19] MEDS: KETOROLAC 30 MG/ML 1 ML VIAL IVP PRN (09:06)
--- NOTE | 2018-04-19 09:40 | P.PN ---
Progress Note - Text The patient is a 82-year-old female who was admitted through the emergency room yesterday with cellulitis of the lower extremities. This was not responding to outpatient treatment with the antibiotics that she could not tolerate. Worsening dizziness and weakness along with lower extremity pain. Patient has been placed on IV vancomycin. This morning she did eat breakfast and states she feels somewhat better. Vital signs reveal temperature 98.1 with a pulse of 52 and respirations 18. Blood pressure 153/64 and she is 91% saturated on room air. There is no apparent respiratory distress. Respirations are normal. She is alert and oriented without cranial nerve or peripheral deficits. Lower extremities show that the right leg erythema and edema have improved. There still is some area of fluctuance pretibial area on the left with some tenderness and dime size area of darkened eschar. This still appears improved from yesterday. Blood sugar this morning is down to 100. Impressions and plans A non-resolving cellulitis of the lower extremities with outpatient treatment. Seems to be improving with inpatient treatment at this time with vancomycin. Patient does have comorbidities that include her chronic venous insufficiency, diabetes and chronic kidney disease. At this time continue with intravenous antibiotic therapy. Insulin for control of blood sugars. Lasix for control of edema. Will obtain x-ray of the left tib-fib. With continued improvement discussed with patient possible discharge to home over the next 24-[address] on Augmentin. Labs for a.m.
--- NOTE | 2018-04-19 10:17 | XR ---
EXAMINATION TYPE: XR tibia fibula LT DATE OF EXAM: 04/19/2018 CLINICAL HISTORY: pain TECHNIQUE: AP and lateral images of the left tibia and fibula are obtained. COMPARISON: None. FINDINGS: Total knee arthroplasty in place. There is no acute fracture/dislocation evident. The join t spaces appear within normal limits. The overlying soft tissue appears unremarkable. IMPRESSION: There is no acute fracture or dislocation seen. ICD 10 NO FRACTURE, INITIAL EVALUATION
[2018-04-19 11:51] LABS: Glucose,Whole Blood 122 mg/dL (75-99)
[2018-04-19] MEDS ORDERED: VANCOMYCIN 1,500 MG in SODIUM CHLORIDE 0.9% 250 ML IVPB SCH (12:00)
[2018-04-19 16:56] LABS: Glucose,Whole Blood 85 mg/dL (75-99)
[2018-04-19 20:38] LABS: Glucose,Whole Blood 174 mg/dL (75-99)
[2018-04-19] MEDS: ATORVASTATIN 40 MG TAB PO SCH (21:43)
[2018-04-19] MEDS: INSULIN DETEMIR 100 UNIT/ML 10 ML VIAL SQ SCH (21:43)
[2018-04-19 22:39] VITALS: TEMP 97
[2018-04-20] MEDS: SODIUM CHLORIDE 0.9% 1,000 ML IV SCH (03:44)
[2018-04-20] MEDS: LEVOTHYROXINE 50 MCG TAB PO SCH (05:31)
[2018-04-20 06:25] VITALS: BP 167/69; PULSE 65; RESP 17
[2018-04-20 07:31] LABS: Glucose,Whole Blood 100 mg/dL (75-99)
--- NOTE | 2018-04-20 07:38 | P.DS ---
Providers Date of admission: 04/18/18 12:40 Attending physician: Andrew Hardy The patient is an 82-year-old female who is a patient of Dr. Dubon for whom I am covering. Patient initially presented to the emergency room. [facility] on April 18. The patient was having problems with weakness and continuing erythema and pain of the lower extremities. She had been seen by Dr. Dubon and also was present in the emergency room prior to returning to the emergency room. She had been placed on Bactrim and Keflex along with increasing her Lasix to 40 mg twice a day. Despite this she was unable to tolerate the therapy and became weaker with increasing pain from the cellulitis of the lower extremities. Initial laboratory studies revealed a white count of 6.1 with a hemoglobin 13 and a platelet count of 281. INR was 1.0. Chemistries showed a sodium 143 with potassium 4.3. BUN of 17 with creatinine 1.23 and a GFR 41. Her blood sugar initially was 187. Liver function tests were good. Troponin was less than 0.012. Phosphorus and magnesium were normal. Urinalysis revealed 6 white cells present. Chest x-ray did not show any acute changes. Patient did have a venous Doppler study which was negative for DVT of the lower extremities. Hospital course Patient was treated with IV antibiotics in the form of vancomycin. Her erythema and pain decrease in her lower extremities. X-ray of the tib-fib did not show any evidence of fracture or changes consistent with osteomyelitis. She was placed on her long-acting insulin along with coverage for her meals with improvement in her control. At this point plans are to discharge to home. Patient will continue her previous home medications. Augmentin will be added. Patient states she has follow-up with Dr. Dubon on April 22. She is to call or return to urgent care or emergency room if she has any unusual worsening symptoms. Final discharge diagnoses 1. Non-resolving cellulitis of both the lower extremities which did not respond to outpatient treatment. 2. Chronic venous insufficiency with lower extremity edema 3. Chronic kidney disease stage III 4. Insulin-dependent diabetes 5. History of renovascular hypertension and previous right renal artery bypass 6. History of gouty arthritis 7. History of headaches and previous brain aneurysms 8. Hypothyroidism 9. Previous right kidney mass treated in the past with cryotherapy at [facility] Discharge medications 1. Augmentin 500/125, 1 tablet twice a day for 7 days. This will be sent to her [place] [id number] pharmacy in [place]. She is continue her previous home medications which include Clonidine 0.1 mg twice a day Amlodipine 10 mg daily Protonix 40 mg daily Nitro glycerin 0.4 mg sublingual when necessary Centrum Silver one daily Cozaar 50 mg daily Levothyroxine 50 g daily Isorbid mononitrate ER 60 mg daily Lantus insulin 50 units at at bedtime NovoLog 10 units before meals 3 times a day NovoLog also to be used for coverage of blood sugar elevated. Gabapentin 400 mg 4 times a day Lasix 40 mg twice a day Coreg 12.5 twice a day Atorvastatin 40 mg at at bedtime Acetaminophen 650 mg every 4 hours when necessary for pain Primary care physician: Jae Dubon Patient Condition at Discharge: Good Plan - Discharge Summary New Discharge Prescriptions: No Action Pantoprazole Sodium 40 mg PO DAILY Levothyroxine Sodium [Synthroid] 50 mcg PO DAILY Atorvastatin [Lipitor] 40 mg PO HS Multivit-Min/FA/Lycopen/Lutein [Centrum Silver Tablet] 1 tab PO DAILY Gabapentin [Neurontin] 400 mg PO QID Carvedilol [Coreg] 12.5 mg PO BID cloNIDine HCL [Catapres] 0.1 mg PO BID #60 tab Furosemide [Lasix] 40 mg PO DIRECTED Insulin Aspart [NovoLOG Flexpen] See Protocol SQ AC-TID Insulin Aspart [NovoLOG Flexpen] 10 units SQ AC-TID Insulin Glargine,Hum.rec.anlog [Lantus Solostar] 50 units SQ HS Isosorbide Mononitrate ER [Imdur] 60 mg PO DAILY Nitroglycerin Sl Tabs [Nitrostat] 0.4 mg SL Q5M PRN PRN Reason: Chest Pain Acetaminophen Tab [Tylenol] 650 mg PO Q4HR PRN tab PRN Reason: Fever And/ Or Pain Losartan [Cozaar] 50 mg PO DAILY amLODIPine [Norvasc] 10 mg PO DAILY Cephalexin [Keflex] 500 mg PO Q6HR #40 cap Furosemide [Lasix] 40 mg PO BID #10 tablet Sulfamethox-Tmp 800-160Mg [Bactrim DS 800-160 mg] 1 tab PO Q12HR #20 tab Discharge Medication List Atorvastatin [Lipitor] 40 mg PO HS 12/31/14 [History] Levothyroxine Sodium [Synthroid] 50 mcg PO DAILY 12/31/14 [History] Pantoprazole Sodium 40 mg PO DAILY 12/31/14 [History] Multivit-Min/FA/Lycopen/Lutein [Centrum Silver Tablet] 1 tab PO DAILY 03/24/15 [ History] Gabapentin [Neurontin] 400 mg PO QID 01/25/16 [History] Carvedilol [Coreg] 12.5 mg PO BID 07/28/16 [History] cloNIDine HCL [Catapres] 0.1 mg PO BID #60 tab 07/31/16 [Rx] Furosemide [Lasix] 40 mg PO DIRECTED 01/02/18 [History] Insulin Aspart [NovoLOG Flexpen] 10 units SQ AC-TID 01/02/18 [History] Insulin Aspart [NovoLOG Flexpen] See Protocol SQ AC-TID 01/02/18 [History] Insulin Glargine,Hum.rec.anlog [Lantus Solostar] 50 units SQ HS 01/02/18 [ History] Isosorbide Mononitrate ER [Imdur] 60 mg PO DAILY 01/02/18 [History] Nitroglycerin Sl Tabs [Nitrostat] 0.4 mg SL Q5M PRN 01/02/18 [History] Acetaminophen Tab [Tylenol] 650 mg PO Q4HR PRN tab 01/04/18 [Rx] Cephalexin [Keflex] 500 mg PO Q6HR #40 cap 04/16/18 [Rx] Furosemide [Lasix] 40 mg PO BID #10 tablet 04/16/18 [Rx] Losartan [Cozaar] 50 mg PO DAILY 04/16/18 [History] Sulfamethox-Tmp 800-160Mg [Bactrim DS 800-160 mg] 1 tab PO Q12HR #20 tab [Rx] amLODIPine [Norvasc] 10 mg PO DAILY 04/16/18 [History] Follow up Appointment(s)/Referral(s): [facility] Visiting Nurse, [NON-STAFF] - Jae Dubon MD [Primary Care Provider] - 1-2 days
[2018-04-20 08:12] LABS: Basophils % (A) 1 %; Eosinophils # (A) 0.3 k/uL (0-0.7); Eosinophils % (A) 5 %; HCT 36.7 % (34.0-46.0); HGB 12.5 gm/dL (11.4-16.0); Lymphocytes % (A) 17 %; MCH 28.5 pg (25.0-35.0); Mean Platelet Volume 6.7; Monocytes # (A) 0.4 k/uL (0-1.0); Monocytes % (A) 7 %; Neutrophils # (A) 4.2 k/uL (1.3-7.7); Neutrophils % (A) 68 %; Platelet Count 337 k/uL (150-450); RBC 4.37 m/uL (3.80-5.40); RDW 14.4 % (11.5-15.5); WBC 6.2 k/uL (3.8-10.6)
[2018-04-20] MEDS: cloNIDine HCL 0.1 MG TAB PO SCH (08:26)
[2018-04-20] MEDS: PANTOPRAZOLE 40 MG/10 ML VIAL IV SCH (08:26)
[2018-04-20] MEDS: LOSARTAN 50 MG TAB PO SCH (08:26)
[2018-04-20] MEDS: ISOSORBIDE MONONITRATE ER 60 MG TAB.ER.24H PO SCH (08:26)
[2018-04-20] MEDS: GABAPENTIN 400 MG CAP PO SCH ×2 (08:26→12:26)
[2018-04-20] MEDS: FUROSEMIDE 40 MG TAB PO SCH (08:26)
[2018-04-20] MEDS: amLODIPine 10 MG TAB PO SCH (08:26)
[2018-04-20] MEDS: MULTIVITAMINS, THERA 1 EACH TAB PO SCH (08:26)
[2018-04-20] MEDS: CARVEDILOL 12.5 MG TAB PO SCH (08:26)
[2018-04-20] MEDS: INSULIN ASPART 100 UNIT/ML 1 ML 10 ML VIAL SQ SCH ×2 (08:27→12:44)
[2018-04-20 08:28] LABS: Potassium 4.3 mmol/L (3.5-5.1)
[2018-04-20] MEDS ORDERED: VANCOMYCIN IV PER PHARMACY 1 EACH MISC MISCELLANE PRN (09:30)
[2018-04-20 12:10] LABS: Glucose,Whole Blood 147 mg/dL (75-99)
--- NOTE | 2018-04-22 18:45 | CDI ---
Documentation Clarification Form Date: 04/22/18 From: SUSANNE Banegas Phone: If you have question, contact Mariana Singletary at [phone] M-F 8:30 am to 6pm Admit Date: 04/18/2018 12:40:00 PM Patient Name: Silvia Herrera Visit Number: [id number] Discharge Date: 04/20/2018 1:19:00 PM ATTENTION: The Clinical Documentation Specialists (CDI) and [facility] Coding Staff appreciate your assistance in clarifying documentation. Please respond to the clarification below the line at the bottom and electronically sign. The CDI & [facility] Coding staff will review the response and follow-up if needed. Please note: Queries are made part of the Legal Health Record. If you have any questions, please contact the author of this message via ITS. Dr. Andrew Hardy The patient presented with non-resolving cellulitis of both lower extremeties which did not respond to outpatient treatment. Patient has a history of Diabetes for which she is on insulin. She also has neuropathy of bilateral legs and PVOD. Compromise of the blood supply from microvascular disease, often in association with lack of sensation because of neuropathy, predisposes persons with diabetes mellitus to foot infections. These infections span the spectrum from simple, superficial cellulitis to chronic osteomyelitis. In order to link the diabetes and the cellulitis, the provider would need to document cellulitis as a diabetic skin complication. Further clarification regarding a possible link between diabetes and cellulitis is needed for proper reporting purposes. Please clarify: Cellulitis related to diabetes mellitus Cellulitis not related to diabetes mellitus Other, please clarify Unknown Cellulitis related to DM that was present on admission. RRD. MTDD
== END 2018-04-20 13:19 | disposition home health service (06) | DRG 638 ==
LOC: EC 09:47 → 4MS4W 12:40
PROVIDERS: ADMIT Internal Medicine; ATTEND Internal Medicine
DX: E11.628 Type 2 diabetes mellitus with other skin complications (principal); L03.116 Cellulitis of left lower limb; L03.115 Cellulitis of right lower limb; R11.0 Nausea; E03.9 Hypothyroidism, unspecified; M10.9 Gout, unspecified; E11.22 Type 2 diabetes mellitus with diabetic chronic kidney disease; I12.9 Hypertensive chronic kidney disease with stage 1 through stage 4 chronic kidney disease, or unspecified chronic kidney disease; N18.3 Chronic kidney disease, stage 3 (moderate); I87.2 Venous insufficiency (chronic) (peripheral); E78.5 Hyperlipidemia, unspecified; I25.10 Atherosclerotic heart disease of native coronary artery without angina pectoris; J45.909 Unspecified asthma, uncomplicated; K21.9 Gastro-esophageal reflux disease without esophagitis; E11.51 Type 2 diabetes mellitus with diabetic peripheral angiopathy without gangrene; M19.90 Unspecified osteoarthritis, unspecified site; E11.40 Type 2 diabetes mellitus with diabetic neuropathy, unspecified; Z96.653 Presence of artificial knee joint, bilateral; Z79.4 Long term (current) use of insulin; Z90.49 Acquired absence of other specified parts of digestive tract; Z86.010 Personal history of colon polyps; Z79.899 Other long term (current) drug therapy; Z79.890 Hormone replacement therapy; Z91.81 History of falling; Z85.528 Personal history of other malignant neoplasm of kidney; Z98.42 Cataract extraction status, left eye; Z98.41 Cataract extraction status, right eye
CPT/HCPCS: 36415; 71046; 80048; 80053; 80202; 81001; 82550; 82553; 83605; 83735; 84100; 84484; 85025; 85610; 85730; 87040; 87077; 87086; 87186; 93005; 93970; 96361; 96365; 96374; 96375; 99284; 99285

== ENCOUNTER → 2018-04-29 | Outpatient (CLI) | payer MEDICARE, BC ==
--- NOTE | 2018-04-29 13:31 | US ---
EXAMINATION TYPE: US venous doppler duplex LE BI DATE OF EXAM: 04/29/2018 1:17 PM COMPARISON: 04/18/2018 CLINICAL HISTORY: redness of lower legs x 2 days. Bilateral lower leg edema SIDE PERFORMED: bilateral TECHNIQUE: The lower extremity deep venous system is examined utilizing real time linear array sonog los with graded compression, doppler sonography and color-flow sonography. VESSELS IMAGED: External Iliac Vein (EIV) Common Femoral Vein Deep Femoral Vein Greater Saphenous Vein * Femoral Vein Popliteal Vein Small Saphenous Vein * Proximal Calf Veins (* superficial vessels) Grayscale, color doppler, spectral doppler imaging performed of the deep veins of the lower extremiti es. There is normal flow, compressibility, vascular waveforms. Right Leg: No evidence of DVT as visualized Left Leg: No evidence of DVT as visualized IMPRESSION: No sonographic evidence of deep venous thrombosis within either bilateral lower extremit y.
== END | disposition home or self-care (01) ==
LOC: RADUSWWP 12:44
PROVIDERS: ATTEND Internal Medicine
DX: I82.409 Acute embolism and thrombosis of unspecified deep veins of unspecified lower extremity (principal)
CPT/HCPCS: 93970

== ENCOUNTER 2018-04-30 11:00 | Inpatient (IN) | payer MEDICARE, BC ==
[2018-04-30] MEDS ORDERED: PIPERACILLIN-TAZOBACTAM 3.375 GM in SODIUM CHLORIDE 0.9% 100 ML IVPB STA (11:21)
[2018-04-30] MEDS ORDERED: ACETAMINOPHEN TAB 500 MG TAB PO STA (11:21)
--- NOTE | 2018-04-30 11:28 | ED ---
Recheck HPI - General Chief Complaint: Recheck/Abnormal Lab/Rx Stated Complaint: Blood pressure issues Time Seen by Provider: 04/30/18 11:07 Source: patient, RN notes reviewed, old records reviewed Mode of arrival: EMS Limitations: no limitations - History of Present Illness Initial Comments: Patient is an 82-year-old female who was sent in by her visiting nurse with complaints of abnormal blood pressures in bilateral arms today. According to visiting nurse she had a 20 point difference in both arms. Upon arrival her blood pressures have been normal bilaterally. Left arm blood pressure is 155/ 65. The right arm pressure was 151/79. Patient also complains of increased lower extremity swelling and pain. Patient had Doppler ultrasounds of both legs yesterday which were negative for DVT. She reports that she has been on antibiotics but complains of worsening redness and swelling going up the leg. She is a diabetic, and has history of chronic kidney disease. Patient states that she also is concerned because she had a subconjunctival hemorrhage within the right eyes today. She denies any coughing or reasons for increased pressure. She denies any eye pain or headache. She denies any associated chest pain. She reports she's had normal appetite and normal stools. She denies any changes in urination. - Related Data Home Medications Medication Instructions Recorded Confirmed Atorvastatin [Lipitor] 40 mg PO HS 12/31/14 04/30/18 Levothyroxine Sodium [Synthroid] 50 mcg PO DAILY 12/31/14 04/30/18 Pantoprazole Sodium 40 mg PO DAILY 12/31/14 04/30/18 Multivit-Min/FA/Lycopen/Lutein 1 tab PO DAILY 03/24/15 04/30/18 [Centrum Silver Tablet] Gabapentin [Neurontin] 400 mg PO QID 01/25/16 04/30/18 Carvedilol [Coreg] 12.5 mg PO BID 07/28/16 04/30/18 Furosemide [Lasix] 40 mg PO DAILY 01/02/18 04/30/18 Insulin Aspart [NovoLOG Flexpen] 10 units SQ AC-TID 01/02/18 04/30/18 Insulin Aspart [NovoLOG Flexpen] See Protocol SQ AC-TID 01/02/18 04/30/18 Insulin Glargine,Hum.rec.anlog 40 units SQ HS 01/02/18 04/30/18 [Lantus Solostar] Isosorbide Mononitrate ER [Imdur] 60 mg PO DAILY 01/02/18 04/30/18 Nitroglycerin Sl Tabs [Nitrostat] 0.4 mg SL Q5M PRN 01/02/18 04/30/18 Losartan [Cozaar] 50 mg PO DAILY 04/16/18 04/30/18 amLODIPine [Norvasc] 10 mg PO HS 04/16/18 04/30/18 Ammonium Lactate Cream [Lac-Hydrin 1 applic TOPICAL BID 04/30/18 04/30/18 12% Cream] Aspirin EC [Ecotrin Low Dose] 81 mg PO DAILY 04/30/18 04/30/18 Calcium Carbonate/Vitamin D3 1 tab PO DAILY 04/30/18 04/30/18 [Calcium 500-Vit D3 200 Tablet] Cholecalciferol [Vitamin D3] 1,000 unit PO DAILY 04/30/18 04/30/18 Clobetasol Propionate [Temovate 1 applic TOPICAL TID 04/30/18 04/30/18 0.05% Cream] Ferrous Sulfate [Feosol] 325 mg PO DAILY 04/30/18 04/30/18 Linagliptin [Tradjenta] 5 mg PO DAILY 04/30/18 04/30/18 Meclizine [Antivert] 12.5 mg PO TID PRN 04/30/18 04/30/18 [place]-3 Fatty Acids/Fish Oil [Fish 1 cap PO TID 04/30/18 04/30/18 Oil 1,000 mg Softgel] Triamcinolone 0.1% Cream [Kenalog 1 applicatio TOPICAL DAILY 04/30/18 04/30/18 0.1% Cream] Previous Rx's Medication Instructions Recorded cloNIDine HCL [Catapres] 0.1 mg PO BID #60 tab 07/31/16 Acetaminophen Tab [Tylenol] 650 mg PO Q4HR PRN tab 01/04/18 Cephalexin [Keflex] 500 mg PO Q6HR #40 cap 04/16/18 Sulfamethox-Tmp 800-160Mg [Bactrim 1 tab PO Q12HR #20 tab 04/16/18 DS 800-160 mg] Allergies Allergy/AdvReac Type Severity Reaction Status Date / Time JOCELYNN Inhibitors Allergy Unknown Verified 04/30/18 11:33 aspartame AdvReac Nausea & Verified 04/30/18 11:33 Vomiting Review of Systems ROS Statement: Those systems with pertinent positive or pertinent negative responses have been documented in the HPI. ROS Other: All systems not noted in ROS Statement are negative. 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 History of Any Multi-Drug Resistant Organisms: None Reported Past Surgical History: Appendectomy, Heart Catheterization, Joint Replacement, Orthopedic Surgery, Tonsillectomy Additional Past Surgical History / Comment(s): R renal artery bypassed with groin vein graft, brain aneurysms with clips x 2, cataract removal both eyes with lens implants, colonoscopies x 2 with first one having benign polypectoy and 2nd one normal. RT kidney had cancer on top of kidney, pt stated"they froze the cancer off" , lt shoulder arthroscopy for rotator cuff, dusty knee replacments, L foot fracture with surgery and L foot had a bone misplaced with surgery, R foot tumor removed around a toe. Past Anesthesia/Blood Transfusion Reactions: No Reported Reaction Additional Past Anesthesia/Blood Transfusion Reaction / Comment(s): Pt has received blood without reaction. Past Psychological History: No Psychological Hx Reported Smoking Status: Former smoker Past Alcohol Use History: None Reported Past Drug Use History: None Reported - Past Family History Father Family Medical History: Myocardial Infarction (HI) Additional Family Medical History / Comment(s): Father of a HI at the age of 56yrs. Mother Family Medical History: Cancer Additional Family Medical History / Comment(s): Mother had breast cancer. She from another type of cancer that metastasized to her bones. General Exam Limitations: no limitations General appearance: alert, in no apparent distress Head exam: Present: atraumatic, normocephalic, normal inspection Eye exam: Present: normal appearance, PERRL, EOMI. Absent: scleral icterus, conjunctival injection, periorbital swelling ENT exam: Present: normal exam, mucous membranes moist Neck exam: Present: normal inspection Respiratory exam: Present: normal lung sounds bilaterally. Absent: respiratory distress, wheezes, rales, rhonchi, stridor Cardiovascular Exam: Present: regular rate, normal rhythm, normal heart sounds, other (normal 2+ radial pulses bilateral upper extremity.). Absent: systolic murmur, diastolic murmur, rubs, gallop, clicks GI/Abdominal exam: Present: soft, normal bowel sounds. Absent: distended, tenderness, guarding, rebound, rigid Extremities exam: Present: full ROM, normal capillary refill, other (bilateral erythematous lower extremities with overlying cellulitis and swelling extending above the knee.). Absent: normal inspection, tenderness, pedal edema, joint swelling, calf tenderness Back exam: Present: normal inspection Neurological exam: Present: alert, oriented X3, CN II-XII intact Psychiatric exam: Present: normal affect, normal mood Skin exam: Present: warm, dry, intact, normal color. Absent: rash Course Vital Signs 04/30/18 04/30/18 11:03 11:10 Temperature 97.9 F Pulse Rate 67 Pulse Rate [ 67 Pediatric Hospitalist ] Respiratory 18 18 Rate Blood Pressure 151/79 Blood Pressure 155/65 [Left Arm] Blood Pressure 151/79 [Right Arm] O2 Sat by Pulse 97 Oximetry Medical Decision Making - Medical Decision Making Patient is an 8-year-old female who presents returned today with complaints of abnormal blood pressures and arms. However upon arrival is found to be negative. Blood pressures are normal bilaterally. She has normal pulses in all 4 extremities. Patient does have significant cellulitis over bilateral lower extremity's. She's been treated and Patient only with antibiotics and was currently on Keflex and Bactrim. She states it seems to be getting progressively worse and she is a diabetic. Patient's labwork was reviewed. White blood cell count within normal limits. She does have a decrease in her kidney function. Patient's chest x-ray was reviewed and unremarkable. EKG shows no acute changes. At this time I discussed with the Patient on Zosyn for cellulitis over the extremities. Patient case discussed with Dr. Roskoppdiscussed the case with patient's PCP Dr. Dubon. He agrees to admit the Patient for cellulitis with consult to nephrology for acute kidney failure and Dr. Herrera for infectious disease. CONSULTS WERE PLACED. PATIENT AGREES TO ADMISSION. - Lab Data Result diagrams: 04/30/18 11:58 04/30/18 11:58 Lab Results 04/30/18 04/30/18 04/30/18 Range/Units 11:58 11:58 11:58 WBC 9.1 (3.8-10.6) k/uL RBC 4.29 (3.80-5.40) m/uL Hgb 12.0 (11.4-16.0) gm/dL Hct 35.6 (34.0-46.0) % MCV 83.0 (80.0-100.0) fL MCH 28.0 (25.0-35.0) pg MCHC 33.8 (31.0-37.0) g/dL RDW 14.4 (11.5-15.5) % Plt Count 396 (150-450) k/uL Neutrophils % 77 % Lymphocytes % 11 % Monocytes % 6 % Eosinophils % 4 % Basophils % 0 % Neutrophils # 7.0 (1.3-7.7) k/uL Lymphocytes # 1.0 (1.0-4.8) k/uL Monocytes # 0.6 (0-1.0) k/uL Eosinophils # 0.3 (0-0.7) k/uL Basophils # 0.0 (0-0.2) k/uL PT (9.0-12.0) sec INR (<1.2) APTT (22.0-30.0) sec Sodium 140 (137-145) mmol/L Potassium 5.5 H (3.5-5.1) mmol/L Chloride 104 (98-107) mmol/L Carbon Dioxide 28 (22-30) mmol/L Anion Gap 8 mmol/L BUN 31 H (7-17) mg/dL Creatinine 2.70 H (0.52-1.04) mg/dL Est GFR (CKD-EPI)AfAm 18 (>60 ml/min/1.73 sqM) Est GFR (CKD-EPI)NonAf 16 (>60 ml/min/1.73 sqM) Glucose 171 H (74-99) mg/dL Plasma Lactic Acid Jaya 1.0 (0.7-2.0) mmol/L Calcium 9.1 (8.4-10.2) mg/dL Total Bilirubin 0.5 (0.2-1.3) mg/dL AST 22 (14-36) U/L ALT 28 (9-52) U/L Alkaline Phosphatase 93 (38-126) U/L Troponin I (0.000-0.034) ng/mL NT-Pro-B Natriuret Pep pg/mL Total Protein 6.5 (6.3-8.2) g/dL Albumin 3.9 (3.5-5.0) g/dL 04/30/18 04/30/18 04/30/18 Range/Units 11:58 11:58 11:58 WBC (3.8-10.6) k/uL RBC (3.80-5.40) m/uL Hgb (11.4-16.0) gm/dL Hct (34.0-46.0) % MCV (80.0-100.0) fL MCH (25.0-35.0) pg MCHC (31.0-37.0) g/dL RDW (11.5-15.5) % Plt Count (150-450) k/uL Neutrophils % % Lymphocytes % % Monocytes % % Eosinophils % % Basophils % % Neutrophils # (1.3-7.7) k/uL Lymphocytes # (1.0-4.8) k/uL Monocytes # (0-1.0) k/uL Eosinophils # (0-0.7) k/uL Basophils # (0-0.2) k/uL PT 9.9 (9.0-12.0) sec INR 0.9 (<1.2) APTT 27.3 (22.0-30.0) sec Sodium (137-145) mmol/L Potassium (3.5-5.1) mmol/L Chloride (98-107) mmol/L Carbon Dioxide (22-30) mmol/L Anion Gap mmol/L BUN (7-17) mg/dL Creatinine (0.52-1.04) mg/dL Est GFR (CKD-EPI)AfAm (>60 ml/min/1.73 sqM) Est GFR (CKD-EPI)NonAf (>60 ml/min/1.73 sqM) Glucose (74-99) mg/dL Plasma Lactic Acid Jaya (0.7-2.0) mmol/L Calcium (8.4-10.2) mg/dL Total Bilirubin (0.2-1.3) mg/dL AST (14-36) U/L ALT (9-52) U/L Alkaline Phosphatase (38-126) U/L Troponin I <0.012 (0.000-0.034) ng/mL NT-Pro-B Natriuret Pep 371 pg/mL Total Protein (6.3-8.2) g/dL Albumin (3.5-5.0) g/dL 04/30/18 14:21 EKG performed at 1308 shows sinus bradycardia, otherwise normal EKG. Ventricular rate of 58 bpm. [place] interval is 204 ms. QRS ration 82 ms. QT QTc is 418/410 ms. - Radiology Data Radiology results: report reviewed Chest x-ray is negative for any acute cardiac of any process. Disposition Clinical Impression: Acute renal failure, Bilateral cellulitis of lower leg, Hypertension, Generalized weakness Disposition: ADMITTED IP TO THIS HOSP Condition: Stable Is patient prescribed a controlled substance at d/c from ED?: No Referrals: Jae Dubon MD [Primary Care Provider] - 1-2 days Time of Disposition: 14:35
[2018-04-30 12:27] LABS: Basophils % (A) 0 %; Eosinophils # (A) 0.3 k/uL (0-0.7); Eosinophils % (A) 4 %; HCT 35.6 % (34.0-46.0); Lymphocytes % (A) 11 %; MCHC 33.8 g/dL (31.0-37.0); Mean Platelet Volume 6.5; Monocytes # (A) 0.6 k/uL (0-1.0); Monocytes % (A) 6 %; Neutrophils % (A) 77 %; Platelet Count 396 k/uL (150-450); RBC 4.29 m/uL (3.80-5.40); RDW 14.4 % (11.5-15.5); WBC 9.1 k/uL (3.8-10.6)
[2018-04-30] MEDS: SODIUM CHLORIDE 0.9% 1,000 ML IV SCH ×2 (12:34→22:19)
[2018-04-30 12:35] LABS: INR 0.9 (<1.2); Partial Thromboplastin Time 27.3 sec (22.0-30.0); Prothrombin Time 9.9 sec (9.0-12.0)
[2018-04-30 12:40] LABS: Albumin 3.9 g/dL (3.5-5.0); Calcium 9.1 mg/dL (8.4-10.2); Potassium 5.5 mmol/L (3.5-5.1); Total Bilirubin 0.5 mg/dL (0.2-1.3); Total Protein 6.5 g/dL (6.3-8.2)
--- NOTE | 2018-04-30 13:09 | XR ---
EXAMINATION TYPE: XR chest 2V DATE OF EXAM: 04/30/2018 COMPARISON: Prior chest x-ray 04/18/2018 HISTORY: Hypertension, pain TECHNIQUE: Frontal and lateral views of the chest are obtained. FINDINGS: There is no focal air space opacity, pleural effusion, or pneumothorax seen. The cardiac silhouette size is within normal limits. Prominent lung volumes again noted. Thoracic spondylosis is present. Aorta is dense. The osseous structures are intact. IMPRESSION: No acute cardiopulmonary process.
[2018-04-30] MEDS ORDERED: MORPHINE SULFATE 4 MG/ML SYRINGE IV PRN (14:35)
[2018-04-30] MEDS ORDERED: ONDANSETRON 4 MG/2 ML VIAL IVP PRN (14:35)
[2018-04-30] MEDS ORDERED: NALOXONE 0.4 MG/ML 1 ML VIAL IV PRN (14:35)
[2018-04-30] MEDS ORDERED: ACETAMINOPHEN TAB 325 MG TAB PO PRN ×2 (14:35→16:16)
[2018-04-30] MEDS ORDERED: diphenhydrAMINE 50 MG/ML 1 ML VIAL IVP PRN (16:00)
[2018-04-30] MEDS ORDERED: NITROGLYCERIN SL TABS 0.4 MG TAB SUBLINGUAL PRN (16:16)
[2018-04-30] MEDS ORDERED: IOPAMIDOL-300 CONTRAST 30 ML VIAL (ORAL USE) PO PRN (16:33)
[2018-04-30] MEDS ORDERED: CARVEDILOL 12.5 MG TAB PO SCH (17:30)
[2018-04-30 17:35] LABS: Glucose,Whole Blood 298 mg/dL (75-99)
[2018-04-30] MEDS: SODIUM CHLORIDE 0.9% 500 ML 500 ML IV SCH ×2 (17:38→17:56)
[2018-04-30] MEDS: INSULIN ASPART 100 UNIT/ML 1 ML 10 ML VIAL SQ SCH (17:57)
[2018-04-30] MEDS: GABAPENTIN 400 MG CAP PO SCH ×2 (17:57→22:19)
--- NOTE | 2018-04-30 19:31 | CT ---
EXAMINATION TYPE: CT abdomen pelvis wo con DATE OF EXAM: 04/30/2018 COMPARISON: 07/28/2016 HISTORY: /o hypertensive renal mass, prephrial edema CT DLP: 919.3 mGycm Automated exposure control for dose reduction was used. TECHNIQUE: Helical acquisition of images was performed from the lung bases through the pelvis. FINDINGS: There is small right pleural effusion. There is some mild infiltrate and atelectasis at the right kaleigh g base. There is minimal atelectasis left lung base. Abdominal aorta is atheromatous. There is air in the anterior biliary tree. There is air in the gallbladder. There is some air in the common bile shelley t. There is 2 cm low-density mass posterior medial right lobe of the liver that is probably a cyst. Unch anged. There is 1 cm hypodensity anterior right lobe of the liver unchanged. Spleen appears normal. There is no evidence of a pancreatic mass. There is no adrenal mass. There is 3 cm mixed density mass on the lower pole of the right kidney is p robably angiomyolipoma. The kidneys show no hydronephrosis. Ureters are not dilated. There is no retr operitoneal adenopathy. Bladder distends smoothly. There is no free fluid in the pelvis. There is no inguinal hernia. There i s no sign of free air. There is no ascites. There is no evidence of a bowel obstruction. There is 4 m m calcification in the inferior pancreatic head. Pancreatic duct is not dilated. There is no mesenteric edema. There is no evidence of thickened appendix. There are surgical clips at the right renal artery. There is large right renal artery that measures 11 mm. Abdominal aorta is at heromatous. There is no aortic aneurysm. Lumbar vertebra have normal spacing and alignment. There is no compression fracture. There is sacral cyst at S2 level. 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 IT MEASURES SMALLER THAN OLD CT SC AN. NO RENAL OBSTRUCTION. PANCREATIC HEAD CALCIFICATION PROBABLY FROM OLD INFLAMMATORY DISEASE. THERE IS NEW AIR IN THE BILIARY TREE COMPARED TO OLD EXAM AND CONSISTENT WITH REFLUX. Right renal artery aneurysm unchanged. There is new lower lobe mild pulmonary infiltrates and atelectasis compared to old exam.
[2018-04-30 20:25] LABS: Glucose,Whole Blood 119 mg/dL (75-99)
[2018-04-30] MEDS: HYDROcodone/APAP 5-325MG 1 EACH TAB PO PRN (20:47)
[2018-04-30] MEDS ORDERED: amLODIPine 10 MG TAB PO SCH (21:00)
[2018-04-30] MEDS ORDERED: INSULIN DETEMIR 100 UNIT/ML 10 ML VIAL SQ SCH (21:00)
[2018-04-30] MEDS ORDERED: cloNIDine HCL 0.1 MG TAB PO SCH (21:00)
[2018-04-30] MEDS ORDERED: NON-FORMULARY DRUG (Omega-3 Fatty Acids/Fish Oil [Fish Oil 1,000 Mg Softgel] 1 CAP) PO SCH (22:00)
[2018-04-30] MEDS: ATORVASTATIN 40 MG TAB PO SCH (22:19)
--- NOTE | 2018-04-30 22:52 | HP ---
HISTORY AND PHYSICAL DATE OF ADMISSION: 04/30/2018 DATA: The patient is an 82-year-old white female. She is a FULL CODE. Height 5 feet 5 inches, weight 92.533 kg, BSA 1.99 m2, BMI 33.9 kg/m2. ALLERGIES: 1. JOCELYNN INHIBITOR. Caused cough and rash. 2. ASPARTAME. Nausea and vomiting. CHIEF COMPLAINT: The patient presented to the emergency room, ER physician Dr. Alvarez, with the main concern about cellulitis of her lower extremities. She was brought to the emergency room by EMS. HISTORY OF PRESENT ILLNESS: This 82-year-old white female was seen by her visiting nurse, who examined her and found that she had abnormal blood pressure bilaterally and found that her cellulitis with edema of the legs had been progressively worsening. Yesterday the patient had a venous duplex study of the lower extremities which came back negative. She has been on antibiotic twice, with no improvement. The patient has an appointment with Dr. Manoj Herrera on Friday; however, her condition with the underlying diabetes necessitated that the visiting nurse sent her to the hospital. She is a diabetic and she had underlying hypertension and hypertensive heart disease as well as hypertensive nephrosclerosis. She has a history of renal artery stenosis on the right with surgery and also history of left renal artery stenosis. She has recently been found to have a mass on the kidney. She was treated with cryotherapy at [facility]. She woke up on Friday with underlying blood in her right eye which was found to be subconjunctival hemorrhage. Appointment was made with Dr. Kelvin Silverio, her account executive sales representative. They called her and told her that it will go away in a few days. Patient denied any increase in pressure or coughing and denied any headache; no chest pain. She has a normal appetite and normal stool and no difficulties with urination. MEDICATIONS: 1. Atorvastatin 40 mg at bedtime. 2. Levothyroxine with the hypothyroidism 50 mcg daily. 3. Pantoprazole 40 mg daily. 4. Multivitamin once a day. 5. Gabapentin 400 mg q.i.d. 6. Carvedilol 12.5 mg b.i.d. 7. Furosemide 40 mg daily. 8. Insulin Aspart, NovoLog 10 units subcutaneously before meals t.i.d. 9. Insulin Aspart before meals t.i.d. per scale. 10.Insulin Glargine, Lantus Solostar, 40 units at bedtime. 11.Isosorbide mononitrate ER (Imdur) 60 mg daily. 12.Nitroglycerin sublingually 0.4 mg p.r.n. 13.Losartan 50 mg once daily. 14.Amlodipine 10 mg at bedtime. 15.Ammonium lactate (Lac-Hydrin) 12% cream on the extremities. 16.Aspirin 81 mg daily. 17.Calcium carbonate/vitamin D3 500/200 one tablet daily. 18.Clobetasol propionate topically 3 times a day. 19.Ferrous sulfate 325 mg daily. 20.Tradjenta 5 mg daily. 21.Meclizine (Antivert) 12.5 mg t.i.d. p.r.n. 22.Mineral-3 fatty acid 1 capsule, which is 1000 mg one capsule t.i.d. 23.Triamcinolone 0.1% cream (Kenalog) topically on the extremities. Her previous prescriptions were Keflex and clonidine and Bactrim DS 800/160 mg on her previous admissions, not currently. REVIEW OF SYSTEMS: Mainly pain in the groin area. Edema of the legs, pitting in nature, extending to the knee and the thigh. Oozing and erythema of the legs with the underlying cellulitis. Occasional chills, shortness of breath. GI/: No symptoms. PAST MEDICAL HISTORY: 1. Asthma. 2. Blood disorder. 3. Coronary artery disease. 4. Cancer. 5. Chest pain, angina. 6. Diabetes mellitus. 7. GERD disease/reflux. 8. Hyperlipidemia. 9. Hypertension. 10.Osteoarthritis. 11.Pneumonia. 12.Renal disease. 13.Thyroid disorder. 14.Vascular disorder. 15.History in 2017 with labyrinthitis and vertigo. 16.Right renal cancer on the top of the kidney and frozen off. 17.In 1970 she had a right renal artery bypassed and subsequently chronic kidney disease, stage III. 18.Insulin-dependent diabetes mellitus, type 2. 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 20.History of gout bilaterally. 21.History of headache. 22.History of brain aneurysm, clipped, and one is calcified. 23.She had a fall. 24.She had lower leg edema at times. 25.Hypothyroidism. 26.No drug resistance in the past. 27.History of appendectomy. 28.Heart catheterization. 29.Joint replacement. 30.Orthopedic surgery. 31.Tonsillectomy. 32.Right renal bypass with a groin vein graft. 33.Brain aneurysm with clips x2. 34.Cataract removal from both eyes with lens implants. 35.Colonoscopy x2 with the first one having benign polypectomy. Second one was normal. 36.Right kidney had cancer on top of the kidney and was treated with frozen at [facility]. 37.Shoulder arthroscopy for rotator cuff. 38.Bilateral knee replacement. 39.Left foot fracture with surgery and left foot has bone misplaced. 40.Left foot tumor removed around a toe. PSYCHOLOGICAL HISTORY: None. Anesthesia: No reaction. She is a former smoker. No current alcohol elicited and no drugs elicited. FAMILY HISTORY: Her mother had breast cancer and she from another type of cancer that metastasized to the the bone. Her father of VT at age 56. PHYSICAL EXAMINATION: Patient was conscious, alert. She was complaining of the groin area bothering her and being painful. Head was normocephalic, atraumatic. Oropharynx with natural teeth. Pupils bilaterally reactive with implants. She has minimal hearing deficit. Pupils were equal, reactive and conjunctivae were pink. Sclerae were nonicteric. There is periorbital swelling and edema. Nose exam was negative. Neck was supple. No JVD. No thyromegaly. No lymphadenopathy. Trachea midline. The chest was clear to auscultation and percussion. No wheezes, no rhonchi. HEART: PMI in the fifth intercostal space. Normal S1, S2. No gallop. However, she had concern of the ejection fraction. The abdomen was obese with positive bowel sounds. Some discomfort in the groin area, lower abdomen and pelvis. EXTREMITIES: She has erythema and edema that extends up to the knees bilaterally with swelling and with pitting edema as well. She has some calf tenderness bilaterally. We did the venous duplex scan for DVT yesterday at [facility] which was reported as negative. BACK: No tenderness. NEUROLOGICAL EXAMINATION: No tremor. No shakiness. Cranial nerves 2-12 were intact. No motor or sensory deficit. PSYCHIATRY: Normal mood. No aggression. SKIN: Discoloration of the lower extremities bilaterally. VITAL SIGNS ON ADMISSION: Temperature 97.9, pulse 67, respiratory rate 18 and regular and nonlabored. Blood pressure 151/79 and repeat was 155/65. LABORATORY: White count was 9.1 with hemoglobin 12 and hematocrit 35.6. MCV 83 and platelet count 396. Sodium 140, potassium elevated at 5.5, carbon dioxide 28, BUN of 31, creatinine 2.70 with the jump and acute kidney injury. Blood sugar 171. Her lactic acid is 1, calcium 9.1 and bilirubin 0.5. Her AST 22, ALT 28, alkaline phosphatase 93, total protein 6.5 and albumin 3.9. Her pro time is 9.9 and INR 0.9, PTT 27.3, troponin less than 0.012. Beta natriuretic peptide 371. EKG showed sinus bradycardia with a rate of 58 beats per minute. Chest x-ray was negative. FINAL CLINICAL IMPRESSION: 1. Acute kidney injury with the progression of creatinine, underlying hypertensive nephrosclerosis with renal artery stenosis bilaterally with previous surgery in the past and bypass as well. 2. History of diabetes mellitus with neuropathy and type 2, insulin-dependent. 3. Underlying hyperkalemia at this time; that could be with the association with the JOCELYNN inhibitor. 4. Cellulitis of the lower extremities bilaterally as well as edema, extended, and the etiology is unclear. PLAN: 1. Will consult Cardiology and Nephrology and Infectious Disease and further evaluation depending on the patient's condition. 2. Start antibiotic after blood culture if it was not done, and start antibiotic subsequently until Dr. Manoj Herrera sees the patient. 3. Consultation with Cardiology to assess her left ventricular function, as patient had yesterday a venous duplex scan for the lower extremity for DVT which was negative. Still the leg is very, very large with pitting edema and extending. Further treatment depends on the patient's progression. We will elevate her leg as well as adjusting medication. MMODL / IJN: [id number] /
[2018-05-01] MEDS: PIPERACILLIN-TAZOBACTAM 3.375 GM in SODIUM CHLORIDE 0.9% 100 ML IVPB SCH ×3 (00:54→20:06)
[2018-05-01] MEDS: FUROSEMIDE 10 MG/ML 2 ML VIAL IV SCH ×2 (00:55→08:03)
[2018-05-01] MEDS: LEVOTHYROXINE 50 MCG TAB PO SCH (06:44)
[2018-05-01 07:01] LABS: Glucose,Whole Blood 189 mg/dL (75-99)
[2018-05-01] MEDS: HYDROcodone/APAP 5-325MG 1 EACH TAB PO PRN ×3 (07:42→20:22)
[2018-05-01] MEDS: CALCIUM CARB-VIT D 500MG-200UN 1 EACH TAB PO SCH ×2 (08:03→08:04)
[2018-05-01] MEDS: GABAPENTIN 400 MG CAP PO SCH ×4 (08:04→20:11)
[2018-05-01] MEDS: ASPIRIN 81 MG PO SCH (08:04)
[2018-05-01] MEDS: FERROUS SULFATE 325 MG TAB PO SCH (08:04)
[2018-05-01] MEDS: CARVEDILOL 12.5 MG TAB PO SCH ×2 (08:04→18:24)
[2018-05-01] MEDS: CHOLECALCIFEROL 1,000 UNIT TAB PO SCH (08:04)
[2018-05-01] MEDS: INSULIN ASPART 100 UNIT/ML 1 ML 10 ML VIAL SQ SCH ×7 (08:05→20:11)
[2018-05-01] MEDS: PANTOPRAZOLE 40 MG TABLET PO SCH (08:06)
[2018-05-01 08:10] LABS: Basophils % (A) 1 %; Eosinophils # (A) 0.3 k/uL (0-0.7); Eosinophils % (A) 4 %; HCT 33.7 % (34.0-46.0); HGB 11.3 gm/dL (11.4-16.0); Lymphocytes # (A) 1.1 k/uL (1.0-4.8); Lymphocytes % (A) 15 %; MCH 28.5 pg (25.0-35.0); MCHC 33.6 g/dL (31.0-37.0); MCV 84.8 fL (80.0-100.0); Mean Platelet Volume 6.5; Monocytes # (A) 0.5 k/uL (0-1.0); Monocytes % (A) 7 %; Neutrophils # (A) 5.3 k/uL (1.3-7.7); Neutrophils % (A) 72 %; Platelet Count 355 k/uL (150-450); RBC 3.98 m/uL (3.80-5.40); RDW 14.4 % (11.5-15.5); WBC 7.4 k/uL (3.8-10.6)
--- NOTE | 2018-05-01 08:12 | XR ---
EXAMINATION TYPE: XR Hip Bilateral and AP pelvis DATE OF EXAM: 05/01/2018 COMPARISON: NONE HISTORY: Pain TECHNIQUE: A single AP view of the pelvis is obtained. Two views of the bilateral hip are obtained. FINDINGS: There is no acute fracture/dislocation evident in the pelvis. The hip and sacroiliac join ts appear symmetric and unremarkable. The overlying soft tissue appears unremarkable. Retained contr ast through the colon bowel noted. Postsurgical changes suggested. Diffuse osteopenia and hypertrophi c and degenerative change of the spine. Osteitis pubis condensans noted. Arthropathy of the hips. Two views of bilateral hip show no acute fracture or dislocation. No focal lytic or sclerotic lesion seen in the proximal bilateral femur. The overlying soft tissue is unremarkable. IMPRESSION: There is no acute fracture or dislocation in the pelvis or bilateral hip. No radiographi c evidence to suggest osteonecrosis. There is arthropathy. If there is concern for osteonecrosis brigitte elate with MRI which is much more sensitive for detecting osteonecrosis.
[2018-05-01] MEDS: SODIUM CHLORIDE 0.9% 1,000 ML IV SCH ×2 (08:14→20:10)
[2018-05-01] MEDS: ISOSORBIDE MONONITRATE ER 60 MG TAB.ER.24H PO SCH (08:27)
[2018-05-01] MEDS: LINAGLIPTIN 5 MG TABLET PO SCH (08:27)
[2018-05-01 08:33] LABS: Potassium 5.4 mmol/L (3.5-5.1)
[2018-05-01 08:34] LABS: Calcium 8.7 mg/dL (8.4-10.2); Magnesium 1.9 mg/dL (1.6-2.3)
[2018-05-01] MEDS ORDERED: LOSARTAN 50 MG TAB PO SCH (09:00)
[2018-05-01] MEDS ORDERED: cloNIDine HCL 0.1 MG TAB PO SCH (09:00)
[2018-05-01] MEDS ORDERED: PANTOPRAZOLE 40 MG/10 ML VIAL IV SCH (09:00)
[2018-05-01] MEDS ORDERED: FUROSEMIDE 40 MG TAB PO SCH (09:00)
[2018-05-01 11:06] LABS: Glucose,Whole Blood 195 mg/dL (75-99)
--- NOTE | 2018-05-01 11:53 | CONS ---
CONSULTATION REASON FOR CONSULT: Renal failure. HISTORY OF PRESENT ILLNESS: The patient is an 82-year-old female who was admitted to the hospital on 04/30/2018 with complaints of elevated blood pressures. Apparently, there was a significant difference in her 2 arms for blood pressure readings. The patient does not remember the readings at this time. In the ER, the pressures were not very different. Left arm pressure was 155/65, right arm was 151/79. The patient, however, has had increased lower extremity edema and redness and pain in her lower extremities. She was admitted for cellulitis. The patient does have history of chronic kidney disease. However, she does not follow up with a body builder. She stated that she had experimental surgery on her right kidney in 1970. It appears to be a vascular abnormality for which patient had some kind of vascular surgery. Her serum creatinine was 2.7 at the time of admission, currently it is down to 2.5. Review of previous labs shows the serum creatinine 1.2 and 1.3 on 04/18/2018. Creatinine was 1.2 and 1.3, all the way back to 2017 and 2016 as well. Blood pressure is not low in fact a little bit on the higher side. The patient denies use of any nonsteroidal anti-inflammatory agents prior to admission. She is maintained on oral loop diuretics. She is also maintained on angiotensin receptor blockers. It appears that the patient was supposed to start Bactrim as outpatient prior to admission. Currently patient is voiding. She states she is feeling slightly better. She is maintained on IV Lasix 20 mg q.8 hours. PAST MEDICAL HISTORY: Significant for hypertension, hypothyroidism, type 2 diabetes, gastroesophageal reflux disease, hyperlipidemia, osteoarthritis, history of right renal cancer, status post cauterization, renal artery bypass in 1970, CKD stage 3. PAST SURGICAL HISTORY: Appendectomy, cardiac cath, tonsillectomy, right renal artery, vascular surgery and cauterization of a kidney cancer on the right kidney, foot surgery. SOCIAL HISTORY: Negative for smoking. Patient is a former smoker. No history of drug abuse or alcohol abuse. MEDICATIONS: Medications at home prior to admission included Antivert, Tradjenta, iron, vitamin D, insulin. Cozaar, Norvasc, Nitrostat. Lasix. Coreg, Neurontin, Synthroid, Lipitor. Patient was also on Bactrim, Keflex, clonidine, Tylenol. ALLERGIES: Allergies include ASPARTAME causes nausea and vomiting, JOCELYNN INHIBITORS, allergy type is not listed. However, patient is maintained on angiotensin receptor blockers. PHYSICAL EXAMINATION: On examination, patient is comfortable, awake. She is not in any acute distress. Blood pressure was 141/63, heart rate 65 per minute. She is afebrile. EXAMINATION OF THE HEART: S1, S2. EXAMINATION OF THE LUNGS: Bilateral breath sounds are heard. Abdomen is soft, nontender. Examination of the lower extremities shows chronic skin changes. Edema is noted. Some erythema is noted as well bilaterally. SENIOR BIOINFORMATICS SPECIALIST exam is grossly intact. Patient moving all 4 extremities. LABS: Labs show sodium 141, potassium 5.4, chloride 108, BUN 28, serum creatinine 2.5, hemoglobin 11.3 g/dL. UA is not available. Chest x-ray does not show any vascular congestion. ASSESSMENT: 1. Acute kidney injury, possibly acute tubular necrosis. Check urinalysis. Check ultrasound of the kidneys. I will decrease the dose of Cozaar as patient is mildly hyperkalemic. We may continue with the Lasix for now. 2. Chronic kidney disease, NKF stage 3, most likely secondary to diabetic nephropathy versus nephrosclerosis. Check urinalysis. Previous UA did show 3+ protein with 24- hour urine protein of 520 in 2016. 3. Hyperkalemia associated with acute kidney injury, use of angiotensin receptor blockers, and some degree of hyperglycemia. Blood sugar was as high as 298 yesterday. Decrease dose of Cozaar. Control blood sugars. 4. Volume overload. May continue with current dose of Lasix. Change dose to 40 mg q.12 hours given the elevated creatinine. 5. Hypertension. Blood pressure slightly on the higher side. Expect improvement with improved volume status. 6. Dyslipidemia. PLAN: Check UA. Check phosphorus. Decrease Cozaar. Check ultrasound of the kidneys. Repeat labs in a.m. Thank you for this consultation. We will continue to follow the patient with you during her hospitalization. MMODL / IJN: [id number] /
[2018-05-01 12:24] LABS: Appearance,Urine Clear (Clear); Bilirubin,Urine Negative (Negative); Blood,Urine Negative (Negative); Color,Urine Light Yellow; Glucose,Urine (UA) Negative (Negative); Ketones,Urine Negative (Negative); Leukocyte Esterase,Urine Negative (Negative); Nitrite,Urine Negative (Negative); PH, Urine 6.5 (5.0-8.0); Protein,Urine Trace (Negative); Specific Gravity,Urine 1.008 (1.001-1.035); Urobilinogen,Urine <2.0 mg/dL (<2.0)
[2018-05-01] MEDS: MULTIVITAMINS, THERA 1 EACH TAB PO SCH (13:03)
--- NOTE | 2018-05-01 14:29 | US ---
EXAMINATION TYPE: US kidneys/renal and bladder DATE OF EXAM: 05/01/2018 COMPARISON: CT 04/30/2018 CLINICAL HISTORY: Renal failure. Patient states having right renal cancer with it frozen EXAM MEASUREMENTS: Right Kidney: 9.8 x 5.6 x 4.2 cm Left Kidney: 11.1 x 4.3 x 4.9 cm Right Kidney: Possible lower pole hypoechoic lesion = 3.2 x 2.8 x 3.1, very limited visualization Left Kidney: wnl Bladder: distended, wnl as visualized Bilateral Jets not seen There is no evidence for hydronephrosis at this point in time. No nephrolithiasis is seen. Patient's renal mass is not well seen on ultrasound, see report CT scan. Cortical medullary differentiation is maintained bilaterally. The urinary bladder is anechoic. IMPRESSION: Postprocedural changes to right renal mass seen better on CT. Cortical medullary differentiation is m aintained, renal sizes as described.
--- NOTE | 2018-05-01 14:34 | P.CONS ---
History of Present Illness - Reason for Consult Consult date: 05/01/18 Bilateral lower extremity cellulitis - History of Present Illness This is an 82-year-old female patient who gives history of having problems with cellulitis of the bilateral lower extremities for about 3 weeks. She had a recent emergency center visit on April 16 at which time she was discharged home on Keflex, Bactrim and Lasix 40 mg twice daily for 10 tablets. She states she did not have any improvement after that and hadn't admission April 18 through April 20 for the same and was discharged home on Augmentin for 7 days and she had local treatment which she states was an antibiotic cream in the morning and some other type of salve in the afternoon and she only washes with water. It initially started on the right leg and then seemed to spread to the left leg. She did have an injury to the mid left pretibial area when she was standing on a stepladder but otherwise denies any significant injuries to her lower extremities. She had an appointment scheduled with Dr. Herrera on May 04. Patient states that when she was home she only seemed to get worse. She has she has not been eating very much as she has lost her appetite and has not been drinking very much. Patient came into [facility] emergency center for evaluation. She was found to be afebrile, white count 9.1, BUN 31 and creatinine 3.7. Chest x-ray showed no acute cardiopulmonary disease. EKG was sinus bradycardia with no acute ST changes. 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 X-ray of the hip and pelvis showed arthropathy and concern for osteonecrosis. Patient was started on Zosyn for bilateral lower extremity cellulitis and admitted to the [facility] floor. Patient has history of chronic kidney disease stage III and in 1970 underwent surgery at [facility] for renal artery stenosis and had treatment for angiomyolipoma of the right kidney and underwent cryotherapy at [facility] approximately one to one and half years ago. She states this has been monitored and is stable. When she was undergoing treatment for cryotherapy, patient did develop acute respiratory failure requiring intubation. She continues to complain of significant pain to the lower extremities especially in the bilateral groin regions. She is concerned because the edema has spread into her bilateral thighs. Venous duplex done on April 29 as an outpatient showed no evidence of DVT bilaterally. Review of Systems All systems: negative Constitutional: Reports anorexia, Reports fatigue, Reports poor appetite, Reports weakness, Denies chills, Denies fever Eyes: denies blurred vision, denies pain Ears, nose, mouth and throat: Reports hoarseness (Chronic since cryotherapy), Denies headache, Denies sore throat Cardiovascular: Reports edema, Reports leg edema, Denies chest pain, Denies shortness of breath Respiratory: Denies cough, Denies cough with sputum, Denies dyspnea, Denies excessive sputum, Denies hemoptysis, Denies home oxygen, Denies wheezing Gastrointestinal: Reports loss of appetite, Denies abdominal pain, Denies diarrhea, Denies nausea, Denies vomiting Genitourinary: Denies dysuria, Denies hematuria Musculoskeletal: Reports gait dysfunction, Reports muscle weakness, Denies myalgias Integumentary: Reports color changes, Reports darkening of skin, Reports wounds , Denies pruritus, Denies rash Neurological: Reports weakness, Denies aphasia, Denies change in speech, Denies confusion, Denies convulsions, Denies gait dysfunction, Denies numbness, Denies seizures Psychiatric: Denies anxiety, Denies depression Endocrine: Denies fatigue, Denies weight change Past Medical History Past Medical History: Asthma, Blood Disorder, Coronary Artery Disease (CAD), Cancer, Chest Pain / Angina, Diabetes Mellitus, GERD/Reflux, Hyperlipidemia, Hypertension, Osteoarthritis (OA), Pneumonia, Renal Disease, Thyroid Disorder, Vascular Disorder Additional Past Medical History / Comment(s): 2017 labyrithitis/vertigo, 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 History of Any Multi-Drug Resistant Organisms: None Reported Past Surgical History: Appendectomy, Heart Catheterization, Joint Replacement, Orthopedic Surgery, Tonsillectomy Additional Past Surgical History / Comment(s): R renal artery bypassed with groin vein graft, brain aneurysms with clips x 2, cataract removal both eyes with lens implants, colonoscopies x 2 with first one having benign polypectomy and 2nd one normal. RT kidney had cancer on top of kidney, pt stated"they froze the cancer off" , lt shoulder arthroscopy for rotator cuff, dusty knee replacments, L foot fracture with surgery and L foot had a bone misplaced with surgery, R foot tumor removed around a toe. Past Anesthesia/Blood Transfusion Reactions: No Reported Reaction Additional Past Anesthesia/Blood Transfusion Reaction / Comm: Pt has received blood without reaction. Smoking Status: Former smoker Additional Past Alcohol Use History / Comment(s): Patient lives at home alone in a condo. 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 - Past Family History Father Family Medical History: Myocardial Infarction ([place]) Additional Family Medical History / Comment(s): Father of a [place] at the age of 56yrs. Mother Family Medical History: Cancer Additional Family Medical History / Comment(s): Mother had breast cancer. She from another type of cancer that metastasized to her bones. Medications and Allergies Home Medications Medication Instructions Recorded Confirmed Type Atorvastatin [Lipitor] 40 mg PO HS 12/31/14 04/30/18 History Levothyroxine Sodium [Synthroid] 50 mcg PO DAILY 12/31/14 04/30/18 History Pantoprazole Sodium 40 mg PO DAILY 12/31/14 04/30/18 History Multivit-Min/FA/Lycopen/Lutein 1 tab PO DAILY 03/24/15 04/30/18 History [Centrum Silver Tablet] Gabapentin [Neurontin] 400 mg PO QID 01/25/16 04/30/18 History Carvedilol [Coreg] 12.5 mg PO BID 07/28/16 04/30/18 History cloNIDine HCL [Catapres] 0.1 mg PO BID #60 tab 07/31/16 04/30/18 Rx Furosemide [Lasix] 40 mg PO DAILY 01/02/18 04/30/18 History Insulin Aspart [NovoLOG Flexpen] 10 units SQ AC-TID 01/02/18 04/30/18 History Insulin Aspart [NovoLOG Flexpen] See Protocol SQ AC-TID 01/02/18 04/30/18 History Insulin Glargine,Hum.rec.anlog 40 units SQ HS 01/02/18 04/30/18 History [Lantus Solostar] Isosorbide Mononitrate ER [Imdur] 60 mg PO DAILY 01/02/18 04/30/18 History Nitroglycerin Sl Tabs [Nitrostat] 0.4 mg SL Q5M PRN 01/02/18 04/30/18 History Acetaminophen Tab [Tylenol] 650 mg PO Q4HR PRN tab 01/04/18 04/30/18 Rx Cephalexin [Keflex] 500 mg PO Q6HR #40 cap 04/16/18 04/30/18 Rx Losartan [Cozaar] 50 mg PO DAILY 04/16/18 04/30/18 History Sulfamethox-Tmp 800-160Mg [Bactrim 1 tab PO Q12HR #20 tab 04/16/18 04/30/18 Rx DS 800-160 mg] amLODIPine [Norvasc] 10 mg PO HS 04/16/18 04/30/18 History Ammonium Lactate Cream [Lac-Hydrin 1 applic TOPICAL BID 04/30/18 04/30/18 History 12% Cream] Aspirin EC [Ecotrin Low Dose] 81 mg PO DAILY 04/30/18 04/30/18 History Calcium Carbonate/Vitamin D3 1 tab PO DAILY 04/30/18 04/30/18 History [Calcium 500-Vit D3 200 Tablet] Cholecalciferol [Vitamin D3] 1,000 unit PO DAILY 04/30/18 04/30/18 History Clobetasol Propionate [Temovate 1 applic TOPICAL TID 04/30/18 04/30/18 History 0.05% Cream] Ferrous Sulfate [Feosol] 325 mg PO DAILY 04/30/18 04/30/18 History Linagliptin [Tradjenta] 5 mg PO DAILY 04/30/18 04/30/18 History Meclizine [Antivert] 12.5 mg PO TID PRN 04/30/18 04/30/18 History [place]-3 Fatty Acids/Fish Oil [Fish 1 cap PO TID 04/30/18 04/30/18 History Oil 1,000 mg Softgel] Triamcinolone 0.1% Cream [Kenalog 1 applicatio TOPICAL DAILY 04/30/18 04/30/18 History 0.1% Cream] Allergies Allergy/AdvReac Type Severity Reaction Status Date / Time JOCELYNN Inhibitors Allergy Unknown Verified 04/30/18 11:33 aspartame AdvReac Nausea & Verified 04/30/18 11:33 Vomiting Physical Exam Vitals: Vital Signs Temp Pulse Pulse Resp BP BP BP 05/01/18 05:00 97.6 F 65 20 141/63 04/30/18 21:00 97.6 F 65 20 164/70 04/30/18 17:37 98 F 63 18 179/74 04/30/18 17:03 97.9 F 65 16 150/66 04/30/18 16:57 65 16 150/66 04/30/18 16:04 65 16 150/66 04/30/18 14:35 63 18 147/57 04/30/18 11:10 67 18 155/65 151/79 04/30/18 11:03 97.9 F 67 18 151/79 Pulse Ox 05/01/18 05:00 94 L 04/30/18 21:00 92 L 04/30/18 17:37 94 L 04/30/18 17:03 98 04/30/18 16:57 98 04/30/18 16:04 98 04/30/18 14:35 98 04/30/18 11:10 04/30/18 11:03 97 Intake and Output 04/30/18 05/01/18 05/01/18 22:59 06:59 14:59 Intake Total 900 Balance 900 Intake: Intake, IV Titration 900 Amount Piperacillin-Tazobactam 3 100 .375 gm In Sodium Chloride 0.9% 100 ml @ 25 mls/hr IVPB Q8HR [facility] Rx# :[id number] Sodium Chloride 0.9% 1, 800 000 ml @ 100 mls/hr IV . Q10H [facility] Rx#:[id number] Other: Voiding Method Toilet # Voids 1 Gen: This is an 82-year-old female. She is resting in bed appears to be comfortable. No acute distress is noted. HEENT: Head is atraumatic, normocephalic. Pupils equal, round. Sclerae is anicteric. Right eye subconjunctival hematoma. Oral mucous membranes are moist. No thrush noted. Oral pharynx without erythema or edema. NECK: Supple. No JVD. No lymphadenopathy. No thyromegaly. LUNGS: Clear to auscultation. No wheezes or rhonchi. No intercostal retractions. HEART: Regular rate and rhythm. No murmur. ABDOMEN: Soft. Bowel sounds are present. No masses. No tenderness. Has a large transverse scar across the upper abdomen. EXTREMITIES: Erythema and edema to the lower extremities. Edema to the mid thigh area bilaterally. NEUROLOGICAL: Patient is awake, alert and oriented x3. Cranial nerves 2 through 12 are grossly intact. Results Results: Microbiology Tests 04/30/18 11:58 Blood Culture - Preliminary Blood No Growth after 24 hours Laboratory Tests Range/Units 04/30/18 04/30/18 04/30/18 11:58 11:58 11:58 WBC (3.8-10.6) k/uL 9.1 RBC (3.80-5.40) m/uL 4.29 Hgb (11.4-16.0) gm/dL 12.0 Hct (34.0-46.0) % 35.6 MCV (80.0-100.0) fL 83.0 MCH (25.0-35.0) pg 28.0 MCHC (31.0-37.0) g/dL 33.8 RDW (11.5-15.5) % 14.4 Plt Count (150-450) k/uL 396 Neutrophils % % 77 Lymphocytes % % 11 Monocytes % % 6 Eosinophils % % 4 Basophils % % 0 Neutrophils # (1.3-7.7) k/uL 7.0 Lymphocytes # (1.0-4.8) k/uL 1.0 Monocytes # (0-1.0) k/uL 0.6 Eosinophils # (0-0.7) k/uL 0.3 Basophils # (0-0.2) k/uL 0.0 PT (9.0-12.0) sec INR (<1.2) APTT (22.0-30.0) sec Sodium (137-145) mmol/L 140 Potassium (3.5-5.1) mmol/L 5.5 H Chloride (98-107) mmol/L 104 Carbon Dioxide (22-30) mmol/L 28 Anion Gap mmol/L 8 BUN (7-17) mg/dL 31 H Creatinine (0.52-1.04) mg/dL 2.70 H Est GFR (CKD-EPI)AfAm (>60 ml/min/1.73 sqM) 18 Est GFR (CKD-EPI)NonAf (>60 ml/min/1.73 sqM) 16 Glucose (74-99) mg/dL 171 H POC Glucose (mg/dL) (75-99) mg/dL POC Glu Shelter Director ID Plasma Lactic Acid Jaya (0.7-2.0) mmol/L 1.0 Calcium (8.4-10.2) mg/dL 9.1 Magnesium (1.6-2.3) mg/dL Total Bilirubin (0.2-1.3) mg/dL 0.5 AST (14-36) U/L 22 ALT (9-52) U/L 28 Alkaline Phosphatase (38-126) U/L 93 Troponin I (0.000-0.034) ng/mL NT-Pro-B Natriuret Pep pg/mL Total Protein (6.3-8.2) g/dL 6.5 Albumin (3.5-5.0) g/dL 3.9 TSH (0.465-4.680) mIU/L Urine Color Urine Appearance (Clear) Urine pH (5.0-8.0) Ur Specific [place] (1.001-1.035) Urine Protein (Negative) Urine Glucose (UA) (Negative) Urine Ketones (Negative) Urine Blood (Negative) Urine Nitrite (Negative) Urine Bilirubin (Negative) Urine Urobilinogen (<2.0) mg/dL Ur Leukocyte Esterase (Negative) Range/Units 04/30/18 04/30/18 04/30/18 11:58 11:58 11:58 WBC (3.8-10.6) k/uL RBC (3.80-5.40) m/uL Hgb (11.4-16.0) gm/dL Hct (34.0-46.0) % MCV (80.0-100.0) fL MCH (25.0-35.0) pg MCHC (31.0-37.0) g/dL RDW (11.5-15.5) % Plt Count (150-450) k/uL Neutrophils % % Lymphocytes % % Monocytes % % Eosinophils % % Basophils % % Neutrophils # (1.3-7.7) k/uL Lymphocytes # (1.0-4.8) k/uL Monocytes # (0-1.0) k/uL Eosinophils # (0-0.7) k/uL Basophils # (0-0.2) k/uL PT (9.0-12.0) sec 9.9 INR (<1.2) 0.9 APTT (22.0-30.0) sec 27.3 Sodium (137-145) mmol/L Potassium (3.5-5.1) mmol/L Chloride (98-107) mmol/L Carbon Dioxide (22-30) mmol/L Anion Gap mmol/L BUN (7-17) mg/dL Creatinine (0.52-1.04) mg/dL Est GFR (CKD-EPI)AfAm (>60 ml/min/1.73 sqM) Est GFR (CKD-EPI)NonAf (>60 ml/min/1.73 sqM) Glucose (74-99) mg/dL POC Glucose (mg/dL) (75-99) mg/dL POC Glu Shelter Director ID Plasma Lactic Acid Jaya (0.7-2.0) mmol/L Calcium (8.4-10.2) mg/dL Magnesium (1.6-2.3) mg/dL Total Bilirubin (0.2-1.3) mg/dL AST (14-36) U/L ALT (9-52) U/L Alkaline Phosphatase (38-126) U/L Troponin I (0.000-0.034) ng/mL <0.012 NT-Pro-B Natriuret Pep pg/mL 371 Total Protein (6.3-8.2) g/dL Albumin (3.5-5.0) g/dL TSH (0.465-4.680) mIU/L Urine Color Urine Appearance (Clear) Urine pH (5.0-8.0) Ur Specific [place] (1.001-1.035) Urine Protein (Negative) Urine Glucose (UA) (Negative) Urine Ketones (Negative) Urine Blood (Negative) Urine Nitrite (Negative) Urine Bilirubin (Negative) Urine Urobilinogen (<2.0) mg/dL Ur Leukocyte Esterase (Negative) Range/Units 04/30/18 04/30/18 05/01/18 17:32 20:24 06:50 WBC (3.8-10.6) k/uL 7.4 RBC (3.80-5.40) m/uL 3.98 Hgb (11.4-16.0) gm/dL 11.3 L Hct (34.0-46.0) % 33.7 L MCV (80.0-100.0) fL 84.8 MCH (25.0-35.0) pg 28.5 MCHC (31.0-37.0) g/dL 33.6 RDW (11.5-15.5) % 14.4 Plt Count (150-450) k/uL 355 Neutrophils % % 72 Lymphocytes % % 15 Monocytes % % 7 Eosinophils % % 4 Basophils % % 1 Neutrophils # (1.3-7.7) k/uL 5.3 Lymphocytes # (1.0-4.8) k/uL 1.1 Monocytes # (0-1.0) k/uL 0.5 Eosinophils # (0-0.7) k/uL 0.3 Basophils # (0-0.2) k/uL 0.0 PT (9.0-12.0) sec INR (<1.2) APTT (22.0-30.0) sec Sodium (137-145) mmol/L Potassium (3.5-5.1) mmol/L Chloride (98-107) mmol/L Carbon Dioxide (22-30) mmol/L Anion Gap mmol/L BUN (7-17) mg/dL Creatinine (0.52-1.04) mg/dL Est GFR (CKD-EPI)AfAm (>60 ml/min/1.73 sqM) Est GFR (CKD-EPI)NonAf (>60 ml/min/1.73 sqM) Glucose (74-99) mg/dL POC Glucose (mg/dL) (75-99) mg/dL 298 H 119 H POC Glu Shelter Director ID Noemi aPte Tammy Plasma Lactic Acid Jaya (0.7-2.0) mmol/L Calcium (8.4-10.2) mg/dL Magnesium (1.6-2.3) mg/dL Total Bilirubin (0.2-1.3) mg/dL AST (14-36) U/L ALT (9-52) U/L Alkaline Phosphatase (38-126) U/L Troponin I (0.000-0.034) ng/mL NT-Pro-B Natriuret Pep pg/mL Total Protein (6.3-8.2) g/dL Albumin (3.5-5.0) g/dL TSH (0.465-4.680) mIU/L Urine Color Urine Appearance (Clear) Urine pH (5.0-8.0) Ur Specific [place] (1.001-1.035) Urine Protein (Negative) Urine Glucose (UA) (Negative) Urine Ketones (Negative) Urine Blood (Negative) Urine Nitrite (Negative) Urine Bilirubin (Negative) Urine Urobilinogen (<2.0) mg/dL Ur Leukocyte Esterase (Negative) Range/Units 05/01/18 05/01/18 05/01/18 06:50 07:00 11:04 WBC (3.8-10.6) k/uL RBC (3.80-5.40) m/uL Hgb (11.4-16.0) gm/dL Hct (34.0-46.0) % MCV (80.0-100.0) fL MCH (25.0-35.0) pg MCHC (31.0-37.0) g/dL RDW (11.5-15.5) % Plt Count (150-450) k/uL Neutrophils % % Lymphocytes % % Monocytes % % Eosinophils % % Basophils % % Neutrophils # (1.3-7.7) k/uL Lymphocytes # (1.0-4.8) k/uL Monocytes # (0-1.0) k/uL Eosinophils # (0-0.7) k/uL Basophils # (0-0.2) k/uL PT (9.0-12.0) sec INR (<1.2) APTT (22.0-30.0) sec Sodium (137-145) mmol/L 141 Potassium (3.5-5.1) mmol/L 5.4 H Chloride (98-107) mmol/L 108 H Carbon Dioxide (22-30) mmol/L 27 Anion Gap mmol/L 6 BUN (7-17) mg/dL 28 H Creatinine (0.52-1.04) mg/dL 2.55 H Est GFR (CKD-EPI)AfAm (>60 ml/min/1.73 sqM) 20 Est GFR (CKD-EPI)NonAf (>60 ml/min/1.73 sqM) 17 Glucose (74-99) mg/dL 177 H POC Glucose (mg/dL) (75-99) mg/dL 189 H 195 H POC Glu Shelter Director Chetan [place] Plasma Lactic Acid Jaya (0.7-2.0) mmol/L Calcium (8.4-10.2) mg/dL 8.7 Magnesium (1.6-2.3) mg/dL 1.9 Total Bilirubin (0.2-1.3) mg/dL AST (14-36) U/L ALT (9-52) U/L Alkaline Phosphatase (38-126) U/L Troponin I (0.000-0.034) ng/mL NT-Pro-B Natriuret Pep pg/mL Total Protein (6.3-8.2) g/dL Albumin (3.5-5.0) g/dL TSH (0.465-4.680) mIU/L 3.960 Urine Color Urine Appearance (Clear) Urine pH (5.0-8.0) Ur Specific [place] (1.001-1.035) Urine Protein (Negative) Urine Glucose (UA) (Negative) Urine Ketones (Negative) Urine Blood (Negative) Urine Nitrite (Negative) Urine Bilirubin (Negative) Urine Urobilinogen (<2.0) mg/dL Ur Leukocyte Esterase (Negative) Range/Units 05/01/18 11:55 WBC (3.8-10.6) k/uL RBC (3.80-5.40) m/uL Hgb (11.4-16.0) gm/dL Hct (34.0-46.0) % MCV (80.0-100.0) fL MCH (25.0-35.0) pg MCHC (31.0-37.0) g/dL RDW (11.5-15.5) % Plt Count (150-450) k/uL Neutrophils % % Lymphocytes % % Monocytes % % Eosinophils % % Basophils % % Neutrophils # (1.3-7.7) k/uL Lymphocytes # (1.0-4.8) k/uL Monocytes # (0-1.0) k/uL Eosinophils # (0-0.7) k/uL Basophils # (0-0.2) k/uL PT (9.0-12.0) sec INR (<1.2) APTT (22.0-30.0) sec Sodium (137-145) mmol/L Potassium (3.5-5.1) mmol/L Chloride (98-107) mmol/L Carbon Dioxide (22-30) mmol/L Anion Gap mmol/L BUN (7-17) mg/dL Creatinine (0.52-1.04) mg/dL Est GFR (CKD-EPI)AfAm (>60 ml/min/1.73 sqM) Est GFR (CKD-EPI)NonAf (>60 ml/min/1.73 sqM) Glucose (74-99) mg/dL POC Glucose (mg/dL) (75-99) mg/dL POC Glu Shelter Director ID Plasma Lactic Acid Jaya (0.7-2.0) mmol/L Calcium (8.4-10.2) mg/dL Magnesium (1.6-2.3) mg/dL Total Bilirubin (0.2-1.3) mg/dL AST (14-36) U/L ALT (9-52) U/L Alkaline Phosphatase (38-126) U/L Troponin I (0.000-0.034) ng/mL NT-Pro-B Natriuret Pep pg/mL Total Protein (6.3-8.2) g/dL Albumin (3.5-5.0) g/dL TSH (0.465-4.680) mIU/L Urine Color Light Yellow Urine Appearance (Clear) Clear Urine pH (5.0-8.0) 6.5 Ur Specific [place] (1.001-1.035) 1.008 Urine Protein (Negative) Trace H Urine Glucose (UA) (Negative) Negative Urine Ketones (Negative) Negative Urine Blood (Negative) Negative Urine Nitrite (Negative) Negative Urine Bilirubin (Negative) Negative Urine Urobilinogen (<2.0) mg/dL <2.0 Ur Leukocyte Esterase (Negative) Negative CBC & Chem 7: 05/01/18 06:50 05/01/18 06:50 Labs: Abnormal Lab Results - Last 24 Hours (Table) 04/30/18 04/30/18 04/30/18 Range/Units 11:58 17:32 20:24 Hgb (11.4-16.0) gm/dL Hct (34.0-46.0) % Potassium 5.5 H (3.5-5.1) mmol/L Chloride (98-107) mmol/L BUN 31 H (7-17) mg/dL Creatinine 2.70 H (0.52-1.04) mg/dL Glucose 171 H (74-99) mg/dL POC Glucose (mg/dL) 298 H 119 H (75-99) mg/dL 05/01/18 05/01/18 05/01/18 Range/Units 06:50 06:50 07:00 Hgb 11.3 L (11.4-16.0) gm/dL Hct 33.7 L (34.0-46.0) % Potassium 5.4 H (3.5-5.1) mmol/L Chloride 108 H (98-107) mmol/L BUN 28 H (7-17) mg/dL Creatinine 2.55 H (0.52-1.04) mg/dL Glucose 177 H (74-99) mg/dL POC Glucose (mg/dL) 189 H (75-99) mg/dL Assessment and Plan Plan: This is an 82-year-old female patient who presents to the hospital with cellulitis to the bilateral lower extremity and has failed current treatment. She is currently on Zosyn. Local wound care will be added with Silvadene wraps
[2018-05-01 17:07] LABS: Glucose,Whole Blood 82 mg/dL (75-99)
--- NOTE | 2018-05-01 18:58 | P.PN ---
Subjective Progress Note Date: 05/01/18 (Bilateral cellulitis of the lower extremities with edema/negative venous Doppler study of the lower extremities) Principal diagnosis: Diagnosis: #1 acute kidney injury. On the top of chronic kidney disease. 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 #3 bilateral renal artery stenosis with the history of right renal vascularization in [facility] in the past. 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 #5 right and left leg erythema and hot and warm with the cellulitis not resulted with the outpatient treatment and progressively worsening with the associated edema. #6 Flector A she of the blood pressure with the hypotension and her medication adjusted, as well as bradycardia and a consultation with the cardiology requested. #7 diabetes mellitus type 2 insulin-dependent #8 history of hypertensive nephrosclerosis and renal artery stenosis. #9 hyperkalemia secondary to Cozaar the bala receptor inhibitor. And we will be discontinuing the Cozaar. This note date of service 05/01/[address] En Dos Santos [facility]. Patient seen and evaluated discussed with the patient. Dr. Perry soaking pits supervisor did see the patient and the due to hyperkalemia decrease the Cozaar to 25 mg however her blood pressure is low and will discontinue Cozaar completely and recheck the lab in the morning. Patient also has bradycardia to the 40s the carvedilol has been decreased to 6.25 mg twice a day until patient seen by the cardiology who consultation was administrated. The hypotension with blood pressure systolic 107 and patient used to be 180-200 with the renal artery stenosis, we will be decreased the amlodipine to 5 mg only at at bedtime . Patient seen and examined today and her vital sign temperature 97.5 orally heart rate 48 Jez at 8 15/m, her blood pressure 107/59, her pulse ox 98% on 2 L. On exam: Head was normocephalic and atraumatic, she had swelling of the lower eyelid. Pupil reactive and the right eye she has some conjunctival hemorrhage. Oropharynx she had natural teeth. Hearing is intact. Neck supple no JVD no thyromegaly no lymphadenopathy trachea midline. Chest radiated bilateral with no wheezes no rhonchi's, chest x-ray also was negative. The heart: Sinus bradycardia with the underlying edema bilaterally of the lower extremities with no DVT suspicious of left ventricular function on abnormalities and we consulted the cardiology. Especially with the low blood pressure 107/59 for these patient which has been high all the time in the past. Abdomen is obese positive bowel sounds and that she had pain in the groin area bilaterally the hip x-ray was suspicious of osteonecrosis, Dr. Herrera did not see the patient in yet however his PA did see the patient and he ordered a bone scan for tomorrow. Extremities she has bilateral erythema and redness and warm to touch negative venous duplex scan for DVT and the pitting edema as well as present 4+ mild improvement from yesterday, pulses is intact bilateral. And patient on Lasix IV push. Neurological examination: Conscious alert oriented able to move 4 extremities and able to go to the bathroom and feed herself and stable general condition neurologically. Assessment: As mentioned above cellulitis of the lower extremities bilateral and currently treated with Zosyn IV piggyback until seen by Dr. Herrera and change antibiotic if needed . Edema of the lower extremities significant up to 4+ and extended to the thigh with no DVT. And that consultation with the cardiology for evaluation of the left ventricular function and there opinion as well will well respected for this edema. Acute kidney injury, ATN and the hyperkalemia and associated with the Bala receptor inhibitor. Dr. Perry and will discontinue completely the BALA receptor inhibitor until resolution of her current medical problem. 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 We are continue the current treatment and obtain BMP and magnesium tomorrow and continue diuresis and the leg elevation and waiting for the OPN of the cardiology as well that the opinion of the infectious disease. Objective - Vital Signs Vital signs: Vital Signs Temp 97.5 F L 05/01/18 12:33 Pulse 48 L 05/01/18 12:33 Resp 15 05/01/18 12:33 BP 107/59 05/01/18 12:33 Pulse Ox 98 05/01/18 12:33 Intake & Output 04/30/18 05/01/18 05/01/18 18:59 06:59 18:59 Intake Total 900 Balance 900 Weight 92.533 kg Intake: Intake, IV Titration 900 Amount Piperacillin-Tazobactam 3 100 .375 gm In Sodium Chloride 0.9% 100 ml @ 25 mls/hr IVPB Q8HR [facility] Rx# :[id number] Sodium Chloride 0.9% 1, 800 000 ml @ 100 mls/hr IV . Q10H [facility] Rx#:[id number] Other: Voiding Method Toilet Toilet # Voids 1 2 - Labs CBC & Chem 7: 05/01/18 06:50 05/01/18 06:50 Labs: Abnormal Lab Results - Last 24 Hours (Table) 04/30/18 05/01/18 05/01/18 Range/Units 20:24 06:50 06:50 Hgb 11.3 L (11.4-16.0) gm/dL Hct 33.7 L (34.0-46.0) % Potassium 5.4 H (3.5-5.1) mmol/L Chloride 108 H (98-107) mmol/L BUN 28 H (7-17) mg/dL Creatinine 2.55 H (0.52-1.04) mg/dL Glucose 177 H (74-99) mg/dL POC Glucose (mg/dL) 119 H (75-99) mg/dL Urine Protein (Negative) 05/01/18 05/01/18 05/01/18 Range/Units 07:00 11:04 11:55 Hgb (11.4-16.0) gm/dL Hct (34.0-46.0) % Potassium (3.5-5.1) mmol/L Chloride (98-107) mmol/L BUN (7-17) mg/dL Creatinine (0.52-1.04) mg/dL Glucose (74-99) mg/dL POC Glucose (mg/dL) 189 H 195 H (75-99) mg/dL Urine Protein Trace H (Negative) Microbiology - Last 24 Hours (Table) 04/30/18 11:58 Blood Culture - Preliminary Blood No Growth after 24 hours
[2018-05-01 19:08] LABS: Hemoglobin A1C 7.5 % (4.0-6.0)
[2018-05-01] MEDS: amLODIPine 5 MG TAB PO SCH (20:06)
[2018-05-01] MEDS: ATORVASTATIN 40 MG TAB PO SCH (20:06)
[2018-05-01] MEDS: FUROSEMIDE 10 MG/ML 4 ML VIAL IV SCH (20:06)
[2018-05-01 20:12] LABS: Glucose,Whole Blood 130 mg/dL (75-99)
--- NOTE | 2018-05-01 23:26 | P.CON ---
Consult Note - . Consult date: 05/01/18 Assessment/Plan:: This is an 82-year-old female patient who gives history of having problems with cellulitis of the bilateral lower extremities for about 3 weeks. She had a recent emergency center visit on April 16 at which time she was discharged home on Keflex, Bactrim and Lasix 40 mg twice daily for 10 tablets. She states she did not have any improvement after that and hadn't admission April 18 through April 20 for the same and was discharged home on Augmentin for 7 days and she had local treatment which she states was an antibiotic cream in the morning and some other type of salve in the afternoon and she only washes with water. It initially started on the right leg and then seemed to spread to the left leg. She did have an injury to the mid left pretibial area when she was standing on a stepladder but otherwise denies any significant injuries to her lower extremities. She had an appointment scheduled with Dr. Herrera on May 04. Patient states that when she was home she only seemed to get worse. She has she has not been eating very much as she has lost her appetite and has not been drinking very much. Patient came into [facility] emergency [facility] for evaluation. She was found to be afebrile, white count 9.1, BUN 31 and creatinine 3.7. Chest x-ray showed no acute cardiopulmonary disease. EKG was sinus bradycardia with no acute ST changes. 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 X-ray of the hip and pelvis showed arthropathy and concern for osteonecrosis. Patient was started on Zosyn for bilateral lower extremity cellulitis and admitted to the [facility] floor. Patient has history of chronic kidney disease stage III and in 1970 underwent surgery at [facility] for renal artery stenosis and had treatment for angiomyolipoma of the right kidney and underwent cryotherapy at [facility] approximately one to one and half years ago. She states this has been monitored and is stable. When she was undergoing treatment for cryotherapy, patient did develop acute respiratory failure requiring intubation. She continues to complain of significant pain to the lower extremities especially in the bilateral groin regions. She is concerned because the edema has spread into her bilateral thighs. Venous duplex done on April 29 as an outpatient showed no evidence of DVT bilaterally.Please see the consult note is dictated by nurse practitioner Mrs. Mell Powers. 82-year-old woman presents to Hospital feeling very ill with evidence of lower extremity cellulitis. This is starting to improve and will continue antibiotic therapy with Zosyn and will add in local care with Silvadene and Bala wraps and elevation. The patient is having severe pain to her hip. An x-ray show some abnormality possible osteonecrosis of the hips. Bone scan is requested, continue pain medication and continue with antibiotics pending further improvement of the lower extremity cellulitis. There is evidence of acute renal failure, is being seen by nephrology ceding hydration. We'll limit toxic antibiotic therapy. I agree with evaluation, assessment and plan is dictated by nurse practitioner Mrs. Mell Powers.
[2018-05-02] MEDS: LEVOTHYROXINE 50 MCG TAB PO SCH (06:27)
[2018-05-02] MEDS: SODIUM CHLORIDE 0.9% 1,000 ML IV SCH (06:28)
[2018-05-02 06:42] LABS: Glucose,Whole Blood 156 mg/dL (75-99)
[2018-05-02 08:06] LABS: Calcium 8.9 mg/dL (8.4-10.2); Magnesium 1.9 mg/dL (1.6-2.3); Potassium 5.3 mmol/L (3.5-5.1)
[2018-05-02] MEDS: INSULIN ASPART 100 UNIT/ML 1 ML 10 ML VIAL SQ SCH ×6 (08:14→18:11)
[2018-05-02] MEDS: PANTOPRAZOLE 40 MG TABLET PO SCH (08:15)
[2018-05-02] MEDS: MULTIVITAMINS, THERA 1 EACH TAB PO SCH (08:15)
[2018-05-02] MEDS: CARVEDILOL 6.25 MG TAB PO SCH ×2 (08:15→18:11)
[2018-05-02] MEDS: LINAGLIPTIN 5 MG TABLET PO SCH (08:16)
[2018-05-02] MEDS: FUROSEMIDE 10 MG/ML 4 ML VIAL IV SCH ×2 (08:16→20:29)
[2018-05-02] MEDS: PIPERACILLIN-TAZOBACTAM 3.375 GM in SODIUM CHLORIDE 0.9% 100 ML IVPB SCH ×2 (08:16→20:29)
[2018-05-02] MEDS: CHOLECALCIFEROL 1,000 UNIT TAB PO SCH (08:16)
[2018-05-02] MEDS: GABAPENTIN 400 MG CAP PO SCH (08:16)
[2018-05-02] MEDS: ASPIRIN 81 MG PO SCH (08:16)
[2018-05-02] MEDS: ISOSORBIDE MONONITRATE ER 60 MG TAB.ER.24H PO SCH (08:16)
[2018-05-02] MEDS: FERROUS SULFATE 325 MG TAB PO SCH (08:16)
[2018-05-02] MEDS ORDERED: LOSARTAN 25 MG TAB PO SCH (09:00)
--- NOTE | 2018-05-02 09:13 | P.PN ---
Subjective Patient is seen in follow-up for acute kidney injury on chronic kidney disease. Patient has chronic kidney disease stage III with baseline creatinine in the range of 1.2-1.3 in March 2018. Renal function is improving. Admits to good urine output. Oral intake is fair. Vital signs are stable. General: The patient appeared well nourished and normally developed. HEENT: Head exam is unremarkable. Neck is without jugular venous distension. LUNGS: Lungs are clear to auscultation and percussion. Breath sounds decreased. HEART: Rate and Rhythm are regular. First and second heart sounds normal. No murmurs, rubs or gallops. ABDOMEN: Abdominal exam reveals normal bowel sounds. Non-tender and non- distended. No evidence of peritonitis. EXTREMITITES: 1+ edema. Lower extremity is wrapped. Objective - Vital Signs Vital signs: Vital Signs Temp 97.5 F L 05/02/18 05:00 Pulse 70 05/02/18 05:00 Resp 16 05/02/18 05:00 BP 155/69 05/02/18 05:00 Pulse Ox 95 05/02/18 05:00 Intake & Output 05/01/18 05/02/18 05/02/18 18:59 06:59 18:59 Intake Total 720 Balance 720 Intake: Oral 720 Other: Voiding Method Toilet Toilet # Voids 2 2 - Labs CBC & Chem 7: 05/01/18 06:50 05/02/18 07:19 Labs: Abnormal Lab Results - Last 24 Hours (Table) 05/01/18 05/01/18 05/01/18 Range/Units 06:50 11:04 11:55 Potassium (3.5-5.1) mmol/L Chloride (98-107) mmol/L BUN (7-17) mg/dL Creatinine (0.52-1.04) mg/dL Glucose (74-99) mg/dL POC Glucose (mg/dL) 195 H (75-99) mg/dL Hemoglobin A1c 7.5 H (4.0-6.0) % Urine Protein Trace H (Negative) 05/01/18 05/02/18 05/02/18 Range/Units 20:11 06:41 07:19 Potassium 5.3 H (3.5-5.1) mmol/L Chloride 108 H (98-107) mmol/L BUN 26 H (7-17) mg/dL Creatinine 2.38 H (0.52-1.04) mg/dL Glucose 152 H (74-99) mg/dL POC Glucose (mg/dL) 130 H 156 H (75-99) mg/dL Hemoglobin A1c (4.0-6.0) % Urine Protein (Negative) Microbiology - Last 24 Hours (Table) 05/01/18 11:55 Urine Culture - Preliminary Urine,Clean Catch 04/30/18 11:58 Blood Culture - Preliminary Blood No Growth after 24 hours Assessment and Plan Plan: Assessment: 1. Acute kidney injury secondary to ATN secondary to infection and component of cardiorenal syndrome. Creatinine down to 2.3 today. Urinalysis reveals trace proteinuria. No evidence of hydronephrosis noted on renal ultrasound. 2. Chronic kidney disease stage III secondary to diabetic kidney disease with baseline creatinine in the range of 1.2-1.3 in March 2018. 3. Volume overload. 4. Lower extremity cellulitis maintained on antibiotics. 5. Hyperkalemia secondary to acute kidney injury and use of a new tensive receptor dameon. Better. 6. Hypertension with chronic kidney disease. 7. Diabetes mellitus. Plan: Maintain Lasix 40 mg IV twice daily. Low potassium diet. Avoid nephrotoxins. Continue to hold Cozaar. Repeat electrolytes in the morning. Follow-up bone scan. Decrease dose of gabapentin to 200 mg 3 times daily.
[2018-05-02 11:17] LABS: Glucose,Whole Blood 183 mg/dL (75-99)
[2018-05-02] MEDS ORDERED: SODIUM POLYSTYRENE SULFONATE 15 GM/60 ML BOTTLE PO STA (12:41)
[2018-05-02] MEDS ORDERED: amLODIPine 5 MG TAB PO ONE (13:00)
--- NOTE | 2018-05-02 13:07 | P.PN ---
Subjective Progress Note Date: 05/02/18 Principal diagnosis: Diagnosis: #1 acute kidney injury. On the top of chronic kidney disease. #2 history of renal cell carcinoma of the right kidney treated with [facility] and [facility]. #3 bilateral renal artery stenosis with the history of right renal vascularization in [facility] in the past. 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 #5 right and left leg erythema and hot and warm with the cellulitis not resulted with the outpatient treatment and progressively worsening with the associated edema. #6 Flector A she of the blood pressure with the hypotension and her medication adjusted, as well as bradycardia and a consultation with the cardiology requested. #7 diabetes mellitus type 2 insulin-dependent #8 history of hypertensive nephrosclerosis and renal artery stenosis. #9 hyperkalemia secondary to Cozaar the екатерина receptor inhibitor. And we will be discontinuing the Cozaar. Dictation on progress note date of service 05/02/[address] konstantin Dos Santos [facility]. Patient seen and evaluated Discussed with her son Jhony and the patient and her son was at bedside. Discussed with her daughter Aracelis wilkerson on the phone#[phone] . Her vital sign today: Temperature 96.6 orally, pulse 60/m regular, respiratory rate 16 nonlabored. Blood pressure 160/67 with a mean 98. Her saturation was 98% on room air. Laboratory: Sodium 140, potassium 5.3, chloride 108, carbon dioxide 27, BUN is 26 creatinine 2.38. EGFR 18, poc glucose 152 fasting, magnesium 1.9, calcium 8.9. Exam: She had the cellulitis of the lower extremities. Patient conscious alert oriented feeling much better on Ree chair sitting with lifting her legs. Her legs was wrapped with the program of Silvadene cream. HEENT negative, right eye conjunctival hemorrhage has been improving still right eye blurred vision and she will be seeing Dr. Kelvin Silveiro banquet captain when she discharged home. Neck: Supple no JVD no thyromegaly no lymphadenopathy trachea midline. Chest: Clear no wheezes no rales and she is on Lasix normal breath sounds. Heart regular sinus rhythm bradycardia consultation was cardiology however not seen yet. Abdomen positive scar across the abdomen secondary to surgery in the past on the right renal artery with the history of renal artery stenosis , last year she was in [facility] found that she has bilateral renal artery stenosis and the tumor mass which has been treated with the cryotherapy currently in the computed tomography scan done the mass is still present. Extremities: She had edema was 4+ on admission probably now mild improvement to 3+ still cellulitis is present and hopefully she will be seen by Dr. Manoj Herrera infectious disease today. Neurologically: Stable. Patient was not seen yet by the manufacturing job titles, or the infectious disease. She had this morning bone scan first stage and afternoon she will complete the bone scan which was ordered by Dr. Manoj Herrera. Assessment: Hyperkalemia not improving will start 1 dose of Kayexalate 30 g orally. Chronic kidney disease stage III to 4 with the underlying history of renal artery stenosis bilateral, also presented with acute kidney injury with ATN. nonoliguric Diabetes mellitus type 2 insulin-dependent with neuropathy. Hypertensive nephrosclerosis Hypertensive heart disease with the fluctuation of blood pressure and heart rate consultation with cardiology was requested for evaluation of the left ventricular function associated with edema of the lower extremities 4+. With negative DVT done 1 day prior to the admission. Cellulitis of lower extremities bilateral. Could not exclude diabetic dermopathy. Plan: #1 patient on antibiotic Zosyn will continue until for further infectious disease changes. #2 continue monitoring the blood pressure and adjusting medication on daily basis depending on her plus pressure fluctuation. #3 one dose of Kayexalate 30 g by mouth. #4 BMP tomorrow. Objective - Vital Signs Vital signs: Vital Signs Temp 96.9 F L 05/02/18 12:35 Pulse 60 05/02/18 12:35 Resp 16 05/02/18 12:35 BP 160/67 05/02/18 12:35 Pulse Ox 98 05/02/18 12:35 Intake & Output 05/01/18 05/02/18 05/02/18 18:59 06:59 18:59 Intake Total 720 Balance 720 Intake: Oral 720 Other: Voiding Method Toilet Toilet Toilet # Voids 2 2 1 - Labs CBC & Chem 7: 05/01/18 06:50 05/02/18 07:19 Labs: Abnormal Lab Results - Last 24 Hours (Table) 05/01/18 05/01/18 05/02/18 Range/Units 06:50 20:11 06:41 Potassium (3.5-5.1) mmol/L Chloride (98-107) mmol/L BUN (7-17) mg/dL Creatinine (0.52-1.04) mg/dL Glucose (74-99) mg/dL POC Glucose (mg/dL) 130 H 156 H (75-99) mg/dL Hemoglobin A1c 7.5 H (4.0-6.0) % 05/02/18 05/02/18 Range/Units 07:19 11:14 Potassium 5.3 H (3.5-5.1) mmol/L Chloride 108 H (98-107) mmol/L BUN 26 H (7-17) mg/dL Creatinine 2.38 H (0.52-1.04) mg/dL Glucose 152 H (74-99) mg/dL POC Glucose (mg/dL) 183 H (75-99) mg/dL Hemoglobin A1c (4.0-6.0) % Microbiology - Last 24 Hours (Table) 05/01/18 11:55 Urine Culture - Preliminary Urine,Clean Catch 04/30/18 11:58 Blood Culture - Preliminary Blood No Growth after 24 hours
--- NOTE | 2018-05-02 13:50 | NM ---
EXAMINATION TYPE: NM bone 3 phase DATE OF EXAM: 05/02/2018 COMPARISON: NONE HISTORY: Bilateral hip pain. Triple phase bone scintigraphy was performed following the injection of 25.6 mCi Tc 99m MDP. Immedia te images and 3.25 hours post injection images acquired. FINDINGS: Blood flow and pool images show symmetric activity bilaterally. Delayed static images show symmetric bilateral distribution of radioactivity without focal photopenic regions or increased uptak e. The remainder the skeleton demonstrates bilateral knee prostheses as well as increased uptake in t he left first MTP joint and also some mild activity on the left. IMPRESSION: 1. NO EVIDENCE OF OSTEONECROSIS. 2. EVIDENCE OF PREVIOUS KNEE PROSTHESIS. 3. MINIMAL DEGENERATIVE CHANGE.
[2018-05-02] MEDS: GABAPENTIN 100 MG CAP PO SCH ×2 (15:07→20:30)
[2018-05-02] MEDS: HYDROcodone/APAP 5-325MG 1 EACH TAB PO PRN ×2 (15:08→20:30)
[2018-05-02 17:10] LABS: Glucose,Whole Blood 220 mg/dL (75-99)
[2018-05-02] MEDS: hydrOXYzine HCL 10 MG TAB PO PRN (18:21)
[2018-05-02 20:10] LABS: Glucose,Whole Blood 206 mg/dL (75-99)
[2018-05-02] MEDS: ATORVASTATIN 40 MG TAB PO SCH (20:30)
[2018-05-02] MEDS: hydrALAZINE HCL 25 MG TAB PO PRN (20:30)
[2018-05-02] MEDS: amLODIPine 5 MG TAB PO SCH (20:30)
[2018-05-03] MEDS: INSULIN ASPART 100 UNIT/ML 1 ML 10 ML VIAL SQ SCH ×8 (01:04→21:52)
[2018-05-03] MEDS: hydrALAZINE HCL 25 MG TAB PO PRN (06:01)
[2018-05-03] MEDS: LEVOTHYROXINE 50 MCG TAB PO SCH (06:01)
[2018-05-03] MEDS: FUROSEMIDE 10 MG/ML 4 ML VIAL IV SCH ×2 (06:01→21:52)
[2018-05-03 06:44] LABS: Glucose,Whole Blood 151 mg/dL (75-99)
[2018-05-03] MEDS: PIPERACILLIN-TAZOBACTAM 3.375 GM in SODIUM CHLORIDE 0.9% 100 ML IVPB SCH (07:37)
[2018-05-03] MEDS: CARVEDILOL 6.25 MG TAB PO SCH ×2 (07:39→17:10)
[2018-05-03] MEDS: ISOSORBIDE MONONITRATE ER 60 MG TAB.ER.24H PO SCH (07:40)
[2018-05-03] MEDS: PANTOPRAZOLE 40 MG TABLET PO SCH (07:40)
[2018-05-03] MEDS: ASPIRIN 81 MG PO SCH (07:40)
[2018-05-03] MEDS: GABAPENTIN 100 MG CAP PO SCH ×3 (07:40→21:50)
[2018-05-03] MEDS: LINAGLIPTIN 5 MG TABLET PO SCH (07:40)
[2018-05-03] MEDS: CHOLECALCIFEROL 1,000 UNIT TAB PO SCH (07:40)
[2018-05-03] MEDS: CALCIUM CARB-VIT D 500MG-200UN 1 EACH TAB PO SCH (07:40)
[2018-05-03] MEDS: MULTIVITAMINS, THERA 1 EACH TAB PO SCH (07:40)
[2018-05-03] MEDS: FERROUS SULFATE 325 MG TAB PO SCH (07:40)
[2018-05-03 07:44] LABS: Calcium 8.8 mg/dL (8.4-10.2); Magnesium 1.7 mg/dL (1.6-2.3); Potassium 4.4 mmol/L (3.5-5.1)
[2018-05-03] MEDS ORDERED: MAGNESIUM SULFATE-D5W PMX 1 GM in DEXTROSE/WATER 1 100ML.BAG IVPB ONE (09:55)
--- NOTE | 2018-05-03 09:55 | P.PN ---
Subjective Patient is seen in follow-up for acute kidney injury on chronic kidney disease. Patient has chronic kidney disease stage III with baseline creatinine in the range of 1.2-1.3 in March 2018. Renal function stable today. Admits to good urine output. Oral intake is fair. Denies cp or sob. Vital signs are stable. General: The patient appeared well nourished and normally developed. HEENT: Head exam is unremarkable. Neck is without jugular venous distension. LUNGS: Lungs are clear to auscultation and percussion. Breath sounds decreased. HEART: Rate and Rhythm are regular. First and second heart sounds normal. No murmurs, rubs or gallops. ABDOMEN: Abdominal exam reveals normal bowel sounds. Non-tender and non- distended. No evidence of peritonitis. EXTREMITITES: 1+ edema. Lower extremity is wrapped. Objective - Vital Signs Vital signs: Vital Signs Temp 98.1 F 05/03/18 05:00 Pulse 71 05/03/18 05:00 Resp 18 05/03/18 05:00 BP 155/70 05/03/18 08:49 Pulse Ox 97 05/03/18 05:00 Intake & Output 05/02/18 05/03/18 05/03/18 18:59 06:59 18:59 Intake Total 400 480 Balance 400 480 Intake: Intake, IV Titration 400 Amount Piperacillin-Tazobactam 3 100 .375 gm In Sodium Chloride 0.9% 100 ml @ 25 mls/hr IVPB Q12H [facility] Rx# :[id number] Sodium Chloride 0.9% 1, 300 000 ml @ 100 mls/hr IV . Q10H [facility] Rx#:[id number] Oral 480 Other: Voiding Method Toilet Toilet Toilet # Voids 1 2 - Labs CBC & Chem 7: 05/01/18 06:50 05/03/18 07:08 Labs: Abnormal Lab Results - Last 24 Hours (Table) 05/02/18 05/02/18 05/02/18 Range/Units 11:14 17:08 20:08 BUN (7-17) mg/dL Creatinine (0.52-1.04) mg/dL Glucose (74-99) mg/dL POC Glucose (mg/dL) 183 H 220 H 206 H (75-99) mg/dL 05/03/18 05/03/18 Range/Units 06:42 07:08 BUN 23 H (7-17) mg/dL Creatinine 2.36 H (0.52-1.04) mg/dL Glucose 162 H (74-99) mg/dL POC Glucose (mg/dL) 151 H (75-99) mg/dL Microbiology - Last 24 Hours (Table) 04/30/18 11:58 Blood Culture - Preliminary Blood No Growth after 48 hours Assessment and Plan Plan: Assessment: 1. Acute kidney injury secondary to ATN secondary to infection and component of cardiorenal syndrome. Creatinine stable at 2.36 today. Urinalysis reveals trace proteinuria. No evidence of hydronephrosis noted on renal ultrasound. 2. Chronic kidney disease stage III secondary to diabetic kidney disease with baseline creatinine in the range of 1.2-1.3 in March 2018. 3. Volume overload. 4. Lower extremity cellulitis maintained on antibiotics. No osteonecrosis noted on bone scan. 5. Hyperkalemia secondary to acute kidney injury and use of a new tensive receptor dameon. Better. 6. Hypertension with chronic kidney disease. 7. Diabetes mellitus. 8. Hypomagnesemia due to diuresis. Plan: Maintain Lasix 40 mg IV twice daily - can likely transition to oral diuretics tomorrow. Low potassium diet. Avoid nephrotoxins. Continue to hold Cozaar. Repeat electrolytes in the morning. Decreased dose of gabapentin to 200 mg 3 times daily. Replace Magnesium - 1 g IV today.
[2018-05-03 11:04] LABS: Glucose,Whole Blood 200 mg/dL (75-99)
[2018-05-03] MEDS: hydrOXYzine HCL 10 MG TAB PO PRN (11:27)
--- NOTE | 2018-05-03 11:47 | P.PN ---
Subjective Progress Note Date: 05/03/18 (Lower extremity cellulitis bilateral) Principal diagnosis: Diagnosis: #1 acute kidney injury. On the top of chronic kidney disease. #2 history of renal cell carcinoma of the right kidney treated with [facility] and [facility]. #3 bilateral renal artery stenosis with the history of right renal vascularization in [facility] in the past. 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 #5 right and left leg erythema and hot and warm with the cellulitis not resulted with the outpatient treatment and progressively worsening with the associated edema. #6 Flector A she of the blood pressure with the hypotension and her medication adjusted, as well as bradycardia and a consultation with the cardiology requested. #7 diabetes mellitus type 2 insulin-dependent #8 history of hypertensive nephrosclerosis and renal artery stenosis. #9 hyperkalemia secondary to Cozaar the bala receptor inhibitor. And we will be discontinuing the Cozaar. Today is a progress note date of service 05/03/2018 Patient seen in [id number] and discussed with her the itching rash and the possibility with the Zosyn and we will be holding the Zosyn until Dr. Herrera infectious disease see the patient and adjust antibiotic for her. She stated that she has back rash and lower extremity rash and appears to be maculopapular rash itching in nature, we started her on Atarax 10 mg 3 times a day. Patient is conscious alert oriented 3, Dr. Hoang did see her today with the impression of: Acute kidney injury secondary to ATN secondary to infection and a component of cardiorenal [place] syndrome. Creatinine stable at 2.36, urine analysis trace proteinuria, no evidence of hydronephrosis on the renal ultrasound. Chronic kidney disease stage III secondary to diabetic kidney disease with a baseline of creatinine range 1.21.3in March 2018, volume overload, lower extremities cellulitis on antibiotic. No ostial necrosis noted on the bone scan. Hyperkalemia secondary to acute kidney injury and the use of losartan, Bala receptor inhibitor which was discontinued, hyperkalemia has been improved with the Kayexalate., Hypertension with chronic kidney disease, diabetes mellitus type 2 with neuropathy. Her laboratory on 05/03/2018 today her sodium 141, potassium 4.4, chloride 104, carbon dioxide 29, her anion gap is 8, and BUNs 23, and creatinine 2.36, with the estimated glomerular filtration rate indicating 19 with the considered is stage IV chronic kidney disease. Blood sugar has been fluctuating however this morning was 200 and he she is covered with insulin to scale. Her magnesium 1.7 with calcium 8.8. Her vital sign today temperature 98.1 oral pulse 71/m and regular and respiratory rate 18 her blood pressure was initially 171/68 currently on the examination has been improving to 155/70 with the pulse ox 97% on 2 L. Exam: Head was normocephalic and atraumatic pupil was equal reactive, conjunctivae bowel was pink sclera was nonicteric. Oropharynx normal his natural teeth Trachea midline, neck was supple no JVD no thyromegaly no lymphadenopathy. Chest: Clear to auscultation percussion no wheezes nor rhonchi's. Heart regular sinus rhythm with the heart rate 71 no evidence of bradycardia at this time. The blood pressure fairly well controlled. Abdomen soft positive bowel sound, and she had a rash on the back lower area as well as the legs. With the underlying pruritus. Extremities: She had a cellulitis and she has been wrapped as well as she had the itching with suspicious of ALLERGY to Zosyn. Neurologically: Stable no finding of tremor or cranial nerve deficit. Patient complaining of abdominal distention with constipation and will start medication especially she is on pain medication as well Assessment: Currently acute kidney injury secondary to ATN and episode of hypotension. There, and stable creatinine. #2 cellulitis of the lower extremities bilateral and possible ALLERGY to Zosyn with itchy. #3 underlying history of right renal cell carcinoma was treated with cryotherapy in [place]. #4 underlying renal artery stenosis bilateral with a history of revascularization of the right kidney in [facility]. #4 diabetes mellitus type 2 insulin-dependent not well controlled. #5 hypertension with hypertensive heart disease with the fluctuation of blood pressure. #6 hypothyroidism stable at this time with the use of levothyroxine. Plan: #1 I discussed the case with Dr. Herrera he promised that he will see her today and he will be adjusting the medication, we will hold on the Zosyn at this time. Until he see her and decided what antibiotic needed. #2 Dr. Hoang did see the patient today and will continue his recommendation. Objective - Vital Signs Vital signs: Vital Signs Temp 98.1 F 05/03/18 05:00 Pulse 71 05/03/18 05:00 Resp 18 05/03/18 05:00 BP 155/70 05/03/18 08:49 Pulse Ox 97 05/03/18 05:00 Intake & Output 05/02/18 05/03/18 05/03/18 18:59 06:59 18:59 Intake Total 400 480 Balance 400 480 Intake: Intake, IV Titration 400 Amount Piperacillin-Tazobactam 3 100 .375 gm In Sodium Chloride 0.9% 100 ml @ 25 mls/hr IVPB Q12H [facility] Rx# :[id number] Sodium Chloride 0.9% 1, 300 000 ml @ 100 mls/hr IV . Q10H [facility] Rx#:[id number] Oral 480 Other: Voiding Method Toilet Toilet Toilet # Voids 1 2 - Labs CBC & Chem 7: 05/01/18 06:50 05/03/18 07:08 Labs: Abnormal Lab Results - Last 24 Hours (Table) 05/02/18 05/02/18 05/03/18 Range/Units 17:08 20:08 06:42 BUN (7-17) mg/dL Creatinine (0.52-1.04) mg/dL Glucose (74-99) mg/dL POC Glucose (mg/dL) 220 H 206 H 151 H (75-99) mg/dL 05/03/18 05/03/18 Range/Units 07:08 11:02 BUN 23 H (7-17) mg/dL Creatinine 2.36 H (0.52-1.04) mg/dL Glucose 162 H (74-99) mg/dL POC Glucose (mg/dL) 200 H (75-99) mg/dL Microbiology - Last 24 Hours (Table) 04/30/18 11:58 Blood Culture - Preliminary Blood No Growth after 48 hours
[2018-05-03] MEDS: SENNOSIDES-DOCUSATE SODIUM 1 EACH TAB PO SCH ×2 (12:38→22:07)
[2018-05-03] MEDS ORDERED: methylPREDNISolone SOD SUCCI 40 MG/ML 1 ML VIAL IV STA (13:17)
[2018-05-03 13:25] LABS: Basophils % (A) 0 %; Eosinophils # (A) 0.5 k/uL (0-0.7); Eosinophils % (A) 7 %; HCT 33.9 % (34.0-46.0); HGB 10.8 gm/dL (11.4-16.0); Hypochromasia Slight; Lymphocytes % (A) 14 %; MCH 27.2 pg (25.0-35.0); MCHC 31.8 g/dL (31.0-37.0); MCV 85.4 fL (80.0-100.0); Mean Platelet Volume 7.3; Monocytes # (A) 0.4 k/uL (0-1.0); Monocytes % (A) 6 %; Neutrophils # (A) 5.3 k/uL (1.3-7.7); Neutrophils % (A) 72 %; Platelet Count 275 k/uL (150-450); RBC 3.97 m/uL (3.80-5.40); RDW 14.3 % (11.5-15.5); WBC 7.3 k/uL (3.8-10.6)
[2018-05-03] MEDS: ceFAZolin IN SWFI 2 GM/20 ML SYRINGE IVP SCH ×2 (13:39→21:59)
--- NOTE | 2018-05-03 13:45 | CONS ---
CONSULTATION Silvia is an 82-year-old lady who is admitted to hospital with bilateral lower extremity cellulitis, chronic renal insufficiency, hypertension and dyslipidemia. Cardiology has been consulted to rule out congestive heart failure given the bilateral lower extremity edema. At the time of my evaluation this morning, she denies chest pain. Has mild shortness of breath and she also complains of cough. The patient has chronic renal insufficiency with a creatinine of 1.2-1.3 and on this admission creatinine has gown up to 2.3 and blood cultures have been negative. The cellulitis is getting better. I will obtain a 2D echo to rule out LV dysfunction. EKG on this admission shows sinus bradycardia. PAST MEDICAL HISTORY: Significant for hypertension, diabetes, dyslipidemia. MEDICATIONS: At home include Catapres 0.1 b.i.d., Norvasc 10 q. daily, fish oil, sublingual nitroglycerine, losartan 50 daily, Tradjenta, Synthroid, Imdur, insulin, Neurontin, Lasix, Coreg, and aspirin. ALLERGIC: TO [facility] [employer]. FAMILY HISTORY: Negative for premature coronary artery disease. SOCIAL HISTORY: Negative for current smoking, EtOH abuse or drug abuse. REVIEW OF SYSTEMS: HEENT is unremarkable. Cardiac as described above. Respiratory negative. GI negative. Genitourinary: Significant for renal insufficiency. Psychosocial negative. Endocrine: None. Derm significant for cellulitis. The rest of the system review is not relevant. EXAM: Heart rate is 70 beats per minute. Blood pressure is 150/72. Respiratory rate is 18. Chest exam reveals good air entry bilaterally. Heart exam reveals first and second heart sounds. No gallop. Abdomen is soft. Exam of extremities reveals bilateral lower extremity cellulitis, mild edema. Pulses are palpable. LAB: Show a BUN of 23, creatinine of 2.3. Potassium is 4.4. White cell count is normal at 7.4, hemoglobin is 11.3. ASSESSMENT: 1. Bilateral lower extremity edema with cellulitis, rule out congestive heart failure. 2. Hypertensive heart disease. 3. Vyd-[id number] diabetes. PLAN: I am going to obtain a 2D echo to evaluate LV function. The patient is somewhat of a poor historian and we will see if we have any records on her. MMODL / IJN: [id number] /
--- NOTE | 2018-05-03 14:48 | P.PN ---
Subjective Progress Note Date: 05/03/18 This is an 82-year-old female patient who gives history of having problems with cellulitis of the bilateral lower extremities for about 3 weeks. She had a recent emergency center visit on April 16 at which time she was discharged home on Keflex, Bactrim and Lasix 40 mg twice daily for 10 tablets. She states she did not have any improvement after that and hadn't admission April 18 through April 20 for the same and was discharged home on Augmentin for 7 days and she had local treatment which she states was an antibiotic cream in the morning and some other type of salve in the afternoon and she only washes with water. It initially started on the right leg and then seemed to spread to the left leg. She did have an injury to the mid left pretibial area when she was standing on a stepladder but otherwise denies any significant injuries to her lower extremities. She had an appointment scheduled with Dr. Herrera on May 04. Patient states that when she was home she only seemed to get worse. She has she has not been eating very much as she has lost her appetite and has not been drinking very much. Patient came into [facility] emergency center for evaluation. She was found to be afebrile, white count 9.1, BUN 31 and creatinine 3.7. Chest x-ray showed no acute cardiopulmonary disease. EKG was sinus bradycardia with no acute ST changes. 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 X-ray of the hip and pelvis showed arthropathy and concern for osteonecrosis. Patient was started on Zosyn for bilateral lower extremity cellulitis and [facility]. Patient has history of chronic kidney disease stage III and in 1970 underwent surgery at [facility] for renal artery stenosis and had treatment for angiomyolipoma of the right kidney and underwent cryotherapy at [facility] approximately one to one and half years ago. She states this has been monitored and is stable. When she was undergoing treatment for cryotherapy, patient did develop acute respiratory failure requiring intubation. She continues to complain of significant pain to the lower extremities especially in the bilateral groin regions. She is concerned because the edema has spread into her bilateral thighs. Venous duplex done on April 29 as an outpatient showed no evidence of DVT bilaterally. 05/03/2018 the patient is developed some generalized itching but does feel considerably better overall. With the wraps and place her legs feel better. Severe hip pain seems to be improving. The pain was quite overwhelming and a bone scan was requested without evidence of osteonecrosis of her hips. Objective - Vital Signs Vital signs: Vital Signs Temp 98.4 F 05/03/18 12:20 Pulse 63 05/03/18 12:20 Resp 16 05/03/18 12:20 BP 143/70 05/03/18 12:20 Pulse Ox 95 05/03/18 12:20 Intake & Output 05/02/18 05/03/18 05/03/18 18:59 06:59 18:59 Intake Total 400 480 180 Balance 400 480 180 Intake: Intake, IV Titration 400 180 Amount Magnesium Sulfate-D5w Pmx 100 1 gm In Dextrose/Water 1 100ml.bag @ 100 mls/hr IVPB ONCE ONE Rx#: [id number] Piperacillin-Tazobactam 3 100 80 .375 gm In Sodium Chloride 0.9% 100 ml @ 25 mls/hr IVPB Q12H [facility] Rx# :[id number] Sodium Chloride 0.9% 1, 300 000 ml @ 100 mls/hr IV . Q10H [facility] Rx#:[id number] Oral 480 Other: Voiding Method Toilet Toilet Toilet # Voids 1 2 - Exam Gen: This is an 82-year-old female. She is resting in bed appears to be comfortable. No acute distress is noted. HEENT: Head is atraumatic, normocephalic. Pupils equal, round. Sclerae is anicteric. Right eye subconjunctival hematoma. Oral mucous membranes are moist. No thrush noted. Oral pharynx without erythema or edema. NECK: Supple. No JVD. No lymphadenopathy. No thyromegaly. LUNGS: Clear to auscultation. No wheezes or rhonchi. No intercostal retractions. HEART: Regular rate and rhythm. No murmur. ABDOMEN: Soft. Bowel sounds are present. No masses. No tenderness. Has a large transverse scar across the upper abdomen. EXTREMITIES: Erythema and edema to the lower extremities. Edema to the mid thigh area bilaterally. NEUROLOGICAL: Patient is awake, alert and oriented x3. Cranial nerves 2 through 12 are grossly intact. Skin there is evidence of a mild erythematous rash on the legs back and upper arms without open lesions or blisters - Labs CBC & Chem 7: 05/03/18 07:08 05/03/18 07:08 Labs: Abnormal Lab Results - Last 24 Hours (Table) 05/02/18 05/02/18 05/03/18 Range/Units 17:08 20:08 06:42 Hgb (11.4-16.0) gm/dL Hct (34.0-46.0) % BUN (7-17) mg/dL Creatinine (0.52-1.04) mg/dL Glucose (74-99) mg/dL POC Glucose (mg/dL) 220 H 206 H 151 H (75-99) mg/dL 05/03/18 05/03/18 05/03/18 Range/Units 07:08 07:08 11:02 Hgb 10.8 L (11.4-16.0) gm/dL Hct 33.9 L (34.0-46.0) % BUN 23 H (7-17) mg/dL Creatinine 2.36 H (0.52-1.04) mg/dL Glucose 162 H (74-99) mg/dL POC Glucose (mg/dL) 200 H (75-99) mg/dL Microbiology - Last 24 Hours (Table) 04/30/18 11:58 Blood Culture - Preliminary Blood No Growth after 72 hours Laboratory Results WBC 7.3 k/uL (3.8-10.6) 05/03/18 07:08 RBC 3.97 m/uL (3.80-5.40) 05/03/18 07:08 Hgb 10.8 gm/dL (11.4-16.0) L 05/03/18 07:08 Hct 33.9 % (34.0-46.0) L 05/03/18 07:08 MCV 85.4 fL (80.0-100.0) 05/03/18 07:08 MCH 27.2 pg (25.0-35.0) 05/03/18 07:08 MCHC 31.8 g/dL (31.0-37.0) 05/03/18 07:08 RDW 14.3 % (11.5-15.5) 05/03/18 07:08 Plt Count 275 k/uL (150-450) 05/03/18 07:08 Neutrophils % 72 % 05/03/18 07:08 Lymphocytes % 14 % 05/03/18 07:08 Monocytes % 6 % 05/03/18 07:08 Eosinophils % 7 % 05/03/18 07:08 Basophils % 0 % 05/03/18 07:08 Neutrophils # 5.3 k/uL (1.3-7.7) 05/03/18 07:08 Lymphocytes # 1.0 k/uL (1.0-4.8) 05/03/18 07:08 Monocytes # 0.4 k/uL (0-1.0) 05/03/18 07:08 Eosinophils # 0.5 k/uL (0-0.7) 05/03/18 07:08 Basophils # 0.0 k/uL (0-0.2) 05/03/18 07:08 Hypochromasia Slight 05/03/18 07:08 PT 9.9 sec (9.0-12.0) 04/30/18 11:58 INR 0.9 (<1.2) 04/30/18 11:58 APTT 27.3 sec (22.0-30.0) 04/30/18 11:58 Sodium 141 mmol/L (137-145) 05/03/18 07:08 Potassium 4.4 mmol/L (3.5-5.1) 05/03/18 07:08 Chloride 104 mmol/L (98-107) 05/03/18 07:08 Carbon Dioxide 29 mmol/L (22-30) 05/03/18 07:08 Anion Gap 8 mmol/L 05/03/18 07:08 BUN 23 mg/dL (7-17) H 05/03/18 07:08 Creatinine 2.36 mg/dL (0.52-1.04) H 05/03/18 07:08 Est GFR (CKD-EPI)AfAm 21 (>60 ml/min/1.73 sqM) 05/03/18 07:08 Est GFR (CKD-EPI)NonAf 19 (>60 ml/min/1.73 sqM) 05/03/18 07:08 Glucose 162 mg/dL (74-99) H 05/03/18 07:08 POC Glucose (mg/dL) 200 mg/dL (75-99) H 05/03/18 11:02 POC Glu [facility] Administrator ID Sherron Rosenthal 05/03/18 11:[address] Glu mg/dL 169 05/01/18 06:50 Hemoglobin A1c 7.5 % (4.0-6.0) H 05/01/18 06:50 Plasma Lactic Acid Jaya 1.0 mmol/L (0.7-2.0) 04/30/18 11:58 Calcium 8.8 mg/dL (8.4-10.2) 05/03/18 07:08 Magnesium 1.7 mg/dL (1.6-2.3) 05/03/18 07:08 Total Bilirubin 0.5 mg/dL (0.2-1.3) 04/30/18 11:58 AST 22 U/L (14-36) 04/30/18 11:58 ALT 28 U/L (9-52) 04/30/18 11:58 Alkaline Phosphatase 93 U/L (38-126) 04/30/18 11:58 Troponin I <0.012 ng/mL (0.000-0.034) 04/30/18 11:58 NT-Pro-B Natriuret Pep 371 pg/mL 04/30/18 11:58 Total Protein 6.5 g/dL (6.3-8.2) 04/30/18 11:58 Albumin 3.9 g/dL (3.5-5.0) 04/30/18 11:58 TSH 3.960 mIU/L (0.465-4.680) 05/01/18 06:50 Urine Color Light Yellow 05/01/18 11:55 Urine Appearance Clear (Clear) 05/01/18 11:55 Urine pH 6.5 (5.0-8.0) 05/01/18 11:55 Ur Specific [place] 1.008 (1.001-1.035) 05/01/18 11:55 Urine Protein Trace (Negative) H 05/01/18 11:55 Urine Glucose (UA) Negative (Negative) 05/01/18 11:55 Urine Ketones Negative (Negative) 05/01/18 11:55 Urine Blood Negative (Negative) 05/01/18 11:55 Urine Nitrite Negative (Negative) 05/01/18 11:55 Urine Bilirubin Negative (Negative) 05/01/18 11:55 Urine Urobilinogen <2.0 mg/dL (<2.0) 05/01/18 11:55 Ur Leukocyte Esterase Negative (Negative) 05/01/18 11:55 Microbiology 04/30/18 11:58 Blood Blood Culture - Preliminary No Growth after 72 hours 05/01/18 11:55 Urine,Clean Catch Urine Culture - Preliminary Assessment and Plan (1) Bilateral leg edema Current Visit: No Status: Acute Code(s): R60.0 - LOCALIZED EDEMA SNOMED Code(s): 804618325 (2) Bilateral lower leg cellulitis Narrative/Plan: 82-year-old woman presents to Hospital feeling very ill with evidence of lower extremity cellulitis. This is starting to improve and will continue antibiotic therapy with Zosyn and will add in local care with Silvadene and Bala wraps and elevation. The patient is having severe pain to her hip. An x-ray show some abnormality possible osteonecrosis of the hips. Bone scan is requested, continue pain medication and continue with antibiotics pending further improvement of the lower extremity cellulitis. There is evidence of acute renal failure, is being seen by nephrology receiving hydration. We'll limit toxic antibiotic therapy. Patient was treated with piperacillin tazobactam is now developed evidence of a drug eruption likely from the antibiotic. Discussed with discontinued. She's been giving antipruritics. Antibiotic therapy changed to cefazolin, a dose of Solu-Medrol to help with her severe rash and will be monitored. Overall is improving her severe hip pain has improved no evidence of osteonecrosis. Current Visit: Yes Status: Acute Code(s): L03.116 - CELLULITIS OF LEFT LOWER LIMB; L03.115 - CELLULITIS OF RIGHT LOWER LIMB SNOMED Code(s): 090854189
[2018-05-03 17:08] LABS: Glucose,Whole Blood 118 mg/dL (75-99)
[2018-05-03 20:33] LABS: Glucose,Whole Blood 140 mg/dL (75-99)
[2018-05-03] MEDS ORDERED: INSULIN DETEMIR 100 UNIT/ML 10 ML VIAL SQ SCH (21:00)
[2018-05-03] MEDS: amLODIPine 5 MG TAB PO SCH (21:49)
[2018-05-03] MEDS: ATORVASTATIN 40 MG TAB PO SCH (21:50)
[2018-05-03] MEDS: INSULIN DETEMIR 100 UNIT/ML 10 ML VIAL SQ SCH (21:52)
[2018-05-03] MEDS: POLYETHYLENE GLYCOL 3350 17 GM POWD.PACK PO SCH (22:07)
[2018-05-04] MEDS: LEVOTHYROXINE 50 MCG TAB PO SCH (05:43)
[2018-05-04 06:39] LABS: Glucose,Whole Blood 158 mg/dL (75-99)
[2018-05-04 07:58] LABS: Calcium 9.3 mg/dL (8.4-10.2); Magnesium 1.8 mg/dL (1.6-2.3); Potassium 4.2 mmol/L (3.5-5.1)
[2018-05-04] MEDS: PANTOPRAZOLE 40 MG TABLET PO SCH (08:25)
[2018-05-04] MEDS: MULTIVITAMINS, THERA 1 EACH TAB PO SCH (08:25)
[2018-05-04] MEDS: CHOLECALCIFEROL 1,000 UNIT TAB PO SCH (08:26)
[2018-05-04] MEDS: amLODIPine 5 MG TAB PO SCH (08:26)
[2018-05-04] MEDS: GABAPENTIN 100 MG CAP PO SCH ×3 (08:26→22:32)
[2018-05-04] MEDS: ASPIRIN 81 MG PO SCH (08:26)
[2018-05-04] MEDS: FERROUS SULFATE 325 MG TAB PO SCH (08:26)
[2018-05-04] MEDS: CALCIUM CARB-VIT D 500MG-200UN 1 EACH TAB PO SCH (08:26)
[2018-05-04] MEDS: FUROSEMIDE 10 MG/ML 4 ML VIAL IV SCH (08:26)
[2018-05-04] MEDS: CARVEDILOL 6.25 MG TAB PO SCH ×2 (08:26→17:13)
[2018-05-04] MEDS: ISOSORBIDE MONONITRATE ER 60 MG TAB.ER.24H PO SCH (08:27)
[2018-05-04] MEDS: LINAGLIPTIN 5 MG TABLET PO SCH (08:27)
[2018-05-04] MEDS: SENNOSIDES-DOCUSATE SODIUM 1 EACH TAB PO SCH ×2 (08:27→22:34)
[2018-05-04] MEDS: INSULIN ASPART 100 UNIT/ML 1 ML 10 ML VIAL SQ SCH ×7 (08:31→22:32)
[2018-05-04] MEDS: ceFAZolin IN SWFI 2 GM/20 ML SYRINGE IVP SCH ×2 (08:50→22:33)
[2018-05-04] MEDS ORDERED: FUROSEMIDE 40 MG TAB PO SCH (09:00)
[2018-05-04] MEDS: hydrALAZINE HCL 50 MG TAB PO SCH ×2 (10:09→22:31)
[2018-05-04 11:03] LABS: Glucose,Whole Blood 180 mg/dL (75-99)
[2018-05-04] MEDS: hydrOXYzine HCL 10 MG TAB PO PRN (12:50)
[2018-05-04] MEDS ORDERED: hydrOXYzine HCL 25 MG TAB PO PRN (13:17)
--- NOTE | 2018-05-04 13:28 | P.PN ---
Subjective Progress Note Date: 05/04/18 (Bilateral cellulitis of the lower extremities) Principal diagnosis: Diagnosis: #1 acute kidney injury. On the top of chronic kidney disease. #2 history of renal cell carcinoma of the right kidney treated with [facility]. #3 bilateral renal artery stenosis with the history of right renal vascularization in [facility] in the past. 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 #5 right and left leg erythema and hot and warm with the cellulitis not resulted with the outpatient treatment and progressively worsening with the associated edema. #6 Flector A she of the blood pressure with the hypotension and her medication adjusted, as well as bradycardia and a consultation with the cardiology requested. #7 diabetes mellitus type 2 insulin-dependent #8 history of hypertensive nephrosclerosis and renal artery stenosis. #9 hyperkalemia secondary to Cozaar the bala receptor inhibitor. And we will be discontinuing the Cozaar. Progress note date of service 05/04/2018. Patient is conscious alert oriented 3 sitting on the edge of the bed able to eat lunch. Her laboratories indicating that her BUN is 23 and creatinine 2.28 stable with the underlying chronic kidney disease stage IV. What sugar 148 stable. Magnesium 1.8 calcium 9.3. Her vital sign: Temperature 98.7 pulse 67 regular sinus stable respiratory rate 20/m normal nonlabored. Her blood pressure 164/73. Her pulse ox 96% on room air. On exam: Patient conscious alert oriented 3 with no distress she had the wrap on her lower extremities and she was seen by Dr. Herrera lost night. Antibiotic changed from Zosyn to Keflex 2 g every [address] Herrera. And her legs gradual improvement in the edema as well as the erythema and redness and cellulitis. The acute kidney injury associated with HTN as well as hypotension currently stable in the suborbital level mentioned above creatinine 2.28. Hypertension has been monitored and controlled with the adding the medication adjusted. Head was normocephalic and atraumatic pupil was equal reactive and her right eye subconjunctival hemorrhage has been resolving gradually. Oropharynx natural teas able to eat and swallow. Hearing is normal. Neck was supple no JVD no thyromegaly no lymphadenopathy trachea midline. Chest clear to auscultation and percussion with no wheezes no rhonchi's. And Heart is regular sinus rhythm and no bradycardia at this time seen by Dr. JANES Amato this morning and he put her on hydralazine scheduled. Abdomen is soft positive bowel sounds and no tenderness and. Extremities: The both lower legs wrapped with Bala bandage as well as application of the silver Silvadene cream and seen yesterday by Dr. Herrera infectious disease with change in the antibiotic. Skin: She had the rash and the we will be increasing her Atarax to 25 mg 4 times a day when necessary for the itching. Assessment: Bilateral cellulitis of the lower extremities, etiology unclear with the presence of edema as well cardiology currently ordering echocardiogram to see if she has any systolic or diastolic deficiency. Bilateral cellulitis of the lower extremities on antibiotic with soft tissue cellulitis. Chronic kidney disease stage IV with the underlying history of acute kidney injury and secondary to ATN and hypotension. Hypertension not well-controlled with the hypertensive heart disease. Diabetes mellitus type 2 with diabetic nephrosclerosis. Plan: Will continue current treatment and will start Atarax at level of 25 mg 4 times a day to relieve her from the feeling of itchy and the rash. Patient also received Solu-Medrol yesterday by Dr. Herrera but still she had the rash and is still itchy thank you Objective - Vital Signs Vital signs: Vital Signs Temp 98.7 F 05/04/18 12:31 Pulse 67 05/04/18 12:31 Resp 20 05/04/18 12:31 BP 164/73 05/04/18 12:31 Pulse Ox 96 05/04/18 12:31 Intake & Output 05/03/18 05/04/18 05/04/18 18:59 06:59 18:59 Intake Total 180 150 Balance 180 150 Weight 92.533 kg Intake: Intake, IV Titration 180 Amount Magnesium Sulfate-D5w Pmx 100 1 gm In Dextrose/Water 1 100ml.bag @ 100 mls/hr IVPB ONCE ONE Rx#: [id number] Piperacillin-Tazobactam 3 80 .375 gm In Sodium Chloride 0.9% 100 ml @ 25 mls/hr IVPB Q12H [facility] Rx# :[id number] Oral 150 Other: Voiding Method Toilet Toilet # Voids 2 1 # Bowel Movements 2 - Labs CBC & Chem 7: 05/03/18 07:08 05/04/18 07:10 Labs: Abnormal Lab Results - Last 24 Hours (Table) 05/03/18 05/03/18 05/03/18 Range/Units 07:08 17:06 20:29 Hgb 10.8 L (11.4-16.0) gm/dL Hct 33.9 L (34.0-46.0) % BUN (7-17) mg/dL Creatinine (0.52-1.04) mg/dL Glucose (74-99) mg/dL POC Glucose (mg/dL) 118 H 140 H (75-99) mg/dL 05/04/18 05/04/18 05/04/18 Range/Units 06:37 07:10 11:01 Hgb (11.4-16.0) gm/dL Hct (34.0-46.0) % BUN 23 H (7-17) mg/dL Creatinine 2.28 H (0.52-1.04) mg/dL Glucose 148 H (74-99) mg/dL POC Glucose (mg/dL) 158 H 180 H (75-99) mg/dL Microbiology - Last 24 Hours (Table) 05/01/18 11:55 Urine Culture - Final Urine,Clean Catch 04/30/18 11:58 Blood Culture - Preliminary Blood No Growth after 72 hours
--- NOTE | 2018-05-04 14:02 | PN ---
PROGRESS NOTE Patient is seen for followup for chronic kidney disease and acute kidney injury. Her renal function is fairly stable, creatinine staying at about 2.2. It has been slowly improving and it is down from 2.7 on initial admission. Previous creatinine has been 1.4 to 1.8 mg/dL. Currently, patient is maintained on oral Lasix. Her lower extremities have been wrapped and she states she is feeling better. Weight has been about the same at 92.5 kg. Patient has been voiding on her own. PHYSICAL EXAMINATION: This morning, blood pressure was 150/65, heart rate 81 per minute. She is afebrile. Examination of the heart, S1, S2. Examination of the lungs, bilateral breath sounds are heard. Abdomen is soft, nontender. Examination of the lower extremities shows bilateral extremities to be wrapped. SURGERY SPECIALIST exam is grossly intact. LABS: Show serum creatinine 2.28, sodium 141, potassium 4.2, chloride 104, BUN 23, magnesium 1.8. ASSESSMENT: 1. Acute kidney injury, currently improving, mainly cardiorenal. 2. Volume overload and lower extremity edema, somewhat improved. 3. Hypertension, partly volume sensitive. 4. 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 Baseline creatinine about 1.3 to 1.4 mg/dL, lowest was 1.2. 5. Lower extremity cellulitis, maintained on antibiotics. 6. Type 2 diabetes. 7. Hypomagnesemia secondary to diuresis, status post replacement. 8. Hyperkalemia associated with acute kidney injury and hyperglycemia, currently improved. The Cozaar has been discontinued. This could be started as outpatient with close monitoring of labs. PLAN: Continue with oral Lasix. Closely monitor renal function and electrolytes to resume JOCELYNN inhibitors as outpatient. Patient will need followup for CKD. MMODL / IJN: [id number] /
[2018-05-04 17:06] LABS: Glucose,Whole Blood 169 mg/dL (75-99)
[2018-05-04] MEDS: FUROSEMIDE 40 MG TAB PO SCH (17:13)
--- NOTE | 2018-05-04 20:25 | ECHOF ---
Referral Reason:leg swelling MEASUREMENTS -------- HEIGHT: 165.1 cm WEIGHT: 92.5 kg BP: 150/65 RVIDd: 3.4 cm (< 3.3) IVSd: 1.0 cm (0.6 - 1.1) LVIDd: 5.5 cm (3.9 - 5.3) LVPWd: 1.0 cm (0.6 - 1.1) IVSs: 1.8 cm LVIDs: 3.2 cm LVPWs: 1.4 cm LA Diam: 3.4 cm (2.7 - 3.8) LAESV Index (A-L): 28.51 ml/m Ao Diam: 3.1 cm (2.0 - 3.7) AV Cusp: 2.0 cm (1.5 - 2.6) MV EXCURSION: 16.312 mm (> 18.000) MV EF SLOPE: 38 mm/s (70 - 150) EPSS: 0.5 cm MV E Luis: 0.81 m/s MV DecT: 213 ms MV A Luis: 1.04 m/s MV E/A Ratio: 0.79 FINDINGS -------- Sinus rhythm. This was a technically adequate study. The left ventricular size is normal. Left ventricular wall thickness is normal. Overall left vent ricular systolic function is normal with, an EF between 60 - 65 %. The right ventricle is mildly enlarged. LA is midly dilated 29-33ml/m2. The right atrium is normal in size. Aortic valve is trileaflet and is mildly thickened. The mitral valve leaflets are mildly thickened. Mild mitral annular calcification present. Mild m itral regurgitation is present. The tricuspid valve appears structurally normal. The pulmonic valve was not well visualized. The aortic root size is normal. Normal inferior vena cava with normal inspiratory collapse consistent with estimated right atrial pre ssure of 5 mmHg. There is no pericardial effusion. CONCLUSIONS -------- 1. Sinus rhythm. 2. This was a technically adequate study. 3. The left ventricular size is normal. 4. Left ventricular wall thickness is normal. 5. Overall left ventricular systolic function is normal with, an EF between 60 - 65 %. 6. The right ventricle is mildly enlarged. 7. LA is midly dilated 29-33ml/m2. 8. The right atrium is normal in size. 9. Aortic valve is trileaflet and is mildly thickened. 10. The mitral valve leaflets are mildly thickened. 11. Mild mitral annular calcification present. 12. Mild mitral regurgitation is present. 13. The tricuspid valve appears structurally normal. 14. The pulmonic valve was not well visualized. 15. The aortic root size is normal. 16. Normal inferior vena cava with normal inspiratory collapse consistent with estimated right atrial pressure of 5 mmHg. 17. There is no pericardial effusion. FULL STACK PHP DEVELOPER: Azalea Carroll RDCS
[2018-05-04 20:48] LABS: Glucose,Whole Blood 157 mg/dL (75-99)
[2018-05-04] MEDS: ATORVASTATIN 40 MG TAB PO SCH (22:31)
[2018-05-04 22:32] VITALS: RESP 18
[2018-05-04] MEDS: INSULIN DETEMIR 100 UNIT/ML 10 ML VIAL SQ SCH (22:32)
[2018-05-04] MEDS: POLYETHYLENE GLYCOL 3350 17 GM POWD.PACK PO SCH (22:33)
--- NOTE | 2018-05-04 23:36 | P.PN ---
Subjective Progress Note Date: 05/04/18 This is an 82-year-old female patient who gives history of having problems with cellulitis of the bilateral lower extremities for about 3 weeks. She had a recent emergency center visit on April 16 at which time she was discharged home on Keflex, Bactrim and Lasix 40 mg twice daily for 10 tablets. She states she did not have any improvement after that and hadn't admission April 18 through April 20 for the same and was discharged home on Augmentin for 7 days and she had local treatment which she states was an antibiotic cream in the morning and some other type of salve in the afternoon and she only washes with water. It initially started on the right leg and then seemed to spread to the left leg. She did have an injury to the mid left pretibial area when she was standing on a stepladder but otherwise denies any significant injuries to her lower extremities. She had an appointment scheduled with Dr. Herrera on May 04. Patient states that when she was home she only seemed to get worse. She has she has not been eating very much as she has lost her appetite and has not been drinking very much. Patient came into [facility] emergency center for evaluation. She was found to be afebrile, white count 9.1, BUN 31 and creatinine 3.7. Chest x-ray showed no acute cardiopulmonary disease. EKG was sinus bradycardia with no acute ST changes. 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 X-ray of the hip and pelvis showed arthropathy and concern for osteonecrosis. Patient was started on Zosyn for bilateral lower extremity cellulitis and [facility]. Patient has history of chronic kidney disease stage III and in 1970 underwent surgery at [facility] for renal artery stenosis and had treatment for angiomyolipoma of the right kidney and underwent cryotherapy at [facility] approximately one to one and half years ago. She states this has been monitored and is stable. When she was undergoing treatment for cryotherapy, patient did develop acute respiratory failure requiring intubation. She continues to complain of significant pain to the lower extremities especially in the bilateral groin regions. She is concerned because the edema has spread into her bilateral thighs. Venous duplex done on April 29 as an outpatient showed no evidence of DVT bilaterally. 05/03/2018 the patient is developed some generalized itching but does feel considerably better overall. With the wraps and place her legs feel better. Severe hip pain seems to be improving. The pain was quite overwhelming and a bone scan was requested without evidence of osteonecrosis of her hips. 05/04/2018 patient is feeling better today but does still have some itching to the legs but the significant edema is much improved. She denying fevers or chills. Severe hip pain is improved Objective - Vital Signs Vital signs: Vital Signs Temp 97.7 F 05/04/18 21:00 Pulse 62 05/04/18 21:00 Resp 18 05/04/18 21:00 BP 163/72 05/04/18 21:00 Pulse Ox 93 L 05/04/18 21:00 Intake & Output 05/04/18 05/04/18 05/05/18 06:59 18:59 06:59 Intake Total 150 Balance 150 Weight 92.533 kg Intake: Oral 150 Other: Voiding Method Toilet Toilet # Voids 1 2 1 - Exam Gen: This is an 82-year-old female. She is resting in bed appears to be comfortable. No acute distress is noted. HEENT: Head is atraumatic, normocephalic. Pupils equal, round. Sclerae is anicteric. Right eye subconjunctival hematoma. Oral mucous membranes are moist. No thrush noted. Oral pharynx without erythema or edema. NECK: Supple. No JVD. No lymphadenopathy. No thyromegaly. LUNGS: Clear to auscultation. No wheezes or rhonchi. No intercostal retractions. HEART: Regular rate and rhythm. No murmur. ABDOMEN: Soft. Bowel sounds are present. No masses. No tenderness. Has a large transverse scar across the upper abdomen. EXTREMITIES: Erythema and edema to the lower extremities. Edema to the mid thigh area bilaterally. NEUROLOGICAL: Patient is awake, alert and oriented x3. Cranial nerves 2 through 12 are grossly intact. Skin there is evidence of almost complete resolution of erythematous rash. - Labs CBC & Chem 7: 05/03/18 07:08 05/04/18 07:10 Labs: Abnormal Lab Results - Last 24 Hours (Table) 05/04/18 05/04/18 05/04/18 Range/Units 06:37 07:10 11:01 BUN 23 H (7-17) mg/dL Creatinine 2.28 H (0.52-1.04) mg/dL Glucose 148 H (74-99) mg/dL POC Glucose (mg/dL) 158 H 180 H (75-99) mg/dL 05/04/18 05/04/18 Range/Units 17:04 20:47 BUN (7-17) mg/dL Creatinine (0.52-1.04) mg/dL Glucose (74-99) mg/dL POC Glucose (mg/dL) 169 H 157 H (75-99) mg/dL Microbiology - Last 24 Hours (Table) 04/30/18 11:58 Blood Culture - Preliminary Blood No Growth after 96 hours 05/01/18 11:55 Urine Culture - Final Urine,Clean Catch Laboratory Results WBC 7.3 k/uL (3.8-10.6) 05/03/18 07:08 RBC 3.97 m/uL (3.80-5.40) 05/03/18 07:08 Hgb 10.8 gm/dL (11.4-16.0) L 05/03/18 07:08 Hct 33.9 % (34.0-46.0) L 05/03/18 07:08 MCV 85.4 fL (80.0-100.0) 05/03/18 07:08 MCH 27.2 pg (25.0-35.0) 05/03/18 07:08 MCHC 31.8 g/dL (31.0-37.0) 05/03/18 07:08 RDW 14.3 % (11.5-15.5) 05/03/18 07:08 Plt Count 275 k/uL (150-450) 05/03/18 07:08 Neutrophils % 72 % 05/03/18 07:08 Lymphocytes % 14 % 05/03/18 07:08 Monocytes % 6 % 05/03/18 07:08 Eosinophils % 7 % 05/03/18 07:08 Basophils % 0 % 05/03/18 07:08 Neutrophils # 5.3 k/uL (1.3-7.7) 05/03/18 07:08 Lymphocytes # 1.0 k/uL (1.0-4.8) 05/03/18 07:08 Monocytes # 0.4 k/uL (0-1.0) 05/03/18 07:08 Eosinophils # 0.5 k/uL (0-0.7) 05/03/18 07:08 Basophils # 0.0 k/uL (0-0.2) 05/03/18 07:08 Hypochromasia Slight 05/03/18 07:08 PT 9.9 sec (9.0-12.0) 04/30/18 11:58 INR 0.9 (<1.2) 04/30/18 11:58 APTT 27.3 sec (22.0-30.0) 04/30/18 11:58 Sodium 141 mmol/L (137-145) 05/04/18 07:10 Potassium 4.2 mmol/L (3.5-5.1) 05/04/18 07:10 Chloride 104 mmol/L (98-107) 05/04/18 07:10 Carbon Dioxide 30 mmol/L (22-30) 05/04/18 07:10 Anion Gap 7 mmol/L 05/04/18 07:10 BUN 23 mg/dL (7-17) H 05/04/18 07:10 Creatinine 2.28 mg/dL (0.52-1.04) H 05/04/18 07:10 Est GFR (CKD-EPI)AfAm 22 (>60 ml/min/1.73 sqM) 05/04/18 07:10 Est GFR (CKD-EPI)NonAf 19 (>60 ml/min/1.73 sqM) 05/04/18 07:10 Glucose 148 mg/dL (74-99) H 05/04/18 07:10 POC Glucose (mg/dL) 157 mg/dL (75-99) H 05/04/18 20:47 POC Glu Headmaster/Mistress ID Mary Jane Skinner 05/04/18 20:[address] Glu mg/dL 169 05/01/18 06:50 Hemoglobin A1c 7.5 % (4.0-6.0) H 05/01/18 06:50 Plasma Lactic Acid Jaya 1.0 mmol/L (0.7-2.0) 04/30/18 11:58 Calcium 9.3 mg/dL (8.4-10.2) 05/04/18 07:10 Magnesium 1.8 mg/dL (1.6-2.3) 05/04/18 07:10 Total Bilirubin 0.5 mg/dL (0.2-1.3) 04/30/18 11:58 AST 22 U/L (14-36) 04/30/18 11:58 ALT 28 U/L (9-52) 04/30/18 11:58 Alkaline Phosphatase 93 U/L (38-126) 04/30/18 11:58 Troponin I <0.012 ng/mL (0.000-0.034) 04/30/18 11:58 NT-Pro-B Natriuret Pep 371 pg/mL 04/30/18 11:58 Total Protein 6.5 g/dL (6.3-8.2) 04/30/18 11:58 Albumin 3.9 g/dL (3.5-5.0) 04/30/18 11:58 TSH 3.960 mIU/L (0.465-4.680) 05/01/18 06:50 Urine Color Light Yellow 05/01/18 11:55 Urine Appearance Clear (Clear) 05/01/18 11:55 Urine pH 6.5 (5.0-8.0) 05/01/18 11:55 Ur Specific [place] 1.008 (1.001-1.035) 05/01/18 11:55 Urine Protein Trace (Negative) H 05/01/18 11:55 Urine Glucose (UA) Negative (Negative) 05/01/18 11:55 Urine Ketones Negative (Negative) 05/01/18 11:55 Urine Blood Negative (Negative) 05/01/18 11:55 Urine Nitrite Negative (Negative) 05/01/18 11:55 Urine Bilirubin Negative (Negative) 05/01/18 11:55 Urine Urobilinogen <2.0 mg/dL (<2.0) 05/01/18 11:55 Ur Leukocyte Esterase Negative (Negative) 05/01/18 11:55 Microbiology 04/30/18 11:58 Blood Blood Culture - Preliminary No Growth after 96 hours 05/01/18 11:55 Urine,Clean Catch Urine Culture - Final Assessment and Plan (1) Bilateral leg edema Current Visit: No Status: Acute Code(s): R60.0 - LOCALIZED EDEMA SNOMED Code(s): 681814214 (2) Bilateral lower leg cellulitis Narrative/Plan: 82-year-old woman presents to Hospital feeling very ill with evidence of lower extremity cellulitis. This is starting to improve and will continue antibiotic therapy with Zosyn and will add in local care with Silvadene and Bala wraps and elevation. The patient is having severe pain to her hip. An x-ray show some abnormality possible osteonecrosis of the hips. Bone scan is requested, continue pain medication and continue with antibiotics pending further improvement of the lower extremity cellulitis. There is evidence of acute renal failure, is being seen by nephrology receiving hydration. We'll limit toxic antibiotic therapy. Patient was treated with piperacillin tazobactam is now developed evidence of a drug eruption likely from the antibiotic. Discussed with discontinued. She's been giving antipruritics. Antibiotic therapy changed to cefazolin, a dose of Solu-Medrol to help with her severe rash and will be monitored. Overall is improving her severe hip pain has improved no evidence of osteonecrosis. 05/04/2018 patient is having further improvement. Lower extremity edema is much improved with the wraps. Cellulitis is improving. The eruption is generally resolved. If she improves and he is ready for discharge to home the intravenous Ancef can be transitioned to cephalexin 500 mg every 8 hours to complete 7 further days of therapy with ongoing local wound care to the lower extremities with moisturization and wraps it with a wraps or stockings. Current Visit: Yes Status: Acute Code(s): L03.116 - CELLULITIS OF LEFT LOWER LIMB; L03.115 - CELLULITIS OF RIGHT LOWER LIMB SNOMED Code(s): 758357438
[2018-05-05] MEDS: LEVOTHYROXINE 50 MCG TAB PO SCH (05:55)
[2018-05-05 07:01] LABS: Glucose,Whole Blood 91 mg/dL (75-99)
--- NOTE | 2018-05-05 07:39 | P.PN ---
Subjective This is an 82-year-old female past medical history significant for hypertension , diabetes mellitus, chronic renal insufficiency and dyslipidemia. 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 She was seen and evaluated yesterday with an echocardiogram which revealed preserved LV systolic function with EF 60-65%. She denies chest pain, shortness of breath, dizziness or palpitations. Currently maintained on amlodipine 5 mg BID, imdur 60 mg daily, lasix 40 mg BID IV, carvedilol 6.25 mg BID, atorvastatin 40 mg daily and aspirin 81 mg daily. She is also receiving IV cefazolin and local would care to her lower extremities. Blood pressure 150/65, heart rate 81 afebrile and maintaining oxygen saturation on room air. Laboratory data reviewed, sodium 141, potassium 4.2, creatinine 2.28 and magnesium 1.8. GENERAL: Well-appearing, well-nourished and in no acute distress. NECK: Supple without JVD or thyromegaly. LUNGS: Breath sounds clear to auscultation bilaterally. Respiration equal and unlabored. No wheezes, rales or rhonchi. HEART: Regular rate and rhythm with short systolic murmur at the base, no rubs or gallops. S1 and S2 heard. EXTREMITIES: Normal range of motion, екатерина wraps in place bilaterally with underlying edema. No clubbing or cyanosis. Peripheral pulses intact. 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 Start her on hydralazine 50 mg BID, may increase to TID if needed. Would like to use losartan if acceptable per nephrology once her renal function is stable. No over heart failure clinically, swelling not indicative of fluid overload related to heart failure. She has a normal NTproBNP, clears lungs, normal LV and no exertional shortness of breath. Discontinue IV lasix and place her on lasix 40 mg PO BID. We will continue to follow as needed. Nurse Practitioner note has been reviewed, I agree with a documented findings and plan of care. Patient was seen and examined. Objective - Vital Signs Vital signs: Vital Signs Temp 97.4 F L 05/04/18 04:49 Pulse 81 05/04/18 04:49 Resp 17 05/04/18 04:49 BP 150/65 05/04/18 04:49 Pulse Ox 93 L 05/04/18 04:49 Intake & Output 05/03/18 05/04/18 05/04/18 18:59 06:59 18:59 Intake Total 180 150 Balance 180 150 Weight 92.533 kg Intake: Intake, IV Titration 180 Amount Magnesium Sulfate-D5w Pmx 100 1 gm In Dextrose/Water 1 100ml.bag @ 100 mls/hr IVPB ONCE ONE Rx#: [id number] Piperacillin-Tazobactam 3 80 .375 gm In Sodium Chloride 0.9% 100 ml @ 25 mls/hr IVPB Q12H [facility] Rx# :[id number] Oral 150 Other: Voiding Method Toilet Toilet # Voids 2 1 # Bowel Movements 2 - Labs CBC & Chem 7: 05/03/18 07:08 05/04/18 07:10 Labs: Abnormal Lab Results - Last 24 Hours (Table) 05/03/18 05/03/18 05/03/18 Range/Units 07:08 11:02 17:06 Hgb 10.8 L (11.4-16.0) gm/dL Hct 33.9 L (34.0-46.0) % BUN (7-17) mg/dL Creatinine (0.52-1.04) mg/dL Glucose (74-99) mg/dL POC Glucose (mg/dL) 200 H 118 H (75-99) mg/dL 05/03/18 05/04/18 05/04/18 Range/Units 20:29 06:37 07:10 Hgb (11.4-16.0) gm/dL Hct (34.0-46.0) % BUN 23 H (7-17) mg/dL Creatinine 2.28 H (0.52-1.04) mg/dL Glucose 148 H (74-99) mg/dL POC Glucose (mg/dL) 140 H 158 H (75-99) mg/dL Microbiology - Last 24 Hours (Table) 05/01/18 11:55 Urine Culture - Final Urine,Clean Catch 04/30/18 11:58 Blood Culture - Preliminary Blood No Growth after 72 hours
[2018-05-05] MEDS: INSULIN ASPART 100 UNIT/ML 1 ML 10 ML VIAL SQ SCH ×4 (08:46→12:43)
[2018-05-05] MEDS: CHOLECALCIFEROL 1,000 UNIT TAB PO SCH (09:15)
[2018-05-05] MEDS: FUROSEMIDE 40 MG TAB PO SCH (09:15)
[2018-05-05] MEDS: LINAGLIPTIN 5 MG TABLET PO SCH (09:15)
[2018-05-05] MEDS: CALCIUM CARB-VIT D 500MG-200UN 1 EACH TAB PO SCH (09:15)
[2018-05-05] MEDS: hydrALAZINE HCL 50 MG TAB PO SCH (09:15)
[2018-05-05] MEDS: ISOSORBIDE MONONITRATE ER 60 MG TAB.ER.24H PO SCH (09:15)
[2018-05-05] MEDS: GABAPENTIN 100 MG CAP PO SCH (09:15)
[2018-05-05] MEDS: FERROUS SULFATE 325 MG TAB PO SCH (09:15)
[2018-05-05] MEDS: MULTIVITAMINS, THERA 1 EACH TAB PO SCH (09:16)
[2018-05-05] MEDS: CARVEDILOL 6.25 MG TAB PO SCH (09:16)
[2018-05-05] MEDS: PANTOPRAZOLE 40 MG TABLET PO SCH (09:16)
[2018-05-05] MEDS: ASPIRIN 81 MG PO SCH (09:20)
[2018-05-05] MEDS: SENNOSIDES-DOCUSATE SODIUM 1 EACH TAB PO SCH (09:20)
[2018-05-05] MEDS: ceFAZolin IN SWFI 2 GM/20 ML SYRINGE IVP SCH (10:10)
[2018-05-05 10:59] LABS: Glucose,Whole Blood 196 mg/dL (75-99)
--- NOTE | 2018-05-05 11:48 | P.PN ---
Subjective Patient is seen in follow-up for acute kidney injury on chronic kidney disease. Patient has chronic kidney disease stage III with baseline creatinine in the range of 1.2-1.3 in March 2018. Renal function stable as of yesterday. Admits to good urine output. Oral intake is fair. Denies cp or sob. Edema improving. Vital signs are stable. General: The patient appeared well nourished and normally developed. HEENT: Head exam is unremarkable. Neck is without jugular venous distension. LUNGS: Lungs are clear to auscultation and percussion. Breath sounds decreased. HEART: Rate and Rhythm are regular. First and second heart sounds normal. No murmurs, rubs or gallops. ABDOMEN: Abdominal exam reveals normal bowel sounds. Non-tender and non- distended. No evidence of peritonitis. EXTREMITITES: 1+ edema. Lower extremity is wrapped. Objective - Vital Signs Vital signs: Vital Signs Temp 97.7 F 05/05/18 05:00 Pulse 70 05/05/18 05:00 Resp 18 05/05/18 05:00 BP 146/67 05/05/18 05:00 Pulse Ox 93 L 05/05/18 05:00 Intake & Output 05/04/18 05/05/18 05/05/18 18:59 06:59 18:59 Other: Voiding Method Toilet Toilet Toilet # Voids 2 1 - Labs CBC & Chem 7: 05/03/18 07:08 05/04/18 07:10 Labs: Abnormal Lab Results - Last 24 Hours (Table) 05/04/18 05/04/18 05/05/18 Range/Units 17:04 20:47 10:55 POC Glucose (mg/dL) 169 H 157 H 196 H (75-99) mg/dL Microbiology - Last 24 Hours (Table) 04/30/18 11:58 Blood Culture - Preliminary Blood No Growth after 96 hours Assessment and Plan Plan: Assessment: 1. Acute kidney injury secondary to ATN secondary to infection and component of cardiorenal syndrome. Renal function stable as of yesterday. Urinalysis reveals trace proteinuria. No evidence of hydronephrosis noted on renal ultrasound. 2. Chronic kidney disease stage III secondary to diabetic kidney disease with baseline creatinine in the range of 1.2-1.3 in March 2018. 3. Volume overload. Improving. 4. Lower extremity cellulitis maintained on antibiotics. No osteonecrosis noted on bone scan. 5. Hyperkalemia secondary to acute kidney injury and use of a new tensive receptor dameon. Better. 6. Hypertension with chronic kidney disease. 7. Diabetes mellitus. 8. Hypomagnesemia due to diuresis. Improved posterior placement. Plan: Maintain Lasix 40 mg orally twice daily. Low potassium diet. Avoid nephrotoxins. Continue to hold Cozaar. Repeat electrolytes in the morning.
[2018-05-05 12:22] VITALS: BP 141/76; PULSE 58; TEMP 98
--- NOTE | 2018-05-05 15:16 | P.DS ---
Providers Date of admission: 04/30/18 14:27 Expected date of discharge: 05/05/18 (Bilateral cellulitis and edema of the lower extremities) Attending physician: Jae Dubon Consults: 04/30/18 14:35 Consult Physician Stat Consulting Provider: Manoj Herrera Consult Reason/Comments: bilateral lower extremity cellulitis Do you want consulting provider notified?: Yes Consult Physician Stat Consulting Provider: Tamara Perry Consult Reason/Comments: renal failure Do you want consulting provider notified?: Yes 05/01/18 12:31 Consult Physician Urgent Consulting Provider: [facility] Consult Reason/Comments: bradycardia Do you want consulting provider notified?: Yes Primary care physician: Jae Dubon The dictation on the discharge summary date of service 05/05/2097 Final diagnoses: #1 acute kidney injury with the chronic kidney disease is stage 3-4 secondary to ATN and hypotension. #2 bilateral cellulitis of the lower extremities with the soft tissue edema bilateral. #3 volume overload. #4 normal ejection fraction with no evidence of systolic heart failure. #5 diabetes mellitus2 insulin-dependent. 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 #7 right renal cell carcinoma status post cryotherapy at [facility]. #8 hypertension with hypertensive heart disease. Currently blood pressure is controlled. #9 bradycardia with hypotension adjusted her medication. Presentation to the emergency room: Severe cellulitis of the lower extremities with the elevated creatinine than the baseline associated with acute kidney injury. Hospital course: IV adjusted and down consultation with nephrology, the cardiology, and infectious disease. Consulting physicians: #1 Dr. Perry/Dr. Hoang nephrology. #2 Dr. Manoj Herrera infectious disease. #[address] Herrera. During her hospital stay Abdomen medication of Bala bandage and application of Silvadene cream once a day and IV antibiotic. Patient developed a rash popular thought it is ALLERGY to Zosyn IV piggyback, discontinued, subsequently Dr. Herrera started on cefazolin IV and advised to continue with Keflex cephalosporin 500 mg every 8 hours for 7 days. Her edema has been improved significantly, as well as blood pressure is controlled, and her kidney function has a stabbing advised on the level of 2.2 weight with the estimated glomerular filtration rate for non- 19 as a fourth stage. Her blood sugar has been stable and we continued her medication and insulin that she has been used at home as well. Her sodium and potassium chloride was within normal limit magnesium 1.8. On discharge [id number] exam: Patient is conscious alert oriented 3 she preferred to go home today. Temperature 90.8 orally and pulse 58 bpm and respiratory rate was 18/m nonlabored, blood pressure 141/76 oxygen saturation 94 on room air. HEENT: Negative no changes she had improvement in the right eye. Subconjunctival hemorrhage, Neck was supple no JVD no thyromegaly no lymphadenopathy trachea midline. Chest was clear to auscultation and percussion with normal breath sounds, Heart was regular sinus rhythm. Stable no evidence of congestive heart failure. Abdomen soft obese positive bowel sounds no tenderness. Extremities: Marketed improvement on her bilateral leg cellulitis as well as the edema with the use of Bala wrap as well as the Silver surgery edema cream 1%. Instruction of Dr. Manoj Herrera infectious disease.Neurologically, the patient was awake, alert, and oriented to person, place and time. There were no obvious focal neurologic abnormalities. Plan patient will go home today followed by the visiting nurse and they will and instructed by the home care nurse for the application of the Bala bandage added as well as the Silvadene Silver cream will be following the patient as outpatient in 2-3 days and hopefully this week. Patient stable for discharge Patient Condition at Discharge: Stable Plan - Discharge Summary Discharge Rx Participant: No New Discharge Prescriptions: New hydrALAZINE HCL [Apresoline] 50 mg PO BID #60 tab hydrOXYzine HCL [Atarax] 25 mg PO QID PRN #30 tab PRN Reason: Itching Sennosides-Docusate Sodium [Senokot-S] 2 each PO BID #60 tab SILVER sulfADIAZINE CREAM [Silvadene Cream] 1 applic TOPICAL DAILY #60 applic Continue Pantoprazole Sodium 40 mg PO DAILY Levothyroxine Sodium [Synthroid] 50 mcg PO DAILY Atorvastatin [Lipitor] 40 mg PO HS Multivit-Min/FA/Lycopen/Lutein [Centrum Silver Tablet] 1 tab PO DAILY Insulin Aspart [NovoLOG Flexpen] See Protocol SQ AC-TID Insulin Aspart [NovoLOG Flexpen] 10 units SQ AC-TID Insulin Glargine,Hum.rec.anlog [Lantus Solostar] 40 units SQ HS Isosorbide Mononitrate ER [Imdur] 60 mg PO DAILY Nitroglycerin Sl Tabs [Nitrostat] 0.4 mg SL Q5M PRN PRN Reason: Chest Pain Acetaminophen Tab [Tylenol] 650 mg PO Q4HR PRN tab PRN Reason: Fever And/ Or Pain Ammonium Lactate Cream [Lac-Hydrin 12% Cream] 1 applic TOPICAL BID Aspirin EC [Ecotrin Low Dose] 81 mg PO DAILY Calcium Carbonate/Vitamin D3 [Calcium 500-Vit D3 200 Tablet] 1 tab PO DAILY Cholecalciferol [Vitamin D3] 1,000 unit PO DAILY Clobetasol Propionate [Temovate 0.05% Cream] 1 applic TOPICAL TID Ferrous Sulfate [Iron (65 MG Elemental)] 325 mg PO DAILY Linagliptin [Tradjenta] 5 mg PO DAILY Meclizine [Antivert] 12.5 mg PO TID PRN PRN Reason: DIZZINESS [place]-3 Fatty Acids/Fish Oil [Fish Oil 1,000 mg Softgel] 1 cap PO TID Triamcinolone 0.1% Cream [Kenalog 0.1% Cream] 1 applicatio TOPICAL DAILY Changed Carvedilol [Coreg] 6.25 mg PO BID #60 tablet Cephalexin [Keflex] 500 mg PO RT-Q8H #30 cap Furosemide [Lasix] 40 mg PO BID #0 Discontinued Gabapentin [Neurontin] 400 mg PO QID cloNIDine HCL [Catapres] 0.1 mg PO BID #60 tab Losartan [Cozaar] 50 mg PO DAILY amLODIPine [Norvasc] 10 mg PO HS Sulfamethox-Tmp 800-160Mg [Bactrim DS 800-160 mg] 1 tab PO Q12HR #20 tab Discharge Medication List Atorvastatin [Lipitor] 40 mg PO HS 12/31/14 [History] Levothyroxine Sodium [Synthroid] 50 mcg PO DAILY 12/31/14 [History] Pantoprazole Sodium 40 mg PO DAILY 12/31/14 [History] Multivit-Min/FA/Lycopen/Lutein [Centrum Silver Tablet] 1 tab PO DAILY 03/24/15 [ History] Insulin Aspart [NovoLOG Flexpen] 10 units SQ AC-TID 01/02/18 [History] Insulin Aspart [NovoLOG Flexpen] See Protocol SQ AC-TID 01/02/18 [History] Insulin Glargine,Hum.rec.anlog [Lantus Solostar] 40 units SQ HS 01/02/18 [ History] Isosorbide Mononitrate ER [Imdur] 60 mg PO DAILY 01/02/18 [History] Nitroglycerin Sl Tabs [Nitrostat] 0.4 mg SL Q5M PRN 01/02/18 [History] Acetaminophen Tab [Tylenol] 650 mg PO Q4HR PRN tab 01/04/18 [Rx] Ammonium Lactate Cream [Lac-Hydrin 12% Cream] 1 applic TOPICAL BID 04/30/18 [ History] Aspirin EC [Ecotrin Low Dose] 81 mg PO DAILY 04/30/18 [History] Calcium Carbonate/Vitamin D3 [Calcium 500-Vit D3 200 Tablet] 1 tab PO DAILY 02/06 [History] Cholecalciferol [Vitamin D3] 1,000 unit PO DAILY 04/30/18 [History] Clobetasol Propionate [Temovate 0.05% Cream] 1 applic TOPICAL TID 04/30/18 [ History] Ferrous Sulfate [Iron (65 MG Elemental)] 325 mg PO DAILY 04/30/18 [History] Linagliptin [Tradjenta] 5 mg PO DAILY 04/30/18 [History] Meclizine [Antivert] 12.5 mg PO TID PRN 04/30/18 [History] [place]-3 Fatty Acids/Fish Oil [Fish Oil 1,000 mg Softgel] 1 cap PO TID 04/30/18 [ History] Triamcinolone 0.1% Cream [Kenalog 0.1% Cream] 1 applicatio TOPICAL DAILY [History] Carvedilol [Coreg] 6.25 mg PO BID #60 tablet 05/05/18 [Rx] Cephalexin [Keflex] 500 mg PO RT-Q8H #30 cap 05/05/18 [Rx] Furosemide [Lasix] 40 mg PO BID #0 05/05/18 [Rx] SILVER sulfADIAZINE CREAM [Silvadene Cream] 1 applic TOPICAL DAILY #60 applic [Rx] Sennosides-Docusate Sodium [Senokot-S] 2 each PO BID #60 tab 05/05/18 [Rx] hydrALAZINE HCL [Apresoline] 50 mg PO BID #60 tab 05/05/18 [Rx] hydrOXYzine HCL [Atarax] 25 mg PO QID PRN #30 tab 05/05/18 [Rx] Follow up Appointment(s)/Referral(s): [facility] Visiting Nurse, [NON-STAFF] - 1 Week Jae Dubon MD [Primary Care Provider] - 1-2 days
== END 2018-05-05 18:55 | disposition home or self-care (01) | DRG 602 ==
LOC: EC 11:00 → 3NMEDONC 14:27
PROVIDERS: ADMIT Internal Medicine; ATTEND Internal Medicine
DX: L03.115 Cellulitis of right lower limb (principal); N17.0 Acute kidney failure with tubular necrosis; L03.116 Cellulitis of left lower limb; Z85.528 Personal history of other malignant neoplasm of kidney; E03.9 Hypothyroidism, unspecified; E11.22 Type 2 diabetes mellitus with diabetic chronic kidney disease; E11.65 Type 2 diabetes mellitus with hyperglycemia; E11.40 Type 2 diabetes mellitus with diabetic neuropathy, unspecified; E66.9 Obesity, unspecified; E78.5 Hyperlipidemia, unspecified; E83.42 Hypomagnesemia; E87.5 Hyperkalemia; T46.5X5A Adverse effect of other antihypertensive drugs, initial encounter; E87.70 Fluid overload, unspecified; H11.31 Conjunctival hemorrhage, right eye; I13.10 Hypertensive heart and chronic kidney disease without heart failure, with stage 1 through stage 4 chronic kidney disease, or unspecified chronic kidney disease; I25.10 Atherosclerotic heart disease of native coronary artery without angina pectoris; I70.1 Atherosclerosis of renal artery; J45.909 Unspecified asthma, uncomplicated; K21.9 Gastro-esophageal reflux disease without esophagitis; L27.0 Generalized skin eruption due to drugs and medicaments taken internally; T36.0X5A Adverse effect of penicillins, initial encounter; M12.9 Arthropathy, unspecified; N18.3 Chronic kidney disease, stage 3 (moderate); Z68.33 Body mass index [BMI] 33.0-33.9, adult; Z79.4 Long term (current) use of insulin; Z79.82 Long term (current) use of aspirin; Z79.890 Hormone replacement therapy; Z79.899 Other long term (current) drug therapy; Z80.3 Family history of malignant neoplasm of breast; Z82.49 Family history of ischemic heart disease and other diseases of the circulatory system; Z87.891 Personal history of nicotine dependence; Z90.49 Acquired absence of other specified parts of digestive tract; Z96.653 Presence of artificial knee joint, bilateral; Z98.42 Cataract extraction status, left eye; Z98.41 Cataract extraction status, right eye; Z96.1 Presence of intraocular lens; Z87.01 Personal history of pneumonia (recurrent); Z91.81 History of falling; M10.9 Gout, unspecified; Z86.79 Personal history of other diseases of the circulatory system; Z86.010 Personal history of colon polyps
CPT/HCPCS: 36415; 71046; 73521; 74176; 76770; 78315; 80048; 80053; 81003; 83036; 83605; 83735; 83880; 84443; 84484; 85025; 85610; 85730; 87040; 87086; 93005; 93306; 93970; 94760; 96365; 96366; 96375; 99285

== ENCOUNTER 2018-05-13 14:02 | Inpatient (IN) | payer MEDICARE, BC ==
[2018-05-13] MEDS ORDERED: IBUPROFEN 600 MG TAB PO STA (14:25)
[2018-05-13] MEDS ORDERED: ACETAMINOPHEN TAB 500 MG TAB PO STA (14:25)
--- NOTE | 2018-05-13 14:35 | ED ---
General Adult HPI - General Chief complaint: Altered Mental Status Stated complaint: Confusion Time Seen by Provider: 05/13/18 14:05 Source: EMS, RN notes reviewed Mode of arrival: EMS Limitations: altered mental status - History of Present Illness Initial comments: This is an 82-year-old female presents emergency Department complaining of feeling tired and per the visiting nurse she is also altered today. Patient has been complaining of bilateral neck pain for the last couple of weeks and she is not sure why she is here today. Patient is alert and oriented 2 and is a poor historian. Nobody is with the patient to give any further history patient denies any pain at this time patient denies any difficulty breathing. Patient only complains of bilateral neck pain. - Related Data Home Medications Medication Instructions Recorded Confirmed Atorvastatin [Lipitor] 40 mg PO HS 12/31/14 05/13/18 Levothyroxine Sodium [Synthroid] 50 mcg PO DAILY 12/31/14 05/13/18 Pantoprazole Sodium 40 mg PO DAILY 12/31/14 05/13/18 Multivit-Min/FA/Lycopen/Lutein 1 tab PO DAILY 03/24/15 05/13/18 [Centrum Silver Tablet] Insulin Aspart [NovoLOG Flexpen] 10 units SQ AC-TID 01/02/18 05/13/18 Insulin Aspart [NovoLOG Flexpen] See Protocol SQ AC-TID 01/02/18 05/13/18 Insulin Glargine,Hum.rec.anlog 40 units SQ HS 01/02/18 05/13/18 [Lantus Solostar] Isosorbide Mononitrate ER [Imdur] 60 mg PO DAILY 01/02/18 05/13/18 Nitroglycerin Sl Tabs [Nitrostat] 0.4 mg SL Q5M PRN 01/02/18 05/13/18 Ammonium Lactate Cream [Lac-Hydrin 1 applic TOPICAL BID 04/30/18 05/13/18 12% Cream] Aspirin EC [Ecotrin Low Dose] 81 mg PO DAILY 04/30/18 05/13/18 Calcium Carbonate/Vitamin D3 1 tab PO DAILY 04/30/18 05/13/18 [Calcium 500-Vit D3 200 Tablet] Cholecalciferol [Vitamin D3] 1,000 unit PO DAILY 04/30/18 05/13/18 Clobetasol Propionate [Temovate 1 applic TOPICAL TID 04/30/18 05/13/18 0.05% Cream] Ferrous Sulfate [Iron (65 MG 325 mg PO DAILY 04/30/18 05/13/18 Elemental)] Linagliptin [Tradjenta] 5 mg PO DAILY 04/30/18 05/13/18 Meclizine [Antivert] 12.5 mg PO TID PRN 04/30/18 05/13/18 [place]-3 Fatty Acids/Fish Oil [Fish 1 cap PO TID 04/30/18 05/13/18 Oil 1,000 mg Softgel] Triamcinolone 0.1% Cream [Kenalog 1 applicatio TOPICAL DAILY 04/30/18 05/13/18 0.1% Cream] Sennosides-Docusate Sodium 2 tab PO BID 05/13/18 05/13/18 [Senokot-S] Previous Rx's Medication Instructions Recorded Acetaminophen Tab [Tylenol] 650 mg PO Q4HR PRN tab 01/04/18 Carvedilol [Coreg] 6.25 mg PO BID #60 tablet 05/05/18 Furosemide [Lasix] 40 mg PO BID #0 05/05/18 SILVER sulfADIAZINE CREAM 1 applic TOPICAL DAILY #60 applic 05/05/18 [Silvadene Cream] hydrALAZINE HCL [Apresoline] 50 mg PO BID #60 tab 05/05/18 hydrOXYzine HCL [Atarax] 25 mg PO QID PRN #30 tab 05/05/18 Allergies Allergy/AdvReac Type Severity Reaction Status Date / Time JOCELYNN Inhibitors Allergy Unknown Verified 05/13/18 14:47 aspartame AdvReac Nausea & Verified 05/13/18 14:47 Vomiting Review of Systems ROS Statement: Those systems with pertinent positive or pertinent negative responses have been documented in the HPI. ROS Other: All systems not noted in ROS Statement are negative. 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 History of Any Multi-Drug Resistant Organisms: None Reported Past Surgical History: Appendectomy, Heart Catheterization, Joint Replacement, Orthopedic Surgery, Tonsillectomy Additional Past Surgical History / Comment(s): R renal artery bypassed with groin vein graft, brain aneurysms with clips x 2, cataract removal both eyes with lens implants, colonoscopies x 2 with first one having benign polypectomy and 2nd one normal. RT kidney had cancer on top of kidney, pt stated"they froze the cancer off" , lt shoulder arthroscopy for rotator cuff, dusty knee replacments, L foot fracture with surgery and L foot had a bone misplaced with surgery, R foot tumor removed around a toe. Past Anesthesia/Blood Transfusion Reactions: No Reported Reaction Additional Past Anesthesia/Blood Transfusion Reaction / Comment(s): Pt has received blood without reaction. Past Psychological History: No Psychological Hx Reported Smoking Status: Former smoker Past Alcohol Use History: None Reported Past Drug Use History: None Reported - Past Family History Father Family Medical History: Myocardial Infarction ([place]) Additional Family Medical History / Comment(s): Father of a [place] at the age of 56yrs. Mother Family Medical History: Cancer Additional Family Medical History / Comment(s): Mother had breast cancer. She from another type of cancer that metastasized to her bones. General Exam - General Exam Comments Initial Comments: GENERAL: Patient is well-developed and well-nourished. Patient is nontoxic and well- hydrated and is in mild distress. I took the patient's temperature was 99.7 ENT: Neck is soft and supple. No significant lymphadenopathy is noted. Oropharynx is clear. Moist mucous membranes. Neck has full range of motion without eliciting any pain. However neck is tender to palpation along both trapezius muscles going up into the base of skull. There is no thyroid enlargement and no masses were felt. EYES: The sclera were anicteric and conjunctiva were pink and moist. Extraocular movements were intact and pupils were equal round and reactive to light. Eyelids were unremarkable. PULMONARY: Unlabored respirations. Good breath sounds bilaterally. No audible rales rhonchi or wheezing was noted. CARDIOVASCULAR: There is a regular rate and rhythm without any murmurs gallops or rubs. ABDOMEN: Soft and nontender with normal bowel sounds. No palpable organomegaly was noted. There is no palpable pulsatile mass. SKIN: Skin is clear with no lesions or rashes and otherwise unremarkable. NEUROLOGIC: Patient is alert and oriented x3. Cranial nerves II through XII are grossly intact. Motor and sensory are also intact. Normal speech, volume and content. Symmetrical smile. MUSCULOSKELETAL: Normal extremities with adequate strength and full range of motion. LYMPHATICS: No significant lymphadenopathy is noted PSYCHIATRIC: Normal psychiatric evaluation. Limitations: altered mental status Course Vital Signs 05/13/18 05/13/18 05/13/18 14:06 14:30 14:37 Temperature 98.9 F 99.7 F H Pulse Rate 81 77 Respiratory 18 18 Rate Blood Pressure 172/63 172/63 O2 Sat by Pulse 96 97 Oximetry 05/13/18 05/13/18 05/13/18 15:00 15:30 16:00 Temperature Pulse Rate 74 69 75 Respiratory 22 15 16 Rate Blood Pressure 162/89 117/80 159/66 O2 Sat by Pulse 98 95 96 Oximetry 05/13/18 16:13 Temperature 99.3 F Pulse Rate Respiratory Rate Blood Pressure O2 Sat by Pulse Oximetry Medical Decision Making - Medical Decision Making EKG shows normal sinus rhythm at 72 bpm OK interval 196 QRS is 86 QT interval 426 QTC is 466. Patient's EKG shows no ST segment elevation or depression. Computed tomography scan shows no acute abnormality Chest x-ray shows no acute normalities. Patient's troponin is mildly elevated. Patient still is altered I spoke with Dr. Dubon he agreed the patient admitted the patient wrote admitting orders Urine had some white cells so I cultured the urine but also gave the patient 1 g of Rocephin. - Lab Data Result diagrams: 05/13/18 14:27 05/13/18 14:27 Lab Results 05/13/18 05/13/18 05/13/18 Range/Units 14:27 14:27 14:27 WBC 10.8 H (3.8-10.6) k/uL RBC 4.45 (3.80-5.40) m/uL Hgb 11.9 (11.4-16.0) gm/dL Hct 35.8 (34.0-46.0) % MCV 80.5 (80.0-100.0) fL MCH 26.7 (25.0-35.0) pg MCHC 33.2 (31.0-37.0) g/dL RDW 14.6 (11.5-15.5) % Plt Count 413 (150-450) k/uL Neutrophils % 85 % Lymphocytes % 7 % Monocytes % 6 % Eosinophils % 1 % Basophils % 0 % Neutrophils # 9.2 H (1.3-7.7) k/uL Lymphocytes # 0.7 L (1.0-4.8) k/uL Monocytes # 0.7 (0-1.0) k/uL Eosinophils # 0.2 (0-0.7) k/uL Basophils # 0.0 (0-0.2) k/uL PT (9.0-12.0) sec INR (<1.2) APTT (22.0-30.0) sec Sodium 142 (137-145) mmol/L Potassium 3.9 (3.5-5.1) mmol/L Chloride 105 (98-107) mmol/L Carbon Dioxide 26 (22-30) mmol/L Anion Gap 11 mmol/L BUN 27 H (7-17) mg/dL Creatinine 2.14 H (0.52-1.04) mg/dL Est GFR (CKD-EPI)AfAm 24 (>60 ml/min/1.73 sqM) Est GFR (CKD-EPI)NonAf 21 (>60 ml/min/1.73 sqM) Glucose 222 H (74-99) mg/dL Plasma Lactic Acid Jaya (0.7-2.0) mmol/L Calcium 9.4 (8.4-10.2) mg/dL Total Bilirubin 0.6 (0.2-1.3) mg/dL AST 37 H (14-36) U/L ALT 23 (9-52) U/L Alkaline Phosphatase 103 (38-126) U/L Total Creatine Kinase 405 H (30-135) U/L CK-MB (CK-2) 3.5 H (0.0-2.4) ng/mL CK-MB (CK-2) Rel Index 0.9 Troponin I 0.056 H* (0.000-0.034) ng/mL Total Protein 6.5 (6.3-8.2) g/dL Albumin 3.9 (3.5-5.0) g/dL Urine Color Urine Appearance (Clear) Urine pH (5.0-8.0) Ur Specific [place] (1.001-1.035) Urine Protein (Negative) Urine Glucose (UA) (Negative) Urine Ketones (Negative) Urine Blood (Negative) Urine Nitrite (Negative) Urine Bilirubin (Negative) Urine Urobilinogen (<2.0) mg/dL Ur Leukocyte Esterase (Negative) Urine RBC (0-5) /hpf Urine WBC (0-5) /hpf Ur Squamous Epith Cells (0-4) /hpf Amorphous Sediment (None) /hpf Hyaline Casts (0-2) /lpf Influenza Type A RNA (Not Detectd) Influenza Type B (PCR) (Not Detectd) 05/13/18 05/13/18 05/13/18 Range/Units 14:27 14:27 15:11 WBC (3.8-10.6) k/uL RBC (3.80-5.40) m/uL Hgb (11.4-16.0) gm/dL Hct (34.0-46.0) % MCV (80.0-100.0) fL MCH (25.0-35.0) pg MCHC (31.0-37.0) g/dL RDW (11.5-15.5) % Plt Count (150-450) k/uL Neutrophils % % Lymphocytes % % Monocytes % % Eosinophils % % Basophils % % Neutrophils # (1.3-7.7) k/uL Lymphocytes # (1.0-4.8) k/uL Monocytes # (0-1.0) k/uL Eosinophils # (0-0.7) k/uL Basophils # (0-0.2) k/uL PT 10.9 (9.0-12.0) sec INR 1.0 (<1.2) APTT 26.9 (22.0-30.0) sec Sodium (137-145) mmol/L Potassium (3.5-5.1) mmol/L Chloride (98-107) mmol/L Carbon Dioxide (22-30) mmol/L Anion Gap mmol/L BUN (7-17) mg/dL Creatinine (0.52-1.04) mg/dL Est GFR (CKD-EPI)AfAm (>60 ml/min/1.73 sqM) Est GFR (CKD-EPI)NonAf (>60 ml/min/1.73 sqM) Glucose (74-99) mg/dL Plasma Lactic Acid Jaya 1.4 (0.7-2.0) mmol/L Calcium (8.4-10.2) mg/dL Total Bilirubin (0.2-1.3) mg/dL AST (14-36) U/L ALT (9-52) U/L Alkaline Phosphatase (38-126) U/L Total Creatine Kinase (30-135) U/L CK-MB (CK-2) (0.0-2.4) ng/mL CK-MB (CK-2) Rel Index Troponin I (0.000-0.034) ng/mL Total Protein (6.3-8.2) g/dL Albumin (3.5-5.0) g/dL Urine Color Yellow Urine Appearance Cloudy H (Clear) Urine pH 6.0 (5.0-8.0) Ur Specific [place] 1.016 (1.001-1.035) Urine Protein 3+ H (Negative) Urine Glucose (UA) Negative (Negative) Urine Ketones Trace H (Negative) Urine Blood Small H (Negative) Urine Nitrite Negative (Negative) Urine Bilirubin Negative (Negative) Urine Urobilinogen <2.0 (<2.0) mg/dL Ur Leukocyte Esterase Small H (Negative) Urine RBC 8 H (0-5) /hpf Urine WBC 24 H (0-5) /hpf Ur Squamous Epith Cells 5 H (0-4) /hpf Amorphous Sediment Moderate H (None) /hpf Hyaline Casts 212 H (0-2) /lpf Influenza Type A RNA (Not Detectd) Influenza Type B (PCR) (Not Detectd) 05/13/18 Range/Units 15:11 WBC (3.8-10.6) k/uL RBC (3.80-5.40) m/uL Hgb (11.4-16.0) gm/dL Hct (34.0-46.0) % MCV (80.0-100.0) fL MCH (25.0-35.0) pg MCHC (31.0-37.0) g/dL RDW (11.5-15.5) % Plt Count (150-450) k/uL Neutrophils % % Lymphocytes % % Monocytes % % Eosinophils % % Basophils % % Neutrophils # (1.3-7.7) k/uL Lymphocytes # (1.0-4.8) k/uL Monocytes # (0-1.0) k/uL Eosinophils # (0-0.7) k/uL Basophils # (0-0.2) k/uL PT (9.0-12.0) sec INR (<1.2) APTT (22.0-30.0) sec Sodium (137-145) mmol/L Potassium (3.5-5.1) mmol/L Chloride (98-107) mmol/L Carbon Dioxide (22-30) mmol/L Anion Gap mmol/L BUN (7-17) mg/dL Creatinine (0.52-1.04) mg/dL Est GFR (CKD-EPI)AfAm (>60 ml/min/1.73 sqM) Est GFR (CKD-EPI)NonAf (>60 ml/min/1.73 sqM) Glucose (74-99) mg/dL Plasma Lactic Acid Jaya (0.7-2.0) mmol/L Calcium (8.4-10.2) mg/dL Total Bilirubin (0.2-1.3) mg/dL AST (14-36) U/L ALT (9-52) U/L Alkaline Phosphatase (38-126) U/L Total Creatine Kinase (30-135) U/L CK-MB (CK-2) (0.0-2.4) ng/mL CK-MB (CK-2) Rel Index Troponin I (0.000-0.034) ng/mL Total Protein (6.3-8.2) g/dL Albumin (3.5-5.0) g/dL Urine Color Urine Appearance (Clear) Urine pH (5.0-8.0) Ur Specific [place] (1.001-1.035) Urine Protein (Negative) Urine Glucose (UA) (Negative) Urine Ketones (Negative) Urine Blood (Negative) Urine Nitrite (Negative) Urine Bilirubin (Negative) Urine Urobilinogen (<2.0) mg/dL Ur Leukocyte Esterase (Negative) Urine RBC (0-5) /hpf Urine WBC (0-5) /hpf Ur Squamous Epith Cells (0-4) /hpf Amorphous Sediment (None) /hpf Hyaline Casts (0-2) /lpf Influenza Type A RNA Not Detected (Not Detectd) Influenza Type B (PCR) Not Detected (Not Detectd) Disposition Clinical Impression: Elevated troponin, Altered mental status, Urinary tract infection Disposition: ADMITTED IP TO THIS HOSP Referrals: Jae Dubon MD [Primary Care Provider] - 1-2 days Time of Disposition: 17:23
[2018-05-13] MEDS: SODIUM CHLORIDE 0.9% 500 ML 500 ML IV SCH ×2 (14:43→15:50)
[2018-05-13 14:52] LABS: Basophils % (A) 0 %; Eosinophils # (A) 0.2 k/uL (0-0.7); Eosinophils % (A) 1 %; HCT 35.8 % (34.0-46.0); HGB 11.9 gm/dL (11.4-16.0); Lymphocytes # (A) 0.7 k/uL (1.0-4.8); Lymphocytes % (A) 7 %; MCH 26.7 pg (25.0-35.0); MCHC 33.2 g/dL (31.0-37.0); MCV 80.5 fL (80.0-100.0); Mean Platelet Volume 6.1; Monocytes # (A) 0.7 k/uL (0-1.0); Monocytes % (A) 6 %; Neutrophils # (A) 9.2 k/uL (1.3-7.7); Neutrophils % (A) 85 %; Platelet Count 413 k/uL (150-450); RBC 4.45 m/uL (3.80-5.40); RDW 14.6 % (11.5-15.5); WBC 10.8 k/uL (3.8-10.6)
[2018-05-13 15:04] LABS: Albumin 3.9 g/dL (3.5-5.0); Calcium 9.4 mg/dL (8.4-10.2); Potassium 3.9 mmol/L (3.5-5.1); Total Bilirubin 0.6 mg/dL (0.2-1.3); Total Protein 6.5 g/dL (6.3-8.2)
[2018-05-13 15:30] LABS: Partial Thromboplastin Time 26.9 sec (22.0-30.0); Prothrombin Time 10.9 sec (9.0-12.0)
[2018-05-13 15:33] LABS: Creatine Kinase MB 3.5 ng/mL (0.0-2.4)
[2018-05-13 15:36] LABS: Amorphous Sediment,Urine Moderate /hpf; Appearance,Urine Cloudy (Clear); Bilirubin,Urine Negative (Negative); Blood,Urine Small (Negative); Color,Urine Yellow; Glucose,Urine (UA) Negative (Negative); Hyaline Casts,Urine 212 /lpf (0-2); Ketones,Urine Trace (Negative); Leukocyte Esterase,Urine Small (Negative); Nitrite,Urine Negative (Negative); Protein,Urine 3+ (Negative); RBC,Urine 8 /hpf (0-5); Specific Gravity,Urine 1.016 (1.001-1.035); Squamous Epithelial Cell,Urine 5 /hpf (0-4); Urobilinogen,Urine <2.0 mg/dL (<2.0); WBC,Urine 24 /hpf (0-5)
[2018-05-13 15:47] LABS: Troponin I 0.056 ng/mL (0.000-0.034)
--- NOTE | 2018-05-13 16:30 | CT ---
EXAMINATION TYPE: CT brain wo con DATE OF EXAM: 05/13/2018 COMPARISON: 01/04/2018 HISTORY: 82-year-old female with Confusion. TECHNIQUE: Examination was done in axial plane without intravenous contrast. Coronal and sagittal r econstructions performed. CT DLP: 1109.4 mGycm Automated exposure control for dose reduction was used. FINDINGS: There is no evidence of acute intracranial hemorrhage, acute ischemic changes, mass, mass-effect, or extra-axial fluid collection. There is no effacement of cerebral sulci or basal subarachnoid cister ns. There is no hydrocephalus. There is no midline shift. [place]-white matter distinction is preserv ed. Mild generalized volume loss. Similar encephalomalacia inferolateral left frontal lobe and anterior l eft temporal lobe with aneurysm clipping in the region of the left M1 bifurcation. Overlying cranioto my flap. Stents of metastatic calcifications in the carotid siphons with redemonstrated are calcification in t he region of the carotid terminus measuring up to 1.3 cm. Visualized paranasal sinuses and mastoid air cells appear clear. IMPRESSION: 1. Stable left sided craniotomy flap with underlying aneurysm clipping in the region of the left MCA bifurcation. Stable surrounding encephalomalacia in the left frontotemporal region. 2. 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 Appropriate follow-up and managem ent is recommended. 3. Otherwise, no acute intracranial abnormality seen.
--- NOTE | 2018-05-13 16:57 | XR ---
EXAMINATION: XR chest 2V DATE AND TIME: 05/13/2018 4:33 PM CLINICAL INDICATION: PHH; AMS; fever TECHNIQUE: Departmental protocol COMPARISON: 04/30/2018 FINDINGS: The lungs are clear. The pleural spaces are negative. The cardiac silhouette is borderline enlarged. The remainder of the mediastinal silhouette is unremar kable. The skeletal structures and soft tissues are negative for acute findings. IMPRESSION: NO ACUTE PROCESS.
[2018-05-13] MEDS ORDERED: SODIUM CHLORIDE 0.9% 1,000 ML IV ONE (17:25)
[2018-05-13] MEDS ORDERED: CARVEDILOL 6.25 MG TAB PO SCH (19:30)
[2018-05-13 21:08] LABS: Glucose,Whole Blood 178 mg/dL (75-99)
[2018-05-13] MEDS: ATORVASTATIN 40 MG TAB PO SCH (21:14)
[2018-05-13] MEDS: FUROSEMIDE 40 MG TAB PO SCH (21:14)
[2018-05-13] MEDS: AMMONIUM LACTATE 12% CREAM 140 GM TUBE TOPICAL SCH (21:14)
[2018-05-13] MEDS: ACETAMINOPHEN TAB 325 MG TAB PO PRN (21:15)
[2018-05-13] MEDS: CLOBETASOL PROP 0.05% CR 15GM TOPICAL SCH (21:16)
[2018-05-13] MEDS: INSULIN ASPART 100 UNIT/ML 1 ML 10 ML VIAL SQ SCH (21:16)
[2018-05-14 06:42] LABS: Glucose,Whole Blood 129 mg/dL (75-99)
[2018-05-14] MEDS: INSULIN ASPART 100 UNIT/ML 1 ML 10 ML VIAL SQ SCH ×4 (06:42→21:47)
[2018-05-14] MEDS: CARVEDILOL 12.5 MG TAB PO SCH ×2 (06:43→17:55)
[2018-05-14 07:29] LABS: Basophils % (A) 1 %; Eosinophils # (A) 0.1 k/uL (0-0.7); Eosinophils % (A) 2 %; HCT 31.7 % (34.0-46.0); HGB 10.6 gm/dL (11.4-16.0); Lymphocytes # (A) 1.2 k/uL (1.0-4.8); Lymphocytes % (A) 18 %; MCH 27.6 pg (25.0-35.0); MCHC 33.5 g/dL (31.0-37.0); MCV 82.3 fL (80.0-100.0); Mean Platelet Volume 7.5; Monocytes # (A) 0.5 k/uL (0-1.0); Monocytes % (A) 8 %; Neutrophils # (A) 4.9 k/uL (1.3-7.7); Neutrophils % (A) 70 %; Platelet Count 339 k/uL (150-450); RBC 3.85 m/uL (3.80-5.40); RDW 14.9 % (11.5-15.5)
[2018-05-14 07:41] LABS: Potassium 3.4 mmol/L (3.5-5.1)
--- NOTE | 2018-05-14 08:13 | P.CRDCN ---
History of Present Illness Consult date: 05/14/18 Requesting physician: Jae Dubon Reason for Consult (text): Abnormal troponin Chief complaint: Weakness History of present illness: This is a pleasant 82-year-old female who has a known history of chronic renal insufficiency, hypertension, hyperlipidemia, cellulitis, diabetes , hypothyroidism, the patient also states that she has a history of brain aneurysms in the past for which she has had clipping procedure she presented to the hospital on this occasion with symptoms of progressive weakness. She also states that she's been experiencing fever and chills at home. She apparently has a visiting nurse and physical therapy in her home, they noticed also that she was much more weak than usual, they were also concerned about some redness in her bilateral lower extremities and for this reason she was advised to come to the hospital for further evaluation. Overall she states that her breathing has been stable, she denies any chest discomfort. She does complain of generalized body aches and back discomfort. CAT scan of the brain was performed which revealed stable left sided craniotomy flap with underlying aneurysm clipping in the region of the left MCA bifurcation. Chest x-ray does not reveal any acute process. EKG shows normal sinus rhythm with nonspecific ST -T wave changes. Blood pressure 172/62, heart rate in the 80s, temperature 98.9 on admission, 96% on room air. The patient did have a low-grade temperature through the night last night of 99.7. Her blood pressure this morning 106/66. Heart rate in the 70s, 97 on room air. White blood cell count on admission 10.8, 7.0 this morning, hemoglobin 11.9 on admission, 10.6 this morning. Platelet count 339. Sodium 143, potassium 3.4, BUN 27, creatinine 2.2. BNP 1640, troponin 0.056. Influenza A and B were negative. At the time of my examination this morning, she sitting up in the chair at bedside. Still complains of feeling quite weak, breathing is stable, denies any chest discomfort. She did have an echocardiogram with Doppler study performed on the of this month which revealed an ejection fraction of 60-65%. 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 History of Any Multi-Drug Resistant Organisms: None Reported Past Surgical History: Appendectomy, Heart Catheterization, Joint Replacement, Orthopedic Surgery, Tonsillectomy Additional Past Surgical History / Comment(s): R renal artery bypassed with groin vein graft, brain aneurysms with clips x 2, cataract removal both eyes with lens implants, colonoscopies x 2 with first one having benign polypectomy and 2nd one normal. RT kidney had cancer on top of kidney, pt stated"they froze the cancer off" , lt shoulder arthroscopy for rotator cuff, dusty knee replacments, L foot fracture with surgery and L foot had a bone misplaced with surgery, R foot tumor removed around a toe. Past Anesthesia/Blood Transfusion Reactions: No Reported Reaction Additional Past Anesthesia/Blood Transfusion Reaction / Comment(s): Pt has received blood without reaction. Smoking Status: Former smoker - Past Family History Father Family Medical History: Myocardial Infarction ([place]) Additional Family Medical History / Comment(s): Father of a [place] at the age of 56yrs. Mother Family Medical History: Cancer Additional Family Medical History / Comment(s): Mother had breast cancer. She from another type of cancer that metastasized to her bones. Medications and Allergies Home Medications Medication Instructions Recorded Confirmed Type Atorvastatin [Lipitor] 40 mg PO HS 12/31/14 05/13/18 History Levothyroxine Sodium [Synthroid] 50 mcg PO DAILY 12/31/14 05/13/18 History Pantoprazole Sodium 40 mg PO DAILY 12/31/14 05/13/18 History Multivit-Min/FA/Lycopen/Lutein 1 tab PO DAILY 03/24/15 05/13/18 History [Centrum Silver Tablet] Insulin Aspart [NovoLOG Flexpen] 10 units SQ AC-TID 01/02/18 05/13/18 History Insulin Aspart [NovoLOG Flexpen] See Protocol SQ AC-TID 01/02/18 05/13/18 History Insulin Glargine,Hum.rec.anlog 40 units SQ HS 01/02/18 05/13/18 History [Lantus Solostar] Isosorbide Mononitrate ER [Imdur] 60 mg PO DAILY 01/02/18 05/13/18 History Nitroglycerin Sl Tabs [Nitrostat] 0.4 mg SL Q5M PRN 01/02/18 05/13/18 History Acetaminophen Tab [Tylenol] 650 mg PO Q4HR PRN tab 01/04/18 05/13/18 Rx Ammonium Lactate Cream [Lac-Hydrin 1 applic TOPICAL BID 04/30/18 05/13/18 History 12% Cream] Aspirin EC [Ecotrin Low Dose] 81 mg PO DAILY 04/30/18 05/13/18 History Calcium Carbonate/Vitamin D3 1 tab PO DAILY 04/30/18 05/13/18 History [Calcium 500-Vit D3 200 Tablet] Cholecalciferol [Vitamin D3] 1,000 unit PO DAILY 04/30/18 05/13/18 History Clobetasol Propionate [Temovate 1 applic TOPICAL TID 04/30/18 05/13/18 History 0.05% Cream] Ferrous Sulfate [Iron (65 MG 325 mg PO DAILY 04/30/18 05/13/18 History Elemental)] Linagliptin [Tradjenta] 5 mg PO DAILY 04/30/18 05/13/18 History Meclizine [Antivert] 12.5 mg PO TID PRN 04/30/18 05/13/18 History [place]-3 Fatty Acids/Fish Oil [Fish 1 cap PO TID 04/30/18 05/13/18 History Oil 1,000 mg Softgel] Triamcinolone 0.1% Cream [Kenalog 1 applicatio TOPICAL DAILY 04/30/18 05/13/18 History 0.1% Cream] Carvedilol [Coreg] 6.25 mg PO BID #60 tablet 05/05/18 05/13/18 Rx Furosemide [Lasix] 40 mg PO BID #0 05/05/18 05/13/18 Rx SILVER sulfADIAZINE CREAM 1 applic TOPICAL DAILY #60 applic 05/05/18 05/13/18 Rx [Silvadene Cream] hydrALAZINE HCL [Apresoline] 50 mg PO BID #60 tab 05/05/18 05/13/18 Rx hydrOXYzine HCL [Atarax] 25 mg PO QID PRN #30 tab 05/05/18 05/13/18 Rx Sennosides-Docusate Sodium 2 tab PO BID 05/13/18 05/13/18 History [Senokot-S] Allergies Allergy/AdvReac Type Severity Reaction Status Date / Time JOCELYNN Inhibitors Allergy Unknown Verified 05/13/18 14:47 piperacillin [From Zosyn] Allergy Rash/Hives Verified 05/13/18 18:35 tazobactam [From Zosyn] Allergy Rash/Hives Verified 05/13/18 18:35 aspartame AdvReac Nausea & Verified 05/13/18 14:47 Vomiting Physical Exam Vitals: Vital Signs Temp Pulse Pulse Resp BP BP Pulse Ox 05/14/18 04:57 166/66 05/14/18 03:39 98.4 F 71 16 178/75 94 L 05/14/18 00:26 68 16 163/71 93 L 05/13/18 21:15 98.1 F 72 15 172/61 96 05/13/18 18:52 98.8 F 75 16 182/94 98 05/13/18 18:00 74 25 H 137/52 94 L 05/13/18 17:30 73 19 144/50 05/13/18 16:13 99.3 F 05/13/18 16:00 75 16 159/66 96 05/13/18 15:30 69 15 117/80 95 05/13/18 15:00 74 22 162/89 98 05/13/18 14:37 99.7 F H 05/13/18 14:30 77 18 172/63 97 05/13/18 14:06 98.9 F 81 18 172/63 96 Intake and Output 05/13/18 05/14/18 05/14/18 22:59 06:59 14:59 Other: Voiding Method Toilet Toilet # Voids 1 Weight 84.2 kg PHYSICAL EXAMINATION: GENERAL: This is an 82-year-old female in no acute distress examination HEENT: Head is atraumatic, normocephalic. Pupils equal, round. Sclera anicteric. Conjunctiva are clear. Mucous membranes of the mouth are moist. Neck is supple. There is no elevated jugular venous pressure. No carotid bruit is heard. HEART EXAMINATION: Heart S1, S2 normal. No murmur or gallop heard. CHEST EXAMINATION: Lungs are clear to auscultation and precussion. No chest wall tenderness is noted on palpation or with deep breathing. ABDOMEN: Soft, nontender. Bowel sounds are heard. No organomegaly noted. EXTREMITIES: Bilateral lower extremities reveal a bilateral cellulitis and mild edema, 1+ bilateral peripheral pulses. NEUROLOGIC patient is awake, alert and oriented 3 . . Results 05/14/18 07:11 05/14/18 07:11 Cardiac Enzymes 05/13/18 05/13/18 Range/Units 14:27 14:27 AST 37 H (14-36) U/L CK-MB (CK-2) 3.5 H (0.0-2.4) ng/mL Troponin I 0.056 H* (0.000-0.034) ng/mL Coagulation 05/13/18 Range/Units 14:27 PT 10.9 (9.0-12.0) sec APTT 26.9 (22.0-30.0) sec CBC 05/13/18 05/14/18 Range/Units 14:27 07:11 WBC 10.8 H 7.0 (3.8-10.6) k/uL RBC 4.45 3.85 (3.80-5.40) m/uL Hgb 11.9 10.6 L (11.4-16.0) gm/dL Hct 35.8 31.7 L (34.0-46.0) % Plt Count 413 339 (150-450) k/uL Comprehensive Metabolic Panel 05/13/18 05/14/18 Range/Units 14:27 07:11 Sodium 142 143 (137-145) mmol/L Potassium 3.9 3.4 L (3.5-5.1) mmol/L Chloride 105 112 H (98-107) mmol/L Carbon Dioxide 26 25 (22-30) mmol/L BUN 27 H 27 H (7-17) mg/dL Creatinine 2.14 H 2.26 H (0.52-1.04) mg/dL Glucose 222 H 130 H (74-99) mg/dL Calcium 9.4 8.0 L (8.4-10.2) mg/dL AST 37 H (14-36) U/L ALT 23 (9-52) U/L Alkaline Phosphatase 103 (38-126) U/L Total Protein 6.5 (6.3-8.2) g/dL Albumin 3.9 (3.5-5.0) g/dL Current Medications Generic Name Dose Route Start Last Admin Trade Name Freq PRN Reason Stop Dose Admin Acetaminophen 650 mg 05/13/18 18:54 05/13/18 21:15 Tylenol Tab PO 650 mg Q4HR PRN Administration Fever and/ or Mild Pain Aspirin 81 mg 05/14/18 09:00 Aspirin PO DAILY [facility] Atorvastatin Calcium 40 mg 05/13/18 21:00 05/13/18 21:14 Lipitor PO 40 mg HS [facility] Administration Calcium Carbonate 1 each 05/14/18 09:00 Oscal 500+D PO DAILY [facility] Carvedilol 12.5 mg 05/14/18 07:30 05/14/18 06:43 Coreg PO 12.5 mg AC-BID [facility] Administration Cholecalciferol 1,000 unit 05/14/18 09:00 Vitamin D3 PO DAILY [facility] Clobetasol Propionate 1 applic 05/13/18 22:00 05/13/18 21:16 Temovate TOPICAL 1 applic TID [facility] Administration Ferrous Sulfate 325 mg 05/14/18 09:00 Feosol PO DAILY [facility] Furosemide 40 mg 05/13/18 20:00 05/13/18 21:14 Lasix PO 40 mg 0900,1700 [facility] Administration Sodium Chloride 1,000 mls @ 60 mls/hr 05/13/18 17:25 05/13/18 18:36 Saline 0.9% IV 05/14/18 10:04 100 mls/hr .[id number] ONE Administration Ceftriaxone Sodium 1,000 mg/ 50 mls @ 100 mls/hr 05/14/18 18:00 Sodium Chloride IVPB Q24H [facility] Insulin Aspart 0 unit 05/13/18 21:00 05/14/18 06:42 Novolog SQ Not Given ACHS [facility] Protocol Lactic Acid 1 applic 05/13/18 21:00 05/13/18 21:14 Ammonium Lactate TOPICAL 1 applic BID [facility] Administration Intake and Output 05/13/18 05/14/18 05/14/18 22:59 06:59 14:59 Other: Voiding Method Toilet Toilet # Voids 1 Weight 84.2 kg 05/14/18 07:11 05/14/18 07:11 EKG Interpretations (text) EKG shows normal sinus rhythm with no acute changes. Assessment and Plan Plan: Assessment and plan #1 symptoms of progressive weakness, fever and chills at home. Low-grade temperature of 99.8. Influenza A and B- #2 abnormal troponin, patient denies any chest discomfort, EKG shows normal sinus rhythm with no acute changes. Echocardiogram performed earlier this month shows a normal left ventricular systolic function. #3 hypertension #4 diabetes #5 hyperlipidemia #6 bilateral lower extremity cellulitis #7 history of brain aneurysm with clipping procedure #8 hypothyroidism Plan We will obtain 2 subsequent troponins, perform a limited echo assessing LV function. Continue a baby aspirin along with Lipitor, Coreg, and by mouth Lasix. Further recommendations to follow. DNP note has been reviewed, I agree with a documented findings and plan of care. Patient was seen and examined.
[2018-05-14] MEDS: ASPIRIN 81 MG PO SCH (09:13)
[2018-05-14] MEDS: FUROSEMIDE 40 MG TAB PO SCH (09:13)
[2018-05-14] MEDS: FERROUS SULFATE 325 MG TAB PO SCH (09:14)
[2018-05-14] MEDS: CHOLECALCIFEROL 1,000 UNIT TAB PO SCH (09:14)
[2018-05-14] MEDS: CLOBETASOL PROP 0.05% CR 15GM TOPICAL SCH ×3 (09:14→19:47)
[2018-05-14] MEDS: AMMONIUM LACTATE 12% CREAM 140 GM TUBE TOPICAL SCH ×2 (09:14→19:47)
[2018-05-14] MEDS: CALCIUM CARB-VIT D 500MG-200UN 1 EACH TAB PO SCH (09:14)
[2018-05-14] MEDS: hydrALAZINE HCL 25 MG TAB PO PRN ×3 (10:29→22:43)
--- NOTE | 2018-05-14 11:06 | ECHOF ---
Referral Reason:limited, assess LVF MEASUREMENTS -------- HEIGHT: 165.1 cm WEIGHT: 83.9 kg BP: IVSd: 1.4 cm (0.6 - 1.1) LVIDd: 4.3 cm (3.9 - 5.3) LVPWd: 1.5 cm (0.6 - 1.1) IVSs: 1.8 cm LVIDs: 1.9 cm LVPWs: 2.3 cm FINDINGS -------- Sinus rhythm. Limited Study Overall left ventricular systolic function is normal with, an EF between 55 - 60 %. There is a trivial pericardial effusion present. CONCLUSIONS -------- 1. Sinus rhythm. 2. Limited Study 3. Overall left ventricular systolic function is normal with, an EF between 55 - 60 %. 4. There is a trivial pericardial effusion present. [employer] OPERATOR HELPER: Shannon Akins RDCS
[2018-05-14 11:35] LABS: Glucose,Whole Blood 152 mg/dL (75-99)
[2018-05-14] MEDS ORDERED: POTASSIUM CHLORIDE ER 20 MEQ TAB.ER PO STA (12:28)
--- NOTE | 2018-05-14 12:29 | P.NPCON ---
History of Present Illness - Reason for Consult acute renal failure, chronic renal failure - History of Present Illness Reason for consultation: Acute kidney injury on chronic kidney disease History of present illness: Patient is a 82-year-old female seen in renal consultation for acute kidney injury on chronic kidney disease. Patient has chronic kidney disease stage III with baseline creatinine in the range of 1.2-1.3 from March 2018 secondary to diabetic kidney disease. Recently her creatinine has been in the range of 2.2-2.3. Patient was recently admitted for lower extremity cellulitis and volume overload. At the time of discharge May 04 her creatinine was 2.28. Renal function has been stable since then. She presented to the hospital due to altered mental status and generalized weakness. She is maintained on antibiotics for cellulitis. Denies chest pain or shortness of breath. Admits to good urine output. No hematuria or dysuria. No edema. Oral intake is fair. No vomiting or diarrhea. Influenza screen was negative. Hemodynamically stable. Blood pressures are on the higher side. Denies use of NSAIDs. She does have history of diabetes mellitus. Vital signs are stable. General: The patient appeared well nourished and normally developed. HEENT: Head exam is unremarkable. Neck is without jugular venous distension. LUNGS: Lungs are clear to auscultation and percussion. Breath sounds decreased. HEART: Rate and Rhythm are regular. First and second heart sounds normal. No murmurs, rubs or gallops. ABDOMEN: Abdominal exam reveals normal bowel sounds. Non-tender and non- distended. No evidence of peritonitis. EXTREMITITES: No clubbing, cyanosis, or edema. 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 History of Any Multi-Drug Resistant Organisms: None Reported Past Surgical History: Appendectomy, Heart Catheterization, Joint Replacement, Orthopedic Surgery, Tonsillectomy Additional Past Surgical History / Comment(s): R renal artery bypassed with groin vein graft, brain aneurysms with clips x 2, cataract removal both eyes with lens implants, colonoscopies x 2 with first one having benign polypectomy and 2nd one normal. RT kidney had cancer on top of kidney, pt stated"they froze the cancer off" , lt shoulder arthroscopy for rotator cuff, dusty knee replacments, L foot fracture with surgery and L foot had a bone misplaced with surgery, R foot tumor removed around a toe. Past Anesthesia/Blood Transfusion Reactions: No Reported Reaction Additional Past Anesthesia/Blood Transfusion Reaction / Comment(s): Pt has received blood without reaction. Smoking Status: Former smoker - Past Family History Father Family Medical History: Myocardial Infarction ([place]) Additional Family Medical History / Comment(s): Father of a [place] at the age of 56yrs. Mother Family Medical History: Cancer Additional Family Medical History / Comment(s): Mother had breast cancer. She from another type of cancer that metastasized to her bones. Medications and Allergies Home Medications Medication Instructions Recorded Confirmed Type Atorvastatin [Lipitor] 40 mg PO HS 12/31/14 05/13/18 History Levothyroxine Sodium [Synthroid] 50 mcg PO DAILY 12/31/14 05/13/18 History Pantoprazole Sodium 40 mg PO DAILY 12/31/14 05/13/18 History Multivit-Min/FA/Lycopen/Lutein 1 tab PO DAILY 03/24/15 05/13/18 History [Centrum Silver Tablet] Insulin Aspart [NovoLOG Flexpen] 10 units SQ AC-TID 01/02/18 05/13/18 History Insulin Aspart [NovoLOG Flexpen] See Protocol SQ AC-TID 01/02/18 05/13/18 History Insulin Glargine,Hum.rec.anlog 40 units SQ HS 01/02/18 05/13/18 History [Lantus Solostar] Isosorbide Mononitrate ER [Imdur] 60 mg PO DAILY 01/02/18 05/13/18 History Nitroglycerin Sl Tabs [Nitrostat] 0.4 mg SL Q5M PRN 01/02/18 05/13/18 History Acetaminophen Tab [Tylenol] 650 mg PO Q4HR PRN tab 01/04/18 05/13/18 Rx Ammonium Lactate Cream [Lac-Hydrin 1 applic TOPICAL BID 04/30/18 05/13/18 History 12% Cream] Aspirin EC [Ecotrin Low Dose] 81 mg PO DAILY 04/30/18 05/13/18 History Calcium Carbonate/Vitamin D3 1 tab PO DAILY 04/30/18 05/13/18 History [Calcium 500-Vit D3 200 Tablet] Cholecalciferol [Vitamin D3] 1,000 unit PO DAILY 04/30/18 05/13/18 History Clobetasol Propionate [Temovate 1 applic TOPICAL TID 04/30/18 05/13/18 History 0.05% Cream] Ferrous Sulfate [Iron (65 MG 325 mg PO DAILY 04/30/18 05/13/18 History Elemental)] Linagliptin [Tradjenta] 5 mg PO DAILY 04/30/18 05/13/18 History Meclizine [Antivert] 12.5 mg PO TID PRN 04/30/18 05/13/18 History [place]-3 Fatty Acids/Fish Oil [Fish 1 cap PO TID 04/30/18 05/13/18 History Oil 1,000 mg Softgel] Triamcinolone 0.1% Cream [Kenalog 1 applicatio TOPICAL DAILY 04/30/18 05/13/18 History 0.1% Cream] Carvedilol [Coreg] 6.25 mg PO BID #60 tablet 05/05/18 05/13/18 Rx Furosemide [Lasix] 40 mg PO BID #0 05/05/18 05/13/18 Rx SILVER sulfADIAZINE CREAM 1 applic TOPICAL DAILY #60 applic 05/05/18 05/13/18 Rx [Silvadene Cream] hydrALAZINE HCL [Apresoline] 50 mg PO BID #60 tab 05/05/18 05/13/18 Rx hydrOXYzine HCL [Atarax] 25 mg PO QID PRN #30 tab 05/05/18 05/13/18 Rx Sennosides-Docusate Sodium 2 tab PO BID 05/13/18 05/13/18 History [Senokot-S] Allergies Allergy/AdvReac Type Severity Reaction Status Date / Time JOCELYNN Inhibitors Allergy Unknown Verified 05/13/18 14:47 piperacillin [From Zosyn] Allergy Rash/Hives Verified 05/13/18 18:35 tazobactam [From Zosyn] Allergy Rash/Hives Verified 05/13/18 18:35 aspartame AdvReac Nausea & Verified 05/13/18 14:47 Vomiting Physical Exam Vitals: Vital Signs Temp Pulse Pulse Resp BP BP Pulse Ox 05/14/18 08:00 98.5 F 63 17 176/73 05/14/18 04:57 166/66 05/14/18 03:39 98.4 F 71 16 178/75 94 L 05/14/18 00:26 68 16 163/71 93 L 05/13/18 21:15 98.1 F 72 15 172/61 96 05/13/18 18:52 98.8 F 75 16 182/94 98 05/13/18 18:00 74 25 H 137/52 94 L 05/13/18 17:30 73 19 144/50 05/13/18 16:13 99.3 F 05/13/18 16:00 75 16 159/66 96 05/13/18 15:30 69 15 117/80 95 05/13/18 15:00 74 22 162/89 98 05/13/18 14:37 99.7 F H 05/13/18 14:30 77 18 172/63 97 05/13/18 14:06 98.9 F 81 18 172/63 96 Intake and Output 05/13/18 05/14/18 05/14/18 22:59 06:59 14:59 Intake Total 120 Balance 120 Intake: Oral 120 Other: Voiding Method Toilet Toilet Toilet # Voids 1 1 Weight 84.2 kg Results - Lab Results Most recent lab results Calcium 8.0 mg/dL (8.4-10.2) L 05/14/18 07:11 05/14/18 07:11 05/14/18 07:11 Assessment and Plan Plan: Assessment: 1. Acute kidney injury versus progression of underlying chronic kidney disease. Renal function is stable with creatinine staying in the range of 2.2- 2.3 since last admission. Ultrasound from last admission revealed no evidence of hydronephrosis. 2. Chronic kidney disease stage III with baseline creatinine in the range of 1.2-1.3 secondary to diabetic kidney disease. It appears her renal function has progressed with creatinine now staying near 2.2-2.4. 3. Lower extremity cellulitis maintained on antibiotics. 4. History of diastolic CHF. Currently compensated. 5. Insulin-dependent diabetes mellitus. 6. Hypokalemia secondary to diuresis. Plan: Hold Lasix. Maintain normal saline at 60 mL an hour. Replace potassium. 40 mg once today. Check magnesium level. Avoid nephrotoxins. Repeat electrolytes in the morning. Follow-up cultures. Thank you for the consultation. I will continue to follow the patient with you during her hospital stay.
[2018-05-14] MEDS: SODIUM CHLORIDE 0.9% 1,000 ML IV SCH ×2 (13:46→19:47)
[2018-05-14 14:03] LABS: Hemoglobin A1C 7.6 % (4.0-6.0)
--- NOTE | 2018-05-14 15:29 | HP ---
HISTORY AND PHYSICAL Her weight is 84.2 kg, height 5 feet 5 inches and, BSA 1.92 m2, BMI 30.9 kg/m2. The allergy JOCELYNN INHIBITOR and JOCELYNN RECEPTOR INHIBITOR as well as PIPERACILLIN TAZOBACTAM and ASPARTAME. CURRENT HISTORY AND CHIEF COMPLAINT: The patient presented to the emergency room to Dr. Anthony and subsequently to Dr. Alvarez, and Dr. Anthony stated that 82 years old, white female presented complaining of feeling tired and per the visiting nurse, she had altered mental status. She saw her room and she sent her to the emergency room and she was complaining of neck pain for the last couple weeks, and they felt that she had oriented only x2 with poor historian in the emergency room and they called me for admission as patient thought to be with the final diagnosis on admission that she had underlying change of mental status, "With the diagnosis on admission by the emergency room, elevated troponin, altered mental status and urinary tract infection" and the patient requested to be admitted to the hospital by the ER physicians, and patient subsequently admitted to the hospital. HISTORY OF PRESENT ILLNESS: Today at the time of seeing the patient, she is on the floor. Patient had already during the presentation in the ER and had laboratory as well which found to be her CK was elevated 405. Her CK-MB is 3.5 and her troponin I is 0.056 and admitted to telemetry floor and Cardiology consultation. Patient also at the time of presentation in the ER found that her creatinine 2.14 and BUN of 27, and the estimated glomerular filtration rate for non- 21 which is indicator that she had a stage IV and prior to that in her last admission she had acute kidney injury. Seen by Dr. Limon and Dr. Perry and will be consulting Dr. Limon or Dr. Perry, Nephrology for further followup and evaluation on the stage IV, as well as the not improvement to the baseline of her kidney which was about 1.4. Through the admission also found that her white count was 10.8 with a normal 10.6, and the PT and INR was normal. She is not on any anticoagulation. Patient also had urinalysis and the urinalysis was indicator of small leukocyte esterase and small blood and with the possibility of UTI with the culture was ordered and that result pending. Patient on her last admission, she had history of cellulitis of the lower extremities and collection of hematoma and the hematoma is still present, but the lower extremities cellulitis has been completely resolved. 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 No acute intracranial abnormalities seen and read by , the radiologist. On the current discussion with the patient, she stated she was tired, unable to do her ADLs at home and she lives alone. Her older grown-up children have been away and she lives in a condo alone and not much of help she can get and meanwhile at the time of the examination, she is conscious, alert, oriented x3. No evidence of encephalopathy at that time. However, she had a UTI and she started on antibiotic, probably maybe that cleared her confusion. Past medical history, in her previous admission which was recently, she had history of bilateral cellulitis of the lower extremities and seen by Dr. Manoj Herrera who changed the antibiotic at that time to cefazolin IV followed by Keflex orally as outpatient and her cellulitis has been resolved at this time. The only collection of 1 area on the both legs which is collection could be hematoma. She had a past history of CT scan of the abdomen with the underlying mass in the right kidney. However, this mass has been operated on it in [facility] with the cryotherapy and for renal cell carcinoma and I did discuss three days ago with the daughter of the patient that this needs to go back to her urologist and the surgeons in [place] and the radiologist who did the cryo therapy to be discussed and for further evaluation and if it is already a tissue or still growing and that is followup needed. She had a renal artery stenosis bilaterally as well and she had history in 1970 with the exploratory laparotomy with the correction of the renal artery of the right side at that time. Underlying hypertension and hypertensive heart disease, febrile. Hypertension nephrosclerosis with the underlying renal artery stenosis and renal hypertension. Last admission to the hospital, she had acute kidney injury and at that time seen by the news writer, Dr. Perry/Dr. Limon and at that time was attributed to acute tubular necrosis and hypotension. Diabetes mellitus type 2 and that is labile and she is currently on insulin therapy and has been fairly well controlled at this time. 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 However, this time she has a complaint of the neck pain and will be proceed for x-ray of the neck, which was not done in the ER. On the underlying allergy and she has allergy to JOCELYNN INHIBITOR as well as JOCELYNN RECEPTOR INHIBITOR and as mentioned she has also allergy to ZOSYN, PIPERACILLIN TAZOBACTAM. and caused her skin rash and itchy. However, she did not have any other adverse effect of Keflex the first generation cephalosporin. On this admission, she did have and Echocardiogram which was indicating that read by and found that she had a ventricular systolic function 55%-60%and sinus rhythm. She has as well the PA of Cardiology, Regla newton see the patient and she stated in her impressio that she had symptoms of progressive weakness and fever and chills at home, low-grade of temperature which I doubted. She has also hypertension, diabetes, hyperlipidemia, bilateral lower extremities cellulitis, which is resolved and she had history of brain aneurysm clipping procedure in the past and hypothyroidism. She so far and she had abnormal troponin and no further recommendation as she was not seen yet by the nat instructor. On the Nephrology consultation, that has been obtained and that was done by Dr. Limon, and who stated here that the patient had acute kidney injury versus progression of underlying chronic kidney disease. Her renal function is stable at 2.2 to 2.3 and no evidence of hydronephrosis. Her previously was in chronic kidney disease stage III and ranged between 1.2-1.3, and she has secondary diabetes, kidney disease and the current renal function progress or renal dysfunction progressed to 2.2-2.4. She had the cellulitis of the lower extremities has been resolved and she had history of diastolic congestive heart failure and she has insulin-dependent diabetes mellitus and hypokalemia with diuresis and Dr. Lmion did hold the Lasix and maintain her IV fluids to 60 mL/h and replace the potassium with 40 mg once a day and check magnesium tomorrow. Avoid nephrotoxic and repeat electrolyte and follow up with the culture. Medication at home she was on: 1. Atorvastatin 40 mg at bedtime. 2. Levothyroxine 50 mcg daily. 3. Pantoprazole 40 mg daily. 4. Multivitamin 1 tablet daily. 5. Insulin NovoLog 10 unit a.c. t.i.d. and added to the scale with the insulin as part which is NovoLog FlexPen. 6. Now the she has as well Lantus SoloSTAR and 40 units at bedtime. 7. She is on isosorbide mononitrate 60 mg daily. 8. Nitroglycerin Nitrostat sublingual 0.4 mg p.r.n. every 5 minutes if there is a chest pain. Patient did not have any chest pain currently, but the troponin was elevated. 9. Ammonium lactate and Lac-Hydrin 12% cream on the lower extremities bilaterally as well as upper extremities once a day. 10.Aspirin 81 mg daily. 11.Vitamin D3 one thousand units daily. 12.Clobetasol Temovate 0.05% cream on the affected area. 13.She is on ferrous sulfate 325 mg daily. 14.Linagliptin 5 mg daily. 15.Tradjenta. 16.She is also on fish oil 1000 mg 3 times a day. 17.Stool softener docusate sodium, Senokot S and that 2 tablets twice a day for bowel movement. 18.Previously, she was using the Silver Silvadene cream topical on the lower extremities bilateral and which has been currently not used. REVIEW OF SYSTEMS: 1. NEURO/PSYCHIATRY. She is feeling fine at this time, but she is forgetful as well as difficulty of doing her ADLs. 2. CARDIOVASCULAR: No chest pain, but troponin was elevated. 3. PULMONARY: She has no cough or expectoration and no upper respiratory tract infection. 4. GI: No diarrhea or constipation or abdominal pain and she used to have abdominal pain, but not at present time. 5. MUSCULOSKELETAL: The difficulties of ambulation and with the complaining of weakness. 6. GENITOURINARY: She had some incontinent, but otherwise no complaint, found to have urinary tract infection. 7. SKIN: No apparent rash and warm and dry. 8. BONE: She is having complain of the bony pain in the neck, neck pain, and will be obtaining x-ray of the neck. SURGICAL HISTORY: She had a renal artery bypass with the groin vein graft, brain aneurysm with the clips x2, cataract removal and lens implant, and she had colonoscopy x2 in the past and the first one with polypectomy and the second was normal. She had a right kidney cancer on the top of her kidney and stated that frozen with cryotherapy. She had arthroscopy and rotator cuff and bilateral knee replacement and left foot fracture associated with surgery. She has foot bone misplaced with surgery and right foot tumor removed around the toes. No anesthesia reaction. She is a former smoker, which quit many years ago and she has chronic kidney disease, currently stage IV. She has diabetes mellitus, insulin-dependent type 2. She had a neuropathy bilateral of the legs and she had history of gout in the feet and she had severe headache, occasionally intermittent. Hypothyroidism as well. No alcohol and no drug illicit. Family history is myocardial infarction and history of her father of myocardial infarction at age of 56 and mother has cancer as well in the past and also her mother had breast cancer and from another type of cancer that metastasized to the bone. The review of the 14 point is reviewed with non association with the current problem. PHYSICAL EXAMINATION: Patient is conscious, alert, oriented x3. No acute respiratory distress and her vital signs indicating on the floor 98.4, and she had a blood pressure 176/73, 166/66, however, was started her on hydralazine, her blood pressure currently is acceptable 148/70 with a mean blood pressure of 96, oxygen 96% on room air. Temperature 98.4 orally, her heart rate 69, and respiratory rate 16. HEENT: The head was normocephalic, atraumatic. The pupil was equal, reactive. Conjunctivae was pink. Sclerae was nonicteric. Extraocular muscle movement was intact. NECK: Supple. No JVD. No thyromegaly. No lymphadenopathy. Trachea midline. The chest was clear to auscultation and percussion. No wheezes, no rhonchi. The heart, normal sinus rhythm and no evidence of dysrhythmia. ABDOMEN: Obese, positive bowel sounds with a scar from previous surgery and no tenderness in the 4 quadrants. EXTREMITIES: No edema and positive pulses bilateral and symmetrical. She is able to move her extremities. No cranial deficit. She had neck tenderness for the last 2 weeks and probable degenerative arthritis and will be obtaining the x-ray. Patient on admission, her lactic acid was 1.4. Her blood sugar was stable 129, 152, and the first one 178. Neurological examination was grossly intact and no lateralizing sign and no tremor or shakiness. ASSESSMENT: 1. Urinary tract infection, probably may be the cause for her altered mental status. 2. Altered mental status. 3. Underlying progression of acute kidney disease to stage IV chronic kidney disease. 4. Abnormal troponin and that will be monitored by the Cardiology. 5. Diabetes mellitus type 2, insulin-dependent and monitored. 6. Anemia. 7. Hypertension with the hypertensive heart disease and hypertensive nephrosclerosis as well as renal artery stenosis. LABORATORY: Indicating white count 3.85 and hemoglobin 10.6 and hematocrit 31.7 and her platelet count is 339. Chemistry is sodium 143, potassium 3.4, which is supplemented with potassium and her creatinine 2.26 and BUN is 27 and estimated glomerular filtration rate for non- 23 which is up stage II to stage IV at this time. Her blood sugar is fairly well controlled and ammonia level was 10 and the lactic acid 1.4. Her calcium is on the lower side at 8. PLAN: Patient lives alone and all other family and children is out of town and will plan for placement in the intermediate with the rehabilitation as well as we will be consulting the Cardiology with the abnormal troponin as well as consulting the Nephrology for his advice. Patient will be planning for consulting as well which I did consult the discharge planning for intermediate placement as well as PT and OT. TELMA / [place]: [phone] /
[2018-05-14 16:37] LABS: Glucose,Whole Blood 166 mg/dL (75-99)
[2018-05-14] MEDS: ACETAMINOPHEN TAB 325 MG TAB PO PRN (17:56)
[2018-05-14] MEDS: ATORVASTATIN 40 MG TAB PO SCH (19:47)
[2018-05-14 20:37] LABS: Glucose,Whole Blood 155 mg/dL (75-99)
--- NOTE | 2018-05-14 22:18 | XR ---
PROCEDURE: XR cervical spine comp - 5V DATE AND TIME: 05/14/2018 7:20 PM CLINICAL INDICATION: PHH; pain TECHNIQUE: Department protocol COMPARISON: None FINDINGS: There is no fracture or malalignment. There is no focal skeletal lesion. There are markedly advanced cervical spondylosis changes from C3-4 through the cervicothoracic junction. The soft tissues are unremarkable. IMPRESSION: NO ACUTE PROCESS. ADVANCED CERVICAL SPONDYLOSIS.
[2018-05-15 06:19] LABS: Glucose,Whole Blood 139 mg/dL (75-99)
[2018-05-15] MEDS: hydrALAZINE HCL 25 MG TAB PO PRN (06:20)
[2018-05-15] MEDS: CARVEDILOL 12.5 MG TAB PO SCH ×2 (06:20→16:53)
[2018-05-15] MEDS: INSULIN ASPART 100 UNIT/ML 1 ML 10 ML VIAL SQ SCH ×4 (06:21→23:59)
[2018-05-15] MEDS ORDERED: hydrALAZINE HCL 50 MG TAB PO PRN (06:35)
[2018-05-15 07:41] LABS: Calcium 8.3 mg/dL (8.4-10.2); Magnesium 1.4 mg/dL (1.6-2.3)
[2018-05-15] MEDS: FERROUS SULFATE 325 MG TAB PO SCH (07:42)
[2018-05-15] MEDS: CALCIUM CARB-VIT D 500MG-200UN 1 EACH TAB PO SCH (07:42)
[2018-05-15] MEDS: CHOLECALCIFEROL 1,000 UNIT TAB PO SCH (07:42)
[2018-05-15] MEDS: ASPIRIN 81 MG PO SCH (07:43)
[2018-05-15] MEDS: AMMONIUM LACTATE 12% CREAM 140 GM TUBE TOPICAL SCH ×2 (07:43→23:59)
[2018-05-15] MEDS: CLOBETASOL PROP 0.05% CR 15GM TOPICAL SCH ×2 (07:43→15:25)
[2018-05-15] MEDS: hydrALAZINE HCL 20 MG/ML 1 ML VIAL IVP PRN (08:48)
--- NOTE | 2018-05-15 08:52 | P.PN ---
Subjective Patient is seen in follow-up for acute kidney injury on chronic kidney disease. Patient has chronic kidney disease stage III with baseline creatinine in the range of 1.2-1.3 from March 2018 secondary to diabetic kidney disease. Renal function is better today. She is maintained on IV fluids. Oral intake is fair. Admits to good urine output. No vomiting. Does have loose bowel movements. Vital signs are stable. General: The patient appeared well nourished and normally developed. HEENT: Head exam is unremarkable. Neck is without jugular venous distension. LUNGS: Lungs are clear to auscultation and percussion. Breath sounds decreased. HEART: Rate and Rhythm are regular. First and second heart sounds normal. No murmurs, rubs or gallops. ABDOMEN: Abdominal exam reveals normal bowel sounds. Non-tender and non- distended. No evidence of peritonitis. EXTREMITITES: No clubbing, cyanosis, or edema. Objective - Vital Signs Vital signs: Vital Signs Temp 97.8 F 05/15/18 07:51 Pulse 67 05/15/18 07:51 Resp 18 05/15/18 07:51 BP 206/83 05/15/18 07:51 Pulse Ox 95 05/15/18 07:51 Intake & Output 05/14/18 05/15/18 05/15/18 18:59 06:59 18:59 Intake Total 480 Balance 480 Weight 84.7 kg Intake: Oral 480 Other: Voiding Method Toilet Toilet Toilet # Voids 1 4 - Labs CBC & Chem 7: 05/14/18 07:11 05/15/18 06:30 Labs: Abnormal Lab Results - Last 24 Hours (Table) 05/14/18 05/14/18 05/14/18 Range/Units 07:11 11:34 16:36 Chloride (98-107) mmol/L BUN (7-17) mg/dL Creatinine (0.52-1.04) mg/dL Glucose (74-99) mg/dL POC Glucose (mg/dL) 152 H 166 H (75-99) mg/dL Hemoglobin A1c 7.6 H (4.0-6.0) % Calcium (8.4-10.2) mg/dL Magnesium (1.6-2.3) mg/dL 05/14/18 05/15/18 05/15/18 Range/Units 20:36 06:17 06:30 Chloride 114 H (98-107) mmol/L BUN 23 H (7-17) mg/dL Creatinine 1.78 H (0.52-1.04) mg/dL Glucose 139 H (74-99) mg/dL POC Glucose (mg/dL) 155 H 139 H (75-99) mg/dL Hemoglobin A1c (4.0-6.0) % Calcium 8.3 L (8.4-10.2) mg/dL Magnesium 1.4 L (1.6-2.3) mg/dL Microbiology - Last 24 Hours (Table) 05/13/18 15:11 Urine Culture - Final Urine,Catheterized 05/13/18 17:00 Urine Culture - Final Urine,Catheterized 05/13/18 14:27 Blood Culture - Preliminary Blood No Growth after 24 hours Assessment and Plan Plan: Assessment: 1. Acute kidney injury mostly prerenal secondary to diuresis. Patent 2.26 on admission and is 1.78 today. Ultrasound from last admission revealed no evidence of hydronephrosis. 2. Chronic kidney disease stage III with baseline creatinine in the range of 1.2-1.3 secondary to diabetic kidney disease. 3. Lower extremity cellulitis maintained on antibiotics. 4. History of diastolic CHF. Currently compensated. 5. Insulin-dependent diabetes mellitus. 6. Hypokalemia secondary to diuresis. Improved status post replacement. Plan: Hold Lasix. Maintain normal saline at 60 mL an hour. Replace magnesium. 3 g IV today. Avoid nephrotoxins. Repeat electrolytes in the morning.
[2018-05-15] MEDS ORDERED: hydrALAZINE HCL 50 MG TAB PO SCH (09:00)
[2018-05-15] MEDS: MAGNESIUM SULFATE-D5W PMX 1 GM in DEXTROSE/WATER 1 100ML.BAG IVPB SCH ×3 (10:03→12:15)
[2018-05-15 11:28] LABS: Glucose,Whole Blood 187 mg/dL (75-99)
--- NOTE | 2018-05-15 14:26 | P.PN ---
Subjective Progress Note Date: 05/15/18 Principal diagnosis: Abnormal cardiac enzymes This is a pleasant 83-year-old female patient who was admitted to the hospital with change in mental status, weakness, fever and chills, and was diagnosed with UTI. We get involved in her care because of mildly abnormal cardiac enzymes but the patient did not have any symptoms of chest pain or chest discomfort and the EKG did not show any ischemic changes. An echocardiogram was ordered and will follow-up with that. I'll follow-up with her today, May 152018, she remains asymptomatic from a cardiovascular standpoint overview. The blood pressure continues to be severely elevated. I am going to increase the dose of hydralazine as well as restart the patient on her oral nitrate with Imdur. I recommended keeping the patient one more day for better blood pressure control. Objective - Vital Signs Vital signs: Vital Signs Temp 97.8 F 05/15/18 12:33 Pulse 68 05/15/18 12:33 Resp 18 05/15/18 12:33 BP 208/88 05/15/18 12:33 Pulse Ox 97 05/15/18 12:33 Intake & Output 05/14/18 05/15/18 05/15/18 18:59 06:59 18:59 Intake Total 480 240 Balance 480 240 Weight 84.7 kg Intake: Oral 480 240 Other: Voiding Method Toilet Toilet Toilet # Voids 1 4 - Constitutional General appearance: Present: no acute distress - Cardiovascular Rhythm: regular Heart sounds: normal: S1, S2 - Labs CBC & Chem 7: 05/14/18 07:11 05/15/18 06:30 Labs: Abnormal Lab Results - Last 24 Hours (Table) 05/14/18 05/14/18 05/15/18 Range/Units 16:36 20:36 06:17 Chloride (98-107) mmol/L BUN (7-17) mg/dL Creatinine (0.52-1.04) mg/dL Glucose (74-99) mg/dL POC Glucose (mg/dL) 166 H 155 H 139 H (75-99) mg/dL Calcium (8.4-10.2) mg/dL Magnesium (1.6-2.3) mg/dL 05/15/18 05/15/18 Range/Units 06:30 11:12 Chloride 114 H (98-107) mmol/L BUN 23 H (7-17) mg/dL Creatinine 1.78 H (0.52-1.04) mg/dL Glucose 139 H (74-99) mg/dL POC Glucose (mg/dL) 187 H (75-99) mg/dL Calcium 8.3 L (8.4-10.2) mg/dL Magnesium 1.4 L (1.6-2.3) mg/dL Microbiology - Last 24 Hours (Table) 05/13/18 15:11 Urine Culture - Final Urine,Catheterized 05/13/18 17:00 Urine Culture - Final Urine,Catheterized 05/13/18 14:27 Blood Culture - Preliminary Blood No Growth after 24 hours Assessment and Plan Assessment: Assessment #1 change in mental status which has improved #2 urinary tract infection #3 abnormal cardiac enzymes #4 uncontrolled hypertension Plan #1 increase the dose of hydralazine #2 restart the patient on oral nitrate with the home dose #3 follow-up with the patient
[2018-05-15] MEDS: hydrALAZINE HCL 50 MG TAB PO SCH ×2 (15:25→20:09)
[2018-05-15] MEDS: ISOSORBIDE MONONITRATE ER 60 MG TAB.ER.24H PO SCH (15:25)
[2018-05-15 16:25] LABS: Glucose,Whole Blood 148 mg/dL (75-99)
--- NOTE | 2018-05-15 18:18 | P.PN ---
Subjective Progress Note Date: 05/15/18 Principal diagnosis: #1 metabolic encephalopathy with altered mental status. #2 history of underlying acute kidney injury currently chronic kidney disease stage IV with a baseline has been progressed to 2.0 #3 right renal mass was treated in [place] with cryotherapy however the mass is resistant, Dr. Brown was consulted. #4 renal artery stenosis bilaterally associated with hypertensive nephrosclerosis, previous repair of the renal artery on the right side at [facility] was in 1970 was experimental. #5 diabetes mellitus type 2 insulin-dependent. #6 history of recent cellulitis of the lower extremities bilateral was seen by Dr. Manoj Herrera and result. She was on Keflex wasn't ALLERGIC to it.. #7 history of brain aneurysm was clipped in today for the hospital in the past. #8 generalized weakness, living alone, need for further care home for continued rehabilitation for deconditioning. #9 on admission urine appears to be infection however the culture was negative. #10 hypertension with hypertensive heart disease. #11 electrolyte imbalance and hypomagnesemia. Supplemented by Dr. Hoang, hypokalemia also supplemented. review the progress start date of service 05/15/2018. Patient seen and evaluated, she had loss of appetite and she is not eating much. The examination : Patient did not have any symptoms chest pain but she had some stomach upset preventing her from eating. The head was normocephalic and atraumatic pupil was equal reactive conjunctiva was pink sclera was nonicteric. Neck was supple no JVD no thyromegaly no lymphadenopathy trachea midline. Chest clear to auscultation percussion. Heart was regular sinus rhythm. Abdomen was soft positive bowel sounds no organ enlargement she feel stomach soreness. Extremities: The edema has been resolved completely and no erythema and no cellulitis. The urine culture was negative and will discontinue the Rocephin. The assessment: Diabetic gastroparesis considered with loss of appetite and will start her on Reglan. Patient seen by Dr. Hoang nephrology and supplemented her magnesium continued the IV from fluid and her creatinine has been improving. [facility]ookie Duffy he had a follow-up prior to the transfer. And the we'll discontinue the Rocephin. Continue the IV for now. And will start Reglan before each meal at least 20 minutes. Hypertension uncontrolled and several attempts has been added by cardiology as well as nephrology and myself and she started having the medication hopefully her blood pressure by tomorrow is improved. Objective - Vital Signs Vital signs: Vital Signs Temp 98.1 F 05/15/18 16:00 Pulse 68 05/15/18 16:00 Resp 18 05/15/18 16:00 BP 198/81 05/15/18 16:00 Pulse Ox 94 L 05/15/18 16:00 Intake & Output 05/14/18 05/15/18 05/15/18 18:59 06:59 18:59 Intake Total 480 240 Balance 480 240 Weight 84.7 kg Intake: Oral 480 240 Other: Voiding Method Toilet Toilet Toilet # Voids 1 4 6 - Labs CBC & Chem 7: 05/14/18 07:11 05/15/18 06:30 Labs: Abnormal Lab Results - Last 24 Hours (Table) 05/14/18 05/15/18 05/15/18 Range/Units 20:36 06:17 06:30 Chloride 114 H (98-107) mmol/L BUN 23 H (7-17) mg/dL Creatinine 1.78 H (0.52-1.04) mg/dL Glucose 139 H (74-99) mg/dL POC Glucose (mg/dL) 155 H 139 H (75-99) mg/dL Calcium 8.3 L (8.4-10.2) mg/dL Magnesium 1.4 L (1.6-2.3) mg/dL 05/15/18 05/15/18 Range/Units 11:12 16:14 Chloride (98-107) mmol/L BUN (7-17) mg/dL Creatinine (0.52-1.04) mg/dL Glucose (74-99) mg/dL POC Glucose (mg/dL) 187 H 148 H (75-99) mg/dL Calcium (8.4-10.2) mg/dL Magnesium (1.6-2.3) mg/dL Microbiology - Last 24 Hours (Table) 05/13/18 14:27 Blood Culture - Preliminary Blood No Growth after 48 hours 05/13/18 15:11 Urine Culture - Final Urine,Catheterized 05/13/18 17:00 Urine Culture - Final Urine,Catheterized
[2018-05-15] MEDS: ACETAMINOPHEN TAB 325 MG TAB PO PRN (20:09)
[2018-05-15] MEDS: ATORVASTATIN 40 MG TAB PO SCH (20:09)
[2018-05-15] MEDS: PANTOPRAZOLE 40 MG TABLET PO SCH (20:09)
[2018-05-15] MEDS: METOCLOPRAMIDE 5 MG TAB PO SCH (20:09)
[2018-05-15 21:31] LABS: Glucose,Whole Blood 146 mg/dL (75-99)
[2018-05-15] MEDS: SODIUM CHLORIDE 0.9% 1,000 ML IV SCH (23:59)
[2018-05-16] MEDS: hydrALAZINE HCL 20 MG/ML 1 ML VIAL IVP PRN ×3 (00:05→23:07)
[2018-05-16 06:13] LABS: Glucose,Whole Blood 164 mg/dL (75-99)
[2018-05-16] MEDS: CARVEDILOL 12.5 MG TAB PO SCH ×2 (06:26→21:36)
[2018-05-16] MEDS: PANTOPRAZOLE 40 MG TABLET PO SCH ×2 (06:26→21:36)
[2018-05-16] MEDS: INSULIN ASPART 100 UNIT/ML 1 ML 10 ML VIAL SQ SCH ×4 (06:26→23:04)
[2018-05-16] MEDS: METOCLOPRAMIDE 5 MG TAB PO SCH ×4 (06:26→21:40)
[2018-05-16] MEDS: ACETAMINOPHEN TAB 325 MG TAB PO PRN (06:27)
[2018-05-16 07:13] LABS: Basophils % (A) 1 %; Eosinophils # (A) 0.5 k/uL (0-0.7); Eosinophils % (A) 6 %; HCT 30.5 % (34.0-46.0); Lymphocytes # (A) 0.9 k/uL (1.0-4.8); Lymphocytes % (A) 11 %; MCH 27.6 pg (25.0-35.0); MCHC 32.8 g/dL (31.0-37.0); Mean Platelet Volume 6.3; Monocytes # (A) 0.5 k/uL (0-1.0); Monocytes % (A) 6 %; Neutrophils # (A) 5.9 k/uL (1.3-7.7); Neutrophils % (A) 75 %; Platelet Count 367 k/uL (150-450); RBC 3.62 m/uL (3.80-5.40); RDW 14.7 % (11.5-15.5); WBC 7.9 k/uL (3.8-10.6)
[2018-05-16 07:46] LABS: Calcium 8.6 mg/dL (8.4-10.2); Magnesium 2.2 mg/dL (1.6-2.3)
[2018-05-16] MEDS: CHOLECALCIFEROL 1,000 UNIT TAB PO SCH (07:46)
[2018-05-16] MEDS: CALCIUM CARB-VIT D 500MG-200UN 1 EACH TAB PO SCH (07:46)
[2018-05-16] MEDS: hydrALAZINE HCL 50 MG TAB PO SCH ×3 (07:46→21:39)
[2018-05-16] MEDS: ASPIRIN 81 MG PO SCH (07:46)
[2018-05-16] MEDS: ISOSORBIDE MONONITRATE ER 60 MG TAB.ER.24H PO SCH (07:47)
[2018-05-16] MEDS: AMMONIUM LACTATE 12% CREAM 140 GM TUBE TOPICAL SCH ×2 (07:47→21:40)
[2018-05-16] MEDS: CLOBETASOL PROP 0.05% CR 15GM TOPICAL SCH ×4 (07:47→23:04)
[2018-05-16] MEDS: FERROUS SULFATE 325 MG TAB PO SCH (07:47)
[2018-05-16 10:49] LABS: Glucose,Whole Blood 184 mg/dL (75-99)
--- NOTE | 2018-05-16 11:53 | P.PN ---
Subjective Progress Note Date: 05/16/18 Principal diagnosis: Abnormal cardiac enzymes This is a pleasant 83-year-old female patient who was admitted to the hospital with change in mental status, weakness, fever and chills, and was diagnosed with UTI. We get involved in her care because of mildly abnormal cardiac enzymes but the patient did not have any symptoms of chest pain or chest discomfort and the EKG did not show any ischemic changes. Limited echo showed normal LV function. I'll follow-up with her today, May 152018, she remains asymptomatic from a cardiovascular standpoint overview. The blood pressure continues to be severely elevated. I will continue the current medical regimen, start the patient on Norvasc at 5 mg by mouth daily, and also hydrochlorothiazide 25 mg by mouth daily. Objective - Vital Signs Vital signs: Vital Signs Temp 97.7 F 05/16/18 07:57 Pulse 70 05/16/18 07:57 Resp 18 05/16/18 07:57 BP 181/72 05/16/18 07:57 Pulse Ox 93 L 05/16/18 07:57 Intake & Output 05/15/18 05/16/18 05/16/18 18:59 06:59 18:59 Intake Total 480 240 Balance 480 240 Weight 85.5 kg Intake: Oral 480 240 Other: Voiding Method Toilet Toilet # Voids 6 1 - Constitutional General appearance: Present: no acute distress - Respiratory Respiratory: bilateral: diminished - Cardiovascular Heart sounds: normal: S1, S2 - Labs CBC & Chem 7: 05/16/18 06:02 05/16/18 06:02 Labs: Abnormal Lab Results - Last 24 Hours (Table) 05/15/18 05/15/18 05/15/18 Range/Units 11:12 16:14 21:30 RBC (3.80-5.40) m/uL Hgb (11.4-16.0) gm/dL Hct (34.0-46.0) % Lymphocytes # (1.0-4.8) k/uL Chloride (98-107) mmol/L Creatinine (0.52-1.04) mg/dL Glucose (74-99) mg/dL POC Glucose (mg/dL) 187 H 148 H 146 H (75-99) mg/dL 05/16/18 05/16/18 05/16/18 Range/Units 06:02 06:02 06:12 RBC 3.62 L (3.80-5.40) m/uL Hgb 10.0 L (11.4-16.0) gm/dL Hct 30.5 L (34.0-46.0) % Lymphocytes # 0.9 L (1.0-4.8) k/uL Chloride 114 H (98-107) mmol/L Creatinine 1.38 H (0.52-1.04) mg/dL Glucose 160 H (74-99) mg/dL POC Glucose (mg/dL) 164 H (75-99) mg/dL Microbiology - Last 24 Hours (Table) 05/13/18 14:27 Blood Culture - Preliminary Blood No Growth after 48 hours Assessment and Plan Assessment: Assessment #1 change in mental status which has improved #2 urinary tract infection #3 abnormal cardiac enzymes #4 uncontrolled hypertension Plan #1 start Norvasc 5 mg by mouth daily and hydrochlorothiazide 25 mg by mouth daily #2 continue the current dose of oral nitrate and hydralazine #3 follow-up with the patient
[2018-05-16 18:46] LABS: Glucose,Whole Blood 140 mg/dL (75-99)
--- NOTE | 2018-05-16 19:02 | P.PN ---
Subjective Progress Note Date: 05/16/18 Principal diagnosis: #1 metabolic encephalopathy with altered mental status. #2 history of underlying acute kidney injury currently chronic kidney disease stage IV with a baseline has been progressed to 2.0 #3 right renal mass was treated in [place] with cryotherapy however the mass is resistant, Dr. Brown was consulted. 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 #5 diabetes mellitus type 2 insulin-dependent. #6 history of recent cellulitis of the lower extremities bilateral was seen by Dr. Manoj Herrera and result. She was on Keflex wasn't ALLERGIC to it.. #7 history of brain aneurysm was clipped in today for the hospital in the past. #8 generalized weakness, living alone, need for further custodial for continued rehabilitation for deconditioning. #9 on admission urine appears to be infection however the culture was negative. #10 hypertension with hypertensive heart disease. #11 electrolyte imbalance and hypomagnesemia. Supplemented by Dr. Hoang, hypokalemia also supplemented. This dictation on progress note date of service 05/16/2018. Patient seen and evaluated today and we planned to transfer to [facility] and rehab today however bed was not available in the [facility] facility for continuing rehabilitation for the patient. Patient also has problem with her blood pressure and Dr. Frankel today adjusted her medication however she has been activating with the blood pressure still elevated 181/72 his [place] of multiple medication added. Patient had bilateral renal artery stenosis as well as right renal mass was considered for his renal cell carcinoma and treated with cryotherapy in [facility].. On the Vital sign temperature 97.7 pulse 70 and respiratory rate 18 and blood pressure now 181/72 with the saturation 93 patient earlier has medication and improved to the systolic 133 as I was told by RN can but now on the dictation still elevated. On discussion with the patient and she is conscious alert oriented 3 and no evidence of confusion. She has no weakness of the lower extremities and she is 40 going rehabilitation. Her HEENT was negative neck was supple chest was clear to auscultation and percussion and no wheezes no rhonchi's. She denied any blurred vision or head headache or headache. He had no Neck was supple no JVD no thyromegaly no lymphadenopathy trachea midline. Her right lower eyelid edema has been resolved completely at this time. Chest was clear to auscultation and percussion. Abdomen is soft positive bowel sounds but she had nausea. And she has lost her appetite. Extremities: No erythema and no redness and the cellulitis has been resolved completely her leg no edema and positive pulses bilaterally. Neurologically no lateralizing sign hemoglobin upper and lower extremities and no tremor no shakiness. On her laboratory indicate that her white count 7.9, hemoglobin of 10 and hematocrit 30.5 with the underlying anemia of chronic disease especially renal. Electrolyte indicating her sodium 142 potassium 4 chloride 114 carbon dioxide 22 anion gap of 6 and BUN of 16 and creatinine 1.38 which is significant improvement over her renal function. With the returning to the bases Y. Her on chronic kidney disease stage IV has been improved to stage III which is her base line her, blood sugar was 160 and the POC glucose ranging between the 164- 140 which is stable. Assessment: Continue rehabilitation at [facility] and rehab with hopefully we have a bed open on Friday for transfer. Hypertension with hypertensive heart disease mobile and uncontrolled. Acute kidney injury secondary to ATN has been markedly improved to the baseline as mentioned above she is 1.3 creatinine. UTI however the urine culture was negative. Altered mental status has been significantly improved with no evidence of abnormalities in the computed tomography scan to indicate progression. Plan: Continue monitoring the blood pressure and input from cardiology. As well as continue the treatment and hopefully Friday we can send her to [facility] and rehab when we have a back. Objective - Vital Signs Vital signs: Vital Signs Temp 97.7 F 05/16/18 07:57 Pulse 70 05/16/18 07:57 Resp 18 05/16/18 07:57 BP 181/72 05/16/18 07:57 Pulse Ox 93 L 05/16/18 07:57 Intake & Output 05/15/18 05/16/18 05/16/18 18:59 06:59 18:59 Intake Total 480 240 Balance 480 240 Weight 85.5 kg Intake: Oral 480 240 Other: Voiding Method Toilet Toilet # Voids 6 1 2 - Labs CBC & Chem 7: 05/16/18 06:02 05/16/18 06:02 Labs: Abnormal Lab Results - Last 24 Hours (Table) 05/15/18 05/16/18 05/16/18 Range/Units 21:30 06:02 06:02 RBC 3.62 L (3.80-5.40) m/uL Hgb 10.0 L (11.4-16.0) gm/dL Hct 30.5 L (34.0-46.0) % Lymphocytes # 0.9 L (1.0-4.8) k/uL Chloride 114 H (98-107) mmol/L Creatinine 1.38 H (0.52-1.04) mg/dL Glucose 160 H (74-99) mg/dL POC Glucose (mg/dL) 146 H (75-99) mg/dL 05/16/18 05/16/18 05/16/18 Range/Units 06:12 10:48 16:10 RBC (3.80-5.40) m/uL Hgb (11.4-16.0) gm/dL Hct (34.0-46.0) % Lymphocytes # (1.0-4.8) k/uL Chloride (98-107) mmol/L Creatinine (0.52-1.04) mg/dL Glucose (74-99) mg/dL POC Glucose (mg/dL) 164 H 184 H 140 H (75-99) mg/dL Microbiology - Last 24 Hours (Table) 05/13/18 14:27 Blood Culture - Preliminary Blood No Growth after 72 hours
[2018-05-16 21:09] LABS: Glucose,Whole Blood 167 mg/dL (75-99)
[2018-05-16] MEDS: SODIUM CHLORIDE 0.9% 1,000 ML IV SCH (21:36)
[2018-05-16] MEDS: ATORVASTATIN 40 MG TAB PO SCH (21:40)
[2018-05-17] MEDS: hydrALAZINE HCL 20 MG/ML 1 ML VIAL IVP PRN ×3 (03:22→23:12)
[2018-05-17 05:56] LABS: Glucose,Whole Blood 159 mg/dL (75-99)
[2018-05-17] MEDS: PANTOPRAZOLE 40 MG TABLET PO SCH ×2 (06:20→16:46)
[2018-05-17] MEDS: METOCLOPRAMIDE 5 MG TAB PO SCH ×4 (06:20→20:18)
[2018-05-17] MEDS: CARVEDILOL 12.5 MG TAB PO SCH ×2 (06:20→16:44)
[2018-05-17] MEDS: INSULIN ASPART 100 UNIT/ML 1 ML 10 ML VIAL SQ SCH ×4 (06:20→22:22)
[2018-05-17 07:17] LABS: Calcium 8.6 mg/dL (8.4-10.2); Potassium 3.9 mmol/L (3.5-5.1)
[2018-05-17] MEDS: FERROUS SULFATE 325 MG TAB PO SCH (08:33)
[2018-05-17] MEDS: ASPIRIN 81 MG PO SCH (08:33)
[2018-05-17] MEDS: CHOLECALCIFEROL 1,000 UNIT TAB PO SCH (08:33)
[2018-05-17] MEDS: CALCIUM CARB-VIT D 500MG-200UN 1 EACH TAB PO SCH (08:33)
[2018-05-17] MEDS: hydrALAZINE HCL 50 MG TAB PO SCH ×3 (08:34→20:18)
[2018-05-17] MEDS: AMMONIUM LACTATE 12% CREAM 140 GM TUBE TOPICAL SCH ×2 (08:34→20:19)
[2018-05-17] MEDS: CLOBETASOL PROP 0.05% CR 15GM TOPICAL SCH ×3 (08:34→20:18)
[2018-05-17] MEDS: ISOSORBIDE MONONITRATE ER 60 MG TAB.ER.24H PO SCH (08:34)
[2018-05-17] MEDS: HYDROCHLOROTHIAZIDE 25 MG TAB PO SCH (08:34)
[2018-05-17] MEDS ORDERED: amLODIPine 5 MG TAB PO SCH ×2 (09:00)
[2018-05-17] MEDS: SODIUM CHLORIDE 0.9% 1,000 ML IV SCH (09:04)
[2018-05-17 11:20] LABS: Glucose,Whole Blood 183 mg/dL (75-99)
[2018-05-17] MEDS: ACETAMINOPHEN TAB 325 MG TAB PO PRN (11:48)
--- NOTE | 2018-05-17 12:00 | P.PN ---
Subjective Progress Note Date: 05/17/18 Principal diagnosis: Abnormal cardiac enzymes This is a pleasant 83-year-old female patient who was admitted to the hospital with change in mental status, weakness, fever and chills, and was diagnosed with UTI. We get involved in her care because of mildly abnormal cardiac enzymes but the patient did not have any symptoms of chest pain or chest discomfort and the EKG did not show any ischemic changes. Limited echo showed normal LV function. I'll follow-up with her today, May 172018, she remains asymptomatic from a cardiovascular standpoint overview. The blood pressure continues to be severely elevated. Also she developed mild bilateral lower extremities edema. She still have a fluid at 0.9 normal saline at 60 going on which I am going to DC. Yesterday I did start her on Norvasc and hydrochlorothiazide and I would increase the dose of Norvasc today. Objective - Vital Signs Vital signs: Vital Signs Temp 98.4 F 05/17/18 08:00 Pulse 62 05/17/18 11:44 Resp 16 05/17/18 11:44 BP 199/77 05/17/18 11:44 Pulse Ox 96 05/17/18 11:44 Intake & Output 05/16/18 05/17/18 05/17/18 18:59 06:59 18:59 Intake Total 240 240 Balance 240 240 Weight 86.7 kg Intake: Oral 240 240 Other: Voiding Method Toilet # Voids 2 1 - Constitutional General appearance: Present: no acute distress - Respiratory Respiratory: bilateral: CTA - Cardiovascular Heart sounds: normal: S1, S2 - Labs CBC & Chem 7: 05/16/18 06:02 05/17/18 06:32 Labs: Abnormal Lab Results - Last 24 Hours (Table) 05/16/18 05/16/18 05/17/18 Range/Units 16:10 21:08 05:54 Chloride (98-107) mmol/L Carbon Dioxide (22-30) mmol/L Creatinine (0.52-1.04) mg/dL Glucose (74-99) mg/dL POC Glucose (mg/dL) 140 H 167 H 159 H (75-99) mg/dL 05/17/18 05/17/18 Range/Units 06:32 11:16 Chloride 114 H (98-107) mmol/L Carbon Dioxide 21 L (22-30) mmol/L Creatinine 1.29 H (0.52-1.04) mg/dL Glucose 151 H (74-99) mg/dL POC Glucose (mg/dL) 183 H (75-99) mg/dL Microbiology - Last 24 Hours (Table) 05/13/18 14:27 Blood Culture - Preliminary Blood No Growth after 72 hours Assessment and Plan Assessment: Assessment #1 change in mental status which has improved #2 urinary tract infection #3 abnormal cardiac enzymes #4 uncontrolled hypertension Plan #1 increase the dose of Norvasc to 5 mg twice a day #2 continue the current dose of oral nitrate and hydralazine #3 follow-up with the patient
--- NOTE | 2018-05-17 15:18 | P.PN ---
Subjective Progress Note Date: 05/17/18 Principal diagnosis: #1 metabolic encephalopathy with altered mental status. #2 history of underlying acute kidney injury currently chronic kidney disease stage IV with a baseline has been progressed to 2.0 #3 right renal mass was treated in [place] with cryotherapy however the mass is resistant, Dr. Brown was consulted. 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 #5 diabetes mellitus type 2 insulin-dependent. #6 history of recent cellulitis of the lower extremities bilateral was seen by Dr. Manoj Herrera and result. She was on Keflex wasn't ALLERGIC to it.. #7 history of brain aneurysm was clipped in today for the hospital in the past. #8 generalized weakness, living alone, need for further long term for continued rehabilitation for deconditioning. #9 on admission urine appears to be infection however the culture was negative. #10 hypertension with hypertensive heart disease. #11 electrolyte imbalance and hypomagnesemia. Supplemented by Dr. Hoang, hypokalemia also supplemented. Progress note date of service 05/17/2018. Patient still have her hypertension fluctuating despite of addressing fourth of treatment and abdomen medication of treatment. Patient currently on amlodipine 5 mg twice a day as well as she received today hydralazine 10 mg IM her blood pressure currently is improving but we don't know in the evening it will be increased or not again patient monitored carefully. Discussed with the patient current plan with the placement for rehabilitation in the long term and monitoring the blood pressure is well. Laboratory: Indicating sodium 143, potassium 3.9, her chloride 114 and we will be discontinuing the IV fluids her carbon dioxide is 21 , her creatinine 1.29 with a BUN 13 with the currently recovering from the acute kidney injury. Blood sugar stable in the range between 140-183 covered with insulin, her calcium 8.6. On the physical exam: Vital sign indicating blood pressure fluctuation was 199/77 after the hydralazine IM 1010 mg her blood pressure 132/59. With a mean 83 controlled her home oxygen saturation 96%, her respiratory rate 16 and her pulse rate 62 bpm and the temperature 98.4. Her HEENT: No changes and normal she had slight headache with the elevated blood pressure results. Pupil was equal reactive and conjunctiva was pink sclera was nonicteric. Hearing deficit minimal, oropharynx natural teas able to eat and swallow. Neck was supple no JVD no thyromegaly no lymphadenopathy trachea midline. Chest was clear to auscultation and percussion. Heart was regular sinus rhythm. Patient had mild elevation of troponin on admission. No EKG changes. According the cardiology evaluation no evidence of non-STEMI. Abdomen soft positive bowel sounds no for further abdominal pain, nausea or vomiting. Extremities: No edema, no cellulitis, pulses is intact. Neurologically: No lateralizing sign and no neuro deficit. Assessment: #1 significant improvement clinically. #2 renal hypertension with the hypertensive heart disease. #3 bilateral renal artery stenosis. #4 right renal mass was treated in [place] with cryotherapy and the probably will be followed in [place], we did consult urology Dr. Brown for his advice and opinion, so far no response. #5 diabetes mellitus type 2 controlled with insulin. #6 Miki hypertension. Numbers #7 resolving acute kidney injury secondary to ATN on her lost admission currently she is reaching her baseline. Plan: Discontinue IV fluid. Ambulate And discharge tomorrow tomorrow [facility] rehab. Patient stable general condition Objective - Vital Signs Vital signs: Vital Signs Temp 98.4 F 05/17/18 08:00 Pulse 62 05/17/18 11:44 Resp 16 05/17/18 12:00 BP 132/59 05/17/18 13:39 Pulse Ox 96 05/17/18 11:44 Intake & Output 05/16/18 05/17/18 05/17/18 18:59 06:59 18:59 Intake Total 240 782 Balance 240 782 Weight 86.7 kg Intake: Intake, IV Titration 320 Amount Sodium Chloride 0.9% 1, 320 000 ml @ 60 mls/hr IV . [id number] LORENA Rx#:[id number] Oral 240 462 Other: Voiding Method Toilet # Voids 2 1 1 - Labs CBC & Chem 7: 05/16/18 06:02 05/17/18 06:32 Labs: Abnormal Lab Results - Last 24 Hours (Table) 05/16/18 05/16/18 05/17/18 Range/Units 16:10 21:08 05:54 Chloride (98-107) mmol/L Carbon Dioxide (22-30) mmol/L Creatinine (0.52-1.04) mg/dL Glucose (74-99) mg/dL POC Glucose (mg/dL) 140 H 167 H 159 H (75-99) mg/dL 05/17/18 05/17/18 Range/Units 06:32 11:16 Chloride 114 H (98-107) mmol/L Carbon Dioxide 21 L (22-30) mmol/L Creatinine 1.29 H (0.52-1.04) mg/dL Glucose 151 H (74-99) mg/dL POC Glucose (mg/dL) 183 H (75-99) mg/dL Microbiology - Last 24 Hours (Table) 05/13/18 14:27 Blood Culture - Preliminary Blood No Growth after 72 hours
--- NOTE | 2018-05-17 15:56 | P.GSCN ---
History of Present Illness Consult date: 05/17/18 Reason for Consult: Right renal cell carcinoma Requesting physician: Jae Dubon History of present illness: The patient is an 82-year-old white female with a history of renal artery stenosis. She was initially seen by Dr. Brown in 2014 for evaluation of a 2.5 cm right renal mass. The patient was referred to Dr. Tye Love at [facility]. Biopsy in May 2015 revealed renal cell carcinoma, and she was treated with cryosurgery. She has had no follow-up since that time. She reports occasional right flank discomfort. Review of Systems - Constitutional Denies chills, Denies fever, Denies weight gain, Denies weight loss - Genitourinary Genitourinary: Reports flank pain, Denies dysuria, Denies hematuria Past Medical History Past Medical History: Asthma, Blood Disorder, Coronary Artery Disease (CAD), Cancer, Chest Pain / Angina, Diabetes Mellitus, GERD/Reflux, Hyperlipidemia, Hypertension, Osteoarthritis (OA), Pneumonia, Renal Disease, Thyroid Disorder, Vascular Disorder Additional Past Medical History / Comment(s): 2017 labyrithitis/vertigo, 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 History of Any Multi-Drug Resistant Organisms: None Reported Past Surgical History: Appendectomy, Heart Catheterization, Joint Replacement, Orthopedic Surgery, Tonsillectomy Additional Past Surgical History / Comment(s): R renal artery bypassed with groin vein graft, brain aneurysms with clips x 2, cataract removal both eyes with lens implants, colonoscopies x 2 with first one having benign polypectomy and 2nd one normal. RT kidney had cancer on top of kidney, pt stated"they froze the cancer off" , lt shoulder arthroscopy for rotator cuff, dusty knee replacments, L foot fracture with surgery and L foot had a bone misplaced with surgery, R foot tumor removed around a toe. Past Anesthesia/Blood Transfusion Reactions: No Reported Reaction Additional Past Anesthesia/Blood Transfusion Reaction / Comm: Pt has received blood without reaction. Smoking Status: Former smoker - Past Family History Father Family Medical History: Myocardial Infarction ([place]) Additional Family Medical History / Comment(s): Father of a [place] at the age of 56yrs. Mother Family Medical History: Cancer Additional Family Medical History / Comment(s): Mother had breast cancer. She from another type of cancer that metastasized to her bones. Medications and Allergies Home Medications Medication Instructions Recorded Confirmed Type Atorvastatin [Lipitor] 40 mg PO HS 12/31/14 05/13/18 History Levothyroxine Sodium [Synthroid] 50 mcg PO DAILY 12/31/14 05/13/18 History Pantoprazole Sodium 40 mg PO DAILY 12/31/14 05/13/18 History Multivit-Min/FA/Lycopen/Lutein 1 tab PO DAILY 03/24/15 05/13/18 History [Centrum Silver Tablet] Insulin Aspart [NovoLOG Flexpen] 10 units SQ AC-TID 01/02/18 05/13/18 History Insulin Aspart [NovoLOG Flexpen] See Protocol SQ AC-TID 01/02/18 05/13/18 History Insulin Glargine,Hum.rec.anlog 40 units SQ HS 01/02/18 05/13/18 History [Lantus Solostar] Isosorbide Mononitrate ER [Imdur] 60 mg PO DAILY 01/02/18 05/13/18 History Nitroglycerin Sl Tabs [Nitrostat] 0.4 mg SL Q5M PRN 01/02/18 05/13/18 History Acetaminophen Tab [Tylenol] 650 mg PO Q4HR PRN tab 01/04/18 05/13/18 Rx Ammonium Lactate Cream [Lac-Hydrin 1 applic TOPICAL BID 04/30/18 05/13/18 History 12% Cream] Aspirin EC [Ecotrin Low Dose] 81 mg PO DAILY 04/30/18 05/13/18 History Calcium Carbonate/Vitamin D3 1 tab PO DAILY 04/30/18 05/13/18 History [Calcium 500-Vit D3 200 Tablet] Cholecalciferol [Vitamin D3] 1,000 unit PO DAILY 04/30/18 05/13/18 History Clobetasol Propionate [Temovate 1 applic TOPICAL TID 04/30/18 05/13/18 History 0.05% Cream] Ferrous Sulfate [Iron (65 MG 325 mg PO DAILY 04/30/18 05/13/18 History Elemental)] Linagliptin [Tradjenta] 5 mg PO DAILY 04/30/18 05/13/18 History Meclizine [Antivert] 12.5 mg PO TID PRN 04/30/18 05/13/18 History [place]-3 Fatty Acids/Fish Oil [Fish 1 cap PO TID 04/30/18 05/13/18 History Oil 1,000 mg Softgel] Triamcinolone 0.1% Cream [Kenalog 1 applicatio TOPICAL DAILY 04/30/18 05/13/18 History 0.1% Cream] Carvedilol [Coreg] 6.25 mg PO BID #60 tablet 05/05/18 05/13/18 Rx Furosemide [Lasix] 40 mg PO BID #0 05/05/18 05/13/18 Rx SILVER sulfADIAZINE CREAM 1 applic TOPICAL DAILY #60 applic 05/05/18 05/13/18 Rx [Silvadene Cream] hydrALAZINE HCL [Apresoline] 50 mg PO BID #60 tab 05/05/18 05/13/18 Rx hydrOXYzine HCL [Atarax] 25 mg PO QID PRN #30 tab 05/05/18 05/13/18 Rx Sennosides-Docusate Sodium 2 tab PO BID 05/13/18 05/13/18 History [Senokot-S] Allergies Allergy/AdvReac Type Severity Reaction Status Date / Time JOCELYNN Inhibitors Allergy Unknown Verified 05/13/18 14:47 piperacillin [From Zosyn] Allergy Rash/Hives Verified 05/13/18 18:35 tazobactam [From Zosyn] Allergy Rash/Hives Verified 05/13/18 18:35 aspartame AdvReac Nausea & Verified 05/13/18 14:47 Vomiting Surgical - Exam Vital Signs Temp Pulse Resp BP Pulse Ox 98.9 F 81 18 172/63 96 05/13/18 14:06 05/13/18 14:06 05/13/18 14:06 05/13/18 14:06 05/13/18 14:06 - General well developed, well nourished, no distress - Respiratory normal respiratory effort - Abdomen Abdomen: soft, non tender, no guarding, no rigid, no rebound - Psychiatric oriented to time, oriented to person, oriented to place, speech is normal, memory intact Results - Labs 05/16/18 06:02 05/17/18 06:32 Abnormal Lab Results - Last 24 Hours (Table) 05/15/18 05/15/18 05/15/18 Range/Units 11:12 16:14 21:30 RBC (3.80-5.40) m/uL Hgb (11.4-16.0) gm/dL Hct (34.0-46.0) % Lymphocytes # (1.0-4.8) k/uL Chloride (98-107) mmol/L Creatinine (0.52-1.04) mg/dL Glucose (74-99) mg/dL POC Glucose (mg/dL) 187 H 148 H 146 H (75-99) mg/dL 05/16/18 05/16/18 05/16/18 Range/Units 06:02 06:02 06:12 RBC 3.62 L (3.80-5.40) m/uL Hgb 10.0 L (11.4-16.0) gm/dL Hct 30.5 L (34.0-46.0) % Lymphocytes # 0.9 L (1.0-4.8) k/uL Chloride 114 H (98-107) mmol/L Creatinine 1.38 H (0.52-1.04) mg/dL Glucose 160 H (74-99) mg/dL POC Glucose (mg/dL) 164 H (75-99) mg/dL Microbiology - Last 24 Hours (Table) 05/13/18 14:27 Blood Culture - Preliminary Blood No Growth after 48 hours Diabetes panel 05/16/18 Range/Units 06:02 Sodium 142 (137-145) mmol/L Potassium 4.0 (3.5-5.1) mmol/L Chloride 114 H (98-107) mmol/L Carbon Dioxide 22 (22-30) mmol/L BUN 16 (7-17) mg/dL Creatinine 1.38 H (0.52-1.04) mg/dL Glucose 160 H (74-99) mg/dL Calcium 8.6 (8.4-10.2) mg/dL Calcium panel 05/16/18 Range/Units 06:02 Calcium 8.6 (8.4-10.2) mg/dL Pituitary panel 05/16/18 Range/Units 06:02 Sodium 142 (137-145) mmol/L Potassium 4.0 (3.5-5.1) mmol/L Chloride 114 H (98-107) mmol/L Carbon Dioxide 22 (22-30) mmol/L BUN 16 (7-17) mg/dL Creatinine 1.38 H (0.52-1.04) mg/dL Glucose 160 H (74-99) mg/dL Calcium 8.6 (8.4-10.2) mg/dL Adrenal panel 05/16/18 Range/Units 06:02 Sodium 142 (137-145) mmol/L Potassium 4.0 (3.5-5.1) mmol/L Chloride 114 H (98-107) mmol/L Carbon Dioxide 22 (22-30) mmol/L BUN 16 (7-17) mg/dL Creatinine 1.38 H (0.52-1.04) mg/dL Glucose 160 H (74-99) mg/dL Calcium 8.6 (8.4-10.2) mg/dL - Imaging CT scan - abdomen: report reviewed, image reviewed Assessment and Plan (1) Malignant neoplasm of right kidney, except renal pelvis Current Visit: Yes Status: Acute Code(s): C64.1 - MALIGNANT NEOPLASM OF RIGHT KIDNEY, EXCEPT RENAL PELVIS SNOMED Code(s): 115377310 Plan: I reviewed Mrs. Herrera's recent CT scan, which reveals obviously post- cryosurgery changes. There is an 11 mm mass which is solid in appearance. The lack of IV contrast makes it impossible to differentiate whether this is scar or viable tumor. I have suggested to Mrs. Herrera that she follow up with us in 1 year, and that a CT scan be repeated at that time. Please notify me if we can be of any further assistance during this hospitalization.
[2018-05-17 16:32] LABS: Glucose,Whole Blood 176 mg/dL (75-99)
[2018-05-17] MEDS: ATORVASTATIN 40 MG TAB PO SCH (20:18)
[2018-05-17] MEDS: amLODIPine 5 MG TAB PO SCH (20:19)
[2018-05-17 20:43] LABS: Glucose,Whole Blood 160 mg/dL (75-99)
[2018-05-18 05:56] LABS: Glucose,Whole Blood 151 mg/dL (75-99)
[2018-05-18 06:03] LABS: MCH 27.8 pg (25.0-35.0); MCHC 33.4 g/dL (31.0-37.0); MCV 83.1 fL (80.0-100.0); Mean Platelet Volume 6.7; Platelet Count 368 k/uL (150-450); RBC 3.61 m/uL (3.80-5.40); RDW 14.9 % (11.5-15.5); WBC 9.1 k/uL (3.8-10.6)
[2018-05-18 06:23] LABS: Calcium 8.6 mg/dL (8.4-10.2); Potassium 3.8 mmol/L (3.5-5.1)
[2018-05-18] MEDS: INSULIN ASPART 100 UNIT/ML 1 ML 10 ML VIAL SQ SCH ×2 (06:28→12:30)
[2018-05-18] MEDS: PANTOPRAZOLE 40 MG TABLET PO SCH (06:34)
[2018-05-18] MEDS: CARVEDILOL 12.5 MG TAB PO SCH (06:34)
[2018-05-18] MEDS: METOCLOPRAMIDE 5 MG TAB PO SCH ×2 (06:34→12:30)
[2018-05-18 07:39] VITALS: RESP 16; TEMP 97.8
[2018-05-18] MEDS: amLODIPine 5 MG TAB PO SCH (07:39)
[2018-05-18] MEDS: ASPIRIN 81 MG PO SCH (07:39)
[2018-05-18] MEDS: AMMONIUM LACTATE 12% CREAM 140 GM TUBE TOPICAL SCH (07:40)
[2018-05-18] MEDS: CLOBETASOL PROP 0.05% CR 15GM TOPICAL SCH (07:40)
[2018-05-18] MEDS: HYDROCHLOROTHIAZIDE 25 MG TAB PO SCH (07:40)
[2018-05-18] MEDS: ISOSORBIDE MONONITRATE ER 60 MG TAB.ER.24H PO SCH (07:40)
[2018-05-18] MEDS: CHOLECALCIFEROL 1,000 UNIT TAB PO SCH (07:40)
[2018-05-18] MEDS: FERROUS SULFATE 325 MG TAB PO SCH (07:40)
[2018-05-18] MEDS: CALCIUM CARB-VIT D 500MG-200UN 1 EACH TAB PO SCH (07:40)
[2018-05-18] MEDS: hydrALAZINE HCL 50 MG TAB PO SCH (07:40)
[2018-05-18] MEDS ORDERED: CARVEDILOL 12.5 MG TAB PO SCH (10:15)
--- NOTE | 2018-05-18 10:44 | P.DS ---
Providers Date of admission: 05/14/18 13:46 Expected date of discharge: 05/18/18 (Altered mental status) Attending physician: Jae Dubon Consults: 05/13/18 19:10 Consult Physician Routine Consulting Provider: Omkar Gurrola Consult Reason/Comments: elevated troponin Do you want consulting provider notified?: Yes, Notify in am 05/13/18 19:11 Consult Physician Routine Consulting Provider: Avery Hoang Consult Reason/Comments: elevated bun and creat Do you want consulting provider notified?: Yes 05/15/18 10:10 Consult Physician Routine Consulting Provider: Radames Brown Consult Reason/Comments: rt kidney mass evaluation Do you want consulting provider notified?: Yes Primary care physician: Jae Dubon Dictation of discharge summary date of service 05/18/2018. Dictated by Dr. En Dos Santos [facility]. Final diagnosis: #1 altered mental status with generalized weakness. Probably metabolic encephalopathy with negative computed tomography scan of the brain. 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 Rollins urology, and she will follow with Dr. Brown urology until she is able to go to [facility]. #4 hypertension uncontrolled associated with renal artery stenosis and her normal range 180 systolic. 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 #6 anemia of chronic disease. #7 diabetes mellitus type 2 insulin-dependent currently controlled. #8 on admission UTI however the culture came back clear patient was treated for 3 days with antibiotic IV and discontinued. #9 brain aneurysms was clipped in the past at [facility] with stable. #10 hypertension with hypertensive heart disease associated with fluctuation of the blood pressure due to her illness , ejection fraction stable. #11 abnormal troponin on admission, secondary to renal disease and the cardiac demand and supply,. Consulting physician: #1 Dr. Hoang nephrology. #2 Dr. Brown urology. #[address] Frankel. ER presentation. Patient sent from home by the visiting nurse because of weakness and falling attacks, living alone, could not handle her ADLs and medication, change of mental status. Uncontrolled hypertension. Hospital course: Patient admitted on university tutor, consulting physician cardiology nephrology and urology. For further adjustment of her medication. For further monitoring of her kidney function. Renal function has been progressively improving with the lost creatinine 1.43 which consisted of the new baseline which improved from 2.43. Also the BUN is normal 13. Dr. Frankel has been adjusting her medication cardiology and is well as Dr. Hoang nephrology has been adjusting her fluids and the diuretics. Patient unable to do her ADLs and lives alone in a condominium and no help around and need to monitor as well. With the underlying generalized weakness patient will be plan for jail rehabilitation. Assessment: She has hypertension fluctuation and the we adjusted her medication and being 180 systolic is normal for her as she has a renal artery stenosis as well as she has been on several medication for hypertension. Plan: Discharged today to [facility] and rehab today, I will follow her in [facility] as well. Plan - Discharge Summary Discharge Rx Participant: No New Discharge Prescriptions: New amLODIPine [Norvasc] 5 mg PO BID tab Carvedilol [Coreg*] 25 mg PO BID-W/MEALS tab hydrALAZINE HCL [Apresoline] 100 mg PO TID tab Metoclopramide [Reglan] 5 mg PO ACHS tab Continue Pantoprazole Sodium 40 mg PO DAILY Levothyroxine Sodium [Synthroid] 50 mcg PO DAILY Atorvastatin [Lipitor] 40 mg PO HS Multivit-Min/FA/Lycopen/Lutein [Centrum Silver Tablet] 1 tab PO DAILY Insulin Aspart [NovoLOG Flexpen] See Protocol SQ AC-TID Insulin Aspart [NovoLOG Flexpen] 10 units SQ AC-TID Insulin Glargine,Hum.rec.anlog [Lantus Solostar] 40 units SQ HS Isosorbide Mononitrate ER [Imdur] 60 mg PO DAILY Nitroglycerin Sl Tabs [Nitrostat] 0.4 mg SL Q5M PRN PRN Reason: Chest Pain Acetaminophen Tab [Tylenol] 650 mg PO Q4HR PRN tab PRN Reason: Fever And/ Or Pain Ammonium Lactate Cream [Lac-Hydrin 12% Cream] 1 applic TOPICAL BID Aspirin EC [Ecotrin Low Dose] 81 mg PO DAILY Calcium Carbonate/Vitamin D3 [Calcium 500-Vit D3 200 Tablet] 1 tab PO DAILY Cholecalciferol [Vitamin D3] 1,000 unit PO DAILY Clobetasol Propionate [Temovate 0.05% Cream] 1 applic TOPICAL TID Ferrous Sulfate [Iron (65 MG Elemental)] 325 mg PO DAILY Linagliptin [Tradjenta] 5 mg PO DAILY Meclizine [Antivert] 12.5 mg PO TID PRN PRN Reason: DIZZINESS [place]-3 Fatty Acids/Fish Oil [Fish Oil 1,000 mg Softgel] 1 cap PO TID Triamcinolone 0.1% Cream [Kenalog 0.1% Cream] 1 applicatio TOPICAL DAILY hydrOXYzine HCL [Atarax] 25 mg PO QID PRN #30 tab PRN Reason: Itching SILVER sulfADIAZINE CREAM [Silvadene Cream] 1 applic TOPICAL DAILY #60 applic Furosemide [Lasix] 40 mg PO BID #0 Sennosides-Docusate Sodium [Senokot-S] 2 tab PO BID Discontinued hydrALAZINE HCL [Apresoline] 50 mg PO BID #60 tab Carvedilol [Coreg] 6.25 mg PO BID #60 tablet Discharge Medication List Atorvastatin [Lipitor] 40 mg PO HS 12/31/14 [History] Levothyroxine Sodium [Synthroid] 50 mcg PO DAILY 12/31/14 [History] Pantoprazole Sodium 40 mg PO DAILY 12/31/14 [History] Multivit-Min/FA/Lycopen/Lutein [Centrum Silver Tablet] 1 tab PO DAILY 03/24/15 [ History] Insulin Aspart [NovoLOG Flexpen] 10 units SQ AC-TID 01/02/18 [History] Insulin Aspart [NovoLOG Flexpen] See Protocol SQ AC-TID 01/02/18 [History] Insulin Glargine,Hum.rec.anlog [Lantus Solostar] 40 units SQ HS 01/02/18 [ History] Isosorbide Mononitrate ER [Imdur] 60 mg PO DAILY 01/02/18 [History] Nitroglycerin Sl Tabs [Nitrostat] 0.4 mg SL Q5M PRN 01/02/18 [History] Acetaminophen Tab [Tylenol] 650 mg PO Q4HR PRN tab 01/04/18 [Rx] Ammonium Lactate Cream [Lac-Hydrin 12% Cream] 1 applic TOPICAL BID 04/30/18 [ History] Aspirin EC [Ecotrin Low Dose] 81 mg PO DAILY 04/30/18 [History] Calcium Carbonate/Vitamin D3 [Calcium 500-Vit D3 200 Tablet] 1 tab PO DAILY 02/06 [History] Cholecalciferol [Vitamin D3] 1,000 unit PO DAILY 04/30/18 [History] Clobetasol Propionate [Temovate 0.05% Cream] 1 applic TOPICAL TID 04/30/18 [ History] Ferrous Sulfate [Iron (65 MG Elemental)] 325 mg PO DAILY 04/30/18 [History] Linagliptin [Tradjenta] 5 mg PO DAILY 04/30/18 [History] Meclizine [Antivert] 12.5 mg PO TID PRN 04/30/18 [History] [place]-3 Fatty Acids/Fish Oil [Fish Oil 1,000 mg Softgel] 1 cap PO TID 04/30/18 [ History] Triamcinolone 0.1% Cream [Kenalog 0.1% Cream] 1 applicatio TOPICAL DAILY [History] Furosemide [Lasix] 40 mg PO BID #0 05/05/18 [Rx] SILVER sulfADIAZINE CREAM [Silvadene Cream] 1 applic TOPICAL DAILY #60 applic [Rx] hydrOXYzine HCL [Atarax] 25 mg PO QID PRN #30 tab 05/05/18 [Rx] Sennosides-Docusate Sodium [Senokot-S] 2 tab PO BID 05/13/18 [History] Carvedilol [Coreg*] 25 mg PO BID-W/MEALS tab 05/18/18 [Rx] Metoclopramide [Reglan] 5 mg PO ACHS tab 05/18/18 [Rx] amLODIPine [Norvasc] 5 mg PO BID tab 05/18/18 [Rx] hydrALAZINE HCL [Apresoline] 100 mg PO TID tab 05/18/18 [Rx] Follow up Appointment(s)/Referral(s): Jae Dubon MD [Primary Care Provider] - 1-2 days Activity/Diet/Wound Care/Special Instructions: prosper
[2018-05-18] MEDS ORDERED: CARVEDILOL 12.5 MG TAB PO STA (10:50)
--- NOTE | 2018-05-18 11:16 | P.PN ---
Subjective Patient is seen in follow-up for acute kidney injury on chronic kidney disease. Patient has chronic kidney disease stage III with baseline creatinine in the range of 1.2-1.3 from March 2018 secondary to diabetic kidney disease. Renal function is a little worse today with creatinine at 1.43 which is due to diuresis. She is off IV fluids. Oral intake is fair. Admits to good urine output. No vomiting. Vital signs are stable. General: The patient appeared well nourished and normally developed. HEENT: Head exam is unremarkable. Neck is without jugular venous distension. LUNGS: Lungs are clear to auscultation and percussion. Breath sounds decreased. HEART: Rate and Rhythm are regular. First and second heart sounds normal. No murmurs, rubs or gallops. ABDOMEN: Abdominal exam reveals normal bowel sounds. Non-tender and non- distended. No evidence of peritonitis. EXTREMITITES: Trace edema. Objective - Vital Signs Vital signs: Vital Signs Temp 97.8 F 05/18/18 07:38 Pulse 72 05/18/18 07:38 Resp 16 05/18/18 08:00 BP 184/75 05/18/18 10:02 Pulse Ox 92 L 05/18/18 07:38 Intake & Output 05/17/18 05/18/18 05/18/18 18:59 06:59 18:59 Intake Total 1004 240 Balance 1004 240 Weight 86.9 kg Intake: Intake, IV Titration 320 Amount Sodium Chloride 0.9% 1, 320 000 ml @ 60 mls/hr IV . [id number] [facility] Rx#:[id number] Oral 684 [id number] Other: # Voids 1 1 - Labs CBC & Chem 7: 05/18/18 05:09 05/18/18 05:09 Labs: Abnormal Lab Results - Last 24 Hours (Table) 05/17/18 05/17/18 05/17/18 Range/Units 11:16 16:16 20:42 RBC (3.80-5.40) m/uL Hgb (11.4-16.0) gm/dL Hct (34.0-46.0) % Chloride (98-107) mmol/L Creatinine (0.52-1.04) mg/dL Glucose (74-99) mg/dL POC Glucose (mg/dL) 183 H 176 H 160 H (75-99) mg/dL 05/18/18 05/18/18 05/18/18 Range/Units 05:09 05:09 05:54 RBC 3.61 L (3.80-5.40) m/uL Hgb 10.0 L (11.4-16.0) gm/dL Hct 30.0 L (34.0-46.0) % Chloride 112 H (98-107) mmol/L Creatinine 1.43 H (0.52-1.04) mg/dL Glucose 141 H (74-99) mg/dL POC Glucose (mg/dL) 151 H (75-99) mg/dL Microbiology - Last 24 Hours (Table) 05/13/18 14:27 Blood Culture - Preliminary Blood No Growth after 96 hours Assessment and Plan Plan: Assessment: 1. Acute kidney injury mostly prerenal secondary to diuresis. Patent 2.26 on admission and did come down to 1.29 on May 17 - 1.43 today itches due to diuresis. Ultrasound from last admission revealed no evidence of hydronephrosis. 2. Chronic kidney disease stage III with baseline creatinine in the range of 1.2-1.3 secondary to diabetic kidney disease. 3. Lower extremity cellulitis status post antibiotics. 4. History of diastolic CHF. Currently compensated. 5. Insulin-dependent diabetes mellitus. 6. Hypokalemia secondary to diuresis. Improved status post replacement. 7. Hypertension with chronic kidney disease and history of bilateral renal artery stenosis. Patient has been following at and is not a candidate for intervention. Plan: Discontinue hydrochlorothiazide. Start torsemide 10 mg daily. Dose of Coreg increased today. Monitor blood pressure outpatient. May benefit from Aldactone. Follow-up outpatient in the next 1-2 weeks. Discussed with primary team. Repeat BMP in 2-3 days postdischarge.
[2018-05-18] MEDS ORDERED: TORSEMIDE 20 MG TAB PO SCH (11:30)
[2018-05-18 11:42] LABS: Glucose,Whole Blood 193 mg/dL (75-99)
--- NOTE | 2018-05-18 12:38 | P.PN ---
Subjective Progress Note Date: 05/18/18 This is an 82-year-old female who was initially admitted to the hospital with mental status changes and associated weakness, fever and chills, was diagnosed to have a UTI. Cardiology was initially requested to see the patient because of mildly abnormal cardiac enzymes. Limited echo showed a normal LV function. Medication adjustments yesterday were made because the patient was still quite hypertensive. Her blood pressure this morning 184/70 with a heart rate in the 70s, 92% on room air. White blood cell count 9.1, hemoglobin 10.0, platelet count 368. Sodium 140, potassium 3.8, BUN 13 and creatinine 1.4. Coreg dose today was increased to 25 mg one tablet by mouth twice a day. Patient will be transferred to [facility] today. Objective - Vital Signs Vital signs: Vital Signs Temp 97.8 F 05/18/18 07:38 Pulse 72 05/18/18 07:38 Resp 16 05/18/18 08:00 BP 184/75 05/18/18 10:02 Pulse Ox 92 L 05/18/18 07:38 Intake & Output 05/17/18 05/18/18 05/18/18 18:59 06:59 18:59 Intake Total 1004 240 Balance 1004 240 Weight 86.9 kg Intake: Intake, IV Titration 320 Amount Sodium Chloride 0.9% 1, 320 000 ml @ 60 mls/hr IV . [id number] [facility] Rx#:[id number] Oral 684 [id number] Other: # Voids 1 1 - Exam PHYSICAL EXAMINATION: GENERAL: 82-year-old female in no acute distress at the time of my examination HEENT: Head is atraumatic, normocephalic. Pupils equal, round. Sclera anicteric. Conjunctiva are clear. Mucous membranes of the mouth are moist. Neck is supple. There is no elevated jugular venous pressure. No carotid bruit is heard. HEART EXAMINATION: Heart S1, S2 normal. No murmur or gallop heard. CHEST EXAMINATION: Lungs are clear to auscultation and precussion. No chest wall tenderness is noted on palpation or with deep breathing. ABDOMEN: Soft, nontender. Bowel sounds are heard. No organomegaly noted. EXTREMITIES: 2+ peripheral pulses with no evidence of peripheral edema and no calf tenderness noted. NEUROLOGIC patient is awake, alert and oriented 3. . - Labs CBC & Chem 7: 05/18/18 05:09 05/18/18 05:09 Labs: Abnormal Lab Results - Last 24 Hours (Table) 05/17/18 05/17/18 05/18/18 Range/Units 16:16 20:42 05:09 RBC 3.61 L (3.80-5.40) m/uL Hgb 10.0 L (11.4-16.0) gm/dL Hct 30.0 L (34.0-46.0) % Chloride (98-107) mmol/L Creatinine (0.52-1.04) mg/dL Glucose (74-99) mg/dL POC Glucose (mg/dL) 176 H 160 H (75-99) mg/dL 05/18/18 05/18/18 05/18/18 Range/Units 05:09 05:54 11:10 RBC (3.80-5.40) m/uL Hgb (11.4-16.0) gm/dL Hct (34.0-46.0) % Chloride 112 H (98-107) mmol/L Creatinine 1.43 H (0.52-1.04) mg/dL Glucose 141 H (74-99) mg/dL POC Glucose (mg/dL) 151 H 193 H (75-99) mg/dL Microbiology - Last 24 Hours (Table) 05/13/18 14:27 Blood Culture - Preliminary Blood No Growth after 96 hours Assessment and Plan Plan: Assessment and plan #1 symptoms of progressive weakness, fever and chills at home. Low-grade temperature of 99.8. Influenza A and B- #2 abnormal troponin, patient denies any chest discomfort, EKG shows normal sinus rhythm with no acute changes. Echocardiogram performed earlier this month shows a normal left ventricular systolic function. #3 hypertension #4 diabetes #5 hyperlipidemia #6 bilateral lower extremity cellulitis #7 history of brain aneurysm with clipping procedure #8 hypothyroidism Plan Limited echocardiogram with Doppler study revealed a normal left ventricular systolic function. Patient's dose of Coreg was increased to 25 mg one tablet by mouth twice a day today from cardiology's perspective, she may be able to be transferred to extended care facility today. DNP note has been reviewed, I agree with a documented findings and plan of care. Patient was seen and examined.
[2018-05-18 12:47] VITALS: BP 151/65; PULSE 65
== END 2018-05-18 13:18 | DRG 689 ==
LOC: EC 14:02 → 3SCARD 17:25 → OBSVTOIN 05-14 13:46
PROVIDERS: ADMIT Internal Medicine; ATTEND Internal Medicine
DX: N39.0 Urinary tract infection, site not specified (principal); G93.41 Metabolic encephalopathy; N17.0 Acute kidney failure with tubular necrosis; C64.1 Malignant neoplasm of right kidney, except renal pelvis; I13.0 Hypertensive heart and chronic kidney disease with heart failure and stage 1 through stage 4 chronic kidney disease, or unspecified chronic kidney disease; I50.32 Chronic diastolic (congestive) heart failure; L03.115 Cellulitis of right lower limb; L03.116 Cellulitis of left lower limb; N18.4 Chronic kidney disease, stage 4 (severe); D63.8 Anemia in other chronic diseases classified elsewhere; E03.9 Hypothyroidism, unspecified; E11.22 Type 2 diabetes mellitus with diabetic chronic kidney disease; E11.43 Type 2 diabetes mellitus with diabetic autonomic (poly)neuropathy; E78.5 Hyperlipidemia, unspecified; E83.42 Hypomagnesemia; E87.6 Hypokalemia; I25.10 Atherosclerotic heart disease of native coronary artery without angina pectoris; I70.1 Atherosclerosis of renal artery; J45.909 Unspecified asthma, uncomplicated; K21.9 Gastro-esophageal reflux disease without esophagitis; K31.84 Gastroparesis; T50.2X5A Adverse effect of carbonic-anhydrase inhibitors, benzothiadiazides and other diuretics, initial encounter; Z68.30 Body mass index [BMI] 30.0-30.9, adult; Z79.4 Long term (current) use of insulin; Z79.82 Long term (current) use of aspirin; Z79.890 Hormone replacement therapy; Z79.899 Other long term (current) drug therapy; Z80.3 Family history of malignant neoplasm of breast; Z82.49 Family history of ischemic heart disease and other diseases of the circulatory system; Z85.528 Personal history of other malignant neoplasm of kidney; Z87.891 Personal history of nicotine dependence; Z88.8 Allergy status to other drugs, medicaments and biological substances; Z98.42 Cataract extraction status, left eye; Z98.41 Cataract extraction status, right eye; Z96.1 Presence of intraocular lens; Z96.653 Presence of artificial knee joint, bilateral; R74.8 Abnormal levels of other serum enzymes
CPT/HCPCS: 36415; 70450; 71046; 72050; 80048; 80053; 81001; 82140; 82550; 82553; 83036; 83605; 83735; 83880; 84484; 85025; 85027; 85610; 85730; 87040; 87086; 87502; 93005; 93308; 96360; 99285

== ENCOUNTER 2018-06-05 02:32 | Observation (INO) | payer MEDICARE, BC ==
[2018-06-05 02:43] LABS: Glucose,Whole Blood 143 mg/dL (75-99)
[2018-06-05 03:54] LABS: Basophils % (A) 0 %; Eosinophils # (A) 0.1 k/uL (0-0.7); Eosinophils % (A) 1 %; Lymphocytes # (A) 0.9 k/uL (1.0-4.8); Lymphocytes % (A) 8 %; MCH 27.4 pg (25.0-35.0); MCHC 34.3 g/dL (31.0-37.0); MCV 79.9 fL (80.0-100.0); Mean Platelet Volume 6.3; Monocytes # (A) 0.5 k/uL (0-1.0); Monocytes % (A) 4 %; Neutrophils # (A) 8.8 k/uL (1.3-7.7); Neutrophils % (A) 85 %; Platelet Count 416 k/uL (150-450); RBC 4.76 m/uL (3.80-5.40); RDW 14.5 % (11.5-15.5); WBC 10.4 k/uL (3.8-10.6)
[2018-06-05 04:23] LABS: Calcium 9.1 mg/dL (8.4-10.2); Potassium 3.4 mmol/L (3.5-5.1)
[2018-06-05] MEDS: ACETAMINOPHEN TAB 325 MG TAB PO STA ×2 (04:42→04:49)
[2018-06-05] MEDS ORDERED: MORPHINE SULFATE 4 MG/ML SYRINGE IV STA (05:08)
[2018-06-05 05:26] LABS: Glucose,Whole Blood 128 mg/dL (75-99)
--- NOTE | 2018-06-05 05:30 | ED ---
General Adult HPI - General Chief complaint: Recheck/Abnormal Lab/Rx Stated complaint: Hypoglycemia Time Seen by Provider: 06/05/18 02:42 Source: patient, EMS Mode of arrival: EMS Limitations: no limitations - History of Present Illness Initial comments: This patient is an 82-year-old woman brought by ambulance after she had an episode of hypoglycemia. History is from both patient and a son. son states that he had heard the patient making strange noises, went to investigate and she was not acting appropriately. She was not able to speak, and was diaphoretic. He phoned EMS who arrived to find that she had blood sugar less than 50. They did administer dextrose and the patient became more alert and responsive. The patient does not recall the episode prior to EMS arrival here. When I review the patient, she does not have complaints. She is not having any dyspnea. She denies pain anywhere. -: minutes(s) Severity scale (1-10): 0 Improves with: none Worsens with: none Associated Symptoms: denies other symptoms Treatments Prior to Arrival: other (Dextrose) - Related Data Home Medications Medication Instructions Recorded Confirmed Atorvastatin [Lipitor] 40 mg PO HS 12/31/14 05/13/18 Levothyroxine Sodium [Synthroid] 50 mcg PO DAILY 12/31/14 05/13/18 Pantoprazole Sodium 40 mg PO DAILY 12/31/14 05/13/18 Multivit-Min/FA/Lycopen/Lutein 1 tab PO DAILY 03/24/15 05/13/18 [Centrum Silver Tablet] Insulin Aspart [NovoLOG Flexpen] 10 units SQ AC-TID 01/02/18 05/13/18 Insulin Aspart [NovoLOG Flexpen] See Protocol SQ AC-TID 01/02/18 05/13/18 Insulin Glargine,Hum.rec.anlog 40 units SQ HS 01/02/18 05/13/18 [Lantus Solostar] Isosorbide Mononitrate ER [Imdur] 60 mg PO DAILY 01/02/18 05/13/18 Nitroglycerin Sl Tabs [Nitrostat] 0.4 mg SL Q5M PRN 01/02/18 05/13/18 Ammonium Lactate Cream [Lac-Hydrin 1 applic TOPICAL BID 04/30/18 05/13/18 12% Cream] Aspirin EC [Ecotrin Low Dose] 81 mg PO DAILY 04/30/18 05/13/18 Calcium Carbonate/Vitamin D3 1 tab PO DAILY 04/30/18 05/13/18 [Calcium 500-Vit D3 200 Tablet] Cholecalciferol [Vitamin D3] 1,000 unit PO DAILY 04/30/18 05/13/18 Clobetasol Propionate [Temovate 1 applic TOPICAL TID 04/30/18 05/13/18 0.05% Cream] Ferrous Sulfate [Iron (65 MG 325 mg PO DAILY 04/30/18 05/13/18 Elemental)] Linagliptin [Tradjenta] 5 mg PO DAILY 04/30/18 05/13/18 Meclizine [Antivert] 12.5 mg PO TID PRN 04/30/18 05/13/18 [place]-3 Fatty Acids/Fish Oil [Fish 1 cap PO TID 04/30/18 05/13/18 Oil 1,000 mg Softgel] Triamcinolone 0.1% Cream [Kenalog 1 applicatio TOPICAL DAILY 04/30/18 05/13/18 0.1% Cream] Sennosides-Docusate Sodium 2 tab PO BID 05/13/18 05/13/18 [Senokot-S] Previous Rx's Medication Instructions Recorded Acetaminophen Tab [Tylenol] 650 mg PO Q4HR PRN tab 01/04/18 Furosemide [Lasix] 40 mg PO BID #0 05/05/18 SILVER sulfADIAZINE CREAM 1 applic TOPICAL DAILY #60 applic 05/05/18 [Silvadene Cream] hydrOXYzine HCL [Atarax] 25 mg PO QID PRN #30 tab 05/05/18 Carvedilol [Coreg*] 25 mg PO BID-W/MEALS tab 05/18/18 Metoclopramide [Reglan] 5 mg PO ACHS tab 05/18/18 amLODIPine [Norvasc] 5 mg PO BID tab 05/18/18 hydrALAZINE HCL [Apresoline] 100 mg PO TID tab 05/18/18 Allergies Allergy/AdvReac Type Severity Reaction Status Date / Time JOCELYNN Inhibitors Allergy Unknown Verified 05/13/18 14:47 piperacillin [From Zosyn] Allergy Rash/Hives Verified 05/13/18 18:35 tazobactam [From Zosyn] Allergy Rash/Hives Verified 05/13/18 18:35 aspartame AdvReac Nausea & Verified 05/13/18 14:47 Vomiting Review of Systems ROS Statement: Those systems with pertinent positive or pertinent negative responses have been documented in the HPI. ROS Other: All systems not noted in ROS Statement are negative. Constitutional: Denies: fever Respiratory: Denies: cough, dyspnea Cardiovascular: Denies: chest pain, orthopnea Gastrointestinal: Denies: abdominal pain, vomiting, diarrhea Musculoskeletal: Denies: back pain Neurological: Reports: as per HPI, confusion. 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 History of Any Multi-Drug Resistant Organisms: None Reported Past Surgical History: Appendectomy, Heart Catheterization, Joint Replacement, Orthopedic Surgery, Tonsillectomy Additional Past Surgical History / Comment(s): R renal artery bypassed with groin vein graft, brain aneurysms with clips x 2, cataract removal both eyes with lens implants, colonoscopies x 2 with first one having benign polypectomy and 2nd one normal. RT kidney had cancer on top of kidney, pt stated"they froze the cancer off" , lt shoulder arthroscopy for rotator cuff, dusty knee replacments, L foot fracture with surgery and L foot had a bone misplaced with surgery, R foot tumor removed around a toe. Past Anesthesia/Blood Transfusion Reactions: No Reported Reaction Additional Past Anesthesia/Blood Transfusion Reaction / Comment(s): Pt has received blood without reaction. Smoking Status: Former smoker - Past Family History Father Family Medical History: Myocardial Infarction (CA) Additional Family Medical History / Comment(s): Father of a CA at the age of 56yrs. Mother Family Medical History: Cancer Additional Family Medical History / Comment(s): Mother had breast cancer. She from another type of cancer that metastasized to her bones. General Exam Limitations: no limitations General appearance: alert, in no apparent distress Head exam: Present: atraumatic, normocephalic Eye exam: Present: normal appearance ENT exam: Present: mucous membranes dry Neck exam: Present: normal inspection, full ROM Respiratory exam: Present: normal lung sounds bilaterally. Absent: respiratory distress, wheezes, rales, rhonchi, stridor Cardiovascular Exam: Present: regular rate, normal rhythm, normal heart sounds. Absent: systolic murmur, diastolic murmur, rubs, gallop GI/Abdominal exam: Present: soft. Absent: distended, tenderness, guarding, rebound, mass Extremities exam: Present: normal inspection, normal capillary refill. Absent: pedal edema, calf tenderness Neurological exam: Present: alert, CN II-XII intact. Absent: oriented X3 ( Patient disoriented to date), motor sensory deficit Skin exam: Present: warm, dry, intact, normal color. Absent: rash Course Vital Signs 06/05/18 06/05/18 02:50 06:00 Temperature 97.6 F Pulse Rate 61 71 Respiratory 16 18 Rate Blood Pressure 138/76 146/81 O2 Sat by Pulse 98 Oximetry - Reevaluation(s) Reevaluation #1: 06/05/18 05:49 Patient complains of onset of bilateral lower extremity pain starting at approximately 5 AM, just before. Patient given multiple analgesics, states pain not being controlled. Medical Decision Making - Medical Decision Making This patient is an 82-year-old woman initially brought in for hyperglycemic episode. The patient approximately 5 AM I begin to have some right groin pain. We did try a number of rounds of analgesic and patient is pain, therefore case discussed with Dr. Dubon, who will admit the patient's for further pain control. Discussed imaging modalities with him he will try giving fluids to see if this appears creatinine and then follow this was imaging. - Lab Data Result diagrams: 06/05/18 03:30 06/05/18 03:30 Lab Results 06/05/18 06/05/18 06/05/18 Range/Units 02:41 03:30 03:30 WBC 10.4 (3.8-10.6) k/uL RBC 4.76 (3.80-5.40) m/uL Hgb 13.0 D (11.4-16.0) gm/dL Hct 38.0 (34.0-46.0) % MCV 79.9 L (80.0-100.0) fL MCH 27.4 (25.0-35.0) pg MCHC 34.3 (31.0-37.0) g/dL RDW 14.5 (11.5-15.5) % Plt Count 416 (150-450) k/uL Neutrophils % 85 % Lymphocytes % 8 % Monocytes % 4 % Eosinophils % 1 % Basophils % 0 % Neutrophils # 8.8 H (1.3-7.7) k/uL Lymphocytes # 0.9 L (1.0-4.8) k/uL Monocytes # 0.5 (0-1.0) k/uL Eosinophils # 0.1 (0-0.7) k/uL Basophils # 0.0 (0-0.2) k/uL Sodium 139 (137-145) mmol/L Potassium 3.4 L (3.5-5.1) mmol/L Chloride 100 (98-107) mmol/L Carbon Dioxide 29 (22-30) mmol/L Anion Gap 10 mmol/L BUN 31 H (7-17) mg/dL Creatinine 1.94 H (0.52-1.04) mg/dL Est GFR (CKD-EPI)AfAm 27 (>60 ml/min/1.73 sqM) Est GFR (CKD-EPI)NonAf 24 (>60 ml/min/1.73 sqM) Glucose 111 H (74-99) mg/dL POC Glucose (mg/dL) 143 H (75-99) mg/dL POC Glu Washing Tub Operator ID Luisana Alonzo Calcium 9.1 (8.4-10.2) mg/dL Troponin I (0.000-0.034) ng/mL 06/05/18 06/05/18 Range/Units 03:30 05:24 WBC (3.8-10.6) k/uL RBC (3.80-5.40) m/uL Hgb (11.4-16.0) gm/dL Hct (34.0-46.0) % MCV (80.0-100.0) fL MCH (25.0-35.0) pg MCHC (31.0-37.0) g/dL RDW (11.5-15.5) % Plt Count (150-450) k/uL Neutrophils % % Lymphocytes % % Monocytes % % Eosinophils % % Basophils % % Neutrophils # (1.3-7.7) k/uL Lymphocytes # (1.0-4.8) k/uL Monocytes # (0-1.0) k/uL Eosinophils # (0-0.7) k/uL Basophils # (0-0.2) k/uL Sodium (137-145) mmol/L Potassium (3.5-5.1) mmol/L Chloride (98-107) mmol/L Carbon Dioxide (22-30) mmol/L Anion Gap mmol/L BUN (7-17) mg/dL Creatinine (0.52-1.04) mg/dL Est GFR (CKD-EPI)AfAm (>60 ml/min/1.73 sqM) Est GFR (CKD-EPI)NonAf (>60 ml/min/1.73 sqM) Glucose (74-99) mg/dL POC Glucose (mg/dL) 128 H (75-99) mg/dL POC Glu Washing Tub Operator ID Luisana Alonzo Calcium (8.4-10.2) mg/dL Troponin I 0.018 (0.000-0.034) ng/mL Disposition Clinical Impression: Hypoglycemia, Groin pain Disposition: ADMITTED IP TO THIS HOSP Condition: Fair Is patient prescribed a controlled substance at d/c from ED?: No Referrals: Jae Dubon MD [Primary Care Provider] - 1-2 days
[2018-06-05] MEDS ORDERED: HYDROmorphone 1 MG/ML 1 ML SYRINGE IVP STA (05:48)
[2018-06-05] MEDS ORDERED: SODIUM CHLORIDE 0.9% 1,000 ML IV STA (06:11)
[2018-06-05] MEDS ORDERED: SODIUM CHLORIDE 0.9% 500 ML 500 ML IV STA (06:11)
[2018-06-05] MEDS ORDERED: HYDROmorphone 0.5 MG/0.5 ML SYRINGE IVP PRN (06:27)
[2018-06-05] MEDS ORDERED: NALOXONE 0.4 MG/ML 1 ML VIAL IV PRN (06:27)
[2018-06-05] MEDS ORDERED: MORPHINE SULFATE 4 MG/ML SYRINGE IV PRN (06:27)
[2018-06-05] MEDS ORDERED: MECLIZINE 12.5 MG TAB PO PRN (06:29)
[2018-06-05] MEDS ORDERED: hydrOXYzine HCL 25 MG TAB PO PRN (06:29)
[2018-06-05] MEDS: SODIUM CHLORIDE 0.9% 1,000 ML IV SCH ×2 (07:08→16:58)
[2018-06-05] MEDS: INSULIN ASPART (NovoLOG) 100 UNIT/ML VIAL SQ SCH ×5 (08:16→20:46)
[2018-06-05] MEDS ORDERED: ACETAMINOPHEN TAB 325 MG TAB PO PRN (09:21)
[2018-06-05] MEDS: KETOROLAC 30 MG/ML 1 ML VIAL IVP PRN ×2 (10:12→20:45)
[2018-06-05] MEDS: hydrALAZINE HCL 50 MG TAB PO SCH ×3 (10:58→20:47)
[2018-06-05] MEDS: ISOSORBIDE MONONITRATE ER 60 MG TAB.ER.24H PO SCH (10:58)
[2018-06-05] MEDS: METOCLOPRAMIDE 5 MG TAB PO SCH ×4 (10:58→20:47)
[2018-06-05] MEDS: PANTOPRAZOLE 40 MG TABLET PO SCH (10:58)
[2018-06-05] MEDS: amLODIPine 5 MG TAB PO SCH ×2 (10:58→20:47)
[2018-06-05] MEDS: LINAGLIPTIN 5 MG TABLET PO SCH (10:59)
[2018-06-05] MEDS: CARVEDILOL 12.5 MG TAB PO SCH ×2 (10:59→16:58)
[2018-06-05] MEDS: FERROUS SULFATE 325 MG TAB PO SCH (10:59)
[2018-06-05] MEDS: LEVOTHYROXINE 50 MCG TAB PO SCH (10:59)
[2018-06-05] MEDS: ASPIRIN 81 MG PO SCH (10:59)
--- NOTE | 2018-06-05 11:08 | US ---
EXAMINATION TYPE: US groin RT DATE OF EXAM: 06/05/2018 COMPARISON: NONE CLINICAL HISTORY: rt hip/groin pain. Right groin scanned, no abnormality noted. 2 normal appearing lymph nodes are present in right groin region measuring 0.8 and 0.9 cm in longitud inal length. IMPRESSION: 1. No suspicious abnormality right groin ultrasound.
--- NOTE | 2018-06-05 11:48 | HP ---
HISTORY AND PHYSICAL HISTORY AND CHIEF COMPLAINT: The patient presented by ambulance to the emergency room from home because of hypoglycemic episode. HISTORY OF PRESENT ILLNESS: An 82-year-old white female brought by ambulance to the ED and the history was obtained at that time in the ED by the patient and her son. When I saw her also I obtained the history. She stated that she had hypoglycemic episode and she did not know until she woke up. Her son stated that he was at home with her before visitation and she made strange noises and he went to look investigate and she was unable to speak, diaphoretic, shaky and with the underlying hypoglycemia. The EMS was called and the blood sugar was less than 50. They gave her dextrose and patient become more alert, more responsive and came to the emergency room. After the patient recovered, she complained of pain in the right groin area and the pain severity was 4 to 5 and at that time as they planning to send her home she complained of pain that they kept her on observation until seen and evaluated. HER CURRENT MEDICATIONS: She is on levothyroxine, pantoprazole, multivitamin, insulin a.c. meals only and she was not taken 10 units before each meal, which has been discontinued because of previous low blood sugar in the [facility]. She was taking in the past 40 units of Lantus, however, also was decreased to 35 and the current list obtained in the ER was wrong. She is on isosorbide mononitrate 60 mg once a daily, and sublingual nitroglycerin, ammonium lactate cream on the lower extremities and aspirin EC 81 mg q. daily, calcium carbonate with vitamin D3, and cholecalciferol vitamin D3, 1000 units daily. She has ferrous sulfate 325 mg once a day, linagliptin and that is a 5 mg p.o. q. daily and which has been discontinued. She is also on omega-3 fatty acid 1 capsule a day 1000 mg and she is on senna/docusate for stool softener 2 tablets twice a day and she also uses Kenalog cream topical. PAST MEDICAL HISTORY: She has past medical history of cellulitis of the lower extremities which has been completely resolved. She had episodes in the past of nausea and vomiting with the gastroparesis and she has been used in the past, hydralazine as well and Lasix and amlodipine. ALLERGIES: JOCELYNN INHIBITOR, PIPERACILLIN, ZOSYN caused her allergy, but she is able to tolerate Keflex, cephalosporin. She also has TAZOBACTAM allergy and ASPARTAME allergy. PAST MEDICAL HISTORY: She had a strong history of renal artery stenosis and several surgeries. She has a right renal cell carcinoma, has been treated by cryotherapy in [place]. She has also a history of renovascular hypertension as well as hypertension with hypertensive heart disease and history of diabetes mellitus type 2 was in the past, uncontrolled. She has a chronic kidney disease stage 3 to 4 and currently stabilized at stage III. She has been seen in the past by Cardiology, Nephrology, as well as Infectious Disease. She has past history of asthma and history of coronary artery disease, cancer, chest pain, angina, diabetes mellitus, reflux esophagitis, hyperlipidemia, hypertension, osteoarthritis, renal disease, thyroid disease, vascular disorder. She has a history of labyrinthitis/vertigo. History of right renal cancer, she was treated with frozen in 1970. Right renal artery bypass for renal artery stenosis. Chronic kidney disease stage 3. Insulin-dependent diabetes mellitus and neuropathy bilateral of the legs. Gouty bilateral and severe headache occasionally. She had 3 brain aneurysms that were clipped and one calcified. She had history of lower leg edema and cellulitis and hypothyroidism, which has not been present currently. She had surgical history of heart catheterization, joint replacement, orthopedic surgical treatment bilaterally and tonsillectomy. REVIEW OF SYSTEM: NEUROPSYCHIATRY: She is awake, alert, oriented x3. No headache and no blurred vision. No falling attack. MUSCULOSKELETAL: She had pain in the right groin. Conscious, alert, oriented with no evidence of hypoglycemia after the treatment and the fluids. She denied any fever, chills. Denied any cough or dyspnea, chest pain or orthopnea. GI: No abdominal pain. No vomiting. No diarrhea. She has the pain in the right groin area and that also make inability to stand or walk. PHYSICAL EXAMINATION: On the physical examination, the patient appeared to be much better than she was before and she is conscious, alert, oriented x3, and no dizziness, no blurred vision at this time. Her underlying vital signs are stable. On seeing her lastex operator hours, her vital signs was temperature 97.9, pulse 79, respiratory rate 18, blood pressure was earlier 138/76, and subsequently at the time of seeing her is 151/65, and she has saturation 98% on room air. On her laboratory done in the ER showed that her white count 10.4 and hemoglobin 13 and she had sodium 139, potassium 3.4, BUN of 31 and creatinine 1.94 and glucose 111. Her calcium 9.1 and troponin 0.018. On the examination, she is conscious, alert, oriented x3, able to swallow and eat, moving 4 extremities. The HEENT: Head was normocephalic, atraumatic. Pupil was equal, reactive. Conjunctivae was pink. Sclerae was nonicteric. Oropharynx has natural teeth. Neck was supple. No bruits and no lymphadenopathy. trachea midline. The chest was clear to auscultation and percussion. No wheezes. No rhonchi. The heart is PMI in the fifth intercostal space outside midclavicular line with normal S1, S2. No gallop and there is a positive murmur. The abdomen is protuberant and positive bowel sounds and no tenderness in the 4 quadrants. On the groin area, right groin there is tenderness on the groin area with the movement of the right hip and it was painful and requesting pain medication to alleviate the pain, which was in the 4 to 6 level. The extremities complete resolution of the cellulitis of the lower extremities. She has neuropathy of the legs and the pulses was intact bilateral 2+ and no edema. ASSESSMENT: 1. Hypoglycemic episode and the plan for that is only insulin to scale and discontinuation of the Lantus and the reason for that she is not eating enough with a loss of appetite to compensate for the Lantus and she is at home alone and not eating as used to be [facility] the [facility]. 2. Patient was just [facility] from the [facility] and if she had pain in the right hip, we probably we may need to go back to the penitentiary and we will consult the automatic data processing planner and the rn social work for replacement again in the penitentiary as she lives alone and her son will be leaving this weekend and going back home in [place]. 3. Underlying the groin with pain in the hip joint, right hip joint, and it could be referred from the [facility] spine as well as to rule out hernia and plan for that we will do x-ray of the right hip and lumbosacral spine x-ray and ultrasound of the groin and consultation with [facility] Dr. Powell or who is covering him if he is not available and further treatment is depending on the recommendation of the orthopedic and we started her on Toradol IV 15 mg p.r.n. for the severe pain. 4. Chronic kidney disease. 5. Hypertension with the hypertensive heart disease and renal artery stenosis and previous surgery on the renal artery stenosis, which is bilateral. MMODL / IJN: [id number] /
[2018-06-05 11:49] LABS: Glucose,Whole Blood 168 mg/dL (75-99)
--- NOTE | 2018-06-05 12:11 | P.CNOR ---
History of Present Illness - [facility] Consult date: 06/05/18 Consult reason: joint pain History of present illness: Patient is an 82-year-old female was admitted to the observation unit at [facility] with regards to hypoglycemic episode. Over the last 2 months patient has had multiple hospital visits, along with a long stay at a residential. Patient was recently discharged from the residential. Patient had a family member staying in town with her over the last week or so. Apparently patient developed a hypoglycemic episode while the family was present , she is brought to the hospital for further workup. Upon arrival imaging and lab tests were done. Patient complained of significant pain involving her right groin. Patient was admitted to the observation unit for further workup. Orthopedic team was consulted for the right groin pain. Patient has an extensive medical history, please see history and physical from internal medicine. With regards to orthopedic history, she has a history of bilateral total knee arthroplasty. She denies any previous surgery involving the right hip or left hip. She denies any surgery involving the lumbar spine. Patient denies any significant pain involving the lumbar spine. She admits to the discomfort in the right groin been present for the last month or so, on and off. She admits over the last few days the pain is become very severe. She's had a very difficult time lifting the leg. She does have a history of neuropathy involving the bilateral feet, this is likely related to diabetes. She denies any radiating pain from the lower back down the legs. She denies any loss of bowel or bladder function at this time. Patient admits to a fall, this was about a month ago. Since then she denies any recent trauma. Patient denies any use of narcotic pain medication for pain at this time. She denies any chest pain or shortness of breath at this time. She denies any other orthopedic complaints at this time. 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 History of Any Multi-Drug Resistant Organisms: None Reported Past Surgical History: Appendectomy, Heart Catheterization, Joint Replacement, Orthopedic Surgery, Tonsillectomy Additional Past Surgical History / Comment(s): R renal artery bypassed with groin vein graft, brain aneurysms with clips x 2, cataract removal both eyes with lens implants, colonoscopies x 2 with first one having benign polypectomy and 2nd one normal. RT kidney had cancer on top of kidney, pt stated"they froze the cancer off" , lt shoulder arthroscopy for rotator cuff, dusty knee replacments, L foot fracture with surgery and L foot had a bone misplaced with surgery, R foot tumor removed around a toe. Past Anesthesia/Blood Transfusion Reactions: No Reported Reaction Additional Past Anesthesia/Blood Transfusion Reaction / Comm: Pt has received blood without reaction. Past Psychological History: No Psychological Hx Reported Additional Psychological History / Comment(s): Pt resides in a condo. There are 15 steps to get up to her condo. Pt not currently driving. She has a walker she uses in the home. She has [employer] . 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 Smoking Status: Former smoker Past Alcohol Use History: None Reported Additional Past Alcohol Use History / Comment(s): Patient lives at home alone in a condo. 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 Past Drug Use History: None Reported - Past Family History Father Family Medical History: Myocardial Infarction (AR) Additional Family Medical History / Comment(s): Father of a AR at the age of 56yrs. Mother Family Medical History: Cancer Additional Family Medical History / Comment(s): Mother had breast cancer. She from another type of cancer that metastasized to her bones. Medications and Allergies Home Medications Medication Instructions Recorded Confirmed Type Atorvastatin [Lipitor] 40 mg PO HS 12/31/14 06/05/18 History Levothyroxine Sodium [Synthroid] 50 mcg PO DAILY 12/31/14 06/05/18 History Pantoprazole Sodium 40 mg PO DAILY 12/31/14 06/05/18 History Multivit-Min/FA/Lycopen/Lutein 1 tab PO DAILY 03/24/15 06/05/18 History [Centrum Silver Tablet] Insulin Aspart [NovoLOG Flexpen] 10 units SQ AC-TID 01/02/18 06/05/18 History Insulin Aspart [NovoLOG Flexpen] See Protocol SQ AC-TID 01/02/18 06/05/18 History Insulin Glargine,Hum.rec.anlog 35 units SQ HS 01/02/18 06/05/18 History [Lantus Solostar] Isosorbide Mononitrate ER [Imdur] 60 mg PO DAILY 01/02/18 06/05/18 History Nitroglycerin Sl Tabs [Nitrostat] 0.4 mg SL Q5M PRN 01/02/18 06/05/18 History Acetaminophen Tab [Tylenol] 650 mg PO Q4HR PRN tab 01/04/18 06/05/18 Rx Ammonium Lactate Cream [Lac-Hydrin 1 applic TOPICAL BID 04/30/18 06/05/18 History 12% Cream] Aspirin EC [Ecotrin Low Dose] 81 mg PO DAILY 04/30/18 06/05/18 History Calcium Carbonate/Vitamin D3 1 tab PO DAILY 04/30/18 06/05/18 History [Calcium 500-Vit D3 200 Tablet] Cholecalciferol [Vitamin D3] 1,000 unit PO DAILY 04/30/18 06/05/18 History Clobetasol Propionate [Temovate 1 applic TOPICAL TID 04/30/18 06/05/18 History 0.05% Cream] Ferrous Sulfate [Iron (65 MG 325 mg PO DAILY 04/30/18 06/05/18 History Elemental)] Linagliptin [Tradjenta] 5 mg PO DAILY 04/30/18 06/05/18 History Meclizine [Antivert] 12.5 mg PO TID PRN 04/30/18 06/05/18 History [place]-3 Fatty Acids/Fish Oil [Fish 1 cap PO TID 04/30/18 06/05/18 History Oil 1,000 mg Softgel] Triamcinolone 0.1% Cream [Kenalog 1 applicatio TOPICAL DAILY 04/30/18 06/05/18 History 0.1% Cream] Furosemide [Lasix] 40 mg PO BID #0 05/05/18 06/05/18 Rx SILVER sulfADIAZINE CREAM 1 applic TOPICAL DAILY #60 applic 05/05/18 06/05/18 Rx [Silvadene Cream] hydrOXYzine HCL [Atarax] 25 mg PO QID PRN #30 tab 05/05/18 06/05/18 Rx Sennosides-Docusate Sodium 2 tab PO BID 05/13/18 06/05/18 History [Senokot-S] Carvedilol [Coreg*] 25 mg PO BID-W/MEALS tab 05/18/18 06/05/18 Rx Metoclopramide [Reglan] 5 mg PO ACHS tab 05/18/18 06/05/18 Rx amLODIPine [Norvasc] 5 mg PO BID tab 05/18/18 06/05/18 Rx hydrALAZINE HCL [Apresoline] 100 mg PO TID tab 05/18/18 06/05/18 Rx Allergies Allergy/AdvReac Type Severity Reaction Status Date / Time JOCELYNN Inhibitors Allergy Unknown Verified 06/05/18 07:31 piperacillin [From Zosyn] Allergy Rash/Hives Verified 06/05/18 07:31 tazobactam [From Zosyn] Allergy Rash/Hives Verified 06/05/18 07:31 aspartame AdvReac Nausea & Verified 06/05/18 07:31 Vomiting Physical Examination Right lower extremity: No obvious open lesions or sores present, no areas of erythema or soft tissue swelling No significant tenderness with palpation surrounding the foot or ankle or knee. No significant tenderness with palpation of the greater trochanter. Logroll maneuver of the hip reproduces discomfort, hip flexion along with internal and external rotation also reproduces right groin pain. Plantar flexion, dorsiflexion, EHL, FHL are intact. Her sensory exam is diminished in the feet, it is intact throughout the remaining extremity Dorsal pedis pulses 2+, calf is soft, no tenderness with palpation Results - Labs Labs: Abnormal Lab Results - Last 24 Hours (Table) 06/05/18 06/05/18 06/05/18 Range/Units 02:41 03:30 03:30 MCV 79.9 L (80.0-100.0) fL Neutrophils # 8.8 H (1.3-7.7) k/uL Lymphocytes # 0.9 L (1.0-4.8) k/uL Potassium 3.4 L (3.5-5.1) mmol/L BUN 31 H (7-17) mg/dL Creatinine 1.94 H (0.52-1.04) mg/dL Glucose 111 H (74-99) mg/dL POC Glucose (mg/dL) 143 H (75-99) mg/dL 06/05/18 06/05/18 Range/Units 05:24 11:46 MCV (80.0-100.0) fL Neutrophils # (1.3-7.7) k/uL Lymphocytes # (1.0-4.8) k/uL Potassium (3.5-5.1) mmol/L BUN (7-17) mg/dL Creatinine (0.52-1.04) mg/dL Glucose (74-99) mg/dL POC Glucose (mg/dL) 128 H 168 H (75-99) mg/dL H & H 06/05/18 Range/Units 03:30 Hgb 13.0 D (11.4-16.0) gm/dL Hct 38.0 (34.0-46.0) % Result Diagrams: 06/05/18 03:30 06/05/18 03:30 - Diagnostic results Hip x-ray: report reviewed, image reviewed Assessment and Plan Plan: Imaging: Awaiting lumbar and hip x-rays from today. I was able to review an AP pelvis x- ray from 05/01/2018. Images demonstrated no acute fractures or dislocations. Images do demonstrate posterior arthritic changes involving the right hip, including loss of joint space and osteophyte formation. Assessment: 1. Right groin pain 2. Right hip osteoarthritis 3. Possible lumbar radicular symptoms 4. Multiple medical comorbidities Plan: I was able to discuss the case, including physical exam findings and imaging studies my attending Dr. Orellana. Await x-rays from today of lumbar spine and right hip. This is likely an exacerbation of right hip osteoarthritis. Recommend conservative management at this time, this to include anti- inflammatories and pain medication. Patient would benefit from a physical therapy evaluation. Recommend weight-bear as tolerated with a walker at this time. Pain control, anti-inflammatories and narcotic pain medication Physical therapy evaluation Await x-rays of lumbar spine and right hip for further confirmation Other medical especially recommendations Further recommendations to follow Time with Patient: Less than 30
[2018-06-05] MEDS ORDERED: INSULIN ASPART SQ SCH (12:30)
[2018-06-05] MEDS: HYDROcodone/APAP 5-325MG 1 EACH TAB PO PRN (13:53)
--- NOTE | 2018-06-05 13:56 | XR ---
EXAMINATION TYPE: XR Hip Complete RT DATE OF EXAM: 06/05/2018 CLINICAL HISTORY: Fall, pain TECHNIQUE: AP and frogleg views of the right hip are obtained. COMPARISON: None. FINDINGS: There is no acute fracture/dislocation evident in the right hip. The joint space in the r ight hip appears within normal limits. The overlying soft tissue appears unremarkable. IMPRESSION: There is no acute fracture or dislocation in the right hip.
--- NOTE | 2018-06-05 13:58 | XR ---
EXAMINATION TYPE: XR lumbosacral spine min 4V DATE OF EXAM: 06/05/2018 COMPARISON: None HISTORY: Fall, pain right groin pain TECHNIQUE: Lumbar spine is examined in 3 projections. Additional oblique views were obtained [place]. FINDINGS: There 5 lumbar-type vertebral bodies. Pedicles are intact. Spondylosis is present. Facet de generative changes are present within the mid and lower lumbar spine. Posterior disc space narrowing is present L2-3. Some disc space narrowing at L5-S1 may be present. Note is made of vascular calcific ation within the aorta. IMPRESSION: 1. Spondylosis 2. Mild degenerative disc change posterior L2-3.
[2018-06-05] MEDS ORDERED: NON-FORMULARY DRUG (Omega-3 Fatty Acids/Fish Oil [Fish Oil 1,000 Mg Softgel] 1 CAP) PO SCH (16:00)
[2018-06-05 16:38] LABS: Glucose,Whole Blood 202 mg/dL (75-99)
[2018-06-05] MEDS: CLOBETASOL PROP 0.05% CR 15GM TOPICAL SCH ×2 (16:57→20:45)
[2018-06-05] MEDS: FUROSEMIDE 40 MG TAB PO SCH (17:00)
[2018-06-05 19:53] LABS: Amorphous Sediment,Urine Occasional /hpf; Appearance,Urine Cloudy (Clear); Bilirubin,Urine Negative (Negative); Blood,Urine Negative (Negative); Color,Urine Yellow; Glucose,Urine (UA) Negative (Negative); Hyaline Casts,Urine 73 /lpf (0-2); Ketones,Urine Negative (Negative); Leukocyte Esterase,Urine Large (Negative); Mucus,Urine Occasional /hpf; Nitrite,Urine Negative (Negative); PH, Urine 5.5 (5.0-8.0); Protein,Urine 2+ (Negative); RBC,Urine 2 /hpf (0-5); Specific Gravity,Urine 1.016 (1.001-1.035); Squamous Epithelial Cell,Urine 1 /hpf (0-4); Urobilinogen,Urine <2.0 mg/dL (<2.0); WBC,Urine 98 /hpf (0-5)
[2018-06-05 20:17] LABS: Glucose,Whole Blood 204 mg/dL (75-99)
[2018-06-05] MEDS: AMMONIUM LACTATE 12% CREAM 140 GM TUBE TOPICAL SCH (20:45)
[2018-06-05] MEDS: POTASSIUM CHLORIDE ER 20 MEQ TAB.ER PO SCH (20:47)
[2018-06-05] MEDS: SENNOSIDES-DOCUSATE SODIUM 1 EACH TAB PO SCH (20:47)
[2018-06-05] MEDS: ATORVASTATIN 40 MG TAB PO SCH (20:47)
[2018-06-05] MEDS ORDERED: INSULIN DETEMIR (LEVEMIR) 100 UNIT/ML SYR SQ SCH (21:00)
[2018-06-05 23:19] LABS: Hemoglobin A1C 6.9 % (4.0-6.0)
[2018-06-06] MEDS: LEVOTHYROXINE 50 MCG TAB PO SCH (06:23)
[2018-06-06 07:02] LABS: Glucose,Whole Blood 140 mg/dL (75-99)
[2018-06-06] MEDS: INSULIN ASPART (NovoLOG) 100 UNIT/ML VIAL SQ SCH ×4 (07:25→20:26)
[2018-06-06 07:39] LABS: Calcium 8.6 mg/dL (8.4-10.2); Potassium 4.5 mmol/L (3.5-5.1)
[2018-06-06] MEDS: amLODIPine 5 MG TAB PO SCH ×2 (09:05→20:27)
[2018-06-06] MEDS: FUROSEMIDE 40 MG TAB PO SCH ×2 (09:05→17:27)
[2018-06-06] MEDS: METOCLOPRAMIDE 5 MG TAB PO SCH ×4 (09:05→20:27)
[2018-06-06] MEDS: CARVEDILOL 12.5 MG TAB PO SCH ×2 (09:05→17:27)
[2018-06-06] MEDS: CLOBETASOL PROP 0.05% CR 15GM TOPICAL SCH ×3 (09:05→20:26)
[2018-06-06] MEDS: AMMONIUM LACTATE 12% CREAM 140 GM TUBE TOPICAL SCH ×2 (09:05→20:26)
[2018-06-06] MEDS: POTASSIUM CHLORIDE ER 20 MEQ TAB.ER PO SCH ×2 (09:05→20:27)
[2018-06-06] MEDS: ISOSORBIDE MONONITRATE ER 60 MG TAB.ER.24H PO SCH (09:06)
[2018-06-06] MEDS: PANTOPRAZOLE 40 MG TABLET PO SCH (09:06)
[2018-06-06] MEDS: ASPIRIN 81 MG PO SCH (09:06)
[2018-06-06] MEDS: MULTIVITAMINS, THERA 1 EACH TAB PO SCH (09:06)
[2018-06-06] MEDS: SENNOSIDES-DOCUSATE SODIUM 1 EACH TAB PO SCH ×2 (09:06→20:26)
[2018-06-06] MEDS: FERROUS SULFATE 325 MG TAB PO SCH (09:06)
[2018-06-06] MEDS: SODIUM CHLORIDE 0.9% 1,000 ML IV SCH ×2 (09:06→21:01)
[2018-06-06] MEDS: LINAGLIPTIN 5 MG TABLET PO SCH (09:06)
[2018-06-06] MEDS: hydrALAZINE HCL 50 MG TAB PO SCH ×3 (09:06→20:27)
[2018-06-06] MEDS: CALCIUM CARB-VIT D 500MG-200UN 1 EACH TAB PO SCH (09:06)
[2018-06-06] MEDS: CHOLECALCIFEROL 1,000 UNIT TAB PO SCH (09:06)
--- NOTE | 2018-06-06 11:52 | P.PN ---
Progress Note - Text Progress Note Date: 06/06/18 Progress note date of service 06/06/2018. Patient on observation status. Patient seen and evaluated today discussed with her the plan in detail. Patient [facility] the [facility] with the underlying inability to ambulate or to care for herself, no blood in [facility] and they could not find a bed for nursing homes, neighborhood planner has been notified the nurse his nurse that OB on Friday patient will be staying as observation status. Vital sign: Temperature 98.9 orally, pulse rate 7060 9 bpm regular sinus. Respiratory rate 18/m normal nonlabored. Blood pressure fluctuating with the earlier 122/61 with a mean 81 and blood pressure 150/60 with the saturation 94% on room air. Patient is conscious alert oriented no evidence of any pain, no chest pain no hip pain, and she states that she slept well last night, she stated also pain in the right groin has been fairly well controlled it did not bother her during the night as she has been taking pain pills. HEENT normal Neck was supple no JVD no thyromegaly no lymphadenopathy trachea midline. Chest clear to auscultation and percussion no wheezes nor rhonchi's. Heart regular sinus rhythm and no acute abnormalities. Abdomen soft positive bowel sounds. Right groin arthritis secondary to hip arthritis as well as lower lumbosacral degenerative arthritis with the negative ultrasound of the right groin. Neurologically intact. Laboratories urine analysis: Indicating large leukocyte esterase with the WBC 98. We'll request culture and sensitivity meanwhile will start Rocephin 1 g every 12 hours. However patient was nonsymptomatic. Electrolyte indicating normal potassium 4.5 her meal and and creatinine has been increase and the patient was not receiving any IV fluid we will be starting her on the IV fluid 75 mL an hour 0.9 normal saline will check tomorrow the BMP. In regarding of the hypoglycemia: Has been completely recovered after hypoglycemic episode and her blood sugar [id number] this morning will continue CBG to scale. PT and OT and ambulation as tolerated.
[2018-06-06 12:01] LABS: Glucose,Whole Blood 166 mg/dL (75-99)
[2018-06-06 16:49] LABS: Glucose,Whole Blood 168 mg/dL (75-99)
[2018-06-06] MEDS: HYDROcodone/APAP 5-325MG 1 EACH TAB PO PRN (17:28)
[2018-06-06 20:04] LABS: Glucose,Whole Blood 206 mg/dL (75-99)
[2018-06-06] MEDS: ATORVASTATIN 40 MG TAB PO SCH (20:27)
[2018-06-07] MEDS: HYDROcodone/APAP 5-325MG 1 EACH TAB PO PRN ×2 (05:41→21:13)
[2018-06-07] MEDS: LEVOTHYROXINE 50 MCG TAB PO SCH (05:42)
[2018-06-07 06:45] LABS: Glucose,Whole Blood 121 mg/dL (75-99)
[2018-06-07] MEDS: INSULIN ASPART (NovoLOG) 100 UNIT/ML VIAL SQ SCH ×4 (08:02→21:13)
[2018-06-07] MEDS: FERROUS SULFATE 325 MG TAB PO SCH (08:37)
[2018-06-07] MEDS: CALCIUM CARB-VIT D 500MG-200UN 1 EACH TAB PO SCH (08:37)
[2018-06-07] MEDS: MULTIVITAMINS, THERA 1 EACH TAB PO SCH (08:37)
[2018-06-07] MEDS: LINAGLIPTIN 5 MG TABLET PO SCH (08:37)
[2018-06-07] MEDS: SENNOSIDES-DOCUSATE SODIUM 1 EACH TAB PO SCH ×2 (08:37→21:12)
[2018-06-07] MEDS: CHOLECALCIFEROL 1,000 UNIT TAB PO SCH (08:37)
[2018-06-07] MEDS: hydrALAZINE HCL 50 MG TAB PO SCH ×3 (08:37→21:12)
[2018-06-07] MEDS: METOCLOPRAMIDE 5 MG TAB PO SCH ×4 (08:37→21:12)
[2018-06-07] MEDS: ASPIRIN 81 MG PO SCH (08:37)
[2018-06-07] MEDS: FUROSEMIDE 40 MG TAB PO SCH ×2 (08:38→18:08)
[2018-06-07] MEDS: amLODIPine 5 MG TAB PO SCH ×2 (08:38→21:16)
[2018-06-07] MEDS: POTASSIUM CHLORIDE ER 20 MEQ TAB.ER PO SCH ×2 (08:38→21:12)
[2018-06-07] MEDS: PANTOPRAZOLE 40 MG TABLET PO SCH (08:38)
[2018-06-07] MEDS: CLOBETASOL PROP 0.05% CR 15GM TOPICAL SCH ×3 (08:38→21:12)
[2018-06-07] MEDS: CARVEDILOL 12.5 MG TAB PO SCH ×2 (08:38→18:08)
[2018-06-07] MEDS: ISOSORBIDE MONONITRATE ER 60 MG TAB.ER.24H PO SCH (08:38)
[2018-06-07] MEDS: SODIUM CHLORIDE 0.9% 1,000 ML IV SCH (08:38)
[2018-06-07] MEDS: AMMONIUM LACTATE 12% CREAM 140 GM TUBE TOPICAL SCH ×2 (08:38→21:12)
[2018-06-07 11:40] LABS: Glucose,Whole Blood 183 mg/dL (75-99)
--- NOTE | 2018-06-07 13:14 | PN ---
PROGRESS NOTE DATE OF SERVICE: 06/07/2018 She is an 82-year-old white female, date of 1935. NEW DATA: She is a FULL CODE. Her height 5 feet and 5 inches. Weight 77.111 kg. BSA 1.85 m2, BMI 28.3 kg/m2. Her ALLERGY TO JOCELYNN INHIBITORS, AMPICILLIN, TAZOBACTAM, ASPARTAME. HISTORY OF PRESENT ILLNESS: The patient is seen today and evaluated and she has been feeling very well. She is on observation status and is waiting to return to the assisted. However, the [facility] was full and they have to wait until Friday for placement or return to a assisted on Friday in other facility due to the fact of the patient on able to walk with the underlying right hip advanced arthritis. The patient is seen by the orthopedic team with Dr. Higgins and Dr. Orellana and the advice with the pain pills they gave it to her at that time as well as advice was no surgery. On today examination, she is conscious, alert, oriented x3, and she has been taking pain medication. Her vital signs: Temperature 98 orally. Her pulse 69 beats per minute, respiratory rate 16 and no shortness of breath. Her blood pressure was earlier 132/68. However, in the morning at 8 o'clock was 158/62. However, she has fluctuation of blood pressure, but for this number is normal with the underlying history of renovascular hypertension and cardiovascular hypertension. Her pulse ox was 92 and prior to that was 96 on room air. On the laboratories: Her blood sugar has been controlled with no evidence of hypoglycemia as the patient stated that she has still no appetite and she is not eating much. At 6:30 a.m. her blood sugar was 121. The urinalysis found she has underlying UTI and however she was non symptomatic, started on the Rocephin IV piggyback q.12 hours and we waiting for the culture as well. On the examination, the patient was conscious, alert, oriented x3, and she is able to ambulate in the hallway. She denied any chest pain or abdominal pain, but she had a groin pain that she has been able to ambulate with that after she took the pain killer. HEENT was negative and pupils equal, reactive. Oropharynx, she has natural teeth. Able to eat and swallow with no problem. The neck was supple. No JVD. No thyromegaly. No lymphadenopathy. Trachea midline. Chest was clear to auscultation and percussion with no wheezes, no rhonchi. The heart was regular sinus rhythm with the underlying history of hypertensive heart disease. The abdomen was soft, positive bowel sounds. The extremities, no evidence of cellulitis and no evidence of itching at this time, and they put lotion on her legs and she feeling fine. Also, no edema and positive pulses bilateral. Her blood sugar has been stable without the Lantus. Blood pressure also was stable. ASSESSMENT: 1. The patient initially presented from the assisted with hypoglycemic episode resulted from not eating well and taking the Lantus, which has been discontinued and patient currently on CBG to scale. 2. Underlying history of right groin pain, found to be associated with arthritis and seen by the orthopedic team of Dr. Orellana and the physician nursing assistant and x-ray was done indicating osteoarthritis and no need for surgical intervention. 3. Underlying urinary tract infection with the high leukocyte esterase as well as high WBC in the urine and for that purpose we ordered the culture, which is still pending. Until we have the facility to be transferred the patient to the assisted, which one will accept the patient. With the inability to walk she lives at home alone and her son came from [place] to see her and when she had this episode of the hypoglycemia with the blood sugar was 50 at that time by the EMS. Currently, the patient is ambulatory on observation status and she will hopefully find a bed tomorrow and transferred to assisted for continued rehabilitation. MMODL / IJN: [id number] /
[2018-06-07 16:59] LABS: Glucose,Whole Blood 187 mg/dL (75-99)
[2018-06-07 20:29] LABS: Glucose,Whole Blood 175 mg/dL (75-99)
[2018-06-07] MEDS: ATORVASTATIN 40 MG TAB PO SCH (21:12)
[2018-06-08] MEDS: SODIUM CHLORIDE 0.9% 1,000 ML IV SCH (02:19)
[2018-06-08] MEDS: LEVOTHYROXINE 50 MCG TAB PO SCH (06:12)
[2018-06-08 07:29] LABS: Glucose,Whole Blood 148 mg/dL (75-99)
[2018-06-08] MEDS: ASPIRIN 81 MG PO SCH (08:36)
[2018-06-08] MEDS: ISOSORBIDE MONONITRATE ER 60 MG TAB.ER.24H PO SCH (08:37)
[2018-06-08] MEDS: SENNOSIDES-DOCUSATE SODIUM 1 EACH TAB PO SCH ×2 (08:37→08:44)
[2018-06-08] MEDS: FUROSEMIDE 40 MG TAB PO SCH (08:37)
[2018-06-08] MEDS: amLODIPine 5 MG TAB PO SCH (08:37)
[2018-06-08] MEDS: CALCIUM CARB-VIT D 500MG-200UN 1 EACH TAB PO SCH (08:37)
[2018-06-08] MEDS: LINAGLIPTIN 5 MG TABLET PO SCH (08:37)
[2018-06-08] MEDS: CHOLECALCIFEROL 1,000 UNIT TAB PO SCH (08:37)
[2018-06-08] MEDS: hydrALAZINE HCL 50 MG TAB PO SCH (08:37)
[2018-06-08] MEDS: CARVEDILOL 12.5 MG TAB PO SCH (08:37)
[2018-06-08] MEDS: FERROUS SULFATE 325 MG TAB PO SCH (08:38)
[2018-06-08] MEDS: PANTOPRAZOLE 40 MG TABLET PO SCH (08:38)
[2018-06-08] MEDS: POTASSIUM CHLORIDE ER 20 MEQ TAB.ER PO SCH (08:38)
[2018-06-08] MEDS: METOCLOPRAMIDE 5 MG TAB PO SCH (08:38)
[2018-06-08] MEDS: INSULIN ASPART (NovoLOG) 100 UNIT/ML VIAL SQ SCH ×2 (08:39→13:41)
[2018-06-08] MEDS: CLOBETASOL PROP 0.05% CR 15GM TOPICAL SCH (08:45)
[2018-06-08] MEDS: AMMONIUM LACTATE 12% CREAM 140 GM TUBE TOPICAL SCH (08:45)
[2018-06-08 11:14] LABS: Glucose,Whole Blood 165 mg/dL (75-99)
--- NOTE | 2018-06-08 13:06 | P.DS ---
Providers Date of admission: 06/05/18 06:29 Expected date of discharge: 06/08/18 (Patient admitted on observation and discharged on observation.) Attending physician: Jae Dubon Consults: 06/05/18 09:46 Consult Physician Routine Consulting Provider: Hveer Powell Consult Reason/Comments: rt hip/groin pain Do you want consulting provider notified?: Yes Primary care physician: Jae Dubon His discharge summary date of service 06/08/2018 Disposition transfer tomorrow [facility]. Patient admitted on observation and discharged on observation. He was planned to be admitted to retirement facility on Friday however there is no bed was available patient stayed until they've availability today and she will be transferred to [facility]hab for for further ambulation. Final diagnosis: #1 acute hypoglycemic episode secondary to decreased intake and received Lantus insulin admitted with 50 g per DCL blood sugar resolved and Lantus insulin discontinued. #2 inability to ambulate with severe right hip pain seen by orthopedic surgery team Dr. Sosa/Dr. Higgins and the PA, patient had x-ray of the right hip, ultrasound of the right groin, LS-spine, no surgical indication, and to follow with Dr. Higgins/Ian. #3 degenerative arthritis of the right hip and the lumbosacral spine. #4 diabetes mellitus type 2 fluctuating. #5 renovascular hypertension fluctuating. #6 right renal cancer treated with cryotherapy in [place]. #7 hypertension with hypertensive heart disease. #8 hyper lipidemia. #9 coronary artery disease atherosclerotic heart to disease stable angina. #10 chronic kidney disease stage III to 4 however her baseline creatinine 1. 9 2. ER presentation: Patient brought from home by EMS to emergency room department after she was discharged from [facility] 2 days prior to the presentation, patient had episode of sweating confusion associated with hypoglycemia episode EMS gave her D50 amp [place] wakeup and recovered and proteinuria to the emergency room, she had complained at that time pain in the right hip, admitted to observation for retirement admission or return, because patient could not take care of herself living alone and her son was only [facility] and will not be staying with her. Hospital course: Patient underwent monitoring blood glucose with normal for further evidence of hypoglycemia as well as x-rays and imaging obtained which was indicating of degenerative arthritis, consultation with the orthopedic surgeon and team, indicating follow-up as outpatient and they started her on Narco for pain which she was very effective for relieving the patient pain , patient also had the rehab and ambulation. We planned as she admitted on Friday, and to be transferred to [facility] on Friday, as she has been discharged from [facility] recently 3 days ago. At that time the discharge planning team there is no need for admission however the [facility] was no bed available and patient stayed until today where the bed is open and she will be transferred to medical [place]. I did review the medication, and I did the consideration, and I will follow the patient in the [facility]. Condition on discharge: #1 patient stable general condition, conscious alert oriented 3 and able to ambulate. She had a still the discomfort in the right groin area. Vital sign temperature 98.1, heart rate 70/m, respiratory rate 16 nonlabored, blood pressure has been fluctuating between 143/89046/69. The patient is normal and she is on medication for antihypertension, pulse ox 97 and 93 also fluctuating. Chest is clear no wheezes no rhonchi's. Heart regular sinus rhythm compensated. Abdomen: Soft positive bowel sounds no organ enlargement and no tenderness in the 4 quadrants. Extremities: No edema, no cellulitis, dryness of the skin positive. Pulses was intact bilaterally. Neurologically: Because of the arthritis of the right hip she need for further rehabilitation no neurological finding and no lateralizing signs and able to move 4 extremities. Assessment: And plan Patient stable general condition for transfer her tomorrow [facility] for continuing treatment. Patient admitted on observation and discharged on observation status. Discharge more than 30 minutes more than 50% counseling. Patient Condition at Discharge: Fair Plan - Discharge Summary Discharge Rx Participant: No New Discharge Prescriptions: New HYDROcodone/APAP 5-325MG [Spencer 5-325] 1 each PO Q6HR PRN tab PRN Reason: Pain Potassium Chloride ER [K-Dur 20] 20 meq PO BID tab.er.prt Continue Pantoprazole Sodium 40 mg PO DAILY Levothyroxine Sodium [Synthroid] 50 mcg PO DAILY Atorvastatin [Lipitor] 40 mg PO HS Multivit-Min/FA/Lycopen/Lutein [Centrum Silver Tablet] 1 tab PO DAILY Insulin Aspart [NovoLOG Flexpen] See Protocol SQ AC-TID Ammonium Lactate Cream [Lac-Hydrin 12% Cream] 1 applic TOPICAL BID Aspirin EC [Ecotrin Low Dose] 81 mg PO DAILY Calcium Carbonate/Vitamin D3 [Calcium 500-Vit D3 200 Tablet] 1 tab PO DAILY Cholecalciferol [Vitamin D3] 1,000 unit PO DAILY Clobetasol Propionate [Temovate 0.05% Cream] 1 applic TOPICAL TID Ferrous Sulfate [Iron (65 MG Elemental)] 325 mg PO DAILY Linagliptin [Tradjenta] 5 mg PO DAILY Triamcinolone 0.1% Cream [Kenalog 0.1% Cream] 1 applicatio TOPICAL DAILY hydrOXYzine HCL [Atarax] 25 mg PO QID PRN #30 tab PRN Reason: Itching Furosemide [Lasix] 40 mg PO BID #0 Sennosides-Docusate Sodium [Senokot-S] 2 tab PO BID amLODIPine [Norvasc] 5 mg PO BID tab Carvedilol [Coreg*] 25 mg PO BID-W/MEALS tab Discontinued Insulin Glargine,Hum.rec.anlog [Lantus Solostar] 35 units SQ HS Meclizine [Antivert] 12.5 mg PO TID PRN PRN Reason: DIZZINESS SILVER sulfADIAZINE CREAM [Silvadene Cream] 1 applic TOPICAL DAILY #60 applic Metoclopramide [Reglan] 5 mg PO ACHS tab No Action Insulin Aspart [NovoLOG Flexpen] 10 units SQ AC-TID Isosorbide Mononitrate ER [Imdur] 60 mg PO DAILY Nitroglycerin Sl Tabs [Nitrostat] 0.4 mg SL Q5M PRN PRN Reason: Chest Pain Acetaminophen Tab [Tylenol] 650 mg PO Q4HR PRN tab PRN Reason: Fever And/ Or Pain [place]-3 Fatty Acids/Fish Oil [Fish Oil 1,000 mg Softgel] 1 cap PO TID hydrALAZINE HCL [Apresoline] 100 mg PO TID tab Discharge Medication List Atorvastatin [Lipitor] 40 mg PO HS 12/31/14 [History] Levothyroxine Sodium [Synthroid] 50 mcg PO DAILY 12/31/14 [History] Pantoprazole Sodium 40 mg PO DAILY 12/31/14 [History] Multivit-Min/FA/Lycopen/Lutein [Centrum Silver Tablet] 1 tab PO DAILY 03/24/15 [ History] Insulin Aspart [NovoLOG Flexpen] 10 units SQ AC-TID 01/02/18 [History] Insulin Aspart [NovoLOG Flexpen] See Protocol SQ AC-TID 01/02/18 [History] Isosorbide Mononitrate ER [Imdur] 60 mg PO DAILY 01/02/18 [History] Nitroglycerin Sl Tabs [Nitrostat] 0.4 mg SL Q5M PRN 01/02/18 [History] Acetaminophen Tab [Tylenol] 650 mg PO Q4HR PRN tab 01/04/18 [Rx] Ammonium Lactate Cream [Lac-Hydrin 12% Cream] 1 applic TOPICAL BID 04/30/18 [ History] Aspirin EC [Ecotrin Low Dose] 81 mg PO DAILY 04/30/18 [History] Calcium Carbonate/Vitamin D3 [Calcium 500-Vit D3 200 Tablet] 1 tab PO DAILY 02/06 [History] Cholecalciferol [Vitamin D3] 1,000 unit PO DAILY 04/30/18 [History] Clobetasol Propionate [Temovate 0.05% Cream] 1 applic TOPICAL TID 04/30/18 [ History] Ferrous Sulfate [Iron (65 MG Elemental)] 325 mg PO DAILY 04/30/18 [History] Linagliptin [Tradjenta] 5 mg PO DAILY 04/30/18 [History] [place]-3 Fatty Acids/Fish Oil [Fish Oil 1,000 mg Softgel] 1 cap PO TID 04/30/18 [ History] Triamcinolone 0.1% Cream [Kenalog 0.1% Cream] 1 applicatio TOPICAL DAILY [History] Furosemide [Lasix] 40 mg PO BID #0 05/05/18 [Rx] hydrOXYzine HCL [Atarax] 25 mg PO QID PRN #30 tab 05/05/18 [Rx] Sennosides-Docusate Sodium [Senokot-S] 2 tab PO BID 05/13/18 [History] Carvedilol [Coreg*] 25 mg PO BID-W/MEALS tab 05/18/18 [Rx] amLODIPine [Norvasc] 5 mg PO BID tab 05/18/18 [Rx] hydrALAZINE HCL [Apresoline] 100 mg PO TID tab 05/18/18 [Rx] HYDROcodone/APAP 5-325MG [Spencer 5-325] 1 each PO Q6HR PRN tab 06/08/18 [Rx] Potassium Chloride ER [K-Dur 20] 20 meq PO BID tab.er.prt 06/08/18 [Rx] Follow up Appointment(s)/Referral(s): Apollo Orellana DO [Doctor of Osteopathic Medicine] - As Needed Jae Dubon MD [Primary Care Provider] - 1-2 days Activity/Diet/Wound Care/Special Instructions: Orthopedic Discharge Instructions: 1. Recommend weightbear as tolerated 2. Utilize walker at all times 3. Follow up at [facility] as needed with Dr. Orellana Discharge Disposition: TRANSFER TO SNF/ECF
[2018-06-08] MEDS: MULTIVITAMINS, THERA 1 EACH TAB PO SCH (13:40)
[2018-06-08 14:35] VITALS: BP 161/59; PULSE 68; RESP 18; TEMP 97.4
== END 2018-06-08 16:50 ==
LOC: EC 02:32 → 1SOBS 06:29 → 4MS4W 06-07 16:41
PROVIDERS: ADMIT Internal Medicine; ATTEND Internal Medicine
DX: E11.649 Type 2 diabetes mellitus with hypoglycemia without coma (principal); E03.9 Hypothyroidism, unspecified; E11.22 Type 2 diabetes mellitus with diabetic chronic kidney disease; I13.10 Hypertensive heart and chronic kidney disease without heart failure, with stage 1 through stage 4 chronic kidney disease, or unspecified chronic kidney disease; E11.43 Type 2 diabetes mellitus with diabetic autonomic (poly)neuropathy; M25.551 Pain in right hip; E78.5 Hyperlipidemia, unspecified; I15.0 Renovascular hypertension; I25.118 Atherosclerotic heart disease of native coronary artery with other forms of angina pectoris; I70.1 Atherosclerosis of renal artery; J45.909 Unspecified asthma, uncomplicated; K21.9 Gastro-esophageal reflux disease without esophagitis; K31.84 Gastroparesis; M10.9 Gout, unspecified; M16.11 Unilateral primary osteoarthritis, right hip; M47.9 Spondylosis, unspecified; N18.4 Chronic kidney disease, stage 4 (severe); Z68.28 Body mass index [BMI] 28.0-28.9, adult; Z79.4 Long term (current) use of insulin; Z79.82 Long term (current) use of aspirin; Z79.890 Hormone replacement therapy; Z79.899 Other long term (current) drug therapy; Z80.3 Family history of malignant neoplasm of breast; Z82.49 Family history of ischemic heart disease and other diseases of the circulatory system; Z85.528 Personal history of other malignant neoplasm of kidney; Z87.891 Personal history of nicotine dependence; Z88.8 Allergy status to other drugs, medicaments and biological substances; Z96.1 Presence of intraocular lens; Z96.653 Presence of artificial knee joint, bilateral; Z98.42 Cataract extraction status, left eye; Z98.41 Cataract extraction status, right eye
CPT/HCPCS: 96376; 96365; 96366 ×2; 96375 ×2; 96361; 99285; 36415; 97116 ×2; 97162; 97166; 80048 ×2; 84484; 85025; 81001; 87086; 83036; 72110; 73502; 76882; G0378 ×4; J2270; J0696 ×2; J1885; J1170

== ENCOUNTER → 2018-06-26 | Outpatient (CLI) | payer MEDICARE, BC ==
[2018-06-27 02:13] LABS: Anion Gap 12.2 mmol/L (4.00-12.00); Calcium 9.5 mg/dL (8.7-10.3); Carbon Dioxide 24.8 mmol/L (21.6-31.8); Potassium 3.6 mmol/L (3.5-5.5)
== END | disposition home or self-care (01) ==
LOC: LABWHC1 15:11
PROVIDERS: ATTEND Internal Medicine
DX: E87.8 Other disorders of electrolyte and fluid balance, not elsewhere classified (principal)
CPT/HCPCS: 36415; 80048

== ENCOUNTER → 2018-08-08 | Outpatient (CLI) | payer MEDICARE, BC ==
--- NOTE | 2018-08-08 19:34 | MR ---
EXAMINATION TYPE: MR pelvis wo con DATE OF EXAM: 08/08/2018 COMPARISON: Correlation radiographs 06/05/2018 HISTORY: 82-year-old female severe Rt hip pain into groin TECHNIQUE: Multiplanar, multisequence images of the pelvis were obtained without IV contrast. FINDINGS: No evidence for hip fracture or AVN. SI joints and sacrum are intact. Prominent sacral Tarlov cysts a re noted. Mild patchy red marrow is present. No suspicious bone marrow replacement. There is generalized muscular atrophy. There is a large partial tear of the lateral gluteus medius insertion on the right with fluid interpo sed in the gap and adjacent mild marrow edema along the lateral facet of the greater trochanter. In addition, there is extensive partial tear at the right hamstrings origin involving both the conjoi jean pierre tendon and semimembranosus origins. No tendon retraction is seen. Minimal intrasubstance tearing at the left hamstrings origin. The rectus femoris origin and iliopsoas insertions appear intact. Sigmoid diverticulosis and the visualized pelvis. There is symmetric course, caliber, and signal intensity of the sciatic nerves. There is degenerative change along the superolateral weightbearing aspect of the right hip with a sup erior acetabular labral tear. No significant hip joint effusion on either side. IMPRESSION: 1. Extensive partial tear of the right hamstrings origin. No tendon retraction at this time. 2. Additional partial insertional tear of the right lateral gluteus medius tendon. 3. Underlying right hip osteoarthrosis with superior acetabular labral tear. 4. No hip fracture or AVN. Generalized muscular atrophy. Sacral Tarlov cysts and sigmoid diverticulos is.
== END ==
LOC: RADMRIMAIN 11:48
PROVIDERS: ATTEND Internal Medicine
DX: S76.311A Strain of muscle, fascia and tendon of the posterior muscle group at thigh level, right thigh, initial encounter (principal); S73.191A Other sprain of right hip, initial encounter; S76.811A Strain of other specified muscles, fascia and tendons at thigh level, right thigh, initial encounter; M16.11 Unilateral primary osteoarthritis, right hip
CPT/HCPCS: 72195

== ENCOUNTER 2018-08-30 16:37 | Observation (INO) | payer MEDICARE, BC ==
--- NOTE | 2018-08-30 17:54 | ED ---
General Adult HPI <Hay Waddell - Last Filed: 08/30/18 20:57> - General Source: patient, family Mode of arrival: wheelchair Limitations: no limitations <Brett Rvier - Last Filed: 08/30/18 21:58> - General Chief complaint: Headache Stated complaint: headache, nausea Time Seen by Provider: 08/30/18 17:10 - History of Present Illness Initial comments: Patient is a 82-year-old female presenting with her daughter to emergency Department with a headache. Patient states that she developed a headache a few hours ago that is located in the right parietal lobe and not radiating anywhere. Patient states that she feels nauseous but no vomiting. Patient reports of "funny vision" but denies lightheadedness or dizziness. Patient denies recent trauma to head, recent fevers, stiff neck or rash.. Patient reports that she has a prior history of headaches but this one is more severe than unusual although she states this is not the worst headache of her life. (Brett River) - Related Data Home Medications Medication Instructions Recorded Confirmed Atorvastatin [Lipitor] 40 mg PO HS 12/31/14 06/05/18 Levothyroxine Sodium [Synthroid] 50 mcg PO DAILY 12/31/14 06/05/18 Pantoprazole Sodium 40 mg PO DAILY 12/31/14 06/05/18 Multivit-Min/FA/Lycopen/Lutein 1 tab PO DAILY 03/24/15 06/05/18 [Centrum Silver Tablet] Insulin Aspart [NovoLOG Flexpen] 10 units SQ AC-TID 01/02/18 06/05/18 Insulin Aspart [NovoLOG Flexpen] See Protocol SQ AC-TID 01/02/18 06/05/18 Isosorbide Mononitrate ER [Imdur] 60 mg PO DAILY 01/02/18 06/05/18 Nitroglycerin Sl Tabs [Nitrostat] 0.4 mg SL Q5M PRN 01/02/18 06/05/18 Ammonium Lactate Cream [Lac-Hydrin 1 applic TOPICAL BID 04/30/18 06/05/18 12% Cream] Aspirin EC [Ecotrin Low Dose] 81 mg PO DAILY 04/30/18 06/05/18 Calcium Carbonate/Vitamin D3 1 tab PO DAILY 04/30/18 06/05/18 [Calcium 500-Vit D3 200 Tablet] Cholecalciferol [Vitamin D3 (25 1,000 unit PO DAILY 04/30/18 06/05/18 Mcg = 1000 Iu)] Clobetasol Propionate [Temovate 1 applic TOPICAL TID 04/30/18 06/05/18 0.05% Cream] Ferrous Sulfate [Iron (65 MG 325 mg PO DAILY 04/30/18 06/05/18 Elemental)] Linagliptin [Tradjenta] 5 mg PO DAILY 04/30/18 06/05/18 [place]-3 Fatty Acids/Fish Oil [Fish 1 cap PO TID 04/30/18 06/05/18 Oil 1,000 mg Softgel] Triamcinolone 0.1% Cream [Kenalog 1 applicatio TOPICAL DAILY 04/30/18 06/05/18 0.1% Cream] Sennosides-Docusate Sodium 2 tab PO BID 05/13/18 06/05/18 [Senokot-S] Previous Rx's Medication Instructions Recorded Acetaminophen Tab [Tylenol] 650 mg PO Q4HR PRN tab 01/04/18 Furosemide [Lasix] 40 mg PO BID #0 05/05/18 hydrOXYzine HCL [Atarax] 25 mg PO QID PRN #30 tab 05/05/18 Carvedilol [Coreg*] 25 mg PO BID-W/MEALS tab 05/18/18 amLODIPine [Norvasc] 5 mg PO BID tab 05/18/18 hydrALAZINE HCL [Apresoline] 100 mg PO TID tab 05/18/18 Potassium Chloride ER [K-Dur 20] 20 meq PO BID tab.er.prt 06/08/18 Allergies Allergy/AdvReac Type Severity Reaction Status Date / Time JOCELYNN Inhibitors Allergy Unknown Verified 08/30/18 17:00 piperacillin [From Zosyn] Allergy Rash/Hives Verified 08/30/18 17:00 tazobactam [From Zosyn] Allergy Rash/Hives Verified 08/30/18 17:00 aspartame AdvReac Nausea & Verified 08/30/18 17:00 Vomiting Review of Systems ROS Other: All systems not noted in ROS Statement are negative. <Hay Waddell - Last Filed: 08/30/18 20:57> ROS Other: All systems not noted in ROS Statement are negative. <Brett River - Last Filed: 08/30/18 21:58> ROS Statement: Those systems with pertinent positive or pertinent negative responses have been documented in the HPI. 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 History of Any Multi-Drug Resistant Organisms: None Reported Past Surgical History: Appendectomy, Heart Catheterization, Joint Replacement, Orthopedic Surgery, Tonsillectomy Additional Past Surgical History / Comment(s): R renal artery bypassed with groin vein graft, brain aneurysms with clips x 2, cataract removal both eyes with lens implants, colonoscopies x 2 with first one having benign polypectomy and 2nd one normal. RT kidney had cancer on top of kidney, pt stated"they froze the cancer off" , lt shoulder arthroscopy for rotator cuff, dusty knee replacments, L foot fracture with surgery and L foot had a bone misplaced with surgery, R foot tumor removed around a toe. Past Anesthesia/Blood Transfusion Reactions: No Reported Reaction Additional Past Anesthesia/Blood Transfusion Reaction / Comment(s): Pt has received blood without reaction. Past Psychological History: No Psychological Hx Reported Smoking Status: Former smoker Past Alcohol Use History: None Reported Past Drug Use History: None Reported - Past Family History Father Family Medical History: Myocardial Infarction (OK) Additional Family Medical History / Comment(s): Father of a OK at the age of 56yrs. Mother Family Medical History: Cancer Additional Family Medical History / Comment(s): Mother had breast cancer. She from another type of cancer that metastasized to her bones. <Brett River - Last Filed: 08/30/18 21:58> General Exam Limitations: no limitations General appearance: alert, in no apparent distress Head exam: Present: atraumatic, normocephalic, normal inspection Eye exam: Present: normal appearance, PERRL, EOMI. Absent: scleral icterus, conjunctival injection ENT exam: Present: normal exam, mucous membranes moist, TM's normal bilaterally Neck exam: Present: normal inspection Respiratory exam: Present: normal lung sounds bilaterally Cardiovascular Exam: Present: regular rate, normal rhythm, normal heart sounds Extremities exam: Present: normal inspection, full ROM, normal capillary refill (No vascular compromise), other (+5 strength in upper and lower extremities bilateral. ) Neurological exam: Present: alert, oriented X3 Psychiatric exam: Present: normal affect, normal mood Skin exam: Present: warm, normal color <Brett River - Last Filed: 08/30/18 21:58> - General Exam Comments Initial Comments: Neuro exam unremarkable. (Brett River) Course Vital Signs 08/30/18 08/30/18 08/30/18 16:58 17:58 18:00 Temperature 98.2 F Pulse Rate 53 L 59 L 55 L Respiratory 16 16 18 Rate Blood Pressure 181/64 164/67 O2 Sat by Pulse 97 94 L 96 Oximetry 08/30/18 08/30/18 18:30 19:00 Temperature Pulse Rate 55 L 59 L Respiratory 16 15 Rate Blood Pressure 152/67 146/69 O2 Sat by Pulse 95 98 Oximetry Medical Decision Making - Lab Data Result diagrams: 08/30/18 19:05 <Hay Waddell - Last Filed: 08/30/18 20:57> - Lab Data Result diagrams: 08/30/18 19:05 <Brett River - Last Filed: 08/30/18 21:58> - Medical Decision Making Case discussed with BRENDAN montes. There is concern regarding CTA and renal function. Patient is improved following Reglan. Case was discussed with Dr. Aranda, covering for Dr. pryor who will hold patient tonight for MRI in the morning. Computed tomography scan of the head will need to be done prior to admission. (Hay Waddell) Computed tomography scan of the head is unremarkable for any acute intracranial changes. (Brett River) - Lab Data Lab Results 08/30/18 Range/Units 19:05 Sodium 135 L (137-145) mmol/L Potassium 4.4 (3.5-5.1) mmol/L Chloride 96 L (98-107) mmol/L Carbon Dioxide 30 (22-30) mmol/L Anion Gap 9 mmol/L BUN 23 H (7-17) mg/dL Creatinine 1.38 H (0.52-1.04) mg/dL Est GFR (CKD-EPI)AfAm 41 (>60 ml/min/1.73 sqM) Est GFR (CKD-EPI)NonAf 36 (>60 ml/min/1.73 sqM) Glucose 363 H (74-99) mg/dL Calcium 9.5 (8.4-10.2) mg/dL Total Bilirubin 0.5 (0.2-1.3) mg/dL AST 24 (14-36) U/L ALT 35 (9-52) U/L Alkaline Phosphatase 82 (38-126) U/L Total Protein 6.3 (6.3-8.2) g/dL Albumin 3.9 (3.5-5.0) g/dL Disposition <Hay Waddell - Last Filed: 08/30/18 20:57> Is patient prescribed a controlled substance at d/c from ED?: No Time of Disposition: 21:57 <Brett River - Last Filed: 08/30/18 21:58> Clinical Impression: Headache Disposition: ADMITTED IP TO THIS HOSP Condition: Stable Additional Instructions: Patient will be admitted and MRI will be conducted in the morning. Admitting doctor and Dr. Pryor. Referrals: Jae Pryor MD [Primary Care Provider] - 1-2 days
[2018-08-30] MEDS ORDERED: METOCLOPRAMIDE 5 MG/ML 2 ML VIAL IVP STA (18:20)
[2018-08-30] MEDS ORDERED: SODIUM CHLORIDE 0.9% 1,000 ML IV STA (18:31)
[2018-08-30 19:56] LABS: Albumin 3.9 g/dL (3.5-5.0); Calcium 9.5 mg/dL (8.4-10.2); Potassium 4.4 mmol/L (3.5-5.1); Total Bilirubin 0.5 mg/dL (0.2-1.3); Total Protein 6.3 g/dL (6.3-8.2)
--- NOTE | 2018-08-30 21:31 | CT ---
EXAMINATION TYPE: CT brain wo con DATE OF EXAM: 08/30/2018 COMPARISON: 05/13/2018 HISTORY: headache, nausea. hx of aneurysms CT DLP: 1066.4 mGycm Automated exposure control for dose reduction was used. FINDINGS: There is old left temporal craniotomy. There are surgical clips at the anterior aspect of the sella t urcica and also in the left sylvian fissure. There is 12 mm ring calcification at the anterior clinoi d process on the left side that could be calcified giant aneurysm. There is some encephalomalacia ant erior left temporal lobe. There is no midline shift. There is no sign of intracranial hemorrhage. IMPRESSION: NO ACUTE INTRACRANIAL ABNORMALITY. NO CHANGE COMPARED TO OLD EXAM. MILD LEFT TEMPORAL LOBE ENCEPHALOM ALACIA WITH PREVIOUS SURGERY.
[2018-08-30] MEDS ORDERED: ACETAMINOPHEN TAB 325 MG TAB PO PRN (21:53)
[2018-08-30] MEDS ORDERED: MORPHINE SULFATE 4 MG/ML SYRINGE IV PRN (21:53)
[2018-08-30] MEDS ORDERED: HYDROcodone/APAP 5-325MG 1 EACH TAB PO PRN (21:53)
[2018-08-30] MEDS ORDERED: NALOXONE 0.4 MG/ML 1 ML VIAL IV PRN (21:53)
[2018-08-30 23:26] VITALS: BMI 29.1
[2018-08-30 23:30] LABS: Glucose,Whole Blood 260 mg/dL (75-99)
[2018-08-30] MEDS ORDERED: amLODIPine 5 MG TAB PO STA (23:52)
[2018-08-30] MEDS ORDERED: INSULIN ASPART (NovoLOG) 100 UNIT/ML VIAL SQ ONE (23:54)
[2018-08-31 06:55] LABS: Glucose,Whole Blood 201 mg/dL (75-99)
[2018-08-31 07:25] VITALS: RESP 20
[2018-08-31] MEDS: INSULIN ASPART (NovoLOG) 100 UNIT/ML VIAL SQ SCH ×2 (08:15→13:28)
[2018-08-31] MEDS ORDERED: hydrOXYzine HCL 25 MG TAB PO PRN (09:11)
[2018-08-31] MEDS ORDERED: ASPIRIN 81 MG PO SCH (09:15)
[2018-08-31] MEDS ORDERED: CHOLECALCIFEROL 1,000 UNIT TAB PO SCH (09:15)
[2018-08-31] MEDS ORDERED: CARVEDILOL 12.5 MG TAB PO SCH (09:15)
[2018-08-31] MEDS ORDERED: LINAGLIPTIN 5 MG TABLET PO SCH (09:15)
[2018-08-31] MEDS ORDERED: FERROUS SULFATE 325 MG TAB PO SCH (09:15)
[2018-08-31] MEDS ORDERED: hydrALAZINE HCL 50 MG TAB PO SCH (09:15)
[2018-08-31] MEDS ORDERED: amLODIPine 5 MG TAB PO SCH (09:15)
[2018-08-31] MEDS ORDERED: ISOSORBIDE MONONITRATE ER 60 MG TAB.ER.24H PO SCH (09:15)
[2018-08-31] MEDS ORDERED: FUROSEMIDE 40 MG TAB PO SCH (09:15)
[2018-08-31] MEDS ORDERED: LEVOTHYROXINE 50 MCG TAB PO SCH (09:15)
[2018-08-31] MEDS ORDERED: POTASSIUM CHLORIDE ER 20 MEQ TAB.ER PO SCH (09:15)
[2018-08-31] MEDS ORDERED: CALCIUM CARB-VIT D 500MG-200UN 1 EACH TAB PO SCH (09:15)
[2018-08-31] MEDS ORDERED: PANTOPRAZOLE 40 MG TABLET PO SCH (09:15)
[2018-08-31 10:40] VITALS: BP 159/61; PULSE 63; TEMP 97.6
[2018-08-31] MEDS: SENNOSIDES-DOCUSATE SODIUM 1 EACH TAB PO SCH ×2 (10:41→10:43)
--- NOTE | 2018-08-31 11:07 | HP ---
HISTORY AND PHYSICAL The patient admission date during the night of 08/30/2018 at 2057 hours. CHIEF COMPLAINT: Patient complained of headache and hyperglycemia with the underlying diabetes mellitus and blood sugar 400 associated with nausea. HISTORY OF PRESENT ILLNESS: Patient brought to the emergency room by her daughter and son-in-law with wheelchair and complaining that she had headache and nausea as well as she checked her blood sugar, 400 after she ate a waffle and strawberry outside lunchtime. 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 She felt nauseous; however, no vomiting and she has reporting that she had funny vision and lightheadedness with dizziness. Apparently, she checked her sugar and she stated it was 400. However, in the ER was in the mid 300. She denied any trauma or recent head injury. She had no stiff neck. No fever, no chills. She had history of prior headaches in the past but severe at the time of presentation. On her medication, she was on atorvastatin and pantoprazole, levothyroxine, insulin, NovoLog for CBG to scale and isosorbide mononitrate ER as well as nitroglycerin, ammonium lactate cream, Lac- Hydrin 12%, aspirin enteric-coated 81, calcium carbonate with vitamin D3, and she has also the Lantus in the morning, and she has Lantus at bedtime was 25. She is on Temovate cream for sulfate and linagliptin Tradjenta 5 mg daily and she had [place] 3 fatty acid and sennosides docusate sodium, which is Senokot for chronic constipation. She is also on carvedilol and 12.5 mg twice a day and amlodipine 5 mg twice a day hydralazine currently as well, 50 mg twice a day and her previous medical problem is: 1. Underlying chronic kidney disease. 2. Hypertension with hypertensive heart disease. 3. Renal artery stenosis with secondary hypertension. 4. Hyperthyroidism. 5. Diabetes mellitus type 2. 6. History of edema of the lower extremities. 7. She had the previous surgical history including renal artery stenosis surgery on the right kidney and she has subsequently cryo of the renal cell carcinoma on the right kidney with the also decreased function on the left kidney. 8. She has history of hypokalemia. She has allergy to [employer] associated with the renal failure, PIPERACILLIN, ZOSYN, and TAZOBACTAM and ASPARTAME causing nausea and vomiting. 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 Again, next is past medical history of asthma intermittently, not present at the time of presentation. She had a coronary artery disease, history of angina, diabetes mellitus, and GERD and reflux disease, hyperlipidemia, hypertension, osteoarthritis with bilateral knee arthroplasty, total and history of pneumonia and vascular disorder, thyroid disorder, and recently she had right conjoined tendon of the hamstring muscle has been ruptured. She had history of labyrinthitis, vertigo, right renal cancer as mentioned above, which was frozen. 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 She had also arthroscopy in the past of the rotator cuff. Left foot fracture and right foot tumor removed around the toe. She is a former smoker as well. PAST FAMILY HISTORY: Her father had myocardial infarction and of PR at age of 56. There is a family history of cancer as well. On the examination at the time of the admission, general exam was normal and by the emergency room except the headache and her temperature in the ER was initially 98.2, and respiratory rate 16, blood pressure was elevated 181/64 with the oxygen saturation 97%. Her laboratory initial labs showed a sodium 135, potassium 4.4, chloride 96, and carbon dioxide 30. Her BUN is 23, creatinine 1.38 and the blood sugar was 363. The patient subsequently had a CT scan of the brain with no acute intracranial abnormality as compared with the old exam. The patient admitted on observation status and because of the underlying headache with the assessment of headache/cephalgia persistent associated with nausea only, no vomiting, with the underlying hyperglycemia with diabetes mellitus type 2, uncontrolled. Hypertension with hypertensive renal disease and heart disease and patient will be off currently at the time. At the time of exam this morning and found the patient clear of headache, no headache, no blurred vision and she is able to ambulate with walker, goes to the bathroom. PLAN: To increase ambulation as tolerated, as well as resume her medication and the insulin. Subsequently, patient will be discharged home today, probably lunch or at the end of the day with the monitoring and as she is stable generally with no headache, no nausea, no vomiting, able to eat breakfast will be resumed that as outpatient for the MRI. Because of her kidney abnormalities and she has been seen by Dr. Vance in the [facility] for the clipping of the aneurysm in the past and if there is any squarely, we will be sending her to [facility]. Also, patient had no neurological deficit at this examination this morning with the neuro exam was normal. PHYSICAL EXAM: Today, patient is conscious, alert, oriented x3. She has no acute neurologic deficit and no respiratory deficit and she is ambulatory with a walker. HEENT: The head was normocephalic, atraumatic. PUPILS: Equal, reactive. OROPHARYNX: Negative. There was no rhinitis. NECK: Supple. Moving both upper and post anteroposterior and [id number] and no JVD. No thyromegaly. No lymphadenopathy. Trachea midline. CHEST: Clear to auscultation and percussion. HEART: Regular sinus rhythm and the. abdomen is soft, nontender, obese. Positive bowel sounds. No organ enlargement. She had a scar from previous surgery. EXTREMITIES: No edema and possible all no edema and positive pulses bilateral and symmetrical and off cough. Her vital signs today this morning on the August 31as patient is seen today on August 31, 2018, her blood temperature is 98.4, and pulse rate 59, respiratory rate 20 and normal, nonlabored, and blood pressure 156/67 without the medication started and her pulse. Her mean blood pressure 96 and pulse ox was 95% on room air. Patient is currently stable and the plan for ambulation and discharge her on this afternoon. MMODL / IJN: [id number] /
[2018-08-31 11:33] LABS: Glucose,Whole Blood 353 mg/dL (75-99)
[2018-08-31] MEDS ORDERED: MULTIVITAMINS, THERA 1 EACH TAB PO SCH (12:00)
--- NOTE | 2018-08-31 13:03 | P.DS ---
Providers Date of admission: 08/30/18 20:58 Expected date of discharge: 08/31/18 Attending physician: Jae Dubon Primary care physician: Jae Dubon discharge summary date of service 08/31/2018. Final diagnosis. Cephalgia with a headache resolved in the ER, admitted on observation status with monitoring neurological status which is negative on discharge. Associated nausea probably secondary to the headache with no vomiting. Hypertension not well controlled. Hypertensive heart disease. Renal hypertension with the underlying history renal artery stenosis bilateral. Chronic kidney disease stage III. With the underlying right renal cell carcinoma treated by cryotherapy in . Hyperglycemia with uncontrolled diabetes mellitus. Hypothyroidism History of asthma and COPD and ex-smoker. Presentation in the ER: Severe headache with the underlying history of clipped aneurysm on the left side but currently the history of headache was on the right side with the possibility of migraine however resolved and no further complaints no neuro events. And neuro checks overnight has been normal and no blurred vision. Patient also had hyperglycemia with the blood sugar 363 however was 400 after lunch which she ate waffle and strawberry. Dr. Aranda was informatics consultant and he admitted the patient. Subsequently I did see the patient in the morning of 08/31/2018. Hospital course: Patient admitted on observation status. I did see the patient evaluate her in the morning, she is stable and she ambulatory with her walker, no neuro checks abnormalities and she able to eat breakfast and communicate freely. I did review the laboratories and she has been covered with insulin to scale and also resume her Lantus insulin which she she has been checking at home. Patient released from the headache with no residual effect. Patient request to go home as she feel better and able to sleep at home better. Exam on discharge: Patient in the chair conscious alert oriented 3 getting her lunchtime and waiting for the daughter to pick her up. HEENT negative, no visual disturbance, no headache or cephalgia,. Oropharynx natural teeth. Neck supple no JVD no thyromegaly no lymphadenopathy she had history of hypothyroidism been taking on the treatment Chest is clear to auscultation and percussion. Heart regular sinus rhythm and no chest pain or angina.. Abdomen is soft positive bowel sounds no organ enlargement. Extremities: No edema positive pulses bilateral and symmetrical. Neurologically: No lateralizing sign, moving upper and lower extremities, no tremor or shakiness. And Accu-Chek has been stable no edema Psychiatry stable mood. Assessment: #1 stable general condition to be discharged home today and further investigation as outpatient if needed with MRI and can be done as outpatient. Patient did not exhibit any neurological deficit at this time patient has history of clipping aneurysm in the left side by Dr. Vance the neurosurgeon at [facility]. #2 hyperglycemia and patient is currently living with the NovoLog and we will be adjusting her Lantus as outpatient. #3 no headache no cephalgia at the time of discharge. #4 patient has pain in the right groin and she had MRI and subsequently she did see Dr. Fuentes Pitts the orthopedic surgeon and found that she had conjoint tendon of the hamstring muscle tear and that he did not advise with surgical intervention. Because of the underlying comorbidity with multiple abnorm alities. #5she use a walker and he recommended Toradol dole for pain. Plan: #1 discharge home today in a stable general condition. #2 patient had appointment on Friday and will continue monitoring her blood pressure and the headache as well as the pain in the groin area. Patient Condition at Discharge: Stable Plan - Discharge Summary Discharge Rx Participant: No New Discharge Prescriptions: New RX: Potassium Chloride ER [K-Dur 20] 20 meq PO BID tab.er.prt RX: Ammonium Lactate Cream [Lac-Hydrin 12% Cream] 1 applic TOPICAL BID cream Continue RX: Pantoprazole Sodium 40 mg PO DAILY RX: Levothyroxine Sodium [Synthroid] 50 mcg PO DAILY RX: Atorvastatin [Lipitor] 40 mg PO HS RX: Multivit-Min/FA/Lycopen/Lutein [Centrum Silver Tablet] 1 tab PO DAILY RX: Insulin Aspart [NovoLOG Flexpen] See Protocol SQ AC-TID RX: Isosorbide Mononitrate ER [Imdur] 60 mg PO DAILY RX: Nitroglycerin Sl Tabs [Nitrostat] 0.4 mg SL Q5M PRN PRN Reason: Chest Pain RX: Aspirin EC [Ecotrin Low Dose] 81 mg PO DAILY RX: Calcium Carbonate/Vitamin D3 [Calcium 500-Vit D3 200 Tablet] 1 tab PO DAILY RX: Cholecalciferol [Vitamin D3 (25 Mcg = 1000 Iu)] 1,000 unit PO DAILY RX: Clobetasol Propionate [Temovate 0.05% Cream] 1 applic TOPICAL TID RX: Ferrous Sulfate [Iron (65 MG Elemental)] 325 mg PO DAILY RX: Linagliptin [Tradjenta] 5 mg PO DAILY RX: [place]-3 Fatty Acids/Fish Oil [Fish Oil 1,000 mg Softgel] 1 cap PO TID RX: Furosemide [Lasix] 40 mg PO BID #0 RX: Carvedilol [Coreg] 25 mg PO BID RX: hydrALAZINE HCL 50 mg PO BID RX: Insulin Glargine [Lantus] 25 unit SQ HS RX: Meclizine [Antivert] 12.5 mg PO TID RX: traMADol HCL [Ultram] 50 mg PO Q6HR PRN PRN Reason: Pain Discharge Medication List RX: Atorvastatin [Lipitor] 40 mg PO HS 12/31/14 [History] RX: Levothyroxine Sodium [Synthroid] 50 mcg PO DAILY 12/31/14 [History] RX: Pantoprazole Sodium 40 mg PO DAILY 12/31/14 [History] RX: Multivit-Min/FA/Lycopen/Lutein [Centrum Silver Tablet] 1 tab PO DAILY 03/24/15 [History] RX: Insulin Aspart [NovoLOG Flexpen] See Protocol SQ AC-TID 01/02/18 [History] RX: Isosorbide Mononitrate ER [Imdur] 60 mg PO DAILY 01/02/18 [History] RX: Nitroglycerin Sl Tabs [Nitrostat] 0.4 mg SL Q5M PRN 01/02/18 [History] RX: Aspirin EC [Ecotrin Low Dose] 81 mg PO DAILY 04/30/18 [History] RX: Calcium Carbonate/Vitamin D3 [Calcium 500-Vit D3 200 Tablet] 1 tab PO DAILY 04/30/18 [History] RX: Cholecalciferol [Vitamin D3 (25 Mcg = 1000 Iu)] 1,000 unit PO DAILY 04/30/18 [History] RX: Clobetasol Propionate [Temovate 0.05% Cream] 1 applic TOPICAL TID 04/30/18 [History] RX: Ferrous Sulfate [Iron (65 MG Elemental)] 325 mg PO DAILY 04/30/18 [History] RX: Linagliptin [Tradjenta] 5 mg PO DAILY 04/30/18 [History] RX: [place]-3 Fatty Acids/Fish Oil [Fish Oil 1,000 mg Softgel] 1 cap PO TID 04/30/18 [History] RX: Furosemide [Lasix] 40 mg PO BID #0 05/05/18 [Rx] RX: Ammonium Lactate Cream [Lac-Hydrin 12% Cream] 1 applic TOPICAL BID cream 08/31/18 [Rx] RX: Carvedilol [Coreg] 25 mg PO BID 08/31/18 [History] RX: Insulin Glargine [Lantus] 25 unit SQ HS 08/31/18 [History] RX: Meclizine [Antivert] 12.5 mg PO TID 08/31/18 [History] RX: Potassium Chloride ER [K-Dur 20] 20 meq PO BID tab.er.prt 08/31/18 [Rx] RX: hydrALAZINE HCL 50 mg PO BID 08/31/18 [History] RX: traMADol HCL [Ultram] 50 mg PO Q6HR PRN 08/31/18 [History] Follow up Appointment(s)/Referral(s): [facility] Visiting Nurse, [NON-STAFF] - As Needed Jae Dubon MD [Primary Care Provider] - 1-2 days Activity/Diet/Wound Care/Special Instructions: Patient will be admitted and MRI will be conducted in the morning. Admitting doctor and Dr. Dubon.
[2018-08-31 13:13] LABS: Hemoglobin A1C 9.7 % (4.0-6.0)
[2018-08-31] MEDS ORDERED: AMMONIUM LACTATE 12% CREAM 140 GM TUBE TOPICAL SCH (21:00)
== END 2018-08-31 13:58 | disposition home health service (06) ==
LOC: EC 16:37 → 4MS4W 20:58
PROVIDERS: ADMIT Internal Medicine; ATTEND Internal Medicine
DX: R51 Headache (principal); E11.65 Type 2 diabetes mellitus with hyperglycemia; I13.10 Hypertensive heart and chronic kidney disease without heart failure, with stage 1 through stage 4 chronic kidney disease, or unspecified chronic kidney disease; N18.3 Chronic kidney disease, stage 3 (moderate); E11.22 Type 2 diabetes mellitus with diabetic chronic kidney disease; E11.42 Type 2 diabetes mellitus with diabetic polyneuropathy; I25.10 Atherosclerotic heart disease of native coronary artery without angina pectoris; E78.5 Hyperlipidemia, unspecified; M19.90 Unspecified osteoarthritis, unspecified site; E03.9 Hypothyroidism, unspecified; M10.9 Gout, unspecified; K21.9 Gastro-esophageal reflux disease without esophagitis; I73.9 Peripheral vascular disease, unspecified; G93.89 Other specified disorders of brain; K59.09 Other constipation; J44.9 Chronic obstructive pulmonary disease, unspecified; I15.0 Renovascular hypertension; H83.09 Labyrinthitis, unspecified ear; E87.6 Hypokalemia; I70.1 Atherosclerosis of renal artery; Z79.890 Hormone replacement therapy; Z79.4 Long term (current) use of insulin; Z79.82 Long term (current) use of aspirin; Z79.899 Other long term (current) drug therapy; Z88.0 Allergy status to penicillin; Z91.018 Allergy to other foods; Z88.8 Allergy status to other drugs, medicaments and biological substances; Z85.528 Personal history of other malignant neoplasm of kidney; Z86.79 Personal history of other diseases of the circulatory system; Z90.49 Acquired absence of other specified parts of digestive tract; Z98.42 Cataract extraction status, left eye; Z98.41 Cataract extraction status, right eye; Z96.1 Presence of intraocular lens; Z86.010 Personal history of colon polyps; Z96.653 Presence of artificial knee joint, bilateral; Z87.891 Personal history of nicotine dependence; Z87.2 Personal history of diseases of the skin and subcutaneous tissue; Z87.39 Personal history of other diseases of the musculoskeletal system and connective tissue; Z87.81 Personal history of (healed) traumatic fracture; Z87.01 Personal history of pneumonia (recurrent); Z82.49 Family history of ischemic heart disease and other diseases of the circulatory system; Z80.3 Family history of malignant neoplasm of breast; Z80.8 Family history of malignant neoplasm of other organs or systems
CPT/HCPCS: 96361; 96374; 99285; 36415; 80053; 83036; 70450; G0378 ×2; J2765

== ENCOUNTER → 2018-09-04 | Outpatient (CLI) | payer MEDICARE, BC ==
[2018-09-04 18:56] LABS: Anion Gap 8.1 mmol/L (4.00-12.00); Calcium 9.4 mg/dL (8.7-10.3); Carbon Dioxide 31.9 mmol/L (21.6-31.8); Magnesium 1.6 mg/dL (1.5-2.4); Potassium 4.3 mmol/L (3.5-5.5)
== END | disposition home or self-care (01) ==
LOC: LABWHC1 10:53
PROVIDERS: ATTEND Internal Medicine
DX: E87.8 Other disorders of electrolyte and fluid balance, not elsewhere classified (principal); I10 Essential (primary) hypertension
CPT/HCPCS: 36415; 80048; 83735

== ENCOUNTER → 2019-02-04 | Outpatient (CLI) | payer MEDICARE, BC ==
[2019-02-04 10:05] LABS: Basophils % (A) 0 %; Eosinophils # (A) 0.1 k/uL (0-0.7); Eosinophils % (A) 1 %; HCT 37.1 % (34.0-46.0); HGB 12.4 gm/dL (11.4-16.0); Lymphocytes % (A) 15 %; MCH 28.5 pg (25.0-35.0); MCHC 33.5 g/dL (31.0-37.0); MCV 84.9 fL (80.0-100.0); Mean Platelet Volume 6.4; Monocytes # (A) 0.4 k/uL (0-1.0); Monocytes % (A) 6 %; Neutrophils # (A) 4.8 k/uL (1.3-7.7); Neutrophils % (A) 76 %; Platelet Count 302 k/uL (150-450); RBC 4.37 m/uL (3.80-5.40); WBC 6.4 k/uL (3.8-10.6)
[2019-02-04 16:27] LABS: African American GFR (CKD) 34.2 (60.0-200.0); Albumin 4.3 g/dL (3.80-4.90); Albumin/Globulin Ratio 2.26 (1.60-3.17); Anion Gap 7.5 mmol/L (4.00-12.00); BUN/Creat Ratio 12.5 Ratio (12.00-20.00); Carbon Dioxide 32.5 mmol/L (21.6-31.8); Chol/HDL Ratio 4.32; Globulin 1.9 g/dL (1.6-3.3); LDL Cholesterol,Calculated 61.8 mg/dL (0.0-131.0); Magnesium 1.6 mg/dL (1.5-2.4); Phosphorus 4.3 mg/dL (2.4-5.1); Potassium 4.3 mmol/L (3.5-5.5); Total Bilirubin 0.6 mg/dL (0.3-1.2); Total Protein 6.2 g/dL (6.2-8.2); Uric Acid 10.3 mg/dL (2.9-7.7); VLDL Calculation 61.2 mg/dL (5.00-40.00)
[2019-02-04 16:35] LABS: T4, Free (Free Thyroxine) 1.2 ng/dL (0.80-1.80)
[2019-02-04 17:34] LABS: Hemoglobin A1C 7.9 % (4.0-6.0)
== END | disposition home or self-care (01) ==
LOC: LABWHC1 09:09
PROVIDERS: ATTEND Internal Medicine
DX: Z00.00 Encounter for general adult medical examination without abnormal findings (principal); E78.5 Hyperlipidemia, unspecified; E21.3 Hyperparathyroidism, unspecified; E03.9 Hypothyroidism, unspecified; E55.9 Vitamin D deficiency, unspecified; R80.9 Proteinuria, unspecified; E11.65 Type 2 diabetes mellitus with hyperglycemia; M10.9 Gout, unspecified; N18.4 Chronic kidney disease, stage 4 (severe); E87.8 Other disorders of electrolyte and fluid balance, not elsewhere classified; D63.1 Anemia in chronic kidney disease
CPT/HCPCS: 36415; 80053; 80061; 82043; 82306; 82550; 82570; 83036; 83735; 83970; 84100; 84439; 84443; 84550; 85025

== ENCOUNTER → 2019-03-03 | Outpatient (CLI) | payer MEDICARE, BC ==
--- NOTE | 2019-03-03 10:24 | MR ---
EXAMINATION TYPE: MR lumbar spine wo con DATE OF EXAM: 03/03/2019 COMPARISON: X-ray 06/05/2018 HISTORY: lumbar radiculopathy TECHNIQUE: T1 and T2 axial and sagittal images of the lumbar spine are submitted. FINDINGS: There is no abnormal signal seen within the visualized spinal cord or paraspinal soft tissu es. There is heterogeneous marrow signal there is signal likely related to marrow redistribution. The re is a large Tarlov cyst S2 level which may result in some compression of nerve roots within foramin a. Simple appearing left renal cyst or nerve root sleeve diverticulum at T11-T12 on the sagittal imag es noted which is not included in axial image. At L1-2 there is degenerative disc disease. Small bilateral nerve sleeve diverticulum with no disc he rniation or canal stenosis. At L2-3 there is a diffuse circumferential disc bulging and mild hypertrophy of the facets with no ca nal stenosis or foraminal encroachment. At L3-4 there is mild hypertrophic change of the facets. Left paracentral and lateral minimal disc bu lging but no canal stenosis or foraminal encroachment. At L4-5 there is facet arthropathy but no disc herniation or canal stenosis. No foraminal encroachmen t. At L5-S1 there is facet arthropathy but no disc herniation or canal stenosis. No foraminal encroachme nt. IMPRESSION: 1. Large Tarlov cyst S2 level does result in bone remodeling and encroaches upon the neural foramina at this level correlate for nerve root impingement at this level. 2. Multilevel mild degenerative disc disease and facet arthropathy with no discrete herniation or can al stenosis. 3. Heterogeneous marrow signal is nonspecific can be seen with marrow redistribution.
--- NOTE | 2019-03-03 10:41 | MR ---
EXAMINATION TYPE: MR angio head wo con DATE OF EXAM: 03/03/2019 COMPARISON: CT 08/30/2018, MRI 01/03/2018 HISTORY: Headache TECHNIQUE: Utilizing 3-D [id number] intracranial MRA of the [place] of [place] was performed. FINDINGS: The vertebrobasilar and carotid systems are patent. There is no sizable aneurysm or vascular malform ation. Left vertebral artery is dominant. There is irregularity of the cavernous segment of the righ t ICA. It is difficult to determine if this is artifactual or related to significant atherosclerotic disease. There is marked aneurysmal dilation in the region of the posterior communicating artery on t he right measuring 6.4 x 15 mm in transverse and AP dimension. This was immediately telephoned to the referring clinician. Artifact in the left MCA distribution corresponds to the CAT scan area of calcification is suspected calcified aneurysm. There appears to be absence of flow within the anterior segmental branch of the l eft MCA trifurcation which corresponds to an area of encephalomalacia in previous infarct. Small focal area of abnormal low signal seen in the posterior right temporal lobe is stable from prev ious MRI and likely secondary to an area of previous hemorrhagic infarct. IMPRESSION: 1. 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 Finding appears stable from recent CT scan may be increased in size from the MRI of the brain dated 01/03/2018 where it was reported to measure 14 mm. 2. Artifact in the distribution of the left MCA trifurcation corresponds to the CT scan large area of calcification suspected to represent a calcified aneurysm measuring 9 mm. Finding appears stable fro m recent CT scan. 3 there appears to be irregularity of the right cavernous segment ICA. These athero sclerotic disease. Correlate clinically
== END | disposition home or self-care (01) ==
LOC: RADMRIMAIN 08:46
PROVIDERS: ATTEND Psychiatry & Neurology Neurology
DX: I67.1 Cerebral aneurysm, nonruptured (principal); I67.2 Cerebral atherosclerosis; M51.16 Intervertebral disc disorders with radiculopathy, lumbar region; M46.96 Unspecified inflammatory spondylopathy, lumbar region; M46.97 Unspecified inflammatory spondylopathy, lumbosacral region
CPT/HCPCS: 70544; 72148

== ENCOUNTER → 2019-06-10 | Outpatient (CLI) | payer MEDICARE, BC ==
[2019-06-10 17:33] LABS: Hemoglobin A1C 8.7 % (4.0-6.0)
== END | disposition home or self-care (01) ==
LOC: LABWHC1 09:16
PROVIDERS: ATTEND Internal Medicine
DX: E11.65 Type 2 diabetes mellitus with hyperglycemia (principal)
CPT/HCPCS: 36415; 82947; 83036

== ENCOUNTER → 2019-07-07 | Outpatient (CLI) | payer MEDICARE, BC ==
[2019-07-07 18:27] LABS: African American GFR (CKD) 26.1 (60.0-200.0); Anion Gap 9.1 mmol/L (4.00-12.00); BUN/Creat Ratio 16.5 Ratio (12.00-20.00); Calcium 9.4 mg/dL (8.7-10.3); Carbon Dioxide 32.9 mmol/L (21.6-31.8); Magnesium 1.8 mg/dL (1.5-2.4); Non-African American GFR(CKD) 22.5 (60.0-200.0); Potassium 4.3 mmol/L (3.5-5.5)
== END | disposition home or self-care (01) ==
LOC: LABWHC1 12:19
PROVIDERS: ATTEND Internal Medicine
DX: I10 Essential (primary) hypertension (principal); E87.8 Other disorders of electrolyte and fluid balance, not elsewhere classified; E11.65 Type 2 diabetes mellitus with hyperglycemia; T56.5X1A Toxic effect of zinc and its compounds, accidental (unintentional), initial encounter
CPT/HCPCS: 36415; 80048; 83735; 84630

== ENCOUNTER → 2019-09-24 | Outpatient (CLI) | payer MEDICARE, BC ==
--- NOTE | 2019-09-24 11:59 | MR ---
EXAMINATION TYPE: MR brain wo/w con DATE OF EXAM: 09/24/2019 COMPARISON: Prior MRI brain May 30, 2015. Prior CT brain August 30, 2018. HISTORY: Loss of taste and smell, anosmia TECHNIQUE: Multiplanar, multisequence images of the brain and brainstem is performed without and with IV contras t, utilizing 7.5 mL intravenous Gadavist . FINDINGS: Diffusion weighted images demonstrate no evidence of a recent infarct or other diffusion ab normality. There is no worrisome extra-axial fluid collection. There is diffuse ventricular and sulc al prominence. There are some scattered foci of T2 hyperintensity seen throughout the white matter bi laterally. Midline structures demonstrate normal morphology. The craniocervical junction remains within normal limits. There is persistent artifact from left frontal craniotomy change. There is persistent artifa ct from aneurysm clip in the region of the left MCA and additional aneurysm clip near level of the an terior communicating artery axial image 13. 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 Persistent area of encephalomal acia inferior anterolateral left frontal lobe and medial anterior left temporal lobe are both redemon strated. Post contrast images demonstrate no new areas of suspicious enhancement. Mild linear dural e nhancement is less prominent from the 2016 MRI. The dural venous sinuses remain patent. The visualize d sinuses are clear and the globes are intact. IMPRESSION: Evidence of prior aneurysm clipping 2 levels with associated areas of encephalomalacia in the left-sided frontal and temporal lobes. Persistent but suspected stable aneurysm of the distal le ft internal carotid artery. Background mild diffuse cerebral atrophy and chronic small vessel ischemi c change. No suspicious new findings identified to account for patient's symptoms.
== END | disposition home or self-care (01) ==
LOC: RADMRIMAIN 10:41
PROVIDERS: ATTEND Otolaryngology
DX: G93.89 Other specified disorders of brain (principal); G31.9 Degenerative disease of nervous system, unspecified; I67.82 Cerebral ischemia
CPT/HCPCS: 70553; A9585

== ENCOUNTER → 2020-01-05 | Outpatient (CLI) | payer MEDICARE, BC ==
[2020-01-05 12:11] LABS: Basophils % (A) 0 %; Eosinophils # (A) 0.1 k/uL (0-0.7); Eosinophils % (A) 1 %; HCT 34.7 % (34.0-46.0); HGB 11.5 gm/dL (11.4-16.0); Lymphocytes % (A) 13 %; MCH 28.1 pg (25.0-35.0); MCHC 33.2 g/dL (31.0-37.0); MCV 84.6 fL (80.0-100.0); Mean Platelet Volume 6.7; Monocytes # (A) 0.5 k/uL (0-1.0); Monocytes % (A) 7 %; Neutrophils # (A) 6.2 k/uL (1.3-7.7); Neutrophils % (A) 78 %; Platelet Count 299 k/uL (150-450); RBC 4.11 m/uL (3.80-5.40); RDW 13.9 % (11.5-15.5); WBC 7.9 k/uL (3.8-10.6)
[2020-01-05 16:33] LABS: Amorphous Sediment,Urine Rare /hpf; Appearance,Urine Clear (Clear); Bacteria,Urine Many /hpf; Bilirubin,Urine Negative (Negative); Blood,Urine Negative (Negative); Color,Urine Yellow; Glucose,Urine (UA) Negative (Negative); Hyaline Casts,Urine 10 /lpf (0-2); Ketones,Urine Negative (Negative); Leukocyte Esterase,Urine Large (Negative); Mucus,Urine Rare /hpf; Nitrite,Urine Negative (Negative); PH, Urine 5.5 (5.0-8.0); Protein,Urine Negative (Negative); RBC,Urine 1 /hpf (0-5); Specific Gravity,Urine 1.013 (1.001-1.035); Squamous Epithelial Cell,Urine <1 /hpf (0-4); Urobilinogen,Urine <2.0 mg/dL (<2.0); WBC,Urine 16 /hpf (0-5)
[2020-01-05 20:28] LABS: Erythrocyte Sedimentation Rate 46 mm/Hr (0-30)
[2020-01-05 22:31] LABS: ALT 26 U/L (8-44); AST 22 U/L (13-35); African American GFR (CKD) 20.8 (60.0-200.0); Albumin/Globulin Ratio 2.11 (1.60-3.17); Alkaline Phosphatase 69 U/L (41-126); BUN/Creat Ratio 17.08 Ratio (12.00-20.00); C Reactive Protein <0.4 mg/dL (0.0-0.8); Calcium 9.3 mg/dL (8.7-10.3); Carbon Dioxide 27.9 mmol/L (21.6-31.8); Chloride 103 mmol/L (96-109); Creatine Kinase 104 U/L (26-186); Globulin 1.9 g/dL (1.6-3.3); Glucose 189 mg/dL (70-110); Non-African American GFR(CKD) 17.9 (60.0-200.0); Potassium 4.1 mmol/L (3.5-5.5); Sodium 142 mmol/L (135-145); Total Bilirubin 0.4 mg/dL (0.3-1.2); Total Protein 5.9 g/dL (6.2-8.2); Uric Acid 7.9 mg/dL (2.9-7.7)
[2020-01-06 05:03] LABS: Microalbumin Creatinine Ratio 33 mg/g Creat (0-30)
== END | disposition home or self-care (01) ==
LOC: LABWHC1 10:21
PROVIDERS: ATTEND Internal Medicine
DX: E78.5 Hyperlipidemia, unspecified (principal); D63.1 Anemia in chronic kidney disease; I12.9 Hypertensive chronic kidney disease with stage 1 through stage 4 chronic kidney disease, or unspecified chronic kidney disease; N18.3 Chronic kidney disease, stage 3 (moderate); E11.65 Type 2 diabetes mellitus with hyperglycemia; E03.9 Hypothyroidism, unspecified; M19.90 Unspecified osteoarthritis, unspecified site; R80.9 Proteinuria, unspecified
CPT/HCPCS: 36415; 80053; 81001; 82043; 82550; 82570; 83630; 84439; 84443; 84550; 85025; 85652; 86140; 87045; 87046; 87324; 87329

== ENCOUNTER → 2020-02-16 | Outpatient (CLI) | payer MEDICARE, BC ==
[2020-02-16 10:04] LABS: Basophils % (A) 1 %; Eosinophils # (A) 0.1 k/uL (0-0.7); Eosinophils % (A) 1 %; HCT 34.8 % (34.0-46.0); HGB 11.7 gm/dL (11.4-16.0); Lymphocytes % (A) 18 %; MCH 28.9 pg (25.0-35.0); MCHC 33.7 g/dL (31.0-37.0); MCV 85.5 fL (80.0-100.0); Mean Platelet Volume 6.8; Monocytes # (A) 0.4 k/uL (0-1.0); Monocytes % (A) 7 %; Neutrophils # (A) 3.9 k/uL (1.3-7.7); Neutrophils % (A) 71 %; Platelet Count 261 k/uL (150-450); RBC 4.07 m/uL (3.80-5.40); RDW 13.9 % (11.5-15.5); WBC 5.4 k/uL (3.8-10.6)
[2020-02-16 16:45] LABS: Albumin 3.9 g/dL (3.80-4.90); Albumin/Globulin Ratio 1.95 (1.60-3.17); Anion Gap 11.7 mmol/L (4.00-12.00); BUN/Creat Ratio 13.33 Ratio (12.00-20.00); Calcium 9.6 mg/dL (8.7-10.3); Carbon Dioxide 28.3 mmol/L (21.6-31.8); Chol/HDL Ratio 5.19; LDL Cholesterol,Calculated 73.4 mg/dL (0.0-131.0); Non-African American GFR(CKD) 15.6 (60.0-200.0); Potassium 4.6 mmol/L (3.5-5.5); Total Bilirubin 0.4 mg/dL (0.2-1.2); Total Protein 5.9 g/dL (6.2-8.2); Uric Acid 8.4 mg/dL (2.9-7.7); VLDL Calculation 60.6 mg/dL (5.00-40.00)
[2020-02-16 16:46] LABS: Magnesium 2.1 mg/dL (1.5-2.4); Phosphorus 5.2 mg/dL (2.4-5.1)
[2020-02-16 16:50] LABS: Erythrocyte Sedimentation Rate 52 mm/Hr (0-30)
[2020-02-16 16:55] LABS: T4, Free (Free Thyroxine) 1.1 ng/dL (0.80-1.80)
[2020-02-16 18:33] LABS: Hemoglobin A1C 8.4 % (4.0-6.0)
== END | disposition home or self-care (01) ==
LOC: LABWHC1 09:20
PROVIDERS: ATTEND Internal Medicine
DX: Z00.00 Encounter for general adult medical examination without abnormal findings (principal); I12.9 Hypertensive chronic kidney disease with stage 1 through stage 4 chronic kidney disease, or unspecified chronic kidney disease; D63.1 Anemia in chronic kidney disease; E11.22 Type 2 diabetes mellitus with diabetic chronic kidney disease; E11.65 Type 2 diabetes mellitus with hyperglycemia; N18.4 Chronic kidney disease, stage 4 (severe); E78.5 Hyperlipidemia, unspecified; M19.90 Unspecified osteoarthritis, unspecified site; E55.9 Vitamin D deficiency, unspecified
CPT/HCPCS: 36415; 80053; 80061; 82306; 82550; 83036; 83735; 83970; 84100; 84439; 84443; 84550; 85025; 85652

== ENCOUNTER → 2020-02-21 | Outpatient (CLI) | payer MEDICARE, BC ==
--- NOTE | 2020-02-21 13:48 | XR ---
EXAMINATION TYPE: XR chest 2V DATE OF EXAM: 02/21/2020 COMPARISON: Chest x-ray May 13, 2018 HISTORY: History of COPD with shortness of breath TECHNIQUE: Frontal and lateral views of the chest are obtained. FINDINGS: There is background Chronic emphysematous change and horizontal left basilar opacity redemo nstrated favoring scarring. There is no new suspicious focal air space opacity, pleural effusion, or pneumothorax seen. The cardiac silhouette size is stable and upper limits of normal calcified thora cic aorta. The osseous structures are intact. IMPRESSION: Chronic changes without new acute pulmonary process.
== END | disposition home or self-care (01) ==
LOC: RADXRMAIN 13:22
PROVIDERS: ATTEND Internal Medicine
DX: J43.9 Emphysema, unspecified (principal)
CPT/HCPCS: 71046

== ENCOUNTER 2020-03-17 13:06 | Emergency (ER) | payer MEDICARE, BC ==
[2020-03-17 13:37] VITALS: RESP 18
[2020-03-17] MEDS ORDERED: SODIUM CHLORIDE 0.9% 500 ML 500 ML IV ONE (13:37)
[2020-03-17] MEDS ORDERED: ACETAMINOPHEN TAB 325 MG TAB PO STA (13:37)
--- NOTE | 2020-03-17 13:39 | ED ---
URI HPI - General Chief Complaint: Upper Respiratory Infection Stated Complaint: Fever,Chills,Cough Time Seen by Provider: 03/17/20 13:15 Source: patient, family Mode of arrival: wheelchair Limitations: no limitations - History of Present Illness Initial Comments: An 84-year-old female presents today for chief complaint of chills, cough, dyspnea. pt states that for the past week she has had chills, cough, dyspnea that occurs mostly with her coughing spells. Denies leg swelling, admits to sputum productions. Admits to loss of taste smell but states that not new and has been ongoing for the past year. denies abdominal, admits to occasional soft stool, denies vomiting, chest pain, pain with deep inspiration or hemoptysis. Patient has no additional complaints. Patient does not appear toxic on arrival. - Related Data Home Medications Medication Instructions Recorded Confirmed Atorvastatin [Lipitor] 40 mg PO HS 12/31/14 03/17/20 Levothyroxine Sodium [Synthroid] 50 mcg PO DAILY 12/31/14 03/17/20 Pantoprazole Sodium 40 mg PO DAILY 12/31/14 03/17/20 Multivit-Min/FA/Lycopen/Lutein 1 tab PO DAILY 03/24/15 03/17/20 [Centrum Silver Tablet] Insulin Aspart [NovoLOG Flexpen] See Protocol SQ AC-TID 01/02/18 03/17/20 Isosorbide Mononitrate ER [Imdur] 60 mg PO DAILY 01/02/18 03/17/20 Nitroglycerin Sl Tabs [Nitrostat] 0.4 mg SL Q5M PRN 01/02/18 03/17/20 Aspirin EC [Ecotrin Low Dose] 81 mg PO DAILY 04/30/18 03/17/20 Cholecalciferol [Vitamin D3 (25 1,000 unit PO DAILY 04/30/18 03/17/20 Mcg = 1000 Iu)] Linagliptin [Tradjenta] 5 mg PO DAILY 04/30/18 03/17/20 Carvedilol [Coreg] 25 mg PO BID 08/31/18 03/17/20 Insulin Glargine [Lantus] 45 unit SQ BID 08/31/18 03/17/20 Meclizine [Antivert] 12.5 mg PO TID PRN 08/31/18 03/17/20 hydrALAZINE HCL 50 mg PO BID 08/31/18 03/17/20 traMADol HCL [Ultram] 50 mg PO Q6H PRN 08/31/18 03/17/20 Acetaminophen [Tylenol] 500 mg PO HS PRN 03/17/20 03/17/20 Allopurinol [Zyloprim] 50 mg PO DAILY 03/17/20 03/17/20 Biotin 1000mcg 1 tab PO DAILY 03/17/20 03/17/20 Calcium Carbonate/Vitamin D3 1 tab PO DAILY 03/17/20 03/17/20 [Calcium 600-Vit D3 400 Tablet] Fish Oil/Dha/Epa [Fish Oil 1,200 1 cap PO QID 03/17/20 03/17/20 mg Fish Oil] Magnesium Oxide [Mag-Ox] 500 mg PO DAILY 03/17/20 03/17/20 Zinc 50 mg PO Q48H 03/17/20 03/17/20 hydrOXYzine HCL [Atarax] 25 mg PO TID PRN 03/17/20 03/17/20 Previous Rx's Medication Instructions Recorded Furosemide [Lasix] 40 mg PO BID #0 05/05/18 Azithromycin [Zithromax Z-pack (6 0 mg PO DIRECTED #6 tab 03/17/20 tabs)] Allergies Allergy/AdvReac Type Severity Reaction Status Date / Time JOCELYNN Inhibitors Allergy Unknown Verified 03/17/20 13:42 piperacillin [From Zosyn] Allergy Rash/Hives Verified 03/17/20 13:42 tazobactam [From Zosyn] Allergy Rash/Hives Verified 03/17/20 13:42 aspartame AdvReac Nausea & Verified 03/17/20 13:42 Vomiting Review of Systems ROS Statement: Those systems with pertinent positive or pertinent negative responses have been documented in the HPI. ROS Other: All systems not noted in ROS Statement are negative. 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 History of Any Multi-Drug Resistant Organisms: None Reported Past Surgical History: Appendectomy, Heart Catheterization, Joint Replacement, Orthopedic Surgery, Tonsillectomy Additional Past Surgical History / Comment(s): R renal artery bypassed with groin vein graft, brain aneurysms with clips x 2, cataract removal both eyes with lens implants, colonoscopies x 2 with first one having benign polypectomy and 2nd one normal. RT kidney had cancer on top of kidney, pt stated"they froze the cancer off" , lt shoulder arthroscopy for rotator cuff, dusty knee replacments, L foot fracture with surgery and L foot had a bone misplaced with surgery, R foot tumor removed around a toe. Past Anesthesia/Blood Transfusion Reactions: No Reported Reaction Additional Past Anesthesia/Blood Transfusion Reaction / Comment(s): Pt has received blood without reaction. Past Psychological History: No Psychological Hx Reported Smoking Status: Former smoker Past Alcohol Use History: None Reported Past Drug Use History: None Reported - Past Family History Father Family Medical History: Myocardial Infarction ([place]) Additional Family Medical History / Comment(s): Father of a [place] at the age of 56yrs. Mother Family Medical History: Cancer Additional Family Medical History / Comment(s): Mother had breast cancer. She from another type of cancer that metastasized to her bones. General Exam - General Exam Comments Initial Comments: General: The patient is awake and alert, in no distress, and does not appear acutely ill. Eye: Pupils are equal, round and reactive to light, extra-ocular movements are intact. No nystagmus. There is normal conjunctiva bilaterally. No signs of icterus. Ears, nose, mouth and throat: There are moist mucous membranes and no oral lesions. Neck: The neck is supple, there is no tenderness or JVD. Cardiovascular: There is a regular rate and rhythm. No murmur, rub or gallop is appreciated. Respiratory: Respirations are non-labored, breath sounds are equal. No wheezes, stridor, rales. Rhonchi present. cough on exam. No retractions no abdominal breathing Gastrointestinal: Soft, non-distended, non-tender abdomen without masses or organomegaly noted. There is no rebound or guarding present. Musculoskeletal: Normal ROM, no tenderness. Strength 5/5. Sensation intact. Pulses equal bilaterally 2+. Neurological: A&O x 3. CN II-XII intact grossly, There are no obvious motor or sensory deficits. Coordination appears grossly intact. Speech is normal. Skin: Skin is warm and dry and no rashes or lesions are noted. Psychiatric: Cooperative, appropriate mood & affect, normal judgment. Limitations: no limitations Course Vital Signs 03/17/20 03/17/20 03/17/20 13:10 13:36 13:42 Temperature 98.4 F 100.1 F H Pulse Rate 59 L 55 L Respiratory 19 18 18 Rate Blood Pressure 111/55 128/51 O2 Sat by Pulse 97 94 L Oximetry Medical Decision Making - Medical Decision Making Labs near baseline. Patient has obvious URI symptoms. Patient 97% on RA, she is oxygen saturation fluctuates with position lowest being 94% average 95-96%, even during coughing 93%. Patient did not appear in distress. Covid +. small pneumonia on CXR. discussed labs/cxr and VS with attending as wellas H. Dr. Liriano is agreeable to discharge, given patient preference. Pt given option of observation given comorbidities not clinical appearance and she states she would prefer to stay home and her daughter will monitor her. Patient discharged appearing well, no signs of respiratory distress. - Lab Data Result diagrams: 03/17/20 13:35 03/17/20 13:35 Lab Results 03/17/20 03/17/20 03/17/20 Range/Units 13:35 13:35 13:35 WBC 4.5 (3.8-10.6) k/uL RBC 3.79 L (3.80-5.40) m/uL Hgb 10.5 L (11.4-16.0) gm/dL Hct 31.7 L (34.0-46.0) % MCV 83.6 (80.0-100.0) fL MCH 27.7 (25.0-35.0) pg MCHC 33.2 (31.0-37.0) g/dL RDW 14.4 (11.5-15.5) % Plt Count 230 (150-450) k/uL MPV 7.7 Neutrophils % 72 % Lymphocytes % 16 % Monocytes % 9 % Eosinophils % 0 % Basophils % 1 % Neutrophils # 3.3 (1.3-7.7) k/uL Lymphocytes # 0.7 L (1.0-4.8) k/uL Monocytes # 0.4 (0-1.0) k/uL Eosinophils # 0.0 (0-0.7) k/uL Basophils # 0.0 (0-0.2) k/uL Poikilocytosis Slight Sodium 135 L (137-145) mmol/L Potassium 4.1 (3.5-5.1) mmol/L Chloride 99 (98-107) mmol/L Carbon Dioxide 29 (22-30) mmol/L Anion Gap 7 mmol/L BUN 45 H (7-17) mg/dL Creatinine 2.86 H (0.52-1.04) mg/dL Est GFR (CKD-EPI)AfAm 17 (>60 ml/min/1.73 sqM) Est GFR (CKD-EPI)NonAf 15 (>60 ml/min/1.73 sqM) Glucose 177 H (74-99) mg/dL Calcium 8.3 L (8.4-10.2) mg/dL Total Bilirubin 0.6 (0.2-1.3) mg/dL AST 40 H (14-36) U/L ALT 32 (4-34) U/L Alkaline Phosphatase 68 (38-126) U/L Total Protein 6.1 L (6.3-8.2) g/dL Albumin 3.6 (3.5-5.0) g/dL Coronavirus (PCR) Detected A (Not Detectd) Disposition Clinical Impression: COVID-19, Cough, Pneumonia due to COVID-19 virus Disposition: HOME SELF-CARE Condition: Good Instructions (If sedation given, give patient instructions): Viral Pneumonia (ED), Upper Respiratory Infection (ED) Additional Instructions: Please use medication as discussed. Please follow-up with family doctor in the next 2 days. Please return to emergency room if the symptoms increase or worsen or for any other concerns. Prescriptions: Azithromycin [Zithromax Z-pack (6 tabs)] 0 mg PO DIRECTED #6 tab Is patient prescribed a controlled substance at d/c from ED?: No Referrals: Jae Dubon MD [Primary Care Provider] - 1-2 days Time of Disposition: 14:19
--- NOTE | 2020-03-17 13:49 | XR ---
EXAMINATION TYPE: XR chest 2V DATE OF EXAM: 03/17/2020 COMPARISON: 02/20/2022 HISTORY: Shortness of breath TECHNIQUE: Frontal and lateral views of the chest are obtained. FINDINGS: Scattered senescent parenchymal changes noted. Hyperinflation compatible with COPD. Scattered areas of infiltrate seen within the right upper lobe. Correlate for pneumonia. Heart size is stable. Mediastinal structures are stable and grossly unremarkable. No evidence for hilar prominence. Degenerative changes dorsal spine. IMPRESSION: 1. Scattered areas of infiltrate seen within the right upper lobe. Correlate for pneumonia.
[2020-03-17 13:52] LABS: Basophils % (A) 1 %; Eosinophils % (A) 0 %; HCT 31.7 % (34.0-46.0); HGB 10.5 gm/dL (11.4-16.0); Lymphocytes # (A) 0.7 k/uL (1.0-4.8); Lymphocytes % (A) 16 %; MCH 27.7 pg (25.0-35.0); MCHC 33.2 g/dL (31.0-37.0); MCV 83.6 fL (80.0-100.0); Mean Platelet Volume 7.7; Monocytes # (A) 0.4 k/uL (0-1.0); Monocytes % (A) 9 %; Neutrophils # (A) 3.3 k/uL (1.3-7.7); Neutrophils % (A) 72 %; Platelet Count 230 k/uL (150-450); Poikilocytosis Slight; RBC 3.79 m/uL (3.80-5.40); RDW 14.4 % (11.5-15.5); WBC 4.5 k/uL (3.8-10.6)
[2020-03-17 14:04] LABS: Albumin 3.6 g/dL (3.5-5.0); Calcium 8.3 mg/dL (8.4-10.2); Potassium 4.1 mmol/L (3.5-5.1); Total Bilirubin 0.6 mg/dL (0.2-1.3); Total Protein 6.1 g/dL (6.3-8.2)
[2020-03-17] MEDS ORDERED: dexAMETHasone 4 MG TAB PO STA (14:15)
[2020-03-17 14:47] VITALS: BP 100/78; PULSE 60; TEMP 98.9
== END 2020-03-17 14:49 | disposition home or self-care (01) ==
LOC: EC 13:06
DX: U07.1 COVID-19 (principal); J12.89 Other viral pneumonia; I25.119 Atherosclerotic heart disease of native coronary artery with unspecified angina pectoris; E11.22 Type 2 diabetes mellitus with diabetic chronic kidney disease; E11.40 Type 2 diabetes mellitus with diabetic neuropathy, unspecified; N18.4 Chronic kidney disease, stage 4 (severe); M10.9 Gout, unspecified; E03.9 Hypothyroidism, unspecified; I12.9 Hypertensive chronic kidney disease with stage 1 through stage 4 chronic kidney disease, or unspecified chronic kidney disease; E78.5 Hyperlipidemia, unspecified; K21.9 Gastro-esophageal reflux disease without esophagitis; M19.90 Unspecified osteoarthritis, unspecified site; Z79.82 Long term (current) use of aspirin; Z79.4 Long term (current) use of insulin; Z79.890 Hormone replacement therapy; Z79.899 Other long term (current) drug therapy; Z88.8 Allergy status to other drugs, medicaments and biological substances; Z95.5 Presence of coronary angioplasty implant and graft; Z87.891 Personal history of nicotine dependence; Z90.49 Acquired absence of other specified parts of digestive tract; Z98.42 Cataract extraction status, left eye; Z98.41 Cataract extraction status, right eye; Z96.1 Presence of intraocular lens; Z96.653 Presence of artificial knee joint, bilateral; Z85.528 Personal history of other malignant neoplasm of kidney
CPT/HCPCS: 36415; 93005; 80053; 85025; 87635; 71046; 99284; J8540

== ENCOUNTER 2020-03-22 12:40 | Inpatient (IN) | payer MEDICARE, BC ==
[2020-03-22] MEDS ORDERED: ACETAMINOPHEN TAB 325 MG TAB PO PRN (12:51)
[2020-03-22] MEDS ORDERED: ALBUTEROL HFA INHALER INHALATION STA (12:51)
[2020-03-22] MEDS ORDERED: DEXAMETHASONE SOD PHOSPHATE 4 MG/ML 1 ML VIAL IV STA (12:52)
--- NOTE | 2020-03-22 13:36 | XR ---
EXAMINATION TYPE: XR chest 1V portable DATE OF EXAM: 03/22/2020 Comparison: 03/17/2020 Clinical History: 84-year-old female cough, Suspected COVID-19 pneumonia Findings: Heart normal size. Aorta and pulmonary vasculature within normal limits. Subtle hazy peripheral right midlung opacity is asymmetric to the contralateral side. Some superimposed hazy densities related to overlying soft tissue and underpenetration. No pleural effusion. Impression: Limited portable exam. Some subtle hazy peripheral infiltrate in the right midlung not excluded as wa s seen on 03/17/2020.
--- NOTE | 2020-03-22 13:38 | ED ---
SOB HPI - General Chief Complaint: Shortness of Breath Stated Complaint: SOB+Covid Time Seen by Provider: 03/22/20 12:46 Source: patient Mode of arrival: EMS Limitations: no limitations - History of Present Illness Initial Comments: 84-year-old female with extensive past medical history presenting today for chief complaint of cough shortness of breath known Covid positive. Patient states that she was diagnosed 5 days with Covid. She states at that time she was feeling okay. Patient states that today she has been experiencing increasing shortness of breath she states she occasionally has had chest pains sharp in nature throughout the past few days. Patient denies leg swelling, hemoptysis. She admits to fevers chills or general malaise and body aches. Patient amidst a diarrheal denies vomiting or abdominal pain. Patient denies any neck stiffness chest pressure jaw or arm pain. Patient states that she does have history of ruptured brain aneurysm that has been repaired. Remaining review of system negative upon arrival patient appears slightly tachypneic. - Related Data Home Medications Medication Instructions Recorded Confirmed Atorvastatin [Lipitor] 40 mg PO HS 12/31/14 03/22/20 Levothyroxine Sodium [Synthroid] 50 mcg PO DAILY 12/31/14 03/22/20 Pantoprazole Sodium 40 mg PO DAILY 12/31/14 03/22/20 Multivit-Min/FA/Lycopen/Lutein 1 tab PO DAILY 03/24/15 03/22/20 [Centrum Silver Tablet] Insulin Aspart [NovoLOG Flexpen] See Protocol SQ AC-TID 01/02/18 03/22/20 Isosorbide Mononitrate ER [Imdur] 60 mg PO DAILY 01/02/18 03/22/20 Nitroglycerin Sl Tabs [Nitrostat] 0.4 mg SL Q5M PRN 01/02/18 03/22/20 Aspirin EC [Ecotrin Low Dose] 81 mg PO DAILY 04/30/18 03/22/20 Cholecalciferol [Vitamin D3 (25 1,000 unit PO DAILY 04/30/18 03/22/20 Mcg = 1000 Iu)] Linagliptin [Tradjenta] 5 mg PO DAILY 04/30/18 03/22/20 Carvedilol [Coreg] 25 mg PO BID 08/31/18 03/22/20 Insulin Glargine [Lantus] 45 unit SQ BID 08/31/18 03/22/20 Meclizine [Antivert] 12.5 mg PO TID PRN 08/31/18 03/22/20 hydrALAZINE HCL 50 mg PO BID 08/31/18 03/22/20 traMADol HCL [Ultram] 50 mg PO Q6H PRN 08/31/18 03/22/20 Acetaminophen [Tylenol] 500 mg PO HS PRN 03/17/20 03/22/20 Allopurinol [Zyloprim] 50 mg PO DAILY 03/17/20 03/22/20 Biotin 1000mcg 1 tab PO DAILY 03/17/20 03/22/20 Calcium Carbonate/Vitamin D3 1 tab PO DAILY 03/17/20 03/22/20 [Calcium 600-Vit D3 400 Tablet] Fish Oil/Dha/Epa [Fish Oil 1,200 1 cap PO QID 03/17/20 03/22/20 mg Fish Oil] Magnesium Oxide [Mag-Ox] 500 mg PO DAILY 03/17/20 03/22/20 Zinc 50 mg PO Q48H 03/17/20 03/22/20 hydrOXYzine HCL [Atarax] 25 mg PO TID PRN 03/17/20 03/22/20 Azithromycin [Zithromax Z-pack (6 See Taper PO DAILY 03/22/20 03/22/20 tabs)] Dexamethasone 6 mg PO DAILY 03/22/20 03/22/20 Previous Rx's Medication Instructions Recorded Furosemide [Lasix] 40 mg PO BID #0 05/05/18 Allergies Allergy/AdvReac Type Severity Reaction Status Date / Time JOCELYNN Inhibitors Allergy Unknown Verified 03/22/20 14:05 piperacillin [From Zosyn] Allergy Rash/Hives Verified 03/22/20 14:05 tazobactam [From Zosyn] Allergy Rash/Hives Verified 03/22/20 14:05 aspartame AdvReac Nausea & Verified 03/22/20 14:05 Vomiting Review of Systems ROS Statement: Those systems with pertinent positive or pertinent negative responses have been documented in the HPI. ROS Other: All systems not noted in ROS Statement are negative. 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 History of Any Multi-Drug Resistant Organisms: None Reported Past Surgical History: Appendectomy, Heart Catheterization, Joint Replacement, Orthopedic Surgery, Tonsillectomy Additional Past Surgical History / Comment(s): R renal artery bypassed with groin vein graft, brain aneurysms with clips x 2, cataract removal both eyes with lens implants, colonoscopies x 2 with first one having benign polypectomy and 2nd one normal. RT kidney had cancer on top of kidney, pt stated"they froze the cancer off" , lt shoulder arthroscopy for rotator cuff, dusty knee replacments, L foot fracture with surgery and L foot had a bone misplaced with surgery, R foot tumor removed around a toe. Past Anesthesia/Blood Transfusion Reactions: No Reported Reaction Additional Past Anesthesia/Blood Transfusion Reaction / Comment(s): Pt has re ceived blood without reaction. Past Psychological History: No Psychological Hx Reported Smoking Status: Former smoker Past Alcohol Use History: None Reported Past Drug Use History: None Reported - Past Family History Father Family Medical History: Myocardial Infarction ([place]) Additional Family Medical History / Comment(s): Father of a [place] at the age of 56yrs. Mother Family Medical History: Cancer Additional Family Medical History / Comment(s): Mother had breast cancer. She from another type of cancer that metastasized to her bones. General Exam - General Exam Comments Initial Comments: General: The patient is awake and alert, in no distress Eye: +3 mm pupils are equal, round and reactive to light, extra-ocular movements are intact. No nystagmus. There is normal conjunctiva bilaterally. No signs of icterus. Ears, nose, mouth and throat: There are moist mucous membranes and no oral lesions. Neck: The neck is supple, there is no tenderness or JVD. Cardiovascular: There is a regular rate and rhythm. No murmur, rub or gallop is appreciated. Respiratory: Lungs sounds diminished, espirations are mildly-labored, breath sounds are equal. No wheezes, stridor. Rhonchi appreciated. Dry cough, no retractions or abdominal breathing. Gastrointestinal: Soft, non-distended, non-tender abdomen without masses or organomegaly noted. There is no rebound or guarding present. Musculoskeletal: Normal ROM, no tenderness. Strength 5/5. Sensation intact. Radial and DP pulses equal bilaterally 2+. Neurological: A&O x 3. CN II-XII intact, There are no obvious motor or sensory deficits. Coordination appears grossly intact. Speech is normal. Skin: Skin is warm and dry and no rashes or lesions are noted. No lower extremity edema. No calf pain or calf swelling. Psychiatric: Cooperative, appropriate mood & affect, normal judgment. Limitations: no limitations Course Vital Signs 03/22/20 03/22/20 03/22/20 12:47 12:48 13:00 Temperature 98.4 F Pulse Rate 61 Pulse Rate [ 62 Guest Advisor ] Respiratory 22 24 Rate Blood Pressure 142/51 142/51 O2 Sat by Pulse 93 L 93 L 98 Oximetry 03/22/20 03/22/20 03/22/20 13:30 14:00 14:30 Temperature Pulse Rate 56 L 52 L 52 L Pulse Rate [ Guest Advisor ] Respiratory 23 24 23 Rate Blood Pressure 130/60 130/60 148/92 O2 Sat by Pulse 100 98 99 Oximetry Medical Decision Making - Medical Decision Making 84-year-old female suspected comfortable pneumonia. Patient slightly hypoxic on arrival. Patient denies current chest pain. Initial troponin mildly elevated patient does have history of coronary artery disease. Given patient's brain aneurysm history attending and I have decided to hold lovenox until VQ scan. Will trend enzymes, consult pulmonology and nephrology, hydrate patient, watch O2 saturations/respiratory status. pt agreeable to admission. pt PCP accepted gave consult requests and agreeable to current plan. VQ pending. Called VQ however they stated it would 1.5 hour from time VQ ordered to perform exam. - Lab Data Result diagrams: 03/22/20 13:12 03/22/20 13:12 Lab Results 03/22/20 03/22/20 03/22/20 Range/Units 13:12 13:12 13:12 WBC 8.9 (3.8-10.6) k/uL RBC 4.35 (3.80-5.40) m/uL Hgb 11.9 (11.4-16.0) gm/dL Hct 35.4 (34.0-46.0) % MCV 81.5 (80.0-100.0) fL MCH 27.2 (25.0-35.0) pg MCHC 33.4 (31.0-37.0) g/dL RDW 14.1 (11.5-15.5) % Plt Count 309 (150-450) k/uL MPV 7.0 Neutrophils % 88 % Lymphocytes % 6 % Monocytes % 5 % Eosinophils % 0 % Basophils % 0 % Neutrophils # 7.8 H (1.3-7.7) k/uL Lymphocytes # 0.5 L (1.0-4.8) k/uL Monocytes # 0.5 (0-1.0) k/uL Eosinophils # 0.0 (0-0.7) k/uL Basophils # 0.0 (0-0.2) k/uL PT 10.0 (9.0-12.0) sec INR 1.0 (<1.2) APTT 24.6 (22.0-30.0) sec D-Dimer 1.74 H (<0.60) mg/L FEU Sodium 136 L (137-145) mmol/L Potassium 4.7 (3.5-5.1) mmol/L Chloride 98 (98-107) mmol/L Carbon Dioxide 32 H (22-30) mmol/L Anion Gap 6 mmol/L BUN 60 H (7-17) mg/dL Creatinine 1.94 H (0.52-1.04) mg/dL Est GFR (CKD-EPI)AfAm 27 (>60 ml/min/1.73 sqM) Est GFR (CKD-EPI)NonAf 23 (>60 ml/min/1.73 sqM) Glucose 256 H (74-99) mg/dL Plasma Lactic Acid Jaya (0.7-2.0) mmol/L Calcium 9.2 (8.4-10.2) mg/dL Magnesium 2.0 (1.6-2.3) mg/dL Total Bilirubin 0.8 (0.2-1.3) mg/dL AST 35 (14-36) U/L ALT 31 (4-34) U/L Alkaline Phosphatase 69 (38-126) U/L Lactate Dehydrogenase 780 H (313-618) U/L Troponin I (0.000-0.034) ng/mL Total Protein 6.8 (6.3-8.2) g/dL Albumin 3.8 (3.5-5.0) g/dL 03/22/20 03/22/20 Range/Units 13:12 13:12 WBC (3.8-10.6) k/uL RBC (3.80-5.40) m/uL Hgb (11.4-16.0) gm/dL Hct (34.0-46.0) % MCV (80.0-100.0) fL MCH (25.0-35.0) pg MCHC (31.0-37.0) g/dL RDW (11.5-15.5) % Plt Count (150-450) k/uL MPV Neutrophils % % Lymphocytes % % Monocytes % % Eosinophils % % Basophils % % Neutrophils # (1.3-7.7) k/uL Lymphocytes # (1.0-4.8) k/uL Monocytes # (0-1.0) k/uL Eosinophils # (0-0.7) k/uL Basophils # (0-0.2) k/uL PT (9.0-12.0) sec INR (<1.2) APTT (22.0-30.0) sec D-Dimer (<0.60) mg/L FEU Sodium (137-145) mmol/L Potassium (3.5-5.1) mmol/L Chloride (98-107) mmol/L Carbon Dioxide (22-30) mmol/L Anion Gap mmol/L BUN (7-17) mg/dL Creatinine (0.52-1.04) mg/dL Est GFR (CKD-EPI)AfAm (>60 ml/min/1.73 sqM) Est GFR (CKD-EPI)NonAf (>60 ml/min/1.73 sqM) Glucose (74-99) mg/dL Plasma Lactic Acid Jaya 2.2 H* (0.7-2.0) mmol/L Calcium (8.4-10.2) mg/dL Magnesium (1.6-2.3) mg/dL Total Bilirubin (0.2-1.3) mg/dL AST (14-36) U/L ALT (4-34) U/L Alkaline Phosphatase (38-126) U/L Lactate Dehydrogenase (313-618) U/L Troponin I 0.060 H* (0.000-0.034) ng/mL Total Protein (6.3-8.2) g/dL Albumin (3.5-5.0) g/dL Disposition Clinical Impression: Dyspnea, Hypoxia, COVID-19, Troponin level elevated, D-dimer, elevated, Pneumonia due to COVID-19 virus Disposition: ADMITTED IP TO THIS [facility] Condition: Stable Is patient prescribed a controlled substance at d/c from ED?: No Time of Disposition: 15:31 Decision to Admit Reason: Admit from EC Decision Date: 03/22/20 Decision Time: 15:31
[2020-03-22 14:03] LABS: Basophils % (A) 0 %; Eosinophils % (A) 0 %; HCT 35.4 % (34.0-46.0); HGB 11.9 gm/dL (11.4-16.0); Lymphocytes # (A) 0.5 k/uL (1.0-4.8); Lymphocytes % (A) 6 %; MCH 27.2 pg (25.0-35.0); MCHC 33.4 g/dL (31.0-37.0); MCV 81.5 fL (80.0-100.0); Monocytes # (A) 0.5 k/uL (0-1.0); Monocytes % (A) 5 %; Neutrophils # (A) 7.8 k/uL (1.3-7.7); Neutrophils % (A) 88 %; Platelet Count 309 k/uL (150-450); RBC 4.35 m/uL (3.80-5.40); RDW 14.1 % (11.5-15.5); WBC 8.9 k/uL (3.8-10.6)
[2020-03-22 14:11] LABS: Albumin 3.8 g/dL (3.5-5.0); Calcium 9.2 mg/dL (8.4-10.2); Potassium 4.7 mmol/L (3.5-5.1); Total Bilirubin 0.8 mg/dL (0.2-1.3); Total Protein 6.8 g/dL (6.3-8.2)
[2020-03-22 14:22] LABS: Partial Thromboplastin Time 24.6 sec (22.0-30.0)
[2020-03-22] MEDS ORDERED: SODIUM CHLORIDE 0.9% 500 ML 500 ML IV ONE (14:44)
[2020-03-22] MEDS ORDERED: SODIUM CHLORIDE 0.9% 1,000 ML IV ONE (14:44)
[2020-03-22 14:55] LABS: D-Dimer 1.74 mg/L FEU (<0.60)
[2020-03-22] MEDS: SODIUM CHLORIDE 0.9% 1,000 ML IV SCH (15:03)
[2020-03-22 15:45] LABS: C Reactive Protein 15.6 mg/L (<10.0)
[2020-03-22] MEDS: ALBUTEROL HFA INHALER INHALATION PRN (16:26)
--- NOTE | 2020-03-22 17:41 | NM ---
EXAMINATION TYPE: NM pul perfusion DATE OF EXAM: 03/22/2020 COMPARISON: NONE HISTORY: Short of breath Following administration of 5.3 mCi Tc 99m MAA. Images obtained post injection. FINDINGS: There lung marshall. I see no segmental type defect. Is fairly uniform perfusion of the IMPRESSION: Negative exam. No evidence of pulmonary embolism. There is very low probability of pulmonary embolism .
[2020-03-22] MEDS ORDERED: NITROGLYCERIN SL TABS 0.4 MG TAB SUBLINGUAL PRN (17:44)
[2020-03-22] MEDS ORDERED: IPRATROPIUM-ALBUTEROL 3 ML NEB INHALATION PRN (17:57)
[2020-03-22 18:11] LABS: Appearance,Urine Clear (Clear); Bilirubin,Urine Negative (Negative); Blood,Urine Trace (Negative); Color,Urine Yellow; Glucose,Urine (UA) Negative (Negative); Ketones,Urine Negative (Negative); Leukocyte Esterase,Urine Negative (Negative); Nitrite,Urine Negative (Negative); PH, Urine 6.5 (5.0-8.0); Protein,Urine 2+ (Negative); RBC,Urine <1 /hpf (0-5); Specific Gravity,Urine 1.015 (1.001-1.035); Squamous Epithelial Cell,Urine 1 /hpf (0-4); Urobilinogen,Urine <2.0 mg/dL (<2.0); WBC,Urine 1 /hpf (0-5)
--- NOTE | 2020-03-22 18:23 | P.HPIM ---
History of Present Illness H&P Date: 03/22/20 (03/17/2020 positive rapid testing for cold with infiltrate.) Chief Complaint: Short of breath feeling feeling up and lethargic This is dictation with the history and physical by Dr. En JAIN. Date of service 03/22/2020. Chief complaint: Patient complaining of shortness of breath and declining of her pulse ox and lethargic at home. Her daughter. Advised to come to the emergency room. History of present illness: Patient stated that she shortness of breath lethargic and not able to do anything at home as well as generalized weakness and coughing. She has been presented to the emergency room on 03/17/2020 and at that time she had the complaint of chills cough and dyspnea and the she had fever at that time and the patient had rapid testing for cold which was positive however patient refused to be admitted to the hospital and the given her treatment in the ER and sent her home. At that time her oxygenation was 97% saturation. With the chest x-ray at that date showed underlying pneumonia. Patient on this time more exhausted coughing and the chest x-ray was infiltrate as well and we will do the PCR testing. Past medical history she had history of multiple medical problems #1 she had renal artery stenosis with presence bilaterally with a history of gaytan rgery on the right renal artery also history of surgery of mass in the right kidney and a treated by cryotherapy in [facility]. She had history of cerebral aneurysm and she had craniotomy in the past for clipping the aneurysm she had history of diabetes mellitus type 2 insulin- dependent uncontrolled. 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 She has a chronic kidney disease stage IV. She has been seen by neurology Dr. Barth. And seen by Dr. Yulisa Taylor for diabetes. History of asthma, hypertension, thyroid disease, renal cancer in the right side degenerative degenerative osteoarthritis hyperlipidemia and hypothyroidism. She had history of 08/22/2004. Surgical history she has a carpal tunnel release at [facility] next intracranial and unit aneurysm in 2010 she had some hearing loss. Cryoablation of the right kidney. Lens implant several years. She has a total knee a rthroplasty on 06/10/2009 and had a formed in the right knee as well as the left knee on 2005 at [facility]. She has history of [facility] attending for and appendectomy in 1970 and cataract extraction and shoulder surgery and total tonsillectomy at age of 10-11 and the care home in 1984 lives alone. With one daughter and for signs. Former smoker in the past quit in 2004. Family history noncontributory. Adverse effects of medication JOCELYNN inhibitor. Review of system: Patient is lethargic with generalized weakness since 03/17/2020 when she was diagnosed with pneumonia and they are with positive rapid testing of cold was not confirmed with the PCR which we order it today. Cardiac she denied chest pain but her troponin was elevated in the ER and she had tachycardia. Respiratory she shortness of breath and she looked moist and for that purpose we will decrease IV fluid to 100 mL an hour which was given according to the protocol 1 30 mL an hour however may be through the patient into acute co ngestive heart failure we'll be obtaining echocardiogram as well tomorrow. In the GI she decrease her appetite and eating habit. Diabetes mellitus she is on insulin dependent2 with hyperglycemia. Renal she has a chronic kidney disease stage III to 4 with the underlying renal artery stenosis. History of hypertension with hypertensive heart disease. History of venous insufficiency with edema of the lower extremities in the past currently no edema. And Neurologically she has been seen Dr. Barth because of her aneurysm of the brain. On the Physical exam: Patient was conscious alert but lethargic. Head was normocephalic and atraumatic, pupil was equal reactive, natural teeth, decreased hearing. Neck was supple no JVD no thyromegaly no lymphadenopathy trachea midline. Chest scattered rhonchi's and moist and wheezes bilaterally. Abdomen: Previous surgery soft positive bowel sounds. Extremities no edema and positive pulses bilateral with a history of surgery in the past on the knee. Neurologically she is lethargic and she feel drained out. Assessment and plan: #1 will need PCR Corvette to confirm the Corvette pneumonia. #2 chronic kidney disease stage III to 4 #3 renal artery stenosis bilateral. #4 diabetes mellitus insulin-dependent2. #4 elevated troponin and will need the evaluation of the cardiac status. #5 infiltrate in the chest x- ray on 03/17/2020 ER visit chest x-ray and on this admission 03/22/2020. VQ scan to rule out PE as has been done and negative. And hypertension was hypertensive heart disease next also underlying renal hypertension with renal artery stenosis with several surgery done. Consultation with pulmonary and critical care Dr. Cornejo and consultation with cardiology and consultation with nephrology for evaluation and treatment. Patient started on azithromycin 500 mg IV piggyback and started on dexamethasone 6 mg once daily and he of the Covid 19 PCR was positive probably may need Remidesivir We'll wait for the evaluation and treatment from critical care Dr. Cornejo and the nephrology and cardiology. Order resumed. 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 History of Any Multi-Drug Resistant Organisms: None Reported Past Surgical History: Appendectomy, Heart Catheterization, Joint Replacement, Orthopedic Surgery, Tonsillectomy Additional Past Surgical History / Comment(s): R renal artery bypassed with groin vein graft, brain aneurysms with clips x 2, cataract removal both eyes w ith lens implants, colonoscopies x 2 with first one having benign polypectomy and 2nd one normal. RT kidney had cancer on top of kidney, pt stated"they froze the cancer off" , lt shoulder arthroscopy for rotator cuff, dusty knee replacments, L foot fracture with surgery and L foot had a bone misplaced with surgery, R foot tumor removed around a toe. Past Anesthesia/Blood Transfusion Reactions: No Reported Reaction Additional Past Anesthesia/Blood Transfusion Reaction / Comment(s): Pt has received blood without reaction. Past Psychological History: No Psychological Hx Reported Smoking Status: Former smoker Past Alcohol Use History: None Reported Past Drug Use History: None Reported - Past Family History Father Family Medical History: Myocardial Infarction (IA) Additional Family Medical History / Comment(s): Father of a IA at the age of 56yrs. Mother Family Medical History: Cancer Additional Family Medical History / Comment(s): Mother had breast cancer. She from another type of cancer that metastasized to her bones. Medications and Allergies Home Medications Medication Instructions Recorded Confirmed Type Atorvastatin [Lipitor] 40 mg PO HS 12/31/14 03/22/20 History Levothyroxine Sodium [Synthroid] 50 mcg PO DAILY 12/31/14 03/22/20 History Pantoprazole Sodium 40 mg PO DAILY 12/31/14 03/22/20 History Multivit-Min/FA/Lycopen/Lutein 1 tab PO DAILY 03/24/15 03/22/20 History [Centrum Silver Tablet] Insulin Aspart [NovoLOG Flexpen] See Protocol SQ AC-TID 01/02/18 03/22/20 History Isosorbide Mononitrate ER [Imdur] 60 mg PO DAILY 01/02/18 03/22/20 History Nitroglycerin Sl Tabs [Nitrostat] 0.4 mg SL Q5M PRN 01/02/18 03/22/20 History Aspirin EC [Ecotrin Low Dose] 81 mg PO DAILY 04/30/18 03/22/20 History Cholecalciferol [Vitamin D3 (25 1,000 unit PO DAILY 04/30/18 03/22/20 History Mcg = 1000 Iu)] Linagliptin [Tradjenta] 5 mg PO DAILY 04/30/18 03/22/20 History Furosemide [Lasix] 40 mg PO BID #0 05/05/18 03/22/20 Rx Carvedilol [Coreg] 25 mg PO BID 08/31/18 03/22/20 History Insulin Glargine [Lantus] 45 unit SQ BID 08/31/18 03/22/20 History Meclizine [Antivert] 12.5 mg PO TID PRN 08/31/18 03/22/20 History hydrALAZINE HCL 50 mg PO BID 08/31/18 03/22/20 History traMADol HCL [Ultram] 50 mg PO Q6H PRN 08/31/18 03/22/20 History Acetaminophen [Tylenol] 500 mg PO HS PRN 03/17/20 03/22/20 History Allopurinol [Zyloprim] 50 mg PO DAILY 03/17/20 03/22/20 History Biotin 1000mcg 1 tab PO DAILY 03/17/20 03/22/20 History Calcium Carbonate/Vitamin D3 1 tab PO DAILY 03/17/20 03/22/20 History [Calcium 600-Vit D3 400 Tablet] Fish Oil/Dha/Epa [Fish Oil 1,200 1 cap PO QID 03/17/20 03/22/20 History mg Fish Oil] Magnesium Oxide [Mag-Ox] 500 mg PO DAILY 03/17/20 03/22/20 History Zinc 50 mg PO Q48H 03/17/20 03/22/20 History hydrOXYzine HCL [Atarax] 25 mg PO TID PRN 03/17/20 03/22/20 History Azithromycin [Zithromax Z-pack (6 See Taper PO DAILY 03/22/20 03/22/20 History tabs)] Dexamethasone 6 mg PO DAILY 03/22/20 03/22/20 History Allergies Allergy/AdvReac Type Severity Reaction Status Date / Time JOCELYNN Inhibitors Allergy Unknown Verified 03/22/20 14:05 piperacillin [From Zosyn] Allergy Rash/Hives Verified 03/22/20 14:05 tazobactam [From Zosyn] Allergy Rash/Hives Verified 03/22/20 14:05 aspartame AdvReac Nausea & Verified 03/22/20 14:05 Vomiting Physical Exam Vitals: Vital Signs Temp Pulse Pulse Resp BP Pulse Ox 03/22/20 14:30 52 L 23 148/92 99 03/22/20 14:00 52 L 24 130/60 98 03/22/20 13:30 56 L 23 130/60 100 03/22/20 13:00 62 24 142/51 98 03/22/20 12:48 93 L 03/22/20 12:47 98.4 F 61 22 142/51 93 L Intake and Output 03/22/20 03/22/20 03/22/20 06:59 14:59 22:59 Other: Weight 90.718 kg Results CBC & Chem 7: 03/22/20 13:12 03/22/20 13:12 Labs: Abnormal Lab Results - Last 24 Hours (Table) 03/22/20 03/22/20 03/22/20 Range/Units 13:12 13:12 13:12 Neutrophils # 7.8 H (1.3-7.7) k/uL Lymphocytes # 0.5 L (1.0-4.8) k/uL D-Dimer 1.74 H (<0.60) mg/L FEU Sodium 136 L (137-145) mmol/L Carbon Dioxide 32 H (22-30) mmol/L BUN 60 H (7-17) mg/dL Creatinine 1.94 H (0.52-1.04) mg/dL Glucose 256 H (74-99) mg/dL Plasma Lactic Acid Jaya (0.7-2.0) mmol/L Lactate Dehydrogenase 780 H (313-618) U/L Troponin I (0.000-0.034) ng/mL C-Reactive Protein 15.6 H (<10.0) mg/L 03/22/20 03/22/20 03/22/20 Range/Units 13:12 13:12 15:57 Neutrophils # (1.3-7.7) k/uL Lymphocytes # (1.0-4.8) k/uL D-Dimer (<0.60) mg/L FEU Sodium (137-145) mmol/L Carbon Dioxide (22-30) mmol/L BUN (7-17) mg/dL Creatinine (0.52-1.04) mg/dL Glucose (74-99) mg/dL Plasma Lactic Acid Jaya 2.2 H* (0.7-2.0) mmol/L Lactate Dehydrogenase (313-618) U/L Troponin I 0.060 H* 0.073 H* (0.000-0.034) ng/mL C-Reactive Protein (<10.0) mg/L
[2020-03-22] MEDS: INSULIN ASPART (NovoLOG) 100 UNIT/ML VIAL SQ SCH ×2 (19:23→21:53)
[2020-03-22] MEDS ORDERED: IPRATROPIUM-ALBUTEROL 3 ML NEB INHALATION SCH (20:00)
[2020-03-22] MEDS: hydrALAZINE HCL 50 MG TAB PO SCH (20:44)
[2020-03-22] MEDS: ENOXAPARIN 40 MG/0.4 ML SYRINGE SQ SCH (20:44)
[2020-03-22] MEDS: ATORVASTATIN 40 MG TAB PO SCH (20:44)
[2020-03-22 21:23] LABS: Glucose,Whole Blood 298 mg/dL (75-99)
[2020-03-22] MEDS: AZITHROMYCIN 500 MG in SODIUM CHLORIDE 0.9% 250 ML IVPB SCH (21:53)
[2020-03-22] MEDS: INSULIN DETEMIR (LEVEMIR) 100 UNIT/ML SYR SQ SCH (21:54)
[2020-03-23 01:40] LABS: Ferritin 515.2 ng/mL (10.0-291.0)
[2020-03-23] MEDS: SODIUM CHLORIDE 0.9% 1,000 ML IV SCH ×3 (05:23→17:12)
[2020-03-23 06:06] LABS: Glucose,Whole Blood 196 mg/dL (75-99)
[2020-03-23] MEDS: INSULIN ASPART (NovoLOG) 100 UNIT/ML VIAL SQ SCH ×4 (06:20→20:44)
[2020-03-23] MEDS: carvediloL 12.5 MG TAB PO SCH ×2 (06:22→17:12)
[2020-03-23] MEDS: LEVOTHYROXINE 50 MCG TAB PO SCH (06:22)
[2020-03-23] MEDS: DEXAMETHASONE SOD PHOSPHATE 10 MG/ML 1 ML VIAL IV SCH (09:00)
[2020-03-23] MEDS: ENOXAPARIN 40 MG/0.4 ML SYRINGE SQ SCH (09:00)
[2020-03-23] MEDS: FUROSEMIDE 20 MG TAB PO SCH (09:01)
[2020-03-23] MEDS: ISOSORBIDE MONONITRATE ER 60 MG TAB.ER.24H PO SCH (09:01)
[2020-03-23] MEDS: hydrALAZINE HCL 50 MG TAB PO SCH ×2 (09:01→20:45)
[2020-03-23] MEDS: ASPIRIN 325 MG TAB PO SCH (09:01)
--- NOTE | 2020-03-23 10:30 | ECHOF ---
Referral Reason:atrial fib .htnurgency,tia MEASUREMENTS -------- HEIGHT: 165.1 cm WEIGHT: 93.0 kg BP: RVIDd: 3.0 cm (< 3.3) IVSd: 1.2 cm (0.6 - 1.1) LVIDd: 4.5 cm (3.9 - 5.3) LVPWd: 1.2 cm (0.6 - 1.1) IVSs: 1.6 cm LVIDs: 3.3 cm LVPWs: 1.8 cm LA Diam: 3.4 cm (2.7 - 3.8) LAESV Index (A-L): 20.36 ml/m Ao Diam: 2.9 cm (2.0 - 3.7) AV Cusp: 2.2 cm (1.5 - 2.6) MV EXCURSION: 14.924 mm (> 18.000) MV EF SLOPE: 38 mm/s (70 - 150) EPSS: 0.2 cm MV E Luis: 0.87 m/s MV DecT: 271 ms MV A Luis: 0.95 m/s MV E/A Ratio: 0.91 FINDINGS -------- Sinus rhythm. This was a technically adequate study. The left ventricular size is normal. There is borderline concentric left ventricular hypertrophy. Overall left ventricular systolic function is normal with, an EF between 55 - 60 %. The right ventricle is normal in size. Normal LA size by volume 22+/-6 ml/m2. The right atrial size is normal. Interatrial and interventricular septum intact. There is mild aortic valve sclerosis. Mild mitral annular calcification present. Mild mitral regurgitation is present. The tricuspid valve appears structurally normal. Mild tricuspid regurgitation present. The pulmonic valve was not well visualized. There is no pulmonic regurgitation present. The aortic root size is normal. Normal inferior vena cava with normal inspiratory collapse consistent with estimated right atrial pre ssure of 5 mmHg. There is no pericardial effusion. CONCLUSIONS -------- 1. There is borderline concentric left ventricular hypertrophy. 2. Overall left ventricular systolic function is normal with, an EF between 55 - 60 %. 3. Normal LA size by volume 22+/-6 ml/m2. 4. There is mild aortic valve sclerosis. 5. Mild mitral annular calcification present. 6. Mild mitral regurgitation is present. 7. Mild tricuspid regurgitation present. 8. There is no pericardial effusion. RN HEMO DIALYSIS: Azalea Carroll RDCS
[2020-03-23 11:02] LABS: Basophils % (A) 0 %; Eosinophils % (A) 0 %; HCT 30.1 % (34.0-46.0); HGB 10.2 gm/dL (11.4-16.0); Lymphocytes # (A) 0.5 k/uL (1.0-4.8); Lymphocytes % (A) 6 %; MCH 27.8 pg (25.0-35.0); MCHC 33.8 g/dL (31.0-37.0); MCV 82.3 fL (80.0-100.0); Mean Platelet Volume 6.8; Monocytes # (A) 0.5 k/uL (0-1.0); Monocytes % (A) 5 %; Neutrophils # (A) 7.7 k/uL (1.3-7.7); Neutrophils % (A) 88 %; Platelet Count 266 k/uL (150-450); RBC 3.66 m/uL (3.80-5.40); WBC 8.7 k/uL (3.8-10.6)
[2020-03-23 11:28] LABS: Glucose,Whole Blood 154 mg/dL (75-99)
[2020-03-23 11:29] LABS: Calcium 8.3 mg/dL (8.4-10.2); Potassium 4.5 mmol/L (3.5-5.1); Uric Acid 8.3 mg/dL (3.7-7.4)
[2020-03-23] MEDS ORDERED: REMDESIVIR 200 MG in SODIUM CHLORIDE 0.9% 250 ML IVPB ONE (12:00)
--- NOTE | 2020-03-23 12:54 | P.PN ---
Subjective Progress Note Date: 03/23/20 ([id number] pneumonia) Patient seen and examined today on 03/23/2020. Patient seen by Dr. Li critical care and pulmonary. Patient started Remdesvir protocol, patient already on dexamethasone, and az ithromycin. VQ scan was negative for PE Echocardiogram showed ejection fraction of 55-60 with sinus rhythm and borderline concentric left ventricular hypertrophy. Mitral regurg mild tricuspid regurg. On exam: Patient's conscious alert oriented 3 I discussed with her the current problem with the underlying covert pneumonia and the treatment was rendered. She she has a history of renal artery stenosis and renal hypertension as well as previous surgery on both kidneys are trace also tumor was removed from the right kidney with cryo-in [facility], and we did consult and nephrology Dr. Nette bhakta as well. Her troponin on admission was mildly elevated and we consulted the cardiology has well. With the underlying chronic kidney disease could be the reason however patient denied any chest pain on admission but mainly the shortness of breath and lethargy. Patient is awake alert oriented she is not lethargic today. Head was normocephalic and atraumatic pupils equal reactive and conjunctiva was pink oropharynx natural teeth. She can speak and talk and move 4 extremities. She is on heparin as well Lovenox subcu. For DVT prophylaxis as well The neck was supple no JVD no thyromegaly no lymphadenopathy trachea midline. Chest significant improvement clinically on the initiation of the lung bilateral and we will be order x-ray tomorrow of the chest if was more than. And continue monitoring the oxygen percentage. Heart regular sinus rhythm. Abdomen soft. Bowel sounds no tenderness Extremities no edema and positive pulses bilateral and symmetrical. Neurological exam: No lateralizing sign. No evidence of neuro deficit. She had long history of loss of smell has been seen evaluated several time prior to the current illness and has been seen by ENT as well and this during the lost year and this year. Assessment: #1 covert pneumonia 19. #2 atypical pneumonia #3 shortness of breath with acute hypoxic lung disease. Seen by Dr. Gordon. #4 no evidence of PE. #5 elevated inflammatory marker due to [id number] viral infection. #6 she has chronic hypertension which she received her medication for blood pressure currently morning at 8:00 was 190/84 however that not check get. And will adjust medication if needed after the nursing staff checked the blood pressure. Patient was placed on REMDESIVIR by Dr. Frazier as well as vitamin C vitamin D and zinc. Patient on 2 L nasal oxygen with the pulse ox 97% no evidence of desaturation at this point. Renal function improved with a creatinine 1.44 and the BUN 50. With the underlying chronic kidney disease currently stage III however she flecked wait to stage IV., No hyperkalemia and she has diabetes mellitus type 2 insulin- dependent, and her blood sugar this morning was 144 and POC 154 which is fairly well controlled uric acid is 8.3 elevated and her calcium is 8.3. Lipid profile indicating high triglyceride 488 probably secondary to diabetes also we have dyslipidemia with the HDL 26. Total cholesterol 161 and the the LDL doesn't be done 9 her troponin on admission was 0.083 and the we will be ordering as well troponin again apparently wasn't done serial. Plan: Monitoring the blood pressure, monitor the symptoms, chest x-ray in a.m. if wasn't ordered and lab in a.m. We'll continue to check chest x-ray and troponin serial with a consultation with the cardiology and nephrology. Objective - Vital Signs Vital signs: Vital Signs Temp 97.5 F L 03/23/20 08:00 Pulse 55 L 03/23/20 08:00 Resp 17 03/23/20 03:29 BP 190/84 03/23/20 08:00 Pulse Ox 97 03/23/20 08:00 Intake & Output 03/22/20 03/23/20 03/23/20 18:59 06:59 18:59 Weight 90.718 kg 92.5 kg Other: Voiding Method Toilet # Voids 0 # Bowel Movements 0 - Labs CBC & Chem 7: 03/23/20 09:51 03/23/20 09:51 Labs: Abnormal Lab Results - Last 24 Hours (Table) 03/22/20 03/22/20 03/22/20 Range/Units 13:12 13:12 13:12 RBC (3.80-5.40) m/uL Hgb (11.4-16.0) gm/dL Hct (34.0-46.0) % Neutrophils # 7.8 H (1.3-7.7) k/uL Lymphocytes # 0.5 L (1.0-4.8) k/uL D-Dimer 1.74 H (<0.60) mg/L FEU Sodium 136 L (137-145) mmol/L Chloride (98-107) mmol/L Carbon Dioxide 32 H (22-30) mmol/L BUN 60 H (7-17) mg/dL Creatinine 1.94 H (0.52-1.04) mg/dL Glucose 256 H (74-99) mg/dL POC Glucose (mg/dL) (75-99) mg/dL Plasma Lactic Acid Jaya (0.7-2.0) mmol/L Uric Acid (3.7-7.4) mg/dL Calcium (8.4-10.2) mg/dL Ferritin 515.2 H (10.0-291.0) ng/mL Lactate Dehydrogenase 780 H (313-618) U/L Troponin I (0.000-0.034) ng/mL C-Reactive Protein 15.6 H (<10.0) mg/L Triglycerides (<150) mg/dL HDL Cholesterol (40-60) mg/dL Urine Protein (Negative) Urine Blood (Negative) 03/22/20 03/22/20 03/22/20 Range/Units 13:12 13:12 15:57 RBC (3.80-5.40) m/uL Hgb (11.4-16.0) gm/dL Hct (34.0-46.0) % Neutrophils # (1.3-7.7) k/uL Lymphocytes # (1.0-4.8) k/uL D-Dimer (<0.60) mg/L FEU Sodium (137-145) mmol/L Chloride (98-107) mmol/L Carbon Dioxide (22-30) mmol/L BUN (7-17) mg/dL Creatinine (0.52-1.04) mg/dL Glucose (74-99) mg/dL POC Glucose (mg/dL) (75-99) mg/dL Plasma Lactic Acid Jaya 2.2 H* (0.7-2.0) mmol/L Uric Acid (3.7-7.4) mg/dL Calcium (8.4-10.2) mg/dL Ferritin (10.0-291.0) ng/mL Lactate Dehydrogenase (313-618) U/L Troponin I 0.060 H* 0.073 H* (0.000-0.034) ng/mL C-Reactive Protein (<10.0) mg/L Triglycerides (<150) mg/dL HDL Cholesterol (40-60) mg/dL Urine Protein (Negative) Urine Blood (Negative) 03/22/20 03/22/20 03/22/20 Range/Units 18:06 19:16 21:22 RBC (3.80-5.40) m/uL Hgb (11.4-16.0) gm/dL Hct (34.0-46.0) % Neutrophils # (1.3-7.7) k/uL Lymphocytes # (1.0-4.8) k/uL D-Dimer (<0.60) mg/L FEU Sodium (137-145) mmol/L Chloride (98-107) mmol/L Carbon Dioxide (22-30) mmol/L BUN (7-17) mg/dL Creatinine (0.52-1.04) mg/dL Glucose (74-99) mg/dL POC Glucose (mg/dL) 298 H (75-99) mg/dL Plasma Lactic Acid Jaya (0.7-2.0) mmol/L Uric Acid (3.7-7.4) mg/dL Calcium (8.4-10.2) mg/dL Ferritin (10.0-291.0) ng/mL Lactate Dehydrogenase (313-618) U/L Troponin I 0.083 H* (0.000-0.034) ng/mL C-Reactive Protein (<10.0) mg/L Triglycerides (<150) mg/dL HDL Cholesterol (40-60) mg/dL Urine Protein 2+ H (Negative) Urine Blood Trace H (Negative) 03/23/20 03/23/20 03/23/20 Range/Units 06:04 09:51 09:51 RBC 3.66 L (3.80-5.40) m/uL Hgb 10.2 L (11.4-16.0) gm/dL Hct 30.1 L (34.0-46.0) % Neutrophils # (1.3-7.7) k/uL Lymphocytes # 0.5 L (1.0-4.8) k/uL D-Dimer (<0.60) mg/L FEU Sodium (137-145) mmol/L Chloride 108 H (98-107) mmol/L Carbon Dioxide (22-30) mmol/L BUN 50 H (7-17) mg/dL Creatinine 1.44 H (0.52-1.04) mg/dL Glucose 144 H (74-99) mg/dL POC Glucose (mg/dL) 196 H (75-99) mg/dL Plasma Lactic Acid Jaya (0.7-2.0) mmol/L Uric Acid 8.3 H (3.7-7.4) mg/dL Calcium 8.3 L (8.4-10.2) mg/dL Ferritin (10.0-291.0) ng/mL Lactate Dehydrogenase (313-618) U/L Troponin I (0.000-0.034) ng/mL C-Reactive Protein (<10.0) mg/L Triglycerides 488 H (<150) mg/dL HDL Cholesterol 26 L (40-60) mg/dL Urine Protein (Negative) Urine Blood (Negative) 03/23/20 Range/Units 11:27 RBC (3.80-5.40) m/uL Hgb (11.4-16.0) gm/dL Hct (34.0-46.0) % Neutrophils # (1.3-7.7) k/uL Lymphocytes # (1.0-4.8) k/uL D-Dimer (<0.60) mg/L FEU Sodium (137-145) mmol/L Chloride (98-107) mmol/L Carbon Dioxide (22-30) mmol/L BUN (7-17) mg/dL Creatinine (0.52-1.04) mg/dL Glucose (74-99) mg/dL POC Glucose (mg/dL) 154 H (75-99) mg/dL Plasma Lactic Acid Jaya (0.7-2.0) mmol/L Uric Acid (3.7-7.4) mg/dL Calcium (8.4-10.2) mg/dL Ferritin (10.0-291.0) ng/mL Lactate Dehydrogenase (313-618) U/L Troponin I (0.000-0.034) ng/mL C-Reactive Protein (<10.0) mg/L Triglycerides (<150) mg/dL HDL Cholesterol (40-60) mg/dL Urine Protein (Negative) Urine Blood (Negative)
[2020-03-23] MEDS: ASCORBIC ACID 500 MG TAB PO SCH (12:56)
[2020-03-23] MEDS: AZITHROMYCIN 500 MG in SODIUM CHLORIDE 0.9% 250 ML IVPB SCH (12:56)
[2020-03-23] MEDS: CHOLECALCIFEROL 400 UNIT TAB PO SCH (12:57)
[2020-03-23] MEDS: ZINC SULFATE 220 MG CAP PO SCH (12:57)
--- NOTE | 2020-03-23 14:07 | P.NPCON ---
History of Present Illness - Reason for Consult acute renal failure, chronic renal failure - History of Present Illness Reason for consultation: Acute kidney injury on chronic kidney disease History of present illness: Patient is a 84-year-old female seen in renal consultation for acute kidney injury on chronic kidney disease. Patient has chronic kidney disease stage III. Baseline creatinine range of 1.5-2. Creatinine was 1.94 on admission yesterday and is 1.44 today. Patient presented to the hospital with cough and shortness of breath. She tested positive for covid-19. Currently maintained on azithromycin, Decadron, zinc and remdesivir. Patient states she was tested positive about 5 days ago but her symptoms progressively got worse and came to the hospital. She has been afebrile. Blood pressure has been on the higher side. No dizziness or syncopal episode. No chest pain. She is currently on 2 L nasal cannula. Oral intake is fair. Has been voiding. No hematuria or dysuria. Denies regular use of nonsteroidals. She has long-standing history of diabetes mellitus. Echocardiogram revealed preserved ejection fraction. Vital signs are stable. General: The patient appeared well nourished and normally developed. HEENT: Head exam is unremarkable. Neck is without jugular venous distension. LUNGS: Breath sounds decreased. HEART: Rate and Rhythm are regular. ABDOMEN: Soft, nontender. EXTREMITITES: No edema. 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 History of Any Multi-Drug Resistant Organisms: None Reported Past Surgical History: Appendectomy, Heart Catheterization, Joint Replacement, Orthopedic Surgery, Tonsillectomy Additional Past Surgical History / Comment(s): R renal artery bypassed with groin vein graft, brain aneurysms with clips x 2, cataract removal both eyes with lens implants, colonoscopies x 2 with first one having benign polypectomy and 2nd one normal. RT kidney had cancer on top of kidney, pt stated"they froze the cancer off" , lt shoulder arthroscopy for rotator cuff, dusty knee replacments, L foot fracture with surgery and L foot had a bone misplaced with surgery, R foot tumor removed around a toe. Past Anesthesia/Blood Transfusion Reactions: No Reported Reaction Additional Past Anesthesia/Blood Transfusion Reaction / Comment(s): Pt has received blood without reaction. Past Psychological History: No Psychological Hx Reported Smoking Status: Former smoker Past Alcohol Use History: None Reported Past Drug Use History: None Reported - Past Family History Father Family Medical History: Myocardial Infarction (DE) Additional Family Medical History / Comment(s): Father of a DE at the age of 56yrs. Mother Family Medical History: Cancer Additional Family Medical History / Comment(s): Mother had breast cancer. She from another type of cancer that metastasized to her bones. Medications and Allergies Home Medications Medication Instructions Recorded Confirmed Type Atorvastatin [Lipitor] 40 mg PO HS 12/31/14 03/22/20 History Levothyroxine Sodium [Synthroid] 50 mcg PO DAILY 12/31/14 03/22/20 History Pantoprazole Sodium 40 mg PO DAILY 12/31/14 03/22/20 History Multivit-Min/FA/Lycopen/Lutein 1 tab PO DAILY 03/24/15 03/22/20 History [Centrum Silver Tablet] Insulin Aspart [NovoLOG Flexpen] See Protocol SQ AC-TID 01/02/18 03/22/20 History Isosorbide Mononitrate ER [Imdur] 60 mg PO DAILY 01/02/18 03/22/20 History Nitroglycerin Sl Tabs [Nitrostat] 0.4 mg SL Q5M PRN 01/02/18 03/22/20 History Aspirin EC [Ecotrin Low Dose] 81 mg PO DAILY 04/30/18 03/22/20 History Cholecalciferol [Vitamin D3 (25 1,000 unit PO DAILY 04/30/18 03/22/20 History Mcg = 1000 Iu)] Linagliptin [Tradjenta] 5 mg PO DAILY 04/30/18 03/22/20 History Furosemide [Lasix] 40 mg PO BID #0 05/05/18 03/22/20 Rx Carvedilol [Coreg] 25 mg PO BID 08/31/18 03/22/20 History Insulin Glargine [Lantus] 45 unit SQ BID 08/31/18 03/22/20 History Meclizine [Antivert] 12.5 mg PO TID PRN 08/31/18 03/22/20 History hydrALAZINE HCL 50 mg PO BID 08/31/18 03/22/20 History traMADol HCL [Ultram] 50 mg PO Q6H PRN 08/31/18 03/22/20 History Acetaminophen [Tylenol] 500 mg PO HS PRN 03/17/20 03/22/20 History Allopurinol [Zyloprim] 50 mg PO DAILY 03/17/20 03/22/20 History Biotin 1000mcg 1 tab PO DAILY 03/17/20 03/22/20 History Calcium Carbonate/Vitamin D3 1 tab PO DAILY 03/17/20 03/22/20 History [Calcium 600-Vit D3 400 Tablet] Fish Oil/Dha/Epa [Fish Oil 1,200 1 cap PO QID 03/17/20 03/22/20 History mg Fish Oil] Magnesium Oxide [Mag-Ox] 500 mg PO DAILY 03/17/20 03/22/20 History Zinc 50 mg PO Q48H 03/17/20 03/22/20 History hydrOXYzine HCL [Atarax] 25 mg PO TID PRN 03/17/20 03/22/20 History Azithromycin [Zithromax Z-pack (6 See Taper PO DAILY 03/22/20 03/22/20 History tabs)] Dexamethasone 6 mg PO DAILY 03/22/20 03/22/20 History Allergies Allergy/AdvReac Type Severity Reaction Status Date / Time JOCELYNN Inhibitors Allergy Unknown Verified 03/22/20 14:05 piperacillin [From Zosyn] Allergy Rash/Hives Verified 03/22/20 14:05 tazobactam [From Zosyn] Allergy Rash/Hives Verified 03/22/20 14:05 aspartame AdvReac Nausea & Verified 03/22/20 14:05 Vomiting Physical Exam Vitals: Vital Signs Temp Pulse Pulse Resp BP BP Pulse Ox 03/23/20 12:00 51 L 155/61 100 03/23/20 08:00 97.5 F L 55 L 190/84 97 03/23/20 03:29 52 L 17 170/71 98 03/23/20 01:05 55 L 17 03/22/20 23:43 55 L 17 141/65 98 03/22/20 20:00 97.6 F 53 L 19 192/92 100 03/22/20 19:08 97.7 F 54 L 20 158/68 93 L 03/22/20 18:52 98.9 F 03/22/20 18:46 52 L 23 170/78 98 03/22/20 18:30 98.9 F 53 L 20 175/71 98 03/22/20 18:00 91 L 03/22/20 16:00 57 L 24 167/86 96 03/22/20 15:00 52 L 25 H 148/92 99 03/22/20 14:30 52 L 23 148/92 99 03/22/20 14:00 52 L 24 130/60 98 Intake and Output 03/22/20 03/23/20 03/23/20 22:59 06:59 14:59 Intake Total 120 Balance 120 Intake: Oral 120 Other: Voiding Method Toilet Toilet # Voids 0 1 # Bowel Movements 0 0 Weight 90.718 kg 92.5 kg Results - Lab Results Most recent lab results Calcium 8.3 mg/dL (8.4-10.2) L 03/23/20 09:51 Magnesium 2.0 mg/dL (1.6-2.3) 03/22/20 13:12 03/23/20 09:51 03/23/20 09:51 Assessment and Plan Plan: Assessment: 1. Acute kidney injury mostly prerenal secondary to infection and diuretics. Improved with IV hydration. Creatinine 1.44 today. 2. Chronic kidney disease stage III with baseline creatinine near 1.5-2 most likely secondary to diabetic kidney disease. 3. Covid-19 infection maintained on steroids, zinc, remdesivir. 4. Diabetes mellitus. 5. Hypertension with chronic kidney disease. Exacerbated by steroids. 6. Chronic diastolic CHF. Plan: Decreased rate of normal saline to 50 mL an hour. Hold diuretics. Increase hydralazine to 50 mg 3 times daily. Avoid nephrotoxins. Check renal ultrasound. Continue to monitor renal function and urine output. Thank you for the consultation. I will continue to follow the patient with you during her hospital stay
--- NOTE | 2020-03-23 15:26 | CONS ---
CONSULTATION PULMONARY/CRITICAL CARE CONSULTATION: DATE OF SERVICE: 03/23/2020 REASON FOR CONSULTATION: COVID-19 pneumonia. This is an 84-year-old female who is brought to the emergency room by EMS. The patient complains of cough, shortness of breath and possible temperature elevation. She apparently tested positive for COVID-19. She was apparently diagnosed 5 days ago. The patient at that time was feeling okay, but over the last couple days or so, she has got much worse. Again, her complaints include chest congestion, painful cough, shortness of breath, chest tightness, and fever. She also has some muscle aches and joint aches. Just feeling very weak. She denies any nausea, vomiting, diarrhea. There is no abdominal pain. She denies any genitourinary complaints. She was seen in the emergency room. A chest x-ray showed some hazy subtle peripheral infiltrates primarily in the right mid lung. CURRENT MEDICATIONS: Reviewed. She is on Lipitor, Synthroid, Protonix, eye vitamins, insulin, Imdur, nitroglycerin tablets, aspirin, vitamin D3, Tradjenta, Coreg, Lantus insulin, Antivert, hydralazine, tramadol, Tylenol, Zyloprim, biotin, vitamin D3 with calcium, fish oil, magnesium oxide, zinc, Atarax, Zithromax and Decadron. ALLERGIES: JOCELYNN INHIBITORS, ZOSYN and ASPARTAME as well as TAZOBACTAM. MEDICAL HISTORY: Quite extensive and includes asthma, CAD, chest pain, diabetes, GERD, hyperlipidemia, hypertension, DJD, pneumonia, hypothyroidism, labyrinthitis, right renal cell cancer, stage 4 chronic kidney disease, diabetes mellitus, diabetic neuropathy, gout, peripheral vascular occlusive disease, brain aneurysm, and cellulitis. SURGICAL HISTORY: Again quite extensive and includes among other things appendectomy, heart catheterization, joint replacement, tonsillectomy, among other procedures as noted. SOCIAL HISTORY: Positive for previous tobacco use. She denies any alcohol use or illicit drug use. FAMILY HISTORY: Positive for father with myocardial infarction and mother with a history of breast cancer. REVIEW OF SYSTEMS: CONSTITUTIONAL: Weakness, fatigue, fever. NEUROLOGIC: Negative. HEENT: Negative. CARDIOVASCULAR: Negative. PULMONARY: Shortness of breath, chest congestion, cough. GI: Negative. : Negative. RHEUMATOLOGIC: Negative. IMMUNOLOGIC: Negative. ENDOCRINOLOGIC: Negative. DERMATOLOGIC: Negative. Current vital signs are reviewed, temperature 97.5, heart rate 51, respiratory rate 17, blood pressure 155/61 mean 92, 2 L saturations 100%. Appears in no acute distress. No respiratory distress. HEENT: Examination is grossly unremarkable. Mucous membranes are moist. Nasal O2 noted. NECK: Supple, full range of motion. No adenopathy, thyromegaly or neck vein distention. CARDIOVASCULAR: Examination reveals regular rhythm and rate. Heart rate in the mid to high 50s. S1, S2 normal. There is no murmur. LUNGS: Reveal diminished breath sounds. A few scattered rhonchi. No wheezes or crackles. ABDOMEN: Soft, bowel sounds are heard. EXTREMITIES: Intact. No cyanosis, clubbing, or edema. SKIN: Without rash. NEUROLOGIC: Examination is nonfocal. LAB DATA: Reviewed. White count 8.7, hemoglobin 10.2, hematocrit 30.1, platelet count normal. PT, INR, PTT normal. D-dimer 1.74. Sodium 138, potassium 4.5, chloride 108, CO2 is 26, anion gap is 4. BUN and creatinine were 50 and 1.44. The troponins were 0.083 and 0.061, C-reactive protein 15.6. Ferritin 515.2. Urine shows 2+ protein and trace blood. Microbiology is negative or pending. X-ray shows some subtle changes particularly in the right lung. A ventilation-perfusion lung scan was normal. Current medications are reviewed. She is currently on Tylenol, albuterol inhaler, vitamin C, aspirin, Lipitor, Zithromax, Coreg, vitamin D3, Decadron, Lovenox, Lasix, hydralazine, insulin, Imdur, levothyroxine, Remdesivir, and zinc. ASSESSMENT: 1. COVID-19 pneumonitis, with mild hypoxemic respiratory failure. 2. No evidence of pulmonary embolism on V/Q scan. 3. History of asthma. 4. History of coronary artery disease. 5. History of hypernephroma. 6. Angina. 7. Diabetes mellitus. 8. Gastroesophageal reflux disease. 9. Hyperlipidemia. 10.Essential hypertension. 11.Degenerative joint disease. 12.Hypothyroidism. 13.Peripheral vascular occlusive disease. 14.Multiple other medical problems and comorbidities. PLAN: The patient is on appropriate medication. Will continue to follow. Inflammatory markers should be checked every 2 or 3 days. A chest x-ray can be checked in a couple days to see if there is any progression. Will continue to monitor the patient. The patient is currently on vitamin D3, vitamin C, and zinc. The patient remains on Decadron and Remdesivir. Will continue to follow. Prognosis is guarded. MMODL / IJN: [id number] /
[2020-03-23 16:43] LABS: Glucose,Whole Blood 288 mg/dL (75-99)
[2020-03-23 17:40] LABS: Hemoglobin A1C 8.6 % (4.0-6.0)
[2020-03-23 20:08] LABS: Glucose,Whole Blood 317 mg/dL (75-99)
[2020-03-23] MEDS: ATORVASTATIN 40 MG TAB PO SCH (20:45)
[2020-03-23] MEDS: INSULIN DETEMIR (LEVEMIR) 100 UNIT/ML SYR SQ SCH (22:17)
[2020-03-24] MEDS: SODIUM CHLORIDE 0.9% 1,000 ML IV SCH ×2 (01:34→10:57)
[2020-03-24 06:18] LABS: Glucose,Whole Blood 151 mg/dL (75-99)
[2020-03-24] MEDS: carvediloL 12.5 MG TAB PO SCH ×2 (06:33→16:55)
[2020-03-24] MEDS: INSULIN ASPART (NovoLOG) 100 UNIT/ML VIAL SQ SCH ×4 (06:33→21:03)
[2020-03-24] MEDS: LEVOTHYROXINE 50 MCG TAB PO SCH (06:34)
--- NOTE | 2020-03-24 08:22 | XR ---
EXAMINATION TYPE: XR chest 1V portable DATE OF EXAM: 03/24/2020 COMPARISON: 03/22/2020 INDICATION: Covid TECHNIQUE: Single frontal view of the chest is obtained. FINDINGS: The heart size is highly prominent. The pulmonary vasculature is upper limits of normal. Mild diffuse peripheral infiltrates are present slightly increased over the interval IMPRESSION: 1. Mild nonspecific infiltrates within the periphery can be compatible with Covid
[2020-03-24] MEDS: DEXAMETHASONE SOD PHOSPHATE 10 MG/ML 1 ML VIAL IV SCH (09:19)
[2020-03-24] MEDS: ZINC SULFATE 220 MG CAP PO SCH (09:20)
[2020-03-24] MEDS: FUROSEMIDE 20 MG TAB PO SCH (09:20)
[2020-03-24] MEDS: ENOXAPARIN 30 MG/0.3 ML SYRINGE SQ SCH (09:20)
[2020-03-24] MEDS: ASCORBIC ACID 500 MG TAB PO SCH (09:20)
[2020-03-24] MEDS: ISOSORBIDE MONONITRATE ER 60 MG TAB.ER.24H PO SCH (09:20)
[2020-03-24] MEDS: CHOLECALCIFEROL 400 UNIT TAB PO SCH (09:20)
[2020-03-24] MEDS: hydrALAZINE HCL 50 MG TAB PO SCH ×3 (09:20→21:04)
[2020-03-24] MEDS: ASPIRIN 325 MG TAB PO SCH (09:20)
--- NOTE | 2020-03-24 11:15 | P.PN ---
Subjective Patient is seen in follow-up for acute kidney injury on chronic kidney disease. Patient is chronic kidney disease stage III with baseline creatinine in the range of 1.5-2. Currently on 2 L nasal cannula. Oral intake fair. No chest pain or shortness of breath at this time. Vital signs are stable. General: The patient appeared well nourished and normally developed. HEENT: Head exam is unremarkable. Neck is without jugular venous distension. LUNGS: Breath sounds decreased. HEART: Rate and Rhythm are regular. ABDOMEN: Soft, nontender. EXTREMITITES: No edema. Objective - Vital Signs Vital signs: Vital Signs Temp 98.2 F 03/24/20 09:00 Pulse 60 03/24/20 09:00 Resp 18 03/24/20 09:00 BP 152/79 03/24/20 09:00 Pulse Ox 97 03/24/20 09:00 Intake & Output 03/23/20 03/24/20 03/24/20 18:59 06:59 18:59 Intake Total 120 660 Output Total 850 500 Balance 120 -850 160 Weight 99 kg Intake: Oral 120 660 Output: Urine 850 500 Other: Voiding Method Toilet # Voids 1 # Bowel Movements 0 - Labs CBC & Chem 7: 03/23/20 09:51 03/23/20 09:51 Labs: Abnormal Lab Results - Last 24 Hours (Table) 03/23/20 03/23/20 03/23/20 Range/Units 09:51 09:51 09:51 Chloride 108 H (98-107) mmol/L BUN 50 H (7-17) mg/dL Creatinine 1.44 H (0.52-1.04) mg/dL Glucose 144 H (74-99) mg/dL POC Glucose (mg/dL) (75-99) mg/dL Hemoglobin A1c 8.6 H (4.0-6.0) % Uric Acid 8.3 H (3.7-7.4) mg/dL Calcium 8.3 L (8.4-10.2) mg/dL Troponin I 0.061 H* (0.000-0.034) ng/mL Triglycerides 488 H (<150) mg/dL HDL Cholesterol 26 L (40-60) mg/dL 03/23/20 03/23/20 03/23/20 Range/Units 11:27 16:41 20:06 Chloride (98-107) mmol/L BUN (7-17) mg/dL Creatinine (0.52-1.04) mg/dL Glucose (74-99) mg/dL POC Glucose (mg/dL) 154 H 288 H 317 H (75-99) mg/dL Hemoglobin A1c (4.0-6.0) % Uric Acid (3.7-7.4) mg/dL Calcium (8.4-10.2) mg/dL Troponin I (0.000-0.034) ng/mL Triglycerides (<150) mg/dL HDL Cholesterol (40-60) mg/dL 03/24/20 Range/Units 06:16 Chloride (98-107) mmol/L BUN (7-17) mg/dL Creatinine (0.52-1.04) mg/dL Glucose (74-99) mg/dL POC Glucose (mg/dL) 151 H (75-99) mg/dL Hemoglobin A1c (4.0-6.0) % Uric Acid (3.7-7.4) mg/dL Calcium (8.4-10.2) mg/dL Troponin I (0.000-0.034) ng/mL Triglycerides (<150) mg/dL HDL Cholesterol (40-60) mg/dL Microbiology - Last 24 Hours (Table) 03/22/20 13:05 Blood Culture - Preliminary Blood No Growth after 24 hours Assessment and Plan Plan: Assessment: 1. Acute kidney injury mostly prerenal secondary to infection and diuretics. Improved with IV hydration. Creatinine 1.44 as of yesterday. 2. Chronic kidney disease stage III with baseline creatinine near 1.5-2 most likely secondary to diabetic kidney disease. 3. Covid-19 infection maintained on steroids, zinc, remdesivir. 4. Diabetes mellitus. 5. Hypertension with chronic kidney disease. Exacerbated by steroids. Stable. 6. Chronic diastolic CHF. Plan: Hep-Lock IV fluids. Hold diuretics. Avoid nephrotoxins. F/u renal ultrasound. Continue to monitor renal function and urine output.
[2020-03-24 11:23] LABS: Basophils % (A) 0 %; Eosinophils % (A) 0 %; HCT 28.7 % (34.0-46.0); HGB 9.7 gm/dL (11.4-16.0); Lymphocytes # (A) 0.5 k/uL (1.0-4.8); Lymphocytes % (A) 7 %; MCH 28.2 pg (25.0-35.0); MCHC 33.9 g/dL (31.0-37.0); MCV 83.2 fL (80.0-100.0); Mean Platelet Volume 6.7; Monocytes # (A) 0.4 k/uL (0-1.0); Monocytes % (A) 6 %; Neutrophils # (A) 5.9 k/uL (1.3-7.7); Neutrophils % (A) 87 %; Platelet Count 270 k/uL (150-450); RBC 3.45 m/uL (3.80-5.40); RDW 13.8 % (11.5-15.5); WBC 6.8 k/uL (3.8-10.6)
[2020-03-24 11:32] LABS: Calcium 8.1 mg/dL (8.4-10.2); Potassium 4.3 mmol/L (3.5-5.1)
[2020-03-24 11:37] LABS: Glucose,Whole Blood 165 mg/dL (75-99)
[2020-03-24] MEDS: REMDESIVIR 100 MG in SODIUM CHLORIDE 0.9% 250 ML IVPB SCH (12:02)
--- NOTE | 2020-03-24 13:14 | P.PN ---
Subjective Progress Note Date: 03/24/20 Principal diagnosis: #1 Covera pneumonia. #2 abnormal troponin with continuous elevation. #3 chronic kidney disease stage III associated with acute kidney injury. #4 diabetes mellitus type 2 insulin-dependent. #5 renal artery stenosis bilateral. #6 dyslipidemia. 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 #8 hypothyroidism. Progress note date of service 03/24/2020. Patient admitted with "pneumonia and lethargy with initial elevation of troponin. We are consulting cardiology for evaluation. Patient seen by pulmonary critical care Dr. Storm, also seen by nephrology Dr. Hoang. Patient is conscious alert oriented 3 with the generalized weakness and improved lethargy. Vital signs temperature 98.2 heart rate 50 respiratory rate 14, pulse ox on room air 95% her blood pressure 158/110. Head was normocephalic and atraumatic. Neck was supple no JVD no thyromegaly no lymphadenopathy trachea midline. Chest is: Scattered rhonchi with decreased air entry bilateral some wheezes as well. Heart regular sinus rhythm with elevated troponin we'll consult cardiology. Abdomen obese positive bowel sounds with a previous history of surgery. Extremities no edema. Neurological stable. Assessment: Patient had positive cold on 03/17/2020, went home however she is treated but she deteriorated at home she came back to the emergency room I requested also PCR coated 19 I don't have the results yet and patient placed on the treatment medication protocol for Clovid. We'll consult cardiology to evaluate with the elevated troponin reached 1. Diabetes mellitus monitoring and under observation and control. With the CBG before meals and at bedtime as well. Hypertension is not controlled will see cardiology if they need to add any medication. Plan: Continue the current treatment, we'll continue to follow the recommendation of cardiology, pulmonary, nephrology,. Objective - Vital Signs Vital signs: Vital Signs Temp 98.2 F 03/24/20 12:02 Pulse 50 L 03/24/20 12:02 Resp 14 03/24/20 12:02 BP 158/110 03/24/20 12:02 Pulse Ox 95 03/24/20 12:02 Intake & Output 03/23/20 03/24/20 03/24/20 18:59 06:59 18:59 Intake Total 120 660 Output Total 850 500 Balance 120 -850 160 Weight 99 kg Intake: Oral 120 660 Output: Urine 850 500 Other: Voiding Method Toilet # Voids 1 # Bowel Movements 0 - Labs CBC & Chem 7: 03/24/20 10:50 03/24/20 10:50 Labs: Abnormal Lab Results - Last 24 Hours (Table) 03/23/20 03/23/20 03/23/20 Range/Units 09:51 09:51 16:41 RBC (3.80-5.40) m/uL Hgb (11.4-16.0) gm/dL Hct (34.0-46.0) % Lymphocytes # (1.0-4.8) k/uL Chloride (98-107) mmol/L BUN (7-17) mg/dL Creatinine (0.52-1.04) mg/dL Glucose (74-99) mg/dL POC Glucose (mg/dL) 288 H (75-99) mg/dL Hemoglobin A1c 8.6 H (4.0-6.0) % Calcium (8.4-10.2) mg/dL Troponin I 0.061 H* (0.000-0.034) ng/mL 03/23/20 03/24/20 03/24/20 Range/Units 20:06 06:16 10:50 RBC 3.45 L (3.80-5.40) m/uL Hgb 9.7 L (11.4-16.0) gm/dL Hct 28.7 L (34.0-46.0) % Lymphocytes # 0.5 L (1.0-4.8) k/uL Chloride (98-107) mmol/L BUN (7-17) mg/dL Creatinine (0.52-1.04) mg/dL Glucose (74-99) mg/dL POC Glucose (mg/dL) 317 H 151 H (75-99) mg/dL Hemoglobin A1c (4.0-6.0) % Calcium (8.4-10.2) mg/dL Troponin I (0.000-0.034) ng/mL 03/24/20 03/24/20 Range/Units 10:50 11:35 RBC (3.80-5.40) m/uL Hgb (11.4-16.0) gm/dL Hct (34.0-46.0) % Lymphocytes # (1.0-4.8) k/uL Chloride 111 H (98-107) mmol/L BUN 43 H (7-17) mg/dL Creatinine 1.35 H (0.52-1.04) mg/dL Glucose 160 H (74-99) mg/dL POC Glucose (mg/dL) 165 H (75-99) mg/dL Hemoglobin A1c (4.0-6.0) % Calcium 8.1 L (8.4-10.2) mg/dL Troponin I (0.000-0.034) ng/mL Microbiology - Last 24 Hours (Table) 03/22/20 13:05 Blood Culture - Preliminary Blood No Growth after 24 hours
--- NOTE | 2020-03-24 13:56 | US ---
EXAMINATION TYPE: US kidneys/renal and bladder DATE OF EXAM: 03/24/2020 COMPARISON: US, CT CLINICAL HISTORY: deja. Diabetic; patient stated had right renal surgery years ago; right inferior jam e mass seen on CT EXAM MEASUREMENTS: Right Kidney: 9.3 x 5.4 x 4.7 cm Left Kidney: 11.1 x 6.5 x 4.9 cm Post Void Residual Volume: not assessed on inpatient Right Kidney: lobular cortex is noted; no inferior pole mass is seen today Left Kidney: superior cortical cyst is imaged = 1.2 x 0.9 x 0.9cm. Bladder: wnl Bilateral Jets seen: no IMPRESSION: 1. Superior left renal cyst. 2. Previous inferior pole right renal mass is not identified on current exam
--- NOTE | 2020-03-24 14:11 | P.PN ---
Subjective Progress Note Date: 03/24/20 Principal diagnosis: Shortness of breath 84-year-old white female patient who presented to the emergency department on 03/22/2020 for evaluation of cough, shortness of breath, and patient is a no code with positive. She had a positive core with 19 results 5 days prior to presentation. Initially was having mild symptoms, however she developed worsening symptoms with decreased shortness of breath, occasional sharp chest pain, fevers, chills and generalized malaise and body aches. Patient also had the diarrhea, but no nausea vomiting or abdominal pain. Her chest x-ray showed subtle hazy peripheral infiltrate in the right midlung, her admission lab work showed lymphopenia with lymphocytic, 0.5, normal white count of 8.9, hemoglobin of 11.9, d-dimer was 1.74, VQ scan showed a low probability for pulmonary embolism, renal function was impaired with BUN of 16 creatinine of 1.94, she had mild lactic acidosis which improved with IV hydration, he had mild troponin leak, LDH was 70, and CRP was 15.6, pro calcitonin level was negative at 0.08, urinalysis was clear infection, she was retested for: 19, and was found to be positive. Today she is on room air, with pulse ox of 95%, was on 2 L of oxygen earlier in the day, she's been afebrile, hemodynamically stable, she is on Remdesivir date 2, no worsening dyspnea. She is also on oral Decadron, and prophylactic dose of Lovenox. Objective - Vital Signs Vital signs: Vital Signs Temp 98.2 F 03/24/20 12:02 Pulse 50 L 03/24/20 12:02 Resp 14 03/24/20 12:02 BP 158/110 03/24/20 12:02 Pulse Ox 95 03/24/20 12:02 Intake & Output 03/23/20 03/24/20 03/24/20 18:59 06:59 18:59 Intake Total 120 660 Output Total 850 500 Balance 120 -850 160 Weight 99 kg Intake: Oral 120 660 Output: Urine 850 500 Other: Voiding Method Toilet # Voids 1 # Bowel Movements 0 - Exam GENERAL EXAM: Alert, very pleasant, white female, 2 L of oxygen a pulse ox of 97%, room air pulse ox was 95% comfortable in no apparent distress. HEAD: Normocephalic/atraumatic. EYES: Normal reaction of pupils, equal size. Conjunctiva pink, sclera white. NOSE: Clear with pink turbinates. THROAT: No erythema or exudates. NECK: No masses, no JVD, no thyroid enlargement, no adenopathy. CHEST: No chest wall deformity. Symmetrical expansion. LUNGS: Equal air entry with no crackles, wheeze, rhonchi or dullness. CVS: Regular rate and rhythm, normal S1 and S2, no gallops, no murmurs, no rubs ABDOMEN: Soft, nontender. No hepatosplenomegaly, normal bowel sounds, no guarding or rigidity. EXTREMITIES: No clubbing, no edema, no cyanosis, 2+ pulses and upper and lower extremities. MUSCULOSKELETAL: Muscle strength and tone normal. SPINE: No scoliosis or deformity SKIN: No rashes CENTRAL NERVOUS SYSTEM: Alert and oriented -3. No focal deficits, tone is normal in all 4 extremities. PSYCHIATRIC: Alert and oriented -3. Appropriate affect. Intact judgment and insight. - Labs CBC & Chem 7: 03/24/20 10:50 03/24/20 10:50 Labs: Abnormal Lab Results - Last 24 Hours (Table) 03/22/20 03/23/20 03/23/20 Range/Units 18:07 09:51 16:41 RBC (3.80-5.40) m/uL Hgb (11.4-16.0) gm/dL Hct (34.0-46.0) % Lymphocytes # (1.0-4.8) k/uL Chloride (98-107) mmol/L BUN (7-17) mg/dL Creatinine (0.52-1.04) mg/dL Glucose (74-99) mg/dL POC Glucose (mg/dL) 288 H (75-99) mg/dL Hemoglobin A1c 8.6 H (4.0-6.0) % Calcium (8.4-10.2) mg/dL Coronavirus (PCR) Detected A (Not Detected) 03/23/20 03/24/20 03/24/20 Range/Units 20:06 06:16 10:50 RBC 3.45 L (3.80-5.40) m/uL Hgb 9.7 L (11.4-16.0) gm/dL Hct 28.7 L (34.0-46.0) % Lymphocytes # 0.5 L (1.0-4.8) k/uL Chloride (98-107) mmol/L BUN (7-17) mg/dL Creatinine (0.52-1.04) mg/dL Glucose (74-99) mg/dL POC Glucose (mg/dL) 317 H 151 H (75-99) mg/dL Hemoglobin A1c (4.0-6.0) % Calcium (8.4-10.2) mg/dL Coronavirus (PCR) (Not Detected) 03/24/20 03/24/20 Range/Units 10:50 11:35 RBC (3.80-5.40) m/uL Hgb (11.4-16.0) gm/dL Hct (34.0-46.0) % Lymphocytes # (1.0-4.8) k/uL Chloride 111 H (98-107) mmol/L BUN 43 H (7-17) mg/dL Creatinine 1.35 H (0.52-1.04) mg/dL Glucose 160 H (74-99) mg/dL POC Glucose (mg/dL) 165 H (75-99) mg/dL Hemoglobin A1c (4.0-6.0) % Calcium 8.1 L (8.4-10.2) mg/dL Coronavirus (PCR) (Not Detected) Microbiology - Last 24 Hours (Table) 03/22/20 13:05 Blood Culture - Preliminary Blood No Growth after 24 hours Assessment and Plan Plan: Assessment: #1. Shortness of breath, acute hypoxic respiratory failure related to acute COVID 19 pneumonitis, initially diagnosed on 03/17/2020, and a repeat COVID 19 PCR was positive again on 03/22/2020, was started on Remdesivir on 03/23/2020 #2. Elevated d-dimer with no evidence of pulmonary embolism on the VQ scan showing low probability for PE #3. Shortness of breath, fever chills, generalized malaise, diarrhea, related to COVID 19 infection #4. History of chronic bronchial asthma, unspecified #5. History of coronary artery disease #6. History of hypernephroma #7. Angina #8. Diabetes mellitus type 2 #9. GERD/reflux #10. Hypertension #11. Hypothyroidism #13. Peripheral vascular occlusive disease #14. Multiple medical problems and comorbidities Plan: Continue Remdesivir, continue oral Decadron, continue anticoagulation, continue vitamins, we'll obtain a follow-up chest x-ray tomorrow, no worsening dyspnea, lung sounds have been stable, we'll continue to follow I performed a history & physical examination of the patient and discussed their management with my nurse practitioner, Kacey Hernandez. I reviewed the nurse practitioner's note and agree with the documented findings and plan of care. Lung sounds are positive for ddiminished breath sounds. The findings and the impression was discussed with the patient. I attest to the documentation by the nurse practitioner. Time with Patient: Less than 30
[2020-03-24 16:47] LABS: Glucose,Whole Blood 252 mg/dL (75-99)
[2020-03-24 20:41] LABS: Glucose,Whole Blood 275 mg/dL (75-99)
[2020-03-24] MEDS: ATORVASTATIN 40 MG TAB PO SCH (21:03)
[2020-03-24] MEDS: INSULIN DETEMIR (LEVEMIR) 100 UNIT/ML SYR SQ SCH (21:03)
[2020-03-25 06:32] LABS: Glucose,Whole Blood 151 mg/dL (75-99)
[2020-03-25] MEDS: carvediloL 12.5 MG TAB PO SCH ×2 (06:41→17:24)
[2020-03-25] MEDS: LEVOTHYROXINE 50 MCG TAB PO SCH (06:41)
[2020-03-25] MEDS: INSULIN ASPART (NovoLOG) 100 UNIT/ML VIAL SQ SCH ×4 (06:42→20:08)
--- NOTE | 2020-03-25 07:58 | XR ---
EXAMINATION TYPE: XR chest 1V portable DATE OF EXAM: 03/25/2020 Comparison: 03/24/2020 Clinical History: 84-year-old female shortness of breath Findings: Heart borderline enlarged. Atherosclerotic arch calcifications. Mild patchy peripheral lung densities bilaterally without significant change. No sizable effusion. Impression: 1. Similar borderline heart size. 2. Patchy peripheral infiltrates without significant change.
[2020-03-25] MEDS: ISOSORBIDE MONONITRATE ER 60 MG TAB.ER.24H PO SCH (08:50)
[2020-03-25] MEDS: ASPIRIN 325 MG TAB PO SCH (08:50)
[2020-03-25] MEDS: CHOLECALCIFEROL 400 UNIT TAB PO SCH (08:51)
[2020-03-25] MEDS: hydrALAZINE HCL 50 MG TAB PO SCH ×3 (08:51→20:02)
[2020-03-25] MEDS: ENOXAPARIN 30 MG/0.3 ML SYRINGE SQ SCH (08:51)
[2020-03-25] MEDS: ASCORBIC ACID 500 MG TAB PO SCH (08:51)
[2020-03-25] MEDS: ZINC SULFATE 220 MG CAP PO SCH (08:51)
[2020-03-25] MEDS: DEXAMETHASONE SOD PHOSPHATE 10 MG/ML 1 ML VIAL IV SCH (08:51)
--- NOTE | 2020-03-25 09:00 | P.CRDCN ---
History of Present Illness Consult date: 03/25/20 Requesting physician: Jae Dubon Reason for Consult (text): elevated troponins Chief complaint: Chest congestion, shortness of breath, fever History of present illness: This is a pleasant 84-year-old female patient with a past medical history of hypertension, kidney disease, asthma, diabetes, GERD, hyperlipidemia, thyroid disorder. She is a poor historian and most of her past medical history and HPI were obtained from the chart. She apparently presented on March 22 with symptoms of chest congestion, painful cough, shortness of breath, chest tightness and fever as well as overall weakness. She is positive for cocaine 19. We were consulted on 03/24/2024 elevated troponins present on admission. She did have an echocardiogram done on the third that showed normal LV systolic function with an ejection fraction of 55-60%, mild MR and mild TR. She is being followed by pulmonary and nephrology. Labs on admission showed troponin 0.060, 0.073, 0.083 and 0.061. Renal function has improved with that BUN of 43 and creatinine 1.35 which were initially 60 and 1.94 respectively. Hemoglobin was normal on admission and is now down to 9.7. He is currently being treated with vitamin C, vitamin D, Decadron IV, zinc and Remdesivir. She is unsure if she has a history of CAD in the past but has history of chest pain at times for which she takes sublingual nitro. She feels she previously followed with a manufacturing engineering intern at [facility] but is unsure of this as she's been going down there for many years since 1967 for her renal issues. Overall she thinks she is feeling a bit better although she does not really recall why she came to the hospital. She is currently on carvedilol 25 mg by mouth twice a day, Lipitor 40 mg by mouth daily at bedtime, aspirin 325 mg by mouth daily, hydralazine 50 mg by mouth 3 times a day, insulin, isosorbide 60 mg by mouth daily and Synthroid. The pressure has been high with a systolic as high as 170- 180 and the patient has been bradycardic with a heart rate running around 50. 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 History of Any Multi-Drug Resistant Organisms: None Reported Past Surgical History: Appendectomy, Heart Catheterization, Joint Replacement, Orthopedic Surgery, Tonsillectomy Additional Past Surgical History / Comment(s): R renal artery bypassed with groin vein graft, brain aneurysms with clips x 2, cataract removal both eyes with lens implants, colonoscopies x 2 with first one having benign polypectomy and 2nd one normal. RT kidney had cancer on top of kidney, pt stated"they froze the cancer off" , lt shoulder arthroscopy for rotator cuff, dusty knee re placments, L foot fracture with surgery and L foot had a bone misplaced with surgery, R foot tumor removed around a toe. Past Anesthesia/Blood Transfusion Reactions: No Reported Reaction Additional Past Anesthesia/Blood Transfusion Reaction / Comment(s): Pt has received blood without reaction. Past Psychological History: No Psychological Hx Reported Smoking Status: Former smoker Past Alcohol Use History: None Reported Past Drug Use History: None Reported - Past Family History Father Family Medical History: Myocardial Infarction (NV) Additional Family Medical History / Comment(s): Father of a NV at the age of 56yrs. Mother Family Medical History: Cancer Additional Family Medical History / Comment(s): Mother had breast cancer. She from another type of cancer that metastasized to her bones. Medications and Allergies Home Medications Medication Instructions Recorded Confirmed Type Atorvastatin [Lipitor] 40 mg PO HS 12/31/14 03/22/20 History Levothyroxine Sodium [Synthroid] 50 mcg PO DAILY 12/31/14 03/22/20 History Pantoprazole Sodium 40 mg PO DAILY 12/31/14 03/22/20 History Multivit-Min/FA/Lycopen/Lutein 1 tab PO DAILY 03/24/15 03/22/20 History [Centrum Silver Tablet] Insulin Aspart [NovoLOG Flexpen] See Protocol SQ AC-TID 01/02/18 03/22/20 History Isosorbide Mononitrate ER [Imdur] 60 mg PO DAILY 01/02/18 03/22/20 History Nitroglycerin Sl Tabs [Nitrostat] 0.4 mg SL Q5M PRN 01/02/18 03/22/20 History Aspirin EC [Ecotrin Low Dose] 81 mg PO DAILY 04/30/18 03/22/20 History Cholecalciferol [Vitamin D3 (25 1,000 unit PO DAILY 04/30/18 03/22/20 History Mcg = 1000 Iu)] Linagliptin [Tradjenta] 5 mg PO DAILY 04/30/18 03/22/20 History Furosemide [Lasix] 40 mg PO BID #0 05/05/18 03/22/20 Rx Carvedilol [Coreg] 25 mg PO BID 08/31/18 03/22/20 History Insulin Glargine [Lantus] 45 unit SQ BID 08/31/18 03/22/20 History Meclizine [Antivert] 12.5 mg PO TID PRN 08/31/18 03/22/20 History hydrALAZINE HCL 50 mg PO BID 08/31/18 03/22/20 History traMADol HCL [Ultram] 50 mg PO Q6H PRN 08/31/18 03/22/20 History Acetaminophen [Tylenol] 500 mg PO HS PRN 03/17/20 03/22/20 History Allopurinol [Zyloprim] 50 mg PO DAILY 03/17/20 03/22/20 History Biotin 1000mcg 1 tab PO DAILY 03/17/20 03/22/20 History Calcium Carbonate/Vitamin D3 1 tab PO DAILY 03/17/20 03/22/20 History [Calcium 600-Vit D3 400 Tablet] Fish Oil/Dha/Epa [Fish Oil 1,200 1 cap PO QID 03/17/20 03/22/20 History mg Fish Oil] Magnesium Oxide [Mag-Ox] 500 mg PO DAILY 03/17/20 03/22/20 History Zinc 50 mg PO Q48H 03/17/20 03/22/20 History hydrOXYzine HCL [Atarax] 25 mg PO TID PRN 03/17/20 03/22/20 History Azithromycin [Zithromax Z-pack (6 See Taper PO DAILY 03/22/20 03/22/20 History tabs)] Dexamethasone 6 mg PO DAILY 03/22/20 03/22/20 History Allergies Allergy/AdvReac Type Severity Reaction Status Date / Time JOCELYNN Inhibitors Allergy Unknown Verified 03/22/20 14:05 piperacillin [From Zosyn] Allergy Rash/Hives Verified 03/22/20 14:05 tazobactam [From Zosyn] Allergy Rash/Hives Verified 03/22/20 14:05 aspartame AdvReac Nausea & Verified 03/22/20 14:05 Vomiting Physical Exam Vitals: Vital Signs Temp Pulse Resp BP Pulse Ox 03/25/20 03:17 57 L 17 137/72 92 L 03/25/20 02:00 49 L 18 03/24/20 23:30 97.6 F 49 L 18 170/63 94 L 03/24/20 20:00 50 L 18 180/64 97 03/24/20 16:59 95 03/24/20 16:00 97.9 F 52 L 16 163/65 03/24/20 12:02 98.2 F 50 L 14 158/110 95 03/24/20 09:00 98.2 F 60 18 152/79 97 Intake and Output 03/24/20 03/25/20 03/25/20 22:59 06:59 14:59 Intake Total 570 Output Total 0 Balance 570 0 Intake: Intake, IV Titration 250 Amount Remdesivir 100 mg In 250 Sodium Chloride 0.9% 250 ml @ 250 mls/hr IVPB DAILY@1200 [facility] Rx#: [id number] Oral 320 Output: Urine 0 Other: Voiding Method Toilet Toilet # Voids 1 0 # Bowel Movements 0 Weight 98 kg A thorough physical exam was not completed as patient is positive for COVID 19. Results 03/24/20 10:50 03/25/20 08:27 CBC 03/24/20 Range/Units 10:50 WBC 6.8 (3.8-10.6) k/uL RBC 3.45 L (3.80-5.40) m/uL Hgb 9.7 L (11.4-16.0) gm/dL Hct 28.7 L (34.0-46.0) % Plt Count 270 (150-450) k/uL Comprehensive Metabolic Panel 03/24/20 Range/Units 10:50 Sodium 138 (137-145) mmol/L Potassium 4.3 (3.5-5.1) mmol/L Chloride 111 H (98-107) mmol/L Carbon Dioxide 24 (22-30) mmol/L BUN 43 H (7-17) mg/dL Creatinine 1.35 H (0.52-1.04) mg/dL Glucose 160 H (74-99) mg/dL Calcium 8.1 L (8.4-10.2) mg/dL Current Medications Generic Name Dose Route Start Last Admin Trade Name Freq PRN Reason Stop Dose Admin Acetaminophen 650 mg 03/22/20 12:51 03/24/20 09:24 Acetaminophen Tab 325 Mg Tab PO 650 mg Q4HR PRN Administration Fever>101 Albuterol Sulfate 2 puff 03/22/20 12:51 03/22/20 16:26 Albuterol Hfa Inhaler INHALATION 2 puff RT-Q6H PRN Administration Shortness Of Breath Or Wheezing Amlodipine Besylate 5 mg 03/25/20 09:00 Amlodipine 5 Mg Tab PO DAILY [facility] Ascorbic Acid 1,000 mg 03/23/20 12:00 03/24/20 09:20 Ascorbic Acid 500 Mg Tab PO 1,000 mg DAILY [facility] Administration Aspirin 325 mg 03/23/20 09:00 03/24/20 09:20 Aspirin 325 Mg Tab PO 325 mg DAILY [facility] Administration Atorvastatin Calcium 40 mg 03/22/20 21:00 03/24/20 21:03 Atorvastatin 40 Mg Tab PO 40 mg HS [facility] Administration Cholecalciferol 400 unit 03/23/20 12:00 03/24/20 09:20 Cholecalciferol 400 Unit Tab PO 400 unit DAILY [facility] Administration Dexamethasone Sodium Phosphate 6 mg 03/23/20 09:00 03/24/20 09:19 Dexamethasone Sod Phosphate 10 Mg/Ml 1 Ml Vial IV 6 mg DAILY [facility] Administration Enoxaparin Sodium 30 mg 03/24/20 09:00 03/24/20 09:20 Enoxaparin 30 Mg/0.3 Ml Syringe SQ 30 mg DAILY [facility] Administration Hydralazine HCl 50 mg 03/24/20 16:00 03/24/20 21:04 Hydralazine Hcl 50 Mg Tab PO 50 mg TID [facility] Administration Remdesivir 100 mg/ Sodium 250 mls @ 250 mls/hr 03/24/20 12:00 03/24/20 12:02 Chloride IVPB 03/27/20 12:59 250 mls/hr DAILY@1200 [facility] Administration Insulin Aspart 2 - 10 unit 03/22/20 17:30 03/25/20 06:42 Insulin Aspart (Novolog) 100 Unit/Ml Vial SQ 2 unit ACHS [facility] Administration Protocol Insulin Detemir 20 unit 03/22/20 21:00 03/24/20 21:03 Insulin Detemir (Levemir) 100 Unit/Ml Syr SQ 20 unit HS [facility] Administration Isosorbide Mononitrate 60 mg 03/23/20 09:00 03/24/20 09:20 Isosorbide Mononitrate Er 60 Mg Tab.Er.24h PO 60 mg DAILY [facility] Administration Levothyroxine Sodium 50 mcg 03/23/20 06:30 03/25/20 06:41 Levothyroxine 50 Mcg Tab PO 50 mcg DAILY@0630 [facility] Administration Nitroglycerin 0.4 mg 03/22/20 17:44 Nitroglycerin Sl Tabs 0.4 Mg Tab SUBLINGUAL Q5M PRN Chest Pain Zinc Sulfate 220 mg 03/23/20 12:00 03/24/20 09:20 Zinc Sulfate 220 Mg Cap PO 220 mg DAILY [facility] Administration Intake and Output 03/24/20 03/25/20 03/25/20 22:59 06:59 14:59 Intake Total 570 Output Total 0 Balance 570 0 Intake: Intake, IV Titration 250 Amount Remdesivir 100 mg In 250 Sodium Chloride 0.9% 250 ml @ 250 mls/hr IVPB DAILY@1200 [facility] Rx#: [id number] Oral 320 Output: Urine 0 Other: Voiding Method Toilet Toilet # Voids 1 0 # Bowel Movements 0 Weight 98 kg 03/24/20 10:50 03/24/20 10:50 EKG Interpretations (text) Sinus bradycardia with nonspecific ST-T wave abnormalities unchanged from previous EKG Assessment and Plan Assessment: #1 COVID-19 with pneumonia #2 elevated troponins, an acute coronary event has been ruled out, likely secondary to above 3 hypertension #4 bradycardia #5 acute on chronic kidney disease #6 hyperlipidemia #7 diabetes Plan: From cardiology's perspective is no evidence of acute coronary event. We will decrease aspirin to 81 mg daily. Echocardiogram was reviewed and shows a normal LV systolic function with no wall motion abnormalities. Patient remains hypertensive we will add amlodipine. Due to the patient's underlying bradycardia we will decrease carvedilol. If the patient's blood pressure remains elevated we would recommend increase the amlodipine to 10 mg daily or increase hydralazine. At this time we will follow the patient on an as needed basis. If necessary patient can be scheduled as an outpatient and the need for further cardiac workup at that time will be determined. This appointment should be made no sooner than 2 weeks following discharge. The above dictated assessment and findings were discussed with signing physician. The impression and plan of care have been directed as dictated. Radha Abbott, Nurse Practitioner, acting as scribe for signing physician.
[2020-03-25 09:18] LABS: Calcium 8.6 mg/dL (8.4-10.2)
[2020-03-25 09:20] LABS: Magnesium 1.8 mg/dL (1.6-2.3); Potassium 4.9 mmol/L (3.5-5.1)
[2020-03-25] MEDS: amLODIPine 5 MG TAB PO SCH (09:45)
--- NOTE | 2020-03-25 11:22 | P.PN ---
Subjective Patient is seen in follow-up for acute kidney injury on chronic kidney disease. Patient is chronic kidney disease stage III with baseline creatinine in the range of 1.5-2. Currently on room air. Oral intake fair. No chest pain or shortness of breath at this time. Vital signs are stable. General: The patient appeared well nourished and normally developed. HEENT: Head exam is unremarkable. Neck is without jugular venous distension. LUNGS: Breath sounds decreased. HEART: Rate and Rhythm are regular. ABDOMEN: Soft, nontender. EXTREMITITES: No edema. Objective - Vital Signs Vital signs: Vital Signs Temp 97.8 F 03/25/20 08:45 Pulse 54 L 03/25/20 08:45 Resp 16 03/25/20 08:45 BP 154/74 03/25/20 08:45 Pulse Ox 97 03/25/20 08:45 Intake & Output 03/24/20 03/25/20 03/25/20 18:59 06:59 18:59 Intake Total 1230 120 Output Total 500 0 Balance 730 0 120 Weight 98 kg Intake: Intake, IV Titration 250 Amount Remdesivir 100 mg In 250 Sodium Chloride 0.9% 250 ml @ 250 mls/hr IVPB DAILY@1200 [facility] Rx#: [id number] Oral 980 120 Output: Urine 500 0 Other: Voiding Method Toilet Toilet # Voids 1 0 # Bowel Movements 0 - Labs CBC & Chem 7: 03/24/20 10:50 03/25/20 08:27 Labs: Abnormal Lab Results - Last 24 Hours (Table) 03/22/20 03/24/20 03/24/20 Range/Units 18:07 10:50 10:50 RBC 3.45 L (3.80-5.40) m/uL Hgb 9.7 L (11.4-16.0) gm/dL Hct 28.7 L (34.0-46.0) % Lymphocytes # 0.5 L (1.0-4.8) k/uL Chloride 111 H (98-107) mmol/L Carbon Dioxide (22-30) mmol/L BUN 43 H (7-17) mg/dL Creatinine 1.35 H (0.52-1.04) mg/dL Glucose 160 H (74-99) mg/dL POC Glucose (mg/dL) (75-99) mg/dL Calcium 8.1 L (8.4-10.2) mg/dL Coronavirus (PCR) Detected A (Not Detected) 03/24/20 03/24/20 03/24/20 Range/Units 11:35 16:46 20:40 RBC (3.80-5.40) m/uL Hgb (11.4-16.0) gm/dL Hct (34.0-46.0) % Lymphocytes # (1.0-4.8) k/uL Chloride (98-107) mmol/L Carbon Dioxide (22-30) mmol/L BUN (7-17) mg/dL Creatinine (0.52-1.04) mg/dL Glucose (74-99) mg/dL POC Glucose (mg/dL) 165 H 252 H 275 H (75-99) mg/dL Calcium (8.4-10.2) mg/dL Coronavirus (PCR) (Not Detected) 03/25/20 03/25/20 Range/Units 06:30 08:27 RBC (3.80-5.40) m/uL Hgb (11.4-16.0) gm/dL Hct (34.0-46.0) % Lymphocytes # (1.0-4.8) k/uL Chloride 110 H (98-107) mmol/L Carbon Dioxide 21 L (22-30) mmol/L BUN 40 H (7-17) mg/dL Creatinine 1.20 H (0.52-1.04) mg/dL Glucose 206 H (74-99) mg/dL POC Glucose (mg/dL) 151 H (75-99) mg/dL Calcium (8.4-10.2) mg/dL Coronavirus (PCR) (Not Detected) Microbiology - Last 24 Hours (Table) 03/22/20 13:05 Blood Culture - Preliminary Blood No Growth after 48 hours Assessment and Plan Plan: Assessment: 1. Acute kidney injury mostly prerenal secondary to infection and diuretics. Improved with IV hydration. Creatinine 1.2. No hydronephrosis noted on kidney ultrasound. 2. Chronic kidney disease stage III with baseline creatinine near 1.5-2 most likely secondary to diabetic kidney disease. 3. Covid-19 infection maintained on steroids, zinc, remdesivir. 4. Diabetes mellitus. 5. Hypertension with chronic kidney disease. Exacerbated by steroids. 6. Chronic diastolic CHF. Plan: Off IV fluids. Avoid nephrotoxins. Continue to monitor renal function and urine output. Amlodipine added this morning.
[2020-03-25 11:56] LABS: Glucose,Whole Blood 232 mg/dL (75-99)
[2020-03-25] MEDS: REMDESIVIR 100 MG in SODIUM CHLORIDE 0.9% 250 ML IVPB SCH (12:08)
--- NOTE | 2020-03-25 12:27 | P.PN ---
Subjective Progress Note Date: 03/25/20 Progress note date of service 03/25/2020 Patient seen and evaluated Patient is conscious alert oriented 3 she started to move and she is on relaxing chair. No cough no shortness of breath and she is on the protocol with the left 2 doses of Remdesivir and continuing the antibiotic and a chest x-ray indicating peripheral pneumonia atypical in nature with the associated "with infection. Diabetes mellitus type 2 on insulin protocol her blood sugar has been monitored with stable between the 200 and the above and we will increase her insulin to Levemir 30 mg at at bedtime and 10 mg in a.m. to achieve more control on the diabetes. She had laboratory today these morning showed that the sodium 138, and potassium 4.9, chloride 110, carbon dioxide 21, and the BUN is 40 and a creatinine significantly improved to 1.2 with the underlying chronic kidney disease with the EGFR 48. Her blood sugar through the blood was 206 in a.m. with the POC was 252. Normal magnesium level and normal calcium level. On her vital sign are temperature 97.8 F oral, her heart rate ranging between 50-75 with the underlying bradycardia secondary to medication. Respiratory rate is 16/m with mild shortness of breath. Her blood pressure 139/63 with a mean blood pressure 88. Her oxygen saturation 95% on room air. On the clinical exam patient is conscious alert oriented 3 Head was normocephalic and atraumatic pupils equal reactive, natural teeth, able to ambulate and will increase her activity and the room. Neck was supple no JVD no thyromegaly no lymphadenopathy trachea midline. The chest was clinical improvement on irradiation of the lung bilaterally. Heart was regular sinus rhythm with bradycardia. Abdomen is soft positive bowel sounds no organomegaly enlargement. Extremities no edema and positive pulses. Neurologically: No lateralizing sign and no neuro deficit and patient able to ambulate Assessment: #1 current med 19 pneumonia. #2 seen by the cardiology for the cardiac evaluation. #3 seen by the nephrology with continuing monitoring her renal function which she has been significantly improved. #4 underlying mild dehydration has been resolved. #5 pulmonary infiltrate has been monitored and treated with the protocol for clear fluid 19, and seen by the pulmonary and critical Dr. Cornejo. Plan: Continue the current treatment. #2 ambulate in the room. And plan for laboratory and chest x-ray on Friday Objective - Vital Signs Vital signs: Vital Signs Temp 97.8 F 03/25/20 08:45 Pulse 50 L 03/25/20 11:00 Resp 16 03/25/20 11:00 BP 139/63 03/25/20 11:00 Pulse Ox 95 03/25/20 11:00 Intake & Output 03/24/20 03/25/20 03/25/20 18:59 06:59 18:59 Intake Total 1230 120 Output Total 500 0 Balance 730 0 120 Weight 98 kg Intake: Intake, IV Titration 250 Amount Remdesivir 100 mg In 250 Sodium Chloride 0.9% 250 ml @ 250 mls/hr IVPB DAILY@1200 [facility] Rx#: [id number] Oral 980 120 Output: Urine 500 0 Other: Voiding Method Toilet Toilet # Voids 1 0 1 # Bowel Movements 0 - Labs CBC & Chem 7: 03/24/20 10:50 03/25/20 08:27 Labs: Abnormal Lab Results - Last 24 Hours (Table) 03/22/20 03/24/20 03/24/20 Range/Units 18:07 16:46 20:40 Chloride (98-107) mmol/L Carbon Dioxide (22-30) mmol/L BUN (7-17) mg/dL Creatinine (0.52-1.04) mg/dL Glucose (74-99) mg/dL POC Glucose (mg/dL) 252 H 275 H (75-99) mg/dL Coronavirus (PCR) Detected A (Not Detected) 03/25/20 03/25/20 03/25/20 Range/Units 06:30 08:27 11:40 Chloride 110 H (98-107) mmol/L Carbon Dioxide 21 L (22-30) mmol/L BUN 40 H (7-17) mg/dL Creatinine 1.20 H (0.52-1.04) mg/dL Glucose 206 H (74-99) mg/dL POC Glucose (mg/dL) 151 H 232 H (75-99) mg/dL Coronavirus (PCR) (Not Detected) Microbiology - Last 24 Hours (Table) 03/22/20 13:05 Blood Culture - Preliminary Blood No Growth after 48 hours
--- NOTE | 2020-03-25 14:11 | PN ---
PROGRESS NOTE PULMONARY/CRITICAL CARE PROGRESS NOTE: DATE OF SERVICE: March 25, 2020 84-year-old female admitted back on March 22. Her admission diagnosis was secondary to COVID-19 pneumonitis. She is feeling maybe a bit better currently. The patient is still complaining of cough. Has some chest congestion. Currently still on oxygen therapy. She was initially diagnosed on March 17, 2020. She was positive again on March 22, 2020. Remdesivir was begun on March 23, 2020. Currently, she is holding her own. PHYSICAL EXAMINATION: VITAL SIGNS: Current vital signs are reviewed. Temperature 97.8, heart rate 50, respiratory rate 16, blood pressure 139/63, mean 88. Room air saturation between 95 and 97%. GENERAL: Appears in no acute distress. No audible wheezing, use of accessory muscles or conversational dyspnea. HEENT: Examination is grossly unremarkable. No supplemental oxygen. NECK: Supple full range of motion. No adenopathy. Neck veins are flat. CARDIOVASCULAR: Examination reveals regular rhythm and rate. Heart rate 54 beats per minute. S1, S2 normal. No murmur. LUNGS: Reveal mostly clear breath sounds. A few scattered mild rhonchi. No wheezes or crackles. ABDOMEN: Soft. Bowel sounds are heard. EXTREMITIES are intact. No cyanosis, clubbing, or edema. SKIN: Without rash. NEUROLOGIC: Examination is nonfocal. LABS: Reviewed. Sodium 138, potassium 4.9, chloride 110. CO2 21, anion gap is 7. BUN and creatinine were 40 and 1.20. Calcium 8.6, magnesium 1.8. Microbiology is negative. The most recent chest x-ray was from this morning, which shows patchy peripheral infiltrates, in both lungs, without significant change from prior x-ray. CURRENT MEDICATIONS: Reviewed. The patient is on Tylenol, albuterol inhaler, amlodipine, vitamin C, aspirin, Lipitor, Coreg, vitamin D3, Decadron, Lovenox, Apresoline, NovoLog insulin, Levemir insulin, Imdur, Synthroid, nitroglycerin tablets, Remdesivir and zinc. ASSESSMENT: 1. Acute hypoxemic respiratory failure, suspected secondary to COVID-19 pneumonitis, started on Remdesivir on March 23. 2. Fever, chills, muscle aches, joint aches, generalized weakness and fatigue all related to COVID-19 infection. 3. History of chronic bronchial asthma. 4. History of coronary artery disease. 5. History of hypernephroma. 6. Angina pectoris. 7. Diabetes mellitus, type 2. 8. Gastroesophageal reflux disease. 9. Hypertension. 10.Hypothyroidism. 11.Peripheral vascular occlusive disease. 12.Multiple other medical problems and comorbidities. PLAN: Currently, the patient seems to be responding well to Decadron and Remdesivir. She is also on vitamin C, vitamin D3, and zinc. We will continue to follow. No additional recommendations are made. Prognosis is guarded. Hopeful discharge within the next 24 to 48 hours. MMODL / IJN: [id number] /
[2020-03-25 16:54] LABS: Glucose,Whole Blood 390 mg/dL (75-99)
[2020-03-25 19:50] LABS: Glucose,Whole Blood 434 mg/dL (75-99)
[2020-03-25] MEDS: ATORVASTATIN 40 MG TAB PO SCH (20:02)
[2020-03-25] MEDS ORDERED: INSULIN DETEMIR (LEVEMIR) 100 UNIT/ML SYR SQ SCH (21:00)
[2020-03-26] MEDS: carvediloL 12.5 MG TAB PO SCH ×2 (06:38→17:30)
[2020-03-26] MEDS: INSULIN ASPART (NovoLOG) 100 UNIT/ML VIAL SQ SCH ×4 (06:38→21:07)
[2020-03-26] MEDS: LEVOTHYROXINE 50 MCG TAB PO SCH (06:38)
[2020-03-26 06:43] LABS: Glucose,Whole Blood 208 mg/dL (75-99)
[2020-03-26] MEDS ORDERED: INSULIN DETEMIR (LEVEMIR) 100 UNIT/ML SYR SQ SCH ×2 (07:00→21:00)
[2020-03-26] MEDS: ASPIRIN 81 MG PO SCH (08:15)
[2020-03-26] MEDS: ISOSORBIDE MONONITRATE ER 60 MG TAB.ER.24H PO SCH (08:15)
[2020-03-26] MEDS: amLODIPine 5 MG TAB PO SCH (08:15)
[2020-03-26] MEDS: CHOLECALCIFEROL 400 UNIT TAB PO SCH (08:15)
[2020-03-26] MEDS: ASCORBIC ACID 500 MG TAB PO SCH (08:15)
[2020-03-26] MEDS: ZINC SULFATE 220 MG CAP PO SCH (08:15)
[2020-03-26] MEDS: hydrALAZINE HCL 50 MG TAB PO SCH ×3 (08:15→21:07)
[2020-03-26] MEDS: DEXAMETHASONE SOD PHOSPHATE 10 MG/ML 1 ML VIAL IV SCH (08:16)
[2020-03-26] MEDS: ENOXAPARIN 30 MG/0.3 ML SYRINGE SQ SCH (08:16)
--- NOTE | 2020-03-26 10:13 | P.PN ---
Subjective Patient is seen in follow-up for acute kidney injury on chronic kidney disease. Patient is chronic kidney disease stage III with baseline creatinine in the range of 1.5-2. Currently on 2 L nasal cannula. Oral intake fair. No chest pain or shortness of breath at this time. Blood pressure stable. Vital signs are stable. General: The patient appeared well nourished and normally developed. HEENT: Head exam is unremarkable. Neck is without jugular venous distension. LUNGS: Breath sounds decreased. HEART: Rate and Rhythm are regular. ABDOMEN: Soft, nontender. EXTREMITITES: No edema. Objective - Vital Signs Vital signs: Vital Signs Temp 97.7 F 03/26/20 08:11 Pulse 55 L 03/26/20 08:11 Resp 16 03/26/20 08:11 BP 134/54 03/26/20 08:11 Pulse Ox 98 03/26/20 08:11 Intake & Output 03/25/20 03/26/20 03/26/20 18:59 06:59 18:59 Intake Total 1207 222 Output Total 400 Balance 1207 -400 222 Weight 95.5 kg Intake: Intake, IV Titration 250 Amount Remdesivir 100 mg In 250 Sodium Chloride 0.9% 250 ml @ 250 mls/hr IVPB DAILY@1200 [facility] Rx#: [id number] Oral 957 222 Output: Urine 400 Other: Voiding Method Toilet Toilet Toilet # Voids 1 - Labs CBC & Chem 7: 03/24/20 10:50 03/25/20 08:27 Labs: Abnormal Lab Results - Last 24 Hours (Table) 03/25/20 03/25/20 03/25/20 Range/Units 11:40 16:53 19:48 POC Glucose (mg/dL) 232 H 390 H 434 H (75-99) mg/dL 03/26/20 Range/Units 06:23 POC Glucose (mg/dL) 208 H (75-99) mg/dL Microbiology - Last 24 Hours (Table) 03/22/20 13:05 Blood Culture - Preliminary Blood No Growth after 72 hours Assessment and Plan Plan: Assessment: 1. Acute kidney injury mostly prerenal secondary to infection and diuretics. Improved with IV hydration. Creatinine 1.2 as of yesterday. No hydronephrosis noted on kidney ultrasound. 2. Chronic kidney disease stage III with baseline creatinine near 1.5-2 most likely secondary to diabetic kidney disease. 3. Covid-19 infection maintained on steroids, zinc, remdesivir. 4. Diabetes mellitus. 5. Hypertension with chronic kidney disease. Exacerbated by steroids. Better controlled. 6. Chronic diastolic CHF. Plan: Off IV fluids. Avoid nephrotoxins. Continue to monitor renal function and urine output.
[2020-03-26 11:56] LABS: Glucose,Whole Blood 228 mg/dL (75-99)
[2020-03-26] MEDS: REMDESIVIR 100 MG in SODIUM CHLORIDE 0.9% 250 ML IVPB SCH (13:00)
--- NOTE | 2020-03-26 15:00 | P.PN ---
Subjective Progress Note Date: 03/26/20 (Covid19 pneumonia.) Progress note date of service 03/26/2020 Hyperglycemia secondary to dexamethasone 6 mg daily for the protocol for the Covid19 pneumonia. Covered with insulin to scale as well as Levemir twice a day in absence of Lantus in [facility]. Patient at home on Lantus. Patient on the rigidity chair today seen evaluated she has minimal symptoms with the cough and spells intermittently happen. But no wheezes or rhonchi's. No chest pain or palpitation. No GI symptoms. And no swelling of lower extremities. On exam: Reviewed the POC glucose with occasional increased to 400 mg per DC liter today we adjusted the Levemir to 35 units at bedtime and 20 units in a.m. admitted to the [facility] and cover with NovoLog to scale. The head was normocephalic and atraumatic pupil was equal reactive. Natural teeth. Encouraged to eat to gain communicate from the GI tract. Neck was supple no JVD no thyromegaly no lymphadenopathy trachea midline. Chest: Improvement of irrigation of the lung bilateral however she had shortness of breath with exertion which is a few steps to the bathroom. Seen by cardiology and pulmonary. Cardiac: Regular sinus rhythm no chest pain and no palpitation. GI no symptoms of diarrhea or constipation no abdominal pain and the exam was negative no pain or tenderness in the 4 quadrants. Extremities no edema and positive pulses. Neurologically stable no lateralizing sign. Assessment: #1 recovering from Covid 19 pneumonia. #2 diabetes mellitus type 2 insulin- dependent #3 hyperglycemia due to dexamethasone protocol #4 hypertension with renal hypertension and renal artery stenosis has been fairly well controlled. #5 coronary artery disease atherosclerotic heart disease. Plan: Patient appeared to be clinically improving. #2 will wait for the critical care and pulmonary the recommendation and time for discharge and medication that needs to be given to the patient on the discharge. Patient may need rehab as outpatient but the patient requested to go home within the time for discharge Objective - Vital Signs Vital signs: Vital Signs Temp 97.7 F 03/26/20 08:11 Pulse 50 L 03/26/20 14:15 Resp 16 03/26/20 14:15 BP 147/65 03/26/20 11:50 Pulse Ox 96 03/26/20 11:50 Intake & Output 03/25/20 03/26/20 03/26/20 18:59 06:59 18:59 Intake Total 1207 972 Output Total 400 Balance 1207 -400 972 Weight 95.5 kg Intake: Intake, IV Titration 250 250 Amount Remdesivir 100 mg In 250 250 Sodium Chloride 0.9% 250 ml @ 250 mls/hr IVPB DAILY@1200 [facility] Rx#: [id number] Oral 957 722 Output: Urine 400 Other: Voiding Method Toilet Toilet Toilet # Voids 1 1 - Labs CBC & Chem 7: 03/24/20 10:50 03/25/20 08:27 Labs: Abnormal Lab Results - Last 24 Hours (Table) 03/25/20 03/25/20 03/26/20 Range/Units 16:53 19:48 06:23 POC Glucose (mg/dL) 390 H 434 H 208 H (75-99) mg/dL 03/26/20 Range/Units 11:41 POC Glucose (mg/dL) 228 H (75-99) mg/dL Microbiology - Last 24 Hours (Table) 03/22/20 13:05 Blood Culture - Preliminary Blood No Growth after 72 hours
--- NOTE | 2020-03-26 16:27 | PN ---
PROGRESS NOTE PULMONARY/CRITICAL CARE PROGRESS NOTE: DATE OF SERVICE: March 26, 2020 This is an 84-year-old female admitted back on March 22. Her admission diagnosis was COVID-19 pneumonitis. She feels like she is improving a bit. Not a lot. She still complains of shortness of breath and cough. A little bit of chest congestion. Not coughing up any phlegm. She remains on oxygen therapy. She was initially diagnosed on March 17, 2020 and was positive again on March 22, 2020. Remdesivir was begun on March 23, 2020. Currently, she is holding her own. PHYSICAL EXAMINATION: VITAL SIGNS: Current vital signs are reviewed. Temperature is 97.7, heart rate 50, respiratory rate 16, blood pressure 147/65, mean 92 and 2 L saturations 94%. Appears in no acute distress. No audible wheezing, use of accessory muscles or conversational dyspnea. HEENT: Examination is grossly unremarkable. NECK: Supple, full range of motion. No adenopathy. Neck veins are flat. CARDIOVASCULAR: Examination reveals regular rhythm and rate. Heart rate 50 beats per minute. S1, S2 normal. No S3, S4, or murmur. LUNGS: Reveal diffuse coarse rhonchi. No wheezes. No crackles. ABDOMEN: Soft, bowel sounds are heard. EXTREMITIES are intact. No cyanosis, clubbing, or edema. SKIN: Without rash. NEUROLOGIC: Examination is nonfocal. LABS: Reviewed. Nothing new from today. Blood sugar 228. Microbiology is currently negative. The most recent chest x-ray was done yesterday. It showed patchy peripheral infiltrates, without much in the way of change. MEDICATIONS: Reviewed. The patient is on Tylenol, albuterol inhaler, amlodipine, vitamin C, aspirin, Lipitor, Coreg, vitamin D3, Decadron, Lovenox, hydralazine, insulin, Imdur, levothyroxine, sublingual nitroglycerin, Remdesivir and zinc. ASSESSMENT: 1. Acute hypoxemic respiratory failure secondary to COVID-19 pneumonitis, currently on Remdesivir which was started on March 23. 2. Fever, chills, muscle aches, joint aches, generalized weakness, as well as fatigue, all related COVID-19 infection. 3. History of chronic bronchial asthma, currently not active. 4. History of coronary artery disease. 5. History of hypernephroma. 6. Angina pectoris. 7. Diabetes mellitus, type 2. 8. Gastroesophageal reflux disease. 9. Hypertension. 10.Hypothyroidism. 11.Peripheral vascular occlusive disease. 12.Multiple other medical problems and comorbidities. PLAN: The patient remains on Decadron and Remdesivir. She is also getting vitamin C, vitamin D3, and zinc. Will continue to follow. Her overall prognosis remains guarded but she does seem to be improving. She is down to 2 L. We will continue to follow. Hopeful discharge in next 24-48 hours. MMODL / IJN: [id number] /
[2020-03-26 17:12] LABS: Glucose,Whole Blood 317 mg/dL (75-99)
[2020-03-26 20:00] LABS: Glucose,Whole Blood 382 mg/dL (75-99)
[2020-03-26] MEDS: ATORVASTATIN 40 MG TAB PO SCH (21:07)
[2020-03-27] MEDS: LEVOTHYROXINE 50 MCG TAB PO SCH (06:23)
[2020-03-27] MEDS: carvediloL 12.5 MG TAB PO SCH ×2 (06:23→17:43)
[2020-03-27 06:58] LABS: Glucose,Whole Blood 245 mg/dL (75-99)
[2020-03-27] MEDS ORDERED: INSULIN DETEMIR (LEVEMIR) 100 UNIT/ML SYR SQ SCH ×2 (07:00→21:00)
[2020-03-27] MEDS: INSULIN ASPART (NovoLOG) 100 UNIT/ML VIAL SQ SCH ×4 (07:06→20:11)
[2020-03-27] MEDS: ALBUTEROL HFA INHALER INHALATION PRN (08:45)
--- NOTE | 2020-03-27 08:50 | P.PN ---
Subjective Progress Note Date: 03/27/20 84-year-old female patient admitted on 03/22/2020 for ongoing difficulties with COVID 19 related pneumonia. The patient was having difficulty breathing and a bit congested chest. She was unable to bring up much sputum. She remains on oxygen therapy. She was diagnosed initially with coronavirus back in 03/17/2020 and she was still positive on 03/22/2020. She was started on Remdesivir on 03/23/2020. She is currently on 2 L of oxygen by nasal cannula with a pulse is 92%. She did experience fever and muscle aches and generalized weakness and fatigue as a manifestation of this viral infection. She is known to have coronary artery disease, chronic bronchial asthma, diabetes mellitus type 2, hypertension and hypothyroidism peripheral vascular disease and previous history of hypernephroma. The chest x-ray from 03/25/2020 showed mild patchy peripheral pulmonary infiltrates without any significant change compared to her previous chest x-rays. Currently, the patient is on Decadron 6 mg IV every 24 hours and Remdesivir and zinc sulfate. In terms of sugar control, the patient is on Levemir 35 units at bedtime and 20 units in the morning in addition to a NovoLog sliding scale coverage. Objective - Vital Signs Vital signs: Vital Signs Temp 97.9 F 03/26/20 23:36 Pulse 53 L 03/27/20 04:00 Resp 18 03/27/20 04:00 BP 180/65 03/27/20 04:00 Pulse Ox 99 03/27/20 04:00 Intake & Output 03/26/20 03/27/20 03/27/20 18:59 06:59 18:59 Intake Total 1212 390 Balance 1212 390 Weight 95 kg Intake: Intake, IV Titration 250 Amount Remdesivir 100 mg In 250 Sodium Chloride 0.9% 250 ml @ 250 mls/hr IVPB DAILY@1200 [facility] Rx#: [id number] Oral 962 390 Other: Voiding Method Toilet Toilet # Voids 1 2 - Exam GENERAL EXAM: Alert, very pleasant, white female, 2 L of oxygen a pulse ox of 97%, room air pulse ox was 95% comfortable in no apparent distress. HEAD: Normocephalic/atraumatic. EYES: Normal reaction of pupils, equal size. Conjunctiva pink, sclera white. NOSE: Clear with pink turbinates. THROAT: No erythema or exudates. NECK: No masses, no JVD, no thyroid enlargement, no adenopathy. CHEST: No chest wall deformity. Symmetrical expansion. LUNGS: Equal air entry with no crackles, wheeze, rhonchi or dullness. CVS: Regular rate and rhythm, normal S1 and S2, no gallops, no murmurs, no rubs ABDOMEN: Soft, nontender. No hepatosplenomegaly, normal bowel sounds, no guarding or rigidity. EXTREMITIES: No clubbing, no edema, no cyanosis, 2+ pulses and upper and lower extremities. MUSCULOSKELETAL: Muscle strength and tone normal. SPINE: No scoliosis or deformity SKIN: No rashes CENTRAL NERVOUS SYSTEM: Alert and oriented -3. No focal deficits, tone is no rmal in all 4 extremities. PSYCHIATRIC: Alert and oriented -3. Appropriate affect. Intact judgment and insight. - Labs CBC & Chem 7: 03/24/20 10:50 03/25/20 08:27 Labs: Abnormal Lab Results - Last 24 Hours (Table) 03/26/20 03/26/20 03/26/20 Range/Units 11:41 17:07 19:58 POC Glucose (mg/dL) 228 H 317 H 382 H (75-99) mg/dL 03/27/20 Range/Units 06:57 POC Glucose (mg/dL) 245 H (75-99) mg/dL Microbiology - Last 24 Hours (Table) 03/22/20 13:05 Blood Culture - Preliminary Blood No Growth after 96 hours Assessment and Plan Plan: #1. Shortness of breath, acute hypoxic respiratory failure related to acute COVID 19 pneumonitis, initially diagnosed on 03/17/2020, and a repeat COVID 19 PCR was positive again on 03/22/2020, was started on Remdesivir on 03/23/2020 #2. Elevated d-dimer with no evidence of pulmonary embolism on the VQ scan showing low probability for PE #3. Shortness of breath, fever chills, generalized malaise, diarrhea, related to COVID 19 infection #4. History of chronic bronchial asthma, unspecified #5. History of coronary artery disease #6. History of hypernephroma #7. Angina #8. Diabetes mellitus type 2 #9. GERD/reflux #10. Hypertension #11. Hypothyroidism #13. Peripheral vascular occlusive disease #14. Multiple medical problems and comorbidities Plan: Continue Remdesivir, continue oral Decadron, continue anticoagulation, continue vitamins, , no worsening dyspnea, lung sounds have been stable, we'll continue to follow. We'll try to get off the oxygen and monitor her pulse ox pH is only on 2 L and her pulse is around 99%.
[2020-03-27 09:23] LABS: Basophils % (A) 0 %; Eosinophils % (A) 0 %; HCT 31.3 % (34.0-46.0); HGB 10.7 gm/dL (11.4-16.0); Lymphocytes # (A) 0.6 k/uL (1.0-4.8); Lymphocytes % (A) 8 %; MCH 28.1 pg (25.0-35.0); MCV 82.7 fL (80.0-100.0); Mean Platelet Volume 7.1; Monocytes # (A) 0.3 k/uL (0-1.0); Monocytes % (A) 5 %; Neutrophils # (A) 5.8 k/uL (1.3-7.7); Neutrophils % (A) 86 %; Platelet Count 272 k/uL (150-450); RBC 3.79 m/uL (3.80-5.40); RDW 13.5 % (11.5-15.5); WBC 6.8 k/uL (3.8-10.6)
[2020-03-27] MEDS: DEXAMETHASONE SOD PHOSPHATE 10 MG/ML 1 ML VIAL IV SCH (09:41)
[2020-03-27] MEDS: ISOSORBIDE MONONITRATE ER 60 MG TAB.ER.24H PO SCH (09:41)
[2020-03-27] MEDS: hydrALAZINE HCL 50 MG TAB PO SCH ×3 (09:41→20:12)
[2020-03-27] MEDS: ZINC SULFATE 220 MG CAP PO SCH (09:41)
[2020-03-27] MEDS: CHOLECALCIFEROL 400 UNIT TAB PO SCH (09:42)
[2020-03-27] MEDS: ASPIRIN 81 MG PO SCH (09:42)
[2020-03-27] MEDS: amLODIPine 5 MG TAB PO SCH (09:42)
[2020-03-27] MEDS: ENOXAPARIN 30 MG/0.3 ML SYRINGE SQ SCH (09:42)
[2020-03-27] MEDS: ASCORBIC ACID 500 MG TAB PO SCH (09:42)
[2020-03-27 09:52] LABS: Calcium 8.8 mg/dL (8.4-10.2); Potassium 4.3 mmol/L (3.5-5.1)
[2020-03-27 11:47] LABS: Glucose,Whole Blood 288 mg/dL (75-99)
[2020-03-27] MEDS: REMDESIVIR 100 MG in SODIUM CHLORIDE 0.9% 250 ML IVPB SCH (12:09)
--- NOTE | 2020-03-27 13:30 | P.PN ---
Subjective Progress Note Date: 03/27/20 (Covid 19 pneumonia) Progress note date of service 03/27/2020. Patient seen and evaluated she is on isolation with the underlying history of Covid 19 infection and Covid 19 pneumonia. Acute hypoxic respiratory failure Diabetes mellitus with hyperglycemia Hypertension with hypertensive heart disease Renal hypertension with bilateral renal artery stenosis. Hyperlipidemia. Patient seen and evaluated today her blood pressure 158/76 and the heart rate 50 beats per minute and respiratory rate 20 per minute and pulse ox 96 on 2 L. Patient on cold head19 pneumonia protocol. Patient seen by Dr. Adrian in today. On exam: Head was normocephalic and atraumatic. Neck was supple no JVD no thyromegaly no lymphadenopathy Chest bilateral wheezes and rhonchi still present with occasional cough. Heart regular sinus rhythm with bradycardia. Abdomen is soft positive bowel sounds no p.m. Extremities no edema. Pulses Neurologically stable no lateralizing sign. Assessment #1 covid -19 pneumonia #2 acute hypoxic respiratory failure #3 hypoglycemia with the underlying use of dexamethasone for the Covid protocol. Covered with insulin. #4 diabetes mellitus type 2 #5 hypertension. #6 underlying acute kidney injury and chronic kidney disease stage III. Plan we'll continue the antibiotic and continue CVID19 pneumonia treatment. critical and pulmonary when the decision of discharge home. Continue ambulation at her room. I did discuss with the patient and her daughter and the phone on Friday and today with the patient. Objective - Vital Signs Vital signs: Vital Signs Temp 97.8 F 03/27/20 08:00 Pulse 50 L 03/27/20 12:00 Resp 20 03/27/20 12:00 BP 158/76 03/27/20 12:00 Pulse Ox 96 03/27/20 12:00 Intake & Output 03/26/20 03/27/20 03/27/20 18:59 06:59 18:59 Intake Total 1212 390 240 Balance 1212 390 240 Weight 95 kg Intake: Intake, IV Titration 250 Amount Remdesivir 100 mg In 250 Sodium Chloride 0.9% 250 ml @ 250 mls/hr IVPB DAILY@1200 [facility] Rx#: [id number] Oral 962 390 240 Other: Voiding Method Toilet Toilet # Voids 1 2 - Labs CBC & Chem 7: 03/27/20 08:58 03/27/20 08:58 Labs: Abnormal Lab Results - Last 24 Hours (Table) 03/26/20 03/26/20 03/27/20 Range/Units 17:07 19:58 06:57 RBC (3.80-5.40) m/uL Hgb (11.4-16.0) gm/dL Hct (34.0-46.0) % Lymphocytes # (1.0-4.8) k/uL Sodium (137-145) mmol/L BUN (7-17) mg/dL Creatinine (0.52-1.04) mg/dL Glucose (74-99) mg/dL POC Glucose (mg/dL) 317 H 382 H 245 H (75-99) mg/dL 03/27/20 03/27/20 03/27/20 Range/Units 08:58 08:58 11:46 RBC 3.79 L (3.80-5.40) m/uL Hgb 10.7 L (11.4-16.0) gm/dL Hct 31.3 L (34.0-46.0) % Lymphocytes # 0.6 L (1.0-4.8) k/uL Sodium 136 L (137-145) mmol/L BUN 45 H (7-17) mg/dL Creatinine 1.45 H (0.52-1.04) mg/dL Glucose 290 H (74-99) mg/dL POC Glucose (mg/dL) 288 H (75-99) mg/dL Microbiology - Last 24 Hours (Table) 03/22/20 13:05 Blood Culture - Preliminary Blood No Growth after 96 hours
--- NOTE | 2020-03-27 15:47 | PN ---
PROGRESS NOTE Patient is seen for followup for acute kidney injury. Her renal function has worsened slightly, with creatinine at 1.4 from 1.2 on 03/25/2020. The patient denies any significant complaints today. She has had good urine output, although it is not accurately charted. Blood pressure has not been low; in fact, it is on the higher side. The patient denies any nausea, vomiting. No significant shortness of breath. PHYSICAL EXAMINATION: On examination today, blood pressure was 179/80, heart rate 50 per minute. She is afebrile. Examination of lower extremities shows no significant edema. Abdomen is soft, nontender. LABS: Labs show sodium 136, potassium 4.3, BUN 45, creatinine 1.45, hemoglobin 10.7 g/dL. ASSESSMENT: 1. Acute kidney injury associated with underlying COVID-19 infection, currently nonoliguric, possibly prerenal. Patient is encouraged to increase her oral intake. She is status post IV fluids. No evidence of obstruction on ultrasound. 2. Chronic kidney disease, stage 3. Baseline creatinine 1.5. The patient has also had a previous creatinine of about 2 mg/dL. Etiology is diabetic kidney disease. 3. COVID-19 infection, maintained on steroids, zinc, remdesivir. 4. Chronic diastolic congestive heart failure. 5. Hypertension with chronic kidney disease, exacerbated with use of steroids, maintained on Coreg. The patient is also on Imdur and hydralazine. We can increase the dose of Coreg if she remains uncontrolled. Continue with the amlodipine as well. PLAN: Encourage increased oral intake. Repeat labs in a.m. Continue to avoid nephrotoxic agents. Increase Coreg if blood pressure remains uncontrolled. MMODL / IJN: [id number] /
[2020-03-27 16:34] LABS: Glucose,Whole Blood 320 mg/dL (75-99)
[2020-03-27 19:04] VITALS: RESP 18
[2020-03-27] MEDS: ATORVASTATIN 40 MG TAB PO SCH (20:12)
[2020-03-27 20:17] LABS: Glucose,Whole Blood 399 mg/dL (75-99)
[2020-03-28] MEDS ORDERED: INSULIN DETEMIR (LEVEMIR) 100 UNIT/ML SYR SQ SCH (07:00)
[2020-03-28 07:03] LABS: Glucose,Whole Blood 195 mg/dL (75-99)
[2020-03-28] MEDS: LEVOTHYROXINE 50 MCG TAB PO SCH (07:06)
[2020-03-28] MEDS: INSULIN ASPART (NovoLOG) 100 UNIT/ML VIAL SQ SCH ×2 (07:07→13:52)
[2020-03-28] MEDS: carvediloL 12.5 MG TAB PO SCH (09:33)
--- NOTE | 2020-03-28 09:37 | P.PN ---
Subjective Progress Note Date: 03/28/20 84-year-old female patient admitted on 03/22/2020 for ongoing difficulties with COVID 19 related pneumonia. The patient was having difficulty breathing and a bit congested chest. She was unable to bring up much sputum. She remains on oxygen therapy. She was diagnosed initially with coronavirus back in 03/17/2020 and she was still positive on 03/22/2020. She was started on Remdesivir on 03/23/2020. She is currently on 2 L of oxygen by nasal cannula with a pulse is 92%. She did experience fever and muscle aches and generalized weakness and fatigue as a manifestation of this viral infection. She is known to have coronary artery disease, chronic bronchial asthma, diabetes mellitus type 2, hyp ertension and hypothyroidism peripheral vascular disease and previous history of hypernephroma. The chest x-ray from 03/25/2020 showed mild patchy peripheral pulmonary infiltrates without any significant change compared to her previous chest x-rays. Currently, the patient is on Decadron 6 mg IV every 24 hours and Remdesivir and zinc sulfate. In terms of sugar control, the patient is on Levemir 35 units at bedtime and 20 units in the morning in addition to a NovoLog sliding scale coverage. on 03/28/2020 the patient remains on 3 L of oxygen by nasal cannula. She has completed the course of Remdesivir and she is only on Decadron. Doing well. No specific complaints. She reported some increased wheezing earlier. Occasional cough. No significant sputum production. Comorbidities are all inactive in stable and the patient is known to have COPD, asthma, diabetes mellitus type 2, hypertension and hypothyroidism and peripheral vascular disease. Objective - Vital Signs Vital signs: Vital Signs Temp 97.2 F L 03/28/20 04:00 Pulse 42 L 03/28/20 04:00 Resp 18 03/28/20 04:00 BP 155/51 03/28/20 04:00 Pulse Ox 96 03/28/20 04:00 Intake & Output 03/27/20 03/28/20 03/28/20 18:59 06:59 18:59 Intake Total 480 600 240 Output Total 400 Balance 480 200 240 Weight 93.5 kg Intake: Oral 480 600 240 Output: Urine 400 Other: Voiding Method Toilet # Voids 1 1 - Exam GENERAL EXAM: Alert, very pleasant, white female, 2 L of oxygen a pulse ox of 97%, room air pulse ox was 95% comfortable in no apparent distress.the patient was switched to room air oxygen and her pulse ox was in the order of 96% HEAD: Normocephalic/atraumatic. EYES: Normal reaction of pupils, equal size. Conjunctiva pink, sclera white. NOSE: Clear with pink turbinates. THROAT: No erythema or exudates. NECK: No masses, no JVD, no thyroid enlargement, no adenopathy. CHEST: No chest wall deformity. Symmetrical expansion. LUNGS: Equal air entry with no crackles, wheeze, rhonchi or dullness. CVS: Regular rate and rhythm, normal S1 and S2, no gallops, no murmurs, no rubs ABDOMEN: Soft, nontender. No hepatosplenomegaly, normal bowel sounds, no guarding or rigidity. EXTREMITIES: No clubbing, no edema, no cyanosis, 2+ pulses and upper and lower extremities. MUSCULOSKELETAL: Muscle strength and tone normal. SPINE: No scoliosis or deformity SKIN: No rashes CENTRAL NERVOUS SYSTEM: Alert and oriented -3. No focal deficits, tone is normal in all 4 extremities. PSYCHIATRIC: Alert and oriented -3. Appropriate affect. Intact judgment and insight. - Labs CBC & Chem 7: 03/27/20 08:58 03/27/20 08:58 Labs: Abnormal Lab Results - Last 24 Hours (Table) 03/27/20 03/27/20 03/27/20 Range/Units 08:58 11:46 16:33 Sodium 136 L (137-145) mmol/L BUN 45 H (7-17) mg/dL Creatinine 1.45 H (0.52-1.04) mg/dL Glucose 290 H (74-99) mg/dL POC Glucose (mg/dL) 288 H 320 H (75-99) mg/dL 03/27/20 03/28/20 Range/Units 19:53 06:52 Sodium (137-145) mmol/L BUN (7-17) mg/dL Creatinine (0.52-1.04) mg/dL Glucose (74-99) mg/dL POC Glucose (mg/dL) 399 H 195 H (75-99) mg/dL Microbiology - Last 24 Hours (Table) 03/22/20 13:05 Blood Culture - Preliminary Blood No Growth after 120 hours Assessment and Plan Plan: #1. Shortness of breath, acute hypoxic respiratory failure related to acute COVID 19 pneumonitis, initially diagnosed on 03/17/2020, and a repeat COVID 19 PCR was positive again on 03/22/2020, was started on Remdesivir on 03/23/2020, clinically improving and the patient is currently on room air oxygen with a pulse is 76%. Earlier today she was on 2 L. He does have some minimal wheezing and the patient has chronic bronchial asthma. #2. Elevated d-dimer with no evidence of pulmonary embolism on the VQ scan showing low probability for PE #3. Shortness of breath, fever chills, generalized malaise, diarrhea, related to COVID 19 infection #4. History of chronic bronchial asthma, unspecified #5. History of coronary artery disease #6. History of hypernephroma #7. Angina #8. Diabetes mellitus type 2 #9. GERD/reflux #10. Hypertension #11. Hypothyroidism #13. Peripheral vascular occlusive disease #14. Multiple medical problems and comorbidities Plan: completed Remdesivir, continue oral Decadron, continue anticoagulation, continue vitamins, , no worsening dyspnea, lung sounds have been stable, we'll continue to follow. oxygenation is improved and the patient is currently on room air oxygen. Consider discharging this patient home today to complete a course of Decadron for a total of 10 days. Overall pulmonary status is stable for now. Comorbidities are all stable.
[2020-03-28] MEDS: ENOXAPARIN 30 MG/0.3 ML SYRINGE SQ SCH (09:57)
[2020-03-28] MEDS: DEXAMETHASONE SOD PHOSPHATE 10 MG/ML 1 ML VIAL IV SCH (09:58)
[2020-03-28] MEDS: hydrALAZINE HCL 50 MG TAB PO SCH (09:58)
[2020-03-28] MEDS: ZINC SULFATE 220 MG CAP PO SCH (09:58)
[2020-03-28] MEDS: ISOSORBIDE MONONITRATE ER 60 MG TAB.ER.24H PO SCH (09:58)
[2020-03-28] MEDS: amLODIPine 5 MG TAB PO SCH (09:58)
[2020-03-28] MEDS: CHOLECALCIFEROL 400 UNIT TAB PO SCH (09:58)
[2020-03-28] MEDS: ASCORBIC ACID 500 MG TAB PO SCH (09:59)
[2020-03-28] MEDS: ASPIRIN 81 MG PO SCH (09:59)
[2020-03-28 10:52] VITALS: PULSE 52; TEMP 98.7
[2020-03-28] MEDS: ALBUTEROL HFA INHALER INHALATION PRN (10:56)
[2020-03-28 11:39] LABS: Glucose,Whole Blood 138 mg/dL (75-99)
[2020-03-28 12:07] LABS: Calcium 9.1 mg/dL (8.4-10.2); Potassium 4.5 mmol/L (3.5-5.1)
[2020-03-28] MEDS ORDERED: MECLIZINE 12.5 MG TAB PO PRN (12:44)
[2020-03-28] MEDS ORDERED: NITROGLYCERIN SL TABS 0.4 MG TAB SUBLINGUAL PRN (12:44)
[2020-03-28] MEDS ORDERED: ACETAMINOPHEN TAB 500 MG TAB PO PRN (12:44)
[2020-03-28] MEDS ORDERED: NON FORMULARY DRUG (Zinc [Zinc] 50 MG Tablet) PO SCH (12:45)
[2020-03-28] MEDS ORDERED: NON FORMULARY DRUG (Fish Oil/Dha/Epa [Fish Oil 1,200 Mg Fish Oil] 1 EACH Capsule) PO SCH (13:00)
--- NOTE | 2020-03-28 13:49 | XR ---
EXAMINATION TYPE: XR chest 1V DATE OF EXAM: 03/28/2020 CLINICAL HISTORY: Difficulty breathing progress study. covid pneumonia. TECHNIQUE: Single AP portable upright view of the chest is obtained. COMPARISON: Chest x-ray from 3 days earlier and older studies. FINDINGS: There is background chronic emphysematous change with improving bilateral peripheral opaci ties. New Small left pleural effusion. No pneumothorax seen bilaterally. Cardiac silhouette size stab le and upper limits of normal atherosclerotic change aortic knob. Osseous structures are demineralize d. IMPRESSION: Chronic parenchymal changes with improving bilateral multifocal acute infiltrates.
[2020-03-28 16:16] VITALS: BP 156/85
--- NOTE | 2020-03-28 16:49 | PN ---
PROGRESS NOTE Patient is seen for followup for acute kidney injury. She has underlying COVID-19 infection and pneumonia. Serum creatinine has improved to about 1.4 from 1.9 on initial admission. At this time, patient denies any significant complaints. Blood pressure on examination this morning was 179/84. Repeat blood pressure 156/85. She is afebrile. Heart rate 52 per minute. Examination shows no evidence of edema lower extremities. Abdomen is soft, nontender. LEAN LEADER exam is grossly intact. LABS: Show sodium 138, potassium 4.5, chloride 108, BUN 48, serum creatinine 1.49. ASSESSMENT: 1. Acute kidney injury, ATN currently improving. The patient has had good oral intake. 2. Chronic kidney disease stage III. Baseline creatinine about 1.5 and there has been a creatinine of about 2 as well, etiology diabetic kidney disease. 3. COVID-19 infection, maintained on steroids, zinc and Remdesivir. 4. Hypertension with CKD, currently improved: however, occasionally blood pressure remains elevated. I will increase the Norvasc to 10 mg daily. Hopefully, the blood pressure will be better controlled once patient is off of the Decadron. PLAN: Continue with oral dose of Lasix and if blood pressure remains elevated, increase Norvasc to 10 mg daily. The patient will need followup as outpatient for CKD. MMODL / IJN: [id number] /
[2020-03-28] MEDS ORDERED: NON FORMULARY DRUG (Insulin Aspart [Novolog Flexpen] 100 UNIT/ML Insuln.Pen) SQ SCH (17:30)
[2020-03-28] MEDS ORDERED: NON FORMULARY DRUG (Insulin Glargine 100 UNIT/ML Vial) SQ SCH (21:00)
[2020-03-28] MEDS ORDERED: hydrALAZINE HCL 50 MG TAB PO SCH (21:00)
[2020-03-28] MEDS ORDERED: ATORVASTATIN 40 MG TAB PO SCH (21:00)
[2020-03-28] MEDS ORDERED: FUROSEMIDE 40 MG TAB PO SCH (21:00)
[2020-03-28] MEDS ORDERED: NON FORMULARY DRUG (Carvedilol [Coreg] 25 MG Tablet) PO SCH (21:00)
[2020-03-29] MEDS ORDERED: PANTOPRAZOLE 40 MG TABLET PO SCH (09:00)
[2020-03-29] MEDS ORDERED: CALCIUM CARB-VIT D 500MG-200UN 1 EACH TAB PO SCH (09:00)
[2020-03-29] MEDS ORDERED: ISOSORBIDE MONONITRATE ER 60 MG TAB.ER.24H PO SCH (09:00)
[2020-03-29] MEDS ORDERED: MAGNESIUM OXIDE 400 MG TAB PO SCH (09:00)
[2020-03-29] MEDS ORDERED: LINAGLIPTIN 5 MG TABLET PO SCH (09:00)
[2020-03-29] MEDS ORDERED: DEXAMETHASONE 6 MG PO SCH (09:00)
[2020-03-29] MEDS ORDERED: NON FORMULARY DRUG (Aspirin Ec 81 MG Tablet.Dr) PO SCH (09:00)
[2020-03-29] MEDS ORDERED: allopurinoL 100 MG TAB PO SCH (09:00)
[2020-03-29] MEDS ORDERED: MULTIVITAMINS, THERA 1 EACH TAB PO SCH (09:00)
[2020-03-29] MEDS ORDERED: LEVOTHYROXINE 50 MCG TAB PO SCH (09:00)
== END 2020-03-28 18:00 | disposition home or self-care (01) | DRG 177 ==
LOC: EC 12:40 → 3SCARD 15:12
PROVIDERS: ADMIT Internal Medicine; ATTEND Internal Medicine
PROC: XW033E5 Introduction of Remdesivir Anti-infective into Peripheral Vein, Percutaneous Approach, New Technology Group 5 (ICD-10-PCS; principal; 2020-03-22)
DX: U07.1 COVID-19 (principal); N17.0 Acute kidney failure with tubular necrosis; J12.89 Other viral pneumonia; J96.01 Acute respiratory failure with hypoxia; I50.32 Chronic diastolic (congestive) heart failure; I13.0 Hypertensive heart and chronic kidney disease with heart failure and stage 1 through stage 4 chronic kidney disease, or unspecified chronic kidney disease; N18.4 Chronic kidney disease, stage 4 (severe); T38.0X5A Adverse effect of glucocorticoids and synthetic analogues, initial encounter; Z96.659 Presence of unspecified artificial knee joint; M19.90 Unspecified osteoarthritis, unspecified site; K21.9 Gastro-esophageal reflux disease without esophagitis; D72.810 Lymphocytopenia; E03.9 Hypothyroidism, unspecified; E11.22 Type 2 diabetes mellitus with diabetic chronic kidney disease; E11.41 Type 2 diabetes mellitus with diabetic mononeuropathy; E11.65 Type 2 diabetes mellitus with hyperglycemia; E78.5 Hyperlipidemia, unspecified; E86.0 Dehydration; H91.90 Unspecified hearing loss, unspecified ear; I08.1 Rheumatic disorders of both mitral and tricuspid valves; I87.2 Venous insufficiency (chronic) (peripheral); Z96.1 Presence of intraocular lens; I70.1 Atherosclerosis of renal artery; E11.51 Type 2 diabetes mellitus with diabetic peripheral angiopathy without gangrene; I25.119 Atherosclerotic heart disease of native coronary artery with unspecified angina pectoris; Z79.899 Other long term (current) drug therapy; Z79.890 Hormone replacement therapy; Z79.82 Long term (current) use of aspirin; Z79.52 Long term (current) use of systemic steroids; Z79.4 Long term (current) use of insulin; Z88.1 Allergy status to other antibiotic agents; Z88.8 Allergy status to other drugs, medicaments and biological substances; Z87.891 Personal history of nicotine dependence; Z86.19 Personal history of other infectious and parasitic diseases; Z82.49 Family history of ischemic heart disease and other diseases of the circulatory system; Z80.3 Family history of malignant neoplasm of breast; Z85.528 Personal history of other malignant neoplasm of kidney; Z90.49 Acquired absence of other specified parts of digestive tract; Z90.89 Acquired absence of other organs; Z98.890 Other specified postprocedural states; Z80.9 Family history of malignant neoplasm, unspecified; Z98.42 Cataract extraction status, left eye; Z98.41 Cataract extraction status, right eye
CPT/HCPCS: 36415; 71045; 76770; 78580; 80048; 80053; 80061; 81001; 82728; 83036; 83605; 83615; 83735; 84145; 84484; 84550; 85025; 85379; 85610; 85730; 86140; 87040; 93005; 93306; 94640; 96361; 96365; 96375; 99285

== ENCOUNTER → 2020-05-23 | Outpatient (CLI) | payer MEDICARE, BC ==
--- NOTE | 2020-05-23 15:59 | US ---
EXAMINATION TYPE: US venous doppler duplex LE RT DATE OF EXAM: 05/23/2020 3:47 PM COMPARISON: US CLINICAL HISTORY: R22.41 Swelling of right lower limb. Swelling right leg SIDE PERFORMED: Right TECHNIQUE: The lower extremity deep venous system is examined utilizing real time linear array sonog los with graded compression, doppler sonography and color-flow sonography. VESSELS IMAGED: Common Femoral Vein Deep Femoral Vein Greater Saphenous Vein * Femoral Vein Popliteal Vein Small Saphenous Vein * Proximal Calf Veins (* superficial vessels) Right Leg: Negative for DVT Results called to Dr. Dubon at time of exam IMPRESSION: 1. Right lower extremity ultrasound negative for deep venous thrombosis
== END | disposition home or self-care (01) ==
LOC: RADUSWWP 15:22
PROVIDERS: ATTEND Internal Medicine
DX: R22.41 Localized swelling, mass and lump, right lower limb (principal); Z88.5 Allergy status to narcotic agent; Z88.8 Allergy status to other drugs, medicaments and biological substances

== ENCOUNTER → 2020-05-24 | Outpatient (CLI) | payer MEDICARE, BC ==
[2020-05-24 15:08] LABS: Basophils # (A) 0.03 X 10*3/uL (0.00-0.10); Basophils % (A) 0.5 %; Eosinophils # (A) 0.16 X 10*3/uL (0.04-0.35); Eosinophils % (A) 2.5 %; HCT 34.9 % (37.2-46.3); Lymphocytes # (A) 0.89 X 10*3/uL (0.90-5.00); Lymphocytes % (A) 13.7 %; MCH 28.1 pg (27.0-32.0); MCHC 31.5 g/dL (32.0-37.0); MCV 89.3 fL (80.0-97.0); Mean Platelet Volume 9.4 fL (9.5-12.2); Monocytes # (A) 0.57 X 10*3/uL (0.20-1.00); Monocytes % (A) 8.8 %; Neutrophils # (A) 4.81 X 10*3/uL (1.80-7.70); Neutrophils % (A) 74.2 %; Platelet Count 291 X 10*3/uL (140-440); RBC 3.91 X 10*6/uL (4.10-5.20); RDW 16.6 % (11.5-14.5); WBC 6.48 X 10*3/uL (4.50-10.00)
[2020-05-24 19:26] LABS: Hemoglobin A1C 6.6 % (4.0-6.0)
[2020-05-24 23:32] LABS: African American GFR (CKD) 27.6 (60.0-200.0); BUN/Creat Ratio 15.79 Ratio (12.00-20.00); Calcium 9.3 mg/dL (8.7-10.3); Magnesium 1.9 mg/dL (1.5-2.4); Non-African American GFR(CKD) 23.8 (60.0-200.0); Phosphorus 4.5 mg/dL (2.4-5.1); Potassium 4.9 mmol/L (3.5-5.5); Uric Acid 7.4 mg/dL (2.9-7.7)
== END | disposition home or self-care (01) ==
LOC: LABWHC1 10:08
PROVIDERS: ATTEND Internal Medicine
DX: N18.4 Chronic kidney disease, stage 4 (severe) (principal); E11.65 Type 2 diabetes mellitus with hyperglycemia; R80.9 Proteinuria, unspecified; E11.40 Type 2 diabetes mellitus with diabetic neuropathy, unspecified; L03.115 Cellulitis of right lower limb
CPT/HCPCS: 36415; 80048; 83036; 83735; 83970; 84100; 84550; 85025; 85379

== ENCOUNTER → 2020-10-02 | Outpatient (CLI) | payer MEDICARE, BC ==
[2020-10-02 11:47] LABS: Appearance,Urine Clear (Clear); Color,Urine Colorless; Specific Gravity,Urine 1.015 (1.001-1.035)
[2020-10-02 11:48] LABS: Bilirubin,Urine Negative (Negative); Blood,Urine Negative (Negative); Glucose,Urine (UA) Negative (Negative); Ketones,Urine Negative (Negative); Leukocyte Esterase,Urine Negative (Negative); Nitrite,Urine Negative (Negative); PH, Urine 5.5 (5.0-8.0); Protein,Urine Trace (Negative); Urobilinogen,Urine <2.0 mg/dL (<2.0)
[2020-10-02 15:16] LABS: African American GFR (CKD) 21.7 (60.0-200.0); Anion Gap 6.5 mmol/L (4.00-12.00); BUN/Creat Ratio 15.65 Ratio (12.00-20.00); Calcium 9.3 mg/dL (8.7-10.3); Carbon Dioxide 30.5 mmol/L (21.6-31.8); Non-African American GFR(CKD) 18.8 (60.0-200.0); Potassium 4.5 mmol/L (3.5-5.5); Total Bilirubin 0.5 mg/dL (0.2-1.2)
== END | disposition home or self-care (01) ==
LOC: LABWHC1 09:45
PROVIDERS: ATTEND Internal Medicine
DX: E11.65 Type 2 diabetes mellitus with hyperglycemia (principal); N39.0 Urinary tract infection, site not specified
CPT/HCPCS: 36415; 80053; 81003; 83036; 87086

== ENCOUNTER → 2021-03-01 | Outpatient (CLI) | payer MEDICARE, BC ==
[2021-03-01 16:05] LABS: Basophils # (A) 0.03 X 10*3/uL (0.00-0.10); Basophils % (A) 0.3 %; Eosinophils # (A) 0 X 10*3/uL (0.04-0.35); Eosinophils % (A) 0 %; HCT 35.5 % (37.2-46.3); HGB 11.1 g/dL (12.0-15.0); Lymphocytes # (A) 0.87 X 10*3/uL (0.90-5.00); MCH 27.5 pg (27.0-32.0); MCHC 31.3 g/dL (32.0-37.0); MCV 88.1 fL (80.0-97.0); Monocytes # (A) 0.75 X 10*3/uL (0.20-1.00); Monocytes % (A) 8.6 %; Neutrophils # (A) 7.02 X 10*3/uL (1.80-7.70); Neutrophils % (A) 80.6 %; Platelet Count 276 X 10*3/uL (140-440); RBC 4.03 X 10*6/uL (4.10-5.20); WBC 8.71 X 10*3/uL (4.50-10.00)
[2021-03-01 16:29] LABS: African American GFR (CKD) 19.6 (60.0-200.0); Albumin 3.4 g/dL (3.8-4.9); Albumin/Globulin Ratio 1.89 (1.60-3.17); Anion Gap 11.2 mmol/L (4.00-12.00); BUN/Creat Ratio 20.84 Ratio (12.00-20.00); Blood Urea Nitrogen 52.1 mg/dL (9.0-27.0); Calcium 8.9 mg/dL (8.7-10.3); Carbon Dioxide 27.8 mmol/L (21.6-31.8); Globulin 1.8 g/dL (1.6-3.3); Potassium 4.6 mmol/L (3.5-5.5); Total Bilirubin 0.4 mg/dL (0.30-1.20); Total Protein 5.2 g/dL (6.2-8.2)
== END | disposition home or self-care (01) ==
LOC: LABWHC1 10:15
PROVIDERS: ATTEND Internal Medicine
DX: E11.22 Type 2 diabetes mellitus with diabetic chronic kidney disease (principal); E11.65 Type 2 diabetes mellitus with hyperglycemia; N18.4 Chronic kidney disease, stage 4 (severe); D64.9 Anemia, unspecified
CPT/HCPCS: 36415; 80053; 83036; 85025